=== PATIENT | female | born 1940 | race Caucasian/White ===

== ENCOUNTER → 2016-06-08 | Outpatient (CLI) | payer BC ==
[~2016-06-08] MED LIST: ACET-1222 PO; AMLO5TAB4 PO; ASPI-589 PO; ATOR10TA82 PO; CALC500C70 PO; COEN100C15 PO; CYAN100020 PO; CYCL10TA6 PO; DEXT5LIQ23 PO; DIPH-437 PO; FLUO20CA35 PO; FLUT1AER5 INH; FRRS300 PO; GABA-113 PO; INSDGIPEN SC; INSU1INJ7 SC; ISOS30TA35 PO; ISOS60TA25 PO; LEVO112T4 PO; MCRHC/8025 PO; METO25TA56 PO; MGNO400 PO; NITR0.4S UT; NRN/100 PO; NVLGI/PEN SC; OMEG10007 PO; Proair HFA INH; RXC5 PO; SYMIN/8045 INH; TMF75 PO
[2016-06-08 12:40] LABS: HEMATOCRIT 38.9 % (37-47); MEAN CORPUSCULAR HEMOGLOBIN 30.4 pg (25-34); MEAN CORPUSCULAR HGB CONC 34.2 g/dl (32-36); PLATELET COUNT 317 K/uL (130-400); RED BLOOD COUNT 4.37 M/uL (4.2-5.4)
[2016-06-08 13:09] LABS: URINE APPEARANCE CLEAR (CLEAR); URINE BILIRUBIN NEG (NEG); URINE COLOR YELLOW; URINE EPITHELIAL CELL AUTO 0-5 /lpf (0-5); URINE NITRITE NEG (NEG); URINE PH 7.5 (4.5-7.5); URINE SPECIFIC GRAVITY 1.014 (1.000-1.030); UROBILINOGEN NEG (NEG)
[2016-06-08 13:16] LABS: MANUAL MICROSCOPIC REQUIRED? NO; REVIEW REQ? NO
[2016-06-08 13:53] LABS: BLOOD UREA NITROGEN 38 mg/dl (7-18); BUN/CREATININE RATIO 25.5 (10-20); CALCIUM 9.3 mg/dl (8.5-10.1); CARBON DIOXIDE 30 mmol/L (21-32); CHLORIDE 106 mmol/L (98-107); GLUCOSE 133 mg/dl (70-99); PHOSPHORUS 3.1 mg/dl (2.5-4.9); POTASSIUM 4.4 mmol/L (3.5-5.1); SODIUM 143 mmol/L (136-145)
[2016-06-08 14:02] LABS: URINE PROTIEN/CREAT RATIO 0.3 (0-0.2); URINE TOTAL PROTEIN 11.7 mg/dl (0-11.9)
== END | disposition home or self-care (01) ==
LOC: C.LAB1850 09:33
PROVIDERS: ATTEND Internal Medicine Nephrology
DX: I12.9 Hypertensive chronic kidney disease with stage 1 through stage 4 chronic kidney disease, or unspecified chronic kidney disease (principal); N18.3 Chronic kidney disease, stage 3 (moderate); R80.9 Proteinuria, unspecified; E11.22 Type 2 diabetes mellitus with diabetic chronic kidney disease; E11.65 Type 2 diabetes mellitus with hyperglycemia; E55.9 Vitamin D deficiency, unspecified

== ENCOUNTER 2016-09-16 07:49 | Inpatient (IN) | payer OTHER, BC ==
[2016-08-25 08:19] VITALS: BMI 39.0
--- NOTE | 2016-08-25 09:11 | PAT Medication Instructions ---
Service Date Aug 25, 2016. Current Home Medication List Acetaminophen (Acetaminophen Extra Stren), 2 TAB PO QID Acetaminophen/Diphenhydramine (Tylenol Pm), 1 TAB PO HS Amlodipine Besylate (Norvasc), 5 MG PO DAILY Aspirin (Aspirin Adult Low Dose), 81 MG PO QPM Atorvastatin (Lipitor), 20 MG PO DAILY Budesonide/Formoterol Fumarate (Symbicort 80/4.5 Inhaler), 2 PUFFS INH BID PRN for Shortness of Breath Calcium/Vitamin D (Os-Victor Manuel 500 Plus D), 1 TAB PO DAILY Coenzyme Q10 (Ubidecarenone) (Co Q10), 200 MG PO DAILY Cyanocobalamin (Vitamin B12), 1,000 MCG PO DAILY Dextromethorphan Polistirex (Delsym), 5 ML PO UD PRN for Cough Fish Oil ([place]-3), 1 CAP PO BID Fluoxetine (Prozac), 20 MG PO DAILY Fluticasone Propionate (Inhala (Flovent Diskus), 1 PUFFS INH BID PRN for Shortness of Breath Gabapentin (Neurontin), 600 MG PO QID Insulin Aspart (Novolog Flexpen), 20 UNITS SC BREAKFAST Insulin Aspart (Novolog Flexpen), 20 UNITS SC LUNCH Insulin Aspart (Novolog Flexpen), 35 UNITS SC DINNER Insulin Glargine (Lantus), 40 UNITS SC HS Isosorbide Mononitrate Ext Rel (Imdur Ext Rel), 30 MG PO QAM Isosorbide Mononitrate Ext Rel (Imdur Ext Rel), 60 MG PO QAM Levothyroxine Sodium (Levothyroxine Sodium), 112 MCG PO QPM Metoprolol Tartrate (Lopressor) (Lopressor), 25 MG PO BID Nitroglycerin (Nitrostat), 0.4 MG UT UD PRN for Chest Pain [Proair HFA], 1-2 PUFFS INH Q4-6HRS PRN for SOB/Wheezing Medication Instructions For Your Scheduled Surgery - Continue as directed: Nitroglycerin (Nitrostat), 0.4 MG UT UD PRN for Chest Pain - Hold the following medications 7-10 days prior to surgery: Coenzyme Q10 (Ubidecarenone) (Co Q10), 200 MG PO DAILY Fish Oil ([place]-3), 1 CAP PO BID - Hold the following medications the morning of surgery: Insulin Aspart (Novolog Flexpen), 20 UNITS SC BREAKFAST Insulin Aspart (Novolog Flexpen), 20 UNITS SC LUNCH Calcium/Vitamin D (Os-Victor Manuel 500 Plus D), 1 TAB PO DAILY Cyanocobalamin (Vitamin B12), 1,000 MCG PO DAILY Dextromethorphan Polistirex (Delsym), 5 ML PO UD PRN for Cough - Take the following medications the morning of surgery with a sip of water OTHERWISE NOTHING TO EAT OR DRINK AFTER MIDNIGHT: Amlodipine Besylate (Norvasc), 5 MG PO DAILY Atorvastatin (Lipitor), 20 MG PO DAILY [Proair HFA], 1-2 PUFFS INH Q4-6HRS PRN for SOB/Wheezing (use if needed; BRING TO HOSPITAL) Acetaminophen (Acetaminophen Extra Stren), 2 TAB PO QID (use if needed up to 4 hours prior to surgery) Fluticasone Propionate (Inhala (Flovent Diskus), 1 PUFFS INH BID PRN for Shortness of Breath Gabapentin (Neurontin), 600 MG PO QID Metoprolol Tartrate (Lopressor) (Lopressor), 25 MG PO BID Levothyroxine Sodium (Levothyroxine Sodium), 112 MCG PO QAM Isosorbide Mononitrate Ext Rel (Imdur Ext Rel), 30 MG PO QAM Isosorbide Mononitrate Ext Rel (Imdur Ext Rel), 60 MG PO QAM Fluoxetine (Prozac), 20 MG PO DAILY Budesonide/Formoterol Fumarate (Symbicort 80/4.5 Inhaler), 2 PUFFS INH BID PRN for Shortness of Breath - Take the following medications as scheduled the night before surgery: Insulin Aspart (Novolog Flexpen), 35 UNITS SC DINNER Insulin Glargine (Lantus), 40 UNITS SC HS Aspirin (Aspirin Adult Low Dose), 81 MG PO QPM [Proair HFA], 1-2 PUFFS INH Q4-6HRS PRN for SOB/Wheezing Acetaminophen/Diphenhydramine (Tylenol Pm), 1 TAB PO HS Acetaminophen (Acetaminophen Extra Stren), 2 TAB PO QID Fluticasone Propionate (Inhala (Flovent Diskus), 1 PUFFS INH BID PRN for Shortness of Breath Gabapentin (Neurontin), 600 MG PO QID Metoprolol Tartrate (Lopressor) (Lopressor), 25 MG PO BID Dextromethorphan Polistirex (Delsym), 5 ML PO UD PRN for Cough Budesonide/Formoterol Fumarate (Symbicort 80/4.5 Inhaler), 2 PUFFS INH BID PRN for Shortness of Breath If you have any questions please call us at [phone] or [phone] or [phone]
[2016-08-25 09:48] LABS: BASO % 0.5 %; BASO ABS # 0.04 K/uL (0-0.2); COMPLETE YES; EOS % 3.2 %; HEMATOCRIT 37.4 % (37-47); IG% 0.1 %; LYMPH % 30.3 %; LYMPH ABS # 2.36 K/uL (1.2-3.4); MEAN CELL VOLUME 90.6 fL (80-100); MEAN CORPUSCULAR HEMOGLOBIN 29.5 pg (25-34); MEAN CORPUSCULAR HGB CONC 32.6 g/dl (32-36); MEAN PLATELET VOLUME 10.7 fL (7.4-10.4); MONO % 5.3 %; NEUT % 60.6 %; PLATELET COUNT 298 K/uL (130-400); RED BLOOD COUNT 4.13 M/uL (4.2-5.4)
[2016-08-25 09:57] LABS: URINE APPEARANCE CLEAR (CLEAR); URINE BILIRUBIN NEG (NEG); URINE COLOR YELLOW; URINE NITRITE NEG (NEG); URINE SPECIFIC GRAVITY 1.023 (1.000-1.030); UROBILINOGEN NEG (NEG)
[2016-08-25 10:02] LABS: MANUAL MICROSCOPIC REQUIRED? NO; REVIEW REQ? NO
[2016-08-25 10:40] LABS: CREATININE 1.5 mg/dl (0.60-1.20); POTASSIUM 4.1 mmol/L (3.5-5.1)
[2016-08-25 12:19] LABS: CALCIUM 9.3 mg/dl (8.5-10.1)
[2016-09-16] VITALS (11 sets, daily range): BP systolic 119–174; BP diastolic 59–90; PULSE 69–95; TEMP 36.5–36.9; O2SAT 90–100; Ht 162.6 cm; Wt 103.1 kg
[~2016-09-16] VITALS: Ht 162.6 cm; Wt 103.1 kg
[~2016-09-16 07:49] MED LIST changes: -ATOR10TA82 PO; +ATOR10TA88 PO; +CEFAZOLIN 2000 MG/60 ML D5W IV SCH; -CYCL10TA6 PO; +FENTANYL CITRATE INJ 50 MCG/1 ML 2 ML VIAL ONE; -FRRS300 PO; -INSDGIPEN SC; +LACTATED RINGER'S 1000ML 1,000 ML IV SCH; +LIDOCAINE HCL 2% 2 ML VIAL (20MG/ML) ONE; -MGNO400 PO; +MIDAZOLAM HCL 1 MG/ML 2ML VIAL ONE; -NRN/100 PO; +PROPOFOL IV EMULSION 10 MG/ML 20 ML VIAL IV ONE; -RXC5 PO; -TMF75 PO
[2016-09-16] MEDS ORDERED: FENTANYL CITRATE INJ 50 MCG/1 ML 2 ML VIAL ONE ×2 (08:10→11:07)
[2016-09-16] MEDS ORDERED: PROPOFOL IV EMULSION 10 MG/ML 20 ML VIAL IV ONE (08:10)
[2016-09-16] MEDS ORDERED: ROCURONIUM BROMIDE 10 MG/ML 5 ML VIAL ONE (08:10)
[2016-09-16] MEDS ORDERED: DEXAMETHASONE SOD INJ 4 MG/ML VIAL ONE ×2 (08:10→09:53)
[2016-09-16] MEDS ORDERED: MIDAZOLAM HCL 1 MG/ML 2ML VIAL ONE ×2 (08:10→09:54)
[2016-09-16] MEDS ORDERED: ONDANSETRON INJ 2 MG/ML 2 ML VIAL ONE (08:10)
[2016-09-16] MEDS ORDERED: NEOSTIGMINE METHYLSULFATE 1 MG/ML 10ML VIAL ONE (08:10)
[2016-09-16] MEDS ORDERED: LIDOCAINE HCL 2% 2 ML VIAL (20MG/ML) ONE (08:10)
[2016-09-16] MEDS ORDERED: GLYCOPYRROLATE INJ 0.2 MG/ML VIAL ONE (08:10)
--- NOTE | 2016-09-16 08:18 | History & Physical Bridge Note ---
H&P Re-Evaluation Bridge Note: I have examined the patient, reviewed the History & Physical and in the interval since the performance of the History & Physical I have noted the following changes of clinical significance: No changes noted
--- NOTE | 2016-09-16 08:20 | History and Physical ---
History & Physical Date Sep 16, 2016. Chief Complaint back and leg pain History of Present Illness The patient is a 75 year old female with complaints of Past Medical/Surgical History Medical Problems: (1) Acute kidney injury (2) Confusion (3) Coronary artery disease (4) Influenza A (5) Spinal stenosis, other region Additional History Hepatic Disease: No Endocrine Disorder: Yes Kidney Disease: No Hypertension: Yes Heart Disease: No Bleeding Tendencies: No Infectious Diseases: No Allergies Coded Allergies: Clopidogrel (Verified Allergy, Unknown, Unknown, 08/25/16) Lisinopril (Verified Allergy, Unknown, Unknown, 08/25/16) Home Medications Scheduled Acetaminophen (Acetaminophen Extra Stren), 2 TAB PO QID Acetaminophen/Diphenhydramine (Tylenol Pm), 1 TAB PO HS Amlodipine Besylate (Norvasc), 5 MG PO QAM Aspirin (Aspirin Adult Low Dose), 81 MG PO QPM Atorvastatin (Lipitor), 20 MG PO QPM Calcium/Vitamin D (Os-Victor Manuel 500 Plus D), 1 TAB PO BID Coenzyme Q10 (Ubidecarenone) (Co Q10), 200 MG PO QPM Cyanocobalamin (Vitamin B12), 1,000 MCG PO QAM Fish Oil ([place]-3), 1 CAP PO BID Fluoxetine (Prozac), 20 MG PO QAM Gabapentin (Neurontin), 600 MG PO QID Insulin Aspart (Novolog Flexpen), 20 UNITS SC BREAKFAST Insulin Aspart (Novolog Flexpen), 20 UNITS SC LUNCH Insulin Aspart (Novolog Flexpen), 35 UNITS SC DINNER Insulin Glargine (Lantus), 40 UNITS SC HS Isosorbide Mononitrate Ext Rel (Imdur Ext Rel), 30 MG PO QAM Isosorbide Mononitrate Ext Rel (Imdur Ext Rel), 60 MG PO QAM Levothyroxine Sodium (Levothyroxine Sodium), 112 MCG PO QAM Metoprolol Tartrate (Lopressor) (Lopressor), 25 MG PO BID Telmisartan/Hctz (Micardis Hct), 1 TAB PO QAM Scheduled PRN Budesonide/Formoterol Fumarate (Symbicort 80/4.5 Inhaler), 2 PUFFS INH BID PRN for Shortness of Breath Dextromethorphan Polistirex (Delsym), 5 ML PO UD PRN for Cough Fluticasone Propionate (Inhala (Flovent Diskus), 1 PUFFS INH BID PRN for Shortness of Breath Nitroglycerin (Nitrostat), 0.4 MG UT UD PRN for Chest Pain [Proair HFA], 1-2 PUFFS INH Q4-6HRS PRN for SOB/Wheezing Physical Examination Skin: warm/dry, no rash Eyes: normal inspection, EOMI, sclerae normal ENT: normal ENT inspection, pharynx normal Head: normocephalic, atraumatic Neck: supple, no adenopathy, trachea midline Respiratory/Chest: lungs clear, normal breath sounds, no respiratory distress Cardiovascular: regular rate, rhythm, no edema, no murmur Abdomen / GI: normal bowel sounds, non tender Back: normal inspection Extremities: normal inspection, normal range of motion Neurologic/Psych: no motor/sensory deficits, alert, normal reflexes, oriented x 3 Diagnosis lumbar stenosis Plan of Treatment lumbar decompression and fusion L4-5 L5-S1
[2016-09-16] MEDS ORDERED: MoRPHine SULFATE 10 MG/ML CARP/VIAL IV PRN (08:30)
[2016-09-16] MEDS ORDERED: ATROPINE SULFATE 0.1 MG/ML 5ML SYR IV PRN (08:30)
[2016-09-16] MEDS ORDERED: EpHEDrine SULFATE INJ 50 MG/ML AMP IV PRN (08:30)
[2016-09-16] MEDS ORDERED: ONDANSETRON INJ 2 MG/ML 2 ML VIAL IV PRN ×2 (08:30→11:15)
[2016-09-16] MEDS ORDERED: BUPIVACAINE/EPINEPHRINE 0.5% MPF 1:200,000 10 ML VIAL ONE ×2 (08:45→08:46)
[2016-09-16] MEDS ORDERED: BACITRACIN 50000 UNIT VIAL ONE (08:45)
[2016-09-16] MEDS ORDERED: SODIUM CHLORIDE 0.9% PF 50 ML VIAL ONE (08:45)
[2016-09-16] MEDS ORDERED: BUPIVACAINE/EPINEPHRINE 0.5% MPF 1:200,000 10 ML VIAL INJ ONE (11:01)
[2016-09-16] MEDS ORDERED: FLOSEAL HEMOSTATIC MATRIX 10ML TOP ONE (11:02)
[2016-09-16] MEDS ORDERED: SODIUM CHLORIDE 0.9% 1000ML 1,000 ML IV SCH (11:11)
[2016-09-16] MEDS ORDERED: BISACODYL 10 MG SUPP PR PRN (11:15)
[2016-09-16] MEDS ORDERED: ALUMINUM/MAGNESIUM SUSP 30 ML UDC PO PRN (11:15)
[2016-09-16] MEDS ORDERED: MAGNESIUM HYDROXIDE SUSP 30 ML UDC PO PRN (11:15)
[2016-09-16] MEDS ORDERED: hydrOXYzine HCL 25 MG TAB PO PRN (11:15)
[2016-09-16] MEDS ORDERED: DO NOT ADMINISTER PNEUMOCOCCAL VACCINE PRN ×2 (11:15)
[2016-09-16] MEDS ORDERED: DO NOT ADMINISTER FLU VACCINE PRN ×3 (11:15)
[2016-09-16] MEDS ORDERED: LORAZEPAM INJ 0.5 MG in SYRINGE 0 ML IV PRN (11:15)
[2016-09-16] MEDS ORDERED: NITROGLYCERIN 0.4 MG SL PER TAB CHARGE UT PRN (11:15)
[2016-09-16] MEDS ORDERED: NALOXONE HCL 0.4 MG/1 ML VIAL/CARP IV PRN ×2 (11:15)
[2016-09-16] MEDS ORDERED: LORAZEPAM 0.5 MG TAB PO PRN (11:15)
[2016-09-16] MEDS ORDERED: ACETAMINOPHEN IV 100 ML IV PRN (11:15)
[2016-09-16] MEDS ORDERED: BUDESONIDE/FORMOTEROL FUMARATE 80/4.5 60 PUFFS/INHALER INH PRN (11:15)
[2016-09-16] MEDS ORDERED: FAMOTIDINE 20 MG TAB PO PRN (11:15)
[2016-09-16] MEDS ORDERED: METOCLOPRAMIDE HCL INJ 5 MG/ML 2 ML VIAL IV PRN (11:15)
[2016-09-16] MEDS ORDERED: PROMETHAZINE HCL INJ 12.5 MG in SODIUM CHLORIDE 0.9% 50ML 50 ML IV PRN (11:15)
[2016-09-16] MEDS ORDERED: SOD PHOSPHATE/SOD BIPHOSPHATE ENEMA 132 ML BTL PR PRN (11:15)
--- NOTE | 2016-09-16 11:32 | DIAGNOSTIC IMAGING REPORT ---
LUMBAR SPINE 2 OR 3 VIEW CLINICAL HISTORY: 75 years-old Female presenting with L4-S1 DECOMPRESSION. TECHNIQUE: 2 fluoroscopic spot images were obtained including frontal and lateral views of the lumbar spine as part of an intraoperative procedure. COMPARISON: Plain radiographs of the lumbar spine from 2015. FINDINGS/IMPRESSION: Bilateral transpedicular screw and tommy fixation of L4-S1 with interbody spacer at L4-5. Grossly normal anatomic alignment. Loss of intervertebral disc height at L5-S1. Please see separately dictated surgical report for further details. Fluoroscopy dosage (mGys): Not available. Fluoroscopy time: 24 seconds. Number of fluoroscopic spot images: 2. Electronically signed by: nIder Celestin M.D. 09/16/2016 11:31 AM Dictated Date/Time: 09/16/2016 11:29 AM
[2016-09-16] MEDS: FENTANYL CITRATE INJ 50 MCG/1 ML 2 ML VIAL IV PRN ×4 (11:50→12:05)
--- NOTE | 2016-09-16 12:28 | Anesthesiology Progress Note ---
Anesthesia Post Op Note Date & Time Sep 16, 2016 at 12:28 Vital Signs Pain Intensity: 4 Vital Signs Past 12 Hours Date Time Temp Pulse Resp B/P (MAP) Pulse Ox O2 Delivery O2 Flow Rate FiO2 09/16/16 12:15 36.7 73 16 151/54 97 Nasal Cannula 4 09/16/16 12:05 74 16 135/47 96 Nasal Cannula 4 09/16/16 11:55 67 16 124/63 97 Nasal Cannula 4 09/16/16 11:45 66 16 105/46 97 Mask 10 09/16/16 11:35 69 16 103/47 94 Mask 10 09/16/16 11:27 37.2 70 16 136/54 92 Mask 10 09/16/16 08:12 36.9 69 20 174/59 95 Notes Mental Status: alert / awake / arousable, participated in evaluation Pt Amnestic to Procedure: Yes Nausea / Vomiting: adequately controlled Pain: adequately controlled Airway Patency, RR, SpO2: stable & adequate BP & HR: stable & adequate Hydration State: stable & adequate Anesthetic Complications: no major complications apparent
[2016-09-16] MEDS ORDERED: LORAZEPAM 2 MG/ML 1 ML VIAL ONE (12:45)
[2016-09-16] MEDS ORDERED: NURSING VERBAL MED ORDER ONE (12:48)
[2016-09-16] MEDS ORDERED: HYDROmorphone HCL 0.5MG/ML 50 ML CASSETTE ONE (13:03)
[2016-09-16] MEDS: HYDROmorphone HCL 0.5MG/ML 50 ML CASSETTE IV PRN ×2 (13:17→14:57)
--- NOTE | 2016-09-16 13:29 | [facility] Operative Report ---
Operative Report Operative Date Sep 16, 2016. Pre-Operative Diagnosis Lumbar Stenosis Post-Operative Diagnosis Lumbar Stenosis Procedure(s) Performed #1 lumbar decompression medial facetectomy foraminotomies L3 4 L4 5 L5-S1. #2 posterior spinal fusion L4 5 L5-S1. #3 placement of posterior segmental instrumentation L4 5 L5-S1. #4 interbody fusion L4 5. #5 placement of peek cage 13 x 22 mm at L4 5. #Placement of locally harvested morcellized autograft in the posterior lateral gutters and #7 placement InFUSE sponge about mask graft in the posterior gutters Coleen bone graft in the interbody space. Surgeon Dr. Josef Freire Shorer Surgeon(s) Farideh Daily PA-C Estimated Blood Loss 200ml Findings Severe stenosis Specimens None Per Surgeon Description of Procedure Patient was met with preoperative case discussed all questions are dressed with the patient was taken back to the operative suite and after undergoing intubation placed in a prone position on the Tomy table on top of the Samir frame. All bony promises well-padded eyes inspected to ensure no external pressure placed upon them. This time the lumbar spine was prepped and draped in the normal sterile fashion sharp dissection with assistance of fluoroscopy caudal to cephalad fashion a complete laminectomy of L5 L4 and partial laminectomy of L3 performed to address severe lateral recessed foraminal stenosis. After this complete pedicle screws were placed in L4-L5 and S1 levels bilaterally assistance of fluoroscopy and appropriate size tommy placed. Through a transforaminal approach on the left discectomy of L4 5 was performed and endplates curetted to a a subcortical bleeding bone and a 13 x 26 mm peek cage filled with Coleen bone graft tapped into position. Brought in and compressed locked and final position bilaterally. A 15 round ZAHEER drain inserted. Incision closed with 1 Vicryl in the fascia 2-0 Vicryl subcutaneously for Monocryl for final skin closure Steri-Strips sterile dressings placed patient awakened taken to PACU stable condition. Please note Farideh Dior present throughout the entire procedure involved in patient positioning complex portions of the procedure and final skin closure. I attest to the content of the Intraoperative Record and any orders documented therein. Any exceptions are noted below.
[2016-09-16] MEDS ORDERED: HYDROmorphone INJ 1 MG/ML SYR IV PRN (13:30)
[2016-09-16] MEDS ORDERED: PHARMACY GLYCEMIC MGMT CONSULT PRN (13:34)
[2016-09-16] MEDS: SODIUM CHLORIDE 0.9% 1000ML 1,000 ML IV SCH ×2 (14:04→21:00)
[2016-09-16] MEDS ORDERED: FLUTICASONE HFA 110MCG INHALER INH PRN (14:15)
[2016-09-16] MEDS ORDERED: GLUCOSE 40% GEL 15 GM TUBE PO PRN (14:45)
[2016-09-16] MEDS ORDERED: GLUCOSE 10 TABS/TUBE PO PRN (14:45)
[2016-09-16] MEDS ORDERED: DEXTROSE 50% 50 ML SYR IV PRN (14:45)
[2016-09-16] MEDS ORDERED: GLUCAGON FOR INJ 1 MG VIAL SQ PRN (14:45)
--- NOTE | 2016-09-16 15:20 | Pharmacy Progress Note ---
Glycemic Control Intl Consult Date of Service Sep 16, 2016. Scope Glycemic Pharmacist consulted by Dr Freire on 09/16/16 for glycemic control and to write orders per [facility] inpatient glycemic control protocol Objective Weight (Kilograms): 103.100 Accuchecks BSG (last 24hrs): Test 09/16/16 08:17 09/16/16 11:33 Bedside Glucose 124 mg/dl (70-90) 183 mg/dl (70-90) Recent Pertinent Medications Outpatient Anti-diabetic Regimen: * Lantus 40 units SC HS + Novolog with meals 20 units/20 units/35 units * A1c = 8.1 % 09/11/15 - ordered for 09/17 am Risk Factors for Insulin Resistance: * Steroids: Dexamethasone 8 mg in OR, then 6 mg IV every 8 hours x 3 doses * Infection: Ancef fariba-op * Recent Surgery: POD #0 lumbar decompression and fusion * Diet: T2MD Assessment & Plan ASSESSMENT: * 75 yr old T2DM female s/p lumbar decompression and fusion. * Patient with hyperglycemia due to baseline DM, stress from surgery, and high dose IV steroids * Patient takes 115 units of insulin per day as outpatient. * Will initiate basal and bolus insulin using her total home dose of 115 units with stress of 3. * Will decrease insulin doses once steroids are discontinued * ADA & AACE recommend a goal blood sugar range 140-180 mg/dl for the majority of critically ill & non-critically ill patients. However, more stringent targets may be selected in individual cases. Will utilize more stringent goal of 110-140mg/dl based on patient age & comorbidities. Additionally, tighter glycemic control is warranted to facilitate wound/infection healing. PLAN FOR INPATIENT GLYCEMIC CONTROL: * Basal insulin * Lantus 55 units SQ today with dinner * Lantus 30-40 units SQ 09/17 am - 30 units for BSG less than 140 mg/dL - 35 units for BSG 140 - 180 mg/dL - 40 units for BSG greater than 180 mg/dL * Further doses to be determined * Bolus insulin * NOVOLOG per scale ACHS * Goal Range: Low 110 mg/dL - High 140 mg/dL * Correction Factor: 5 mg/dL/unit * Nutritional / Prandial insulin per carb ratio of 1 unit per 2 grams CHO consumed * Add overnight checks with coverage at 00 and 04 * A1c ordered * Please note that the plan above was derived based on current level of insulin resistance and hospital stress. These recommendations are appropriate for inpatient admission only. Plan of care upon discharge will need to be reassessed to avoid potential outpatient hypo/hyperglycemia. Thank you.
--- NOTE | 2016-09-16 15:43 | Medical Consult ---
Consultation Date of Consultation: Sep 16, 2016. Attending Physician: Josef Freire D.O. History of Present Illness This is a 75 yo F with PMHx of diabetes type II, hypertension, allergies, osteopenia, hypothyroidism, coronary artery disease, chronic kidney disease stage 3, spinal stenosis, now s/p elective L4-S1 spinal decompression and fusion by Dr. Freire on 09/16/16. Pt is extremely somnolent due to dilaudid AGRICULTURAL AIRCRAFT PILOT which she has pushed a total of 5 times with 0.25 mg, to total 1.25 mg between 2 - 4 pm, Ativan 2 mg IV at 12: 30 pm, and Fentanyl 200 mcg intraoperatively. , Favian, is present at bedside, and he reports she does not take more than tylenol at home. The patient wakes up and is oriented to place and self. She is unable to stay awake long enough to follow basic commands such as taking deep breaths. She denies any pain and apologizes each time I need to wake her up for sleeping. . Past Medical/Surgical History Medical Problems: (1) Altered mental status Status: Acute (2) Hypoxia Status: Acute (3) Orthostasis Status: Acute diabetes type II hypertension osteopenia atrial fibrillation hypothyroidism chronic kidney disease spinal stenosis. PAST SURGICAL HISTORY: Knee replacement Tonsillectomy cardiac catheterization, which appears to have been done in 2008 with the LAD showing a 30% proximal, 60% occlusion after the first diagonal and 70% distal occlusion, circumflex with a 30% stenosis at the origin 60% occlusion of an obtuse marginal and she had a non-dominant right coronary with 100% mid occlusion. Family History No pertinent family history Social History Smoking Status: Never Smoker Smokeless Tobacco Use: No Alcohol Use: none Drug Use: none Marital Status: Housing Status: lives with family, lives with significant other Occupation Status: retired Allergies Coded Allergies: Clopidogrel (Verified Allergy, Unknown, Unknown, 09/16/16) Lisinopril (Verified Allergy, Unknown, Unknown, 09/16/16) Current Inpatient Medications Current Inpatient Medications Medications (Trade) Dose Ordered Sig/Louis Route Start Time Stop Time Status Last Admin Dose Admin Lactated Ringer's 1,000 ml @ 15 mls/hr Q24H IV 09/16/16 06:00 09/17/16 05:59 09/16/16 08:10 15 MLS/HR Cefazolin Sodium 60 ml @ 100 mls/hr PREOP IV 09/16/16 06:00 09/16/16 18:00 09/16/16 08:52 100 MLS/HR Dexamethasone Sodium Phosphate 6 mg/Syringe 1.5 ml @ 1 mls/min Q8H IV 09/16/16 18:00 09/17/16 10:02 Promethazine HCl 12.5 mg/Sodium Chloride 50.5 ml @ 202 mls/hr Q6H PRN IV 09/16/16 11:15 10/16/16 11:14 Ondansetron HCl (Zofran Inj) 4 mg Q6H PRN IV 09/16/16 11:15 10/16/16 11:14 Metoclopramide HCl (Reglan Inj) 10 mg Q6H PRN IV 09/16/16 11:15 10/16/16 11:14 Lorazepam (Ativan Tab) 0.5 mg Q8H PRN PO 09/16/16 11:15 10/16/16 11:14 Lorazepam 0.5 mg/ Syringe 0.25 ml @ 1 mls/min Q8H PRN IV 09/16/16 11:15 10/16/16 11:14 Pneumococcal Polysaccharide Vaccine 1 ea PRN PRN N/A 09/16/16 11:15 10/16/16 11:14 Influenza Virus Vacc Triv Types A&B 1 ea PRN PRN N/A 09/16/16 11:15 10/16/16 11:14 Polyethylene (Miralax Powder Packet) 17 gm Q6 PO 09/18/16 06:00 10/18/16 05:59 Bisacodyl (Dulcolax Supp) 10 mg DAILY PRN OR 09/16/16 11:15 10/16/16 11:14 Magnesium Hydroxide (Milk Of Magnesia Susp) 30 ml DAILY PRN PO 09/16/16 11:15 10/16/16 11:14 Hydromorphone HCl (Dilaudid Inj) 0.5 mg Q3H PRN IV 09/17/16 06:01 10/01/16 06:00 Oxycodone HCl (Roxicodone Immediate Rel Tab) 5-10mg prn moderate to sev... Q4H PRN PO 09/17/16 06:00 10/01/16 05:59 Cefazolin Sodium 2000 mg/Dextrose 60 ml @ 100 mls/hr Q8H IV 09/16/16 18:00 09/17/16 02:35 Sodium Chloride 1,000 ml @ 150 mls/hr Q6H40M IV 09/16/16 14:00 10/16/16 11:10 09/16/16 14:04 150 MLS/HR Acetaminophen 100 ml @ 400 mls/hr Q8H PRN IV 09/16/16 11:15 10/16/16 11:14 Naloxone HCl (Narcan Inj) 0.1 mg Q5M PRN IV 09/16/16 11:15 10/16/16 11:14 Senna/Docusate Sodium (Senokot S Tab) 2 tab HS PO 09/16/16 21:00 10/16/16 20:59 Sodium Biphosphate/ Sodium Phosphate (Fleet Enema) 132 ml ONE PRN OR 09/16/16 11:15 10/16/16 11:14 Hydroxyzine HCl (Vistaril Tab) 25 mg Q8H PRN PO 09/16/16 11:15 10/16/16 11:14 Al Hydroxide/Mg Hydroxide (Maalox Susp) 30 ml Q6H PRN PO 09/16/16 11:15 10/16/16 11:14 Famotidine (Pepcid Tab) 20 mg Q12 PRN PO 09/16/16 11:15 10/16/16 11:14 Diphenhydramine HCl (Benadryl Cap) 25 mg Q6H PRN PO 09/16/16 11:15 10/16/16 11:14 Miscellaneous Information (Discontinue AGRICULTURAL AIRCRAFT PILOT) 1 ea TODAY@0600 N/A 09/17/16 06:00 09/17/16 06:01 Naloxone HCl (Narcan Inj) 0.1 mg Q5M PRN IV 09/16/16 11:15 09/17/16 06:00 Hydromorphone HCl (Dilaudid Digital Forensics Examiner) 25 mg PRN PRN IV 09/16/16 11:15 09/17/16 06:00 09/16/16 14:57 25 MG Sodium Chloride 1,000 ml @ 15 mls/hr Q24H IV 09/16/16 11:11 09/17/16 06:00 Amlodipine Besylate (Norvasc Tab) 5 mg QAM PO 09/17/16 09:00 10/17/16 08:59 Aspirin (Ecotrin Tab) 81 mg QPM PO 09/16/16 21:00 10/16/16 20:59 Atorvastatin Calcium (Lipitor Tab) 20 mg QPM PO 09/16/16 21:00 10/16/16 20:59 Budesonide/ Formoterol Fumarate (Symbicort 80/ 4.5 Inh) 2 puffs BID PRN INH 09/16/16 11:15 10/16/16 11:14 Fluoxetine HCl (Prozac Cap) 20 mg QAM PO 09/17/16 09:00 10/17/16 08:59 Gabapentin (Neurontin Tab) 600 mg QID PO 09/16/16 17:00 10/16/16 16:59 Isosorbide Mononitrate (Imdur Ext Rel Tab) 30 mg QAM PO 09/17/16 09:00 10/17/16 08:59 Isosorbide Mononitrate (Imdur Ext Rel Tab) 60 mg QAM PO 09/17/16 09:00 10/17/16 08:59 Levothyroxine Sodium (Synthroid Tab) 112 mcg DAILYBB PO 09/17/16 06:00 10/17/16 05:59 Metoprolol Tartrate (Lopressor Tab) 25 mg BID PO 09/16/16 21:00 10/16/16 20:59 Nitroglycerin (Nitrostat Tab) 0.4 mg UD PRN UT 09/16/16 11:15 10/16/16 11:14 Fluticasone Propionate (Flovent Hfa 110MCG Inhaler) 1 puffs BID PRN INH 09/16/16 14:15 10/16/16 14:14 Telmisartan (Micardis Tab) 80 mg QAM PO 09/17/16 09:00 10/17/16 08:59 Miscellaneous Information (Consult Glycemic Management Pharmacy) 1 ea UD PRN N/A 09/16/16 13:34 10/16/16 13:33 Hydromorphone HCl (Dilaudid Inj) 1 mg Q3H PRN IV 09/16/16 13:30 09/30/16 13:29 Future hold Hydrochlorothiazide (Hydrochlorothiazide Tab) 25 mg QAM PO 09/17/16 09:00 10/17/16 08:59 Insulin Aspart (novoLOG ASPART) SLIDING SCALE ACHS SC 09/16/16 17:15 10/16/16 17:14 Glucose (Glucose 40% Gel) 15-30 GRAMS 15 GRAMS... UD PRN PO 09/16/16 14:45 10/16/16 14:44 Glucose (Glucose Chew Tab) 4-8 Tablets 4 Tabl... UD PRN PO 09/16/16 14:45 10/16/16 14:44 Dextrose (Dextrose 50% 50ML Syringe) 25-50ML OF 50% DW IV FOR... UD PRN IV 09/16/16 14:45 10/16/16 14:44 Glucagon (Glucagon Inj) 1 mg UD PRN SQ 09/16/16 14:45 10/16/16 14:44 Insulin Aspart (novoLOG ASPART) SLIDING SCALE 0000,0400 OR 09/17/16 00:00 09/17/16 04:01 Insulin Glargine (Lantus Solostar Pen) 55 units 1615 OR 09/16/16 16:15 09/16/16 17:15 Insulin Glargine (Lantus Solostar Pen) SEE PROTOCOL TEXT ... BID SC 09/17/16 09:00 09/17/16 11:00 Review of Systems Constitutional: + fatigue, No fever, No chills, No sweats Respiratory: No shortness of breath, No dyspnea on exertion Cardiovascular: No chest pain Abdomen: No pain, No nausea Musculoskeletal: No joint pain, No swelling Endocrine: + fatigue Integumentary: No rash, No itch Physical Exam Date Time Temp Pulse Resp B/P (MAP) Pulse Ox O2 Delivery O2 Flow Rate FiO2 09/16/16 15:13 36.5 79 18 130/90 (103) 97 Nasal Cannula 4.0 09/16/16 14:15 70 18 129/72 (91) 96 Nasal Cannula 4.0 09/16/16 13:45 72 16 129/69 (89) 96 Nasal Cannula 4.0 09/16/16 13:15 36.8 75 18 122/64 (83) 90 Nasal Cannula 4.0 09/16/16 13:15 90 Nasal Cannula 4.0 09/16/16 12:56 36.6 09/16/16 12:55 75 16 157/58 100 Nasal Cannula 4 09/16/16 12:45 75 16 172/58 100 Nasal Cannula 4 09/16/16 12:35 78 16 160/92 100 Nasal Cannula 4 09/16/16 12:25 36.7 77 16 162/59 100 Nasal Cannula 4 09/16/16 12:15 36.7 73 16 151/54 97 Nasal Cannula 4 09/16/16 12:05 74 16 135/47 96 Nasal Cannula 4 09/16/16 11:55 67 16 124/63 97 Nasal Cannula 4 09/16/16 11:45 66 16 105/46 97 Mask 10 09/16/16 11:35 69 16 103/47 94 Mask 10 09/16/16 11:27 37.2 70 16 136/54 92 Mask 10 09/16/16 08:12 36.9 69 20 174/59 95 General Appearance: WD/WN, + obese, + pertinent finding (obese, extremly somnolent) Head: normocephalic, atraumatic Eyes: PERRL, EOMI ENT: hearing grossly normal, pharynx normal Neck: supple, no JVD Respiratory/Chest: lungs clear, no respiratory distress, no accessory muscle use, + pertinent finding (+snoring) Cardiovascular: regular rate, rhythm, + systolic murmur (grade II/) Abdomen/GI: non tender, soft, no organomegaly, + pertinent finding (Hypoactive bowel sounds) Extremities/Musculoskelatal: normal inspection, no calf tenderness, no pedal edema, + pertinent finding (moves feet and toes bilaterally on command) Neurologic/Psych: alert Skin: normal color, warm/dry Laboratory Results Last 24 Hours Test 09/16/16 08:17 09/16/16 11:33 Bedside Glucose 124 mg/dl 183 mg/dl Assessment & Plan This is a 75 yo F with PMHx of diabetes type II, hypertension, allergies, osteopenia, atrial fibrillation, hypothyroidism, coronary artery disease, chronic kidney disease stage 3, spinal stenosis, now s/p elective L4-S1 spinal decompression and fusion by Dr. Freire on 09/16/16. S/p L4-S1 spinal decompression and fusion on 09/16/16 - Analgesia and bowel regimen per primary team - Will d/c AGRICULTURAL AIRCRAFT PILOT pump due to sedation, will order Dilaudid 0.5 or 1.0 mg Q3H prn - PT/OT - Wound checks and bandage per primary team - No anticoagulation with spinal surgery - Follow CBC with am labs - Cont gabapentin 600 mg QID for pain DM II - Lantus 55 U QPM ordered for tonight - reports she takes Lantus 40 U QPM, Aspart 20 U with breakfast and lunch, and 35 U with dinner at home. - Pharmacy on board for diabetic consult - ISS with Accuchecks ACHS - Last Hgb A1c = 8.1 in August 2015, will recheck with am labs Asthma - Will order symbicort 2 puffs scheduled although home med says PRN, will hold flovent HTN CAD s/p cardiac cath 2008 - Continue amlodipine 5 mg QAM, metoprolol tartrate 25 mg BID, telmisartan 80 mg QAM, ASA 81 mg - Hold Hydrochlorothiazide 25 mg QAM HLD - Cont atorvastatin 20 mg QAM CKD stage III - Cr baseline of 1.4-1.5, check with am PRP Osteopenia - Continue supplementation with Vit D and calcium GERD - Cont famotidine 20 mg daily DVT ppx: teds, scds, no chemical anticoagulation with spinal surgery Disposition: From home, PT/OT TYLER osborn to assist with discharge planning for rehab Reviewed: Pt Seen/Exam by Me History Physician Beef Tagger Supervision Note: I interviewed and examined the patient. Discussed with ULYSSES Solis and agree with findings and plan as documented in the note. Any exceptions or clarifications are listed here: Pt much more awake and alert, is oriented x 3 now. Still intermittent confusion but her reports she is much better than previously. She has no complaints, pain in back is controlled, no CP or SOB, no abd pain, no N/V. Vitals reviewed NAD, obese, AAOx3 but keeps raising her hands towards her face to fix her NC, then drops hands back down and says "what am I doing?" RRR +2/6 GENIA at [facility] CTAB no wcr Abd +BS Soft NT ND, obese Ext no edema, no calf tenderness Back: dressing in palce c/d/i 75 yo female with a h/o [place] A-fib, HTN, CAD, DMII, CKD stage III, here s/p lumbar fusion and laminectomy. -improved mental status, recommend avoidance of benzos in future and minimize opioids as well -Seems to have a h/o delirium in the past (previous admission for delirium related to dehydration) and likely has some underlying dementia given this history--> recommend possible Neuropsych testing as an outpatient -decrease Dilaudid dose to 0.25mg IV q1hr prn Documented By: Dianne Stahl
[2016-09-16] MEDS ORDERED: INSULIN GLARGINE SOLOSTAR 100 UNITS/ML 3 ML PEN SC SCH (16:15)
[2016-09-16] MEDS: GABAPENTIN 600 MG TAB PO SCH ×2 (17:00→21:03)
[2016-09-16] MEDS: INSULIN ASPART 100 UNITS/ML 3 ML PEN SC SCH ×2 (18:06→22:01)
[2016-09-16] MEDS: DEXAMETHASONE INJ 6 MG in SYRINGE 0 ML IV SCH (18:18)
[2016-09-16] MEDS: CEFAZOLIN IV 2,000 MG in DEXTROSE 5% 50ML 50 ML IV SCH (18:18)
[2016-09-16] MEDS: DOCUSATE SODIUM/SENNA 50/8.6MG TAB PO SCH (21:03)
[2016-09-16] MEDS: METOPROLOL TARTRATE 25 MG TAB PO SCH (21:03)
[2016-09-16] MEDS: ASPIRIN 81 MG ECTAB PO SCH (21:03)
[2016-09-16] MEDS: ATORVASTATIN 20 MG TAB PO SCH (21:03)
[2016-09-16] MEDS ORDERED: HYDROmorphone INJ 0.5 MG/0.5 ML SYR IV PRN (22:00)
[2016-09-17] VITALS (8 sets, daily range): BP systolic 110–135; BP diastolic 62–70; PULSE 66–86; TEMP 36.8–37.3; O2SAT 89–97
[2016-09-17] MEDS: INSULIN ASPART 100 UNITS/ML 3 ML PEN SC SCH ×6 (00:08→21:30)
[2016-09-17] MEDS: DEXAMETHASONE INJ 6 MG in SYRINGE 0 ML IV SCH ×2 (01:55→10:05)
[2016-09-17] MEDS: CEFAZOLIN IV 2,000 MG in DEXTROSE 5% 50ML 50 ML IV SCH (01:55)
[2016-09-17] MEDS: OXYCODONE HCL IR 5 MG TAB (IMMEDIATE RELEASE) PO PRN (02:50)
[2016-09-17] MEDS: SODIUM CHLORIDE 0.9% 1000ML 1,000 ML IV SCH (03:49)
[2016-09-17] MEDS: LEVOTHYROXINE 112 MCG TAB PO SCH (05:14)
[2016-09-17 06:00] LABS: BASO % 0.1 %; BASO ABS # 0.01 K/uL (0-0.2); COMPLETE YES; HEMATOCRIT 33.2 % (37-47); IG% 0.3 %; LYMPH % 5.8 %; LYMPH ABS # 1.08 K/uL (1.2-3.4); MEAN CELL VOLUME 92.5 fL (80-100); MEAN CORPUSCULAR HEMOGLOBIN 31.2 pg (25-34); MEAN CORPUSCULAR HGB CONC 33.7 g/dl (32-36); MEAN PLATELET VOLUME 10.8 fL (7.4-10.4); MONO % 2.9 %; NEUT % 90.9 %; PLATELET COUNT 277 K/uL (130-400); RED BLOOD COUNT 3.59 M/uL (4.2-5.4); WHITE BLOOD COUNT 18.54 K/uL (4.8-10.8)
[2016-09-17] MEDS ORDERED: DC PCA SCH (06:00)
[2016-09-17] MEDS ORDERED: OXYCODONE HCL IR 5 MG TAB (IMMEDIATE RELEASE) PO PRN (06:00)
[2016-09-17] MEDS ORDERED: HYDROmorphone INJ 0.5 MG/0.5 ML SYR IV PRN (06:01)
[2016-09-17 06:30] LABS: CALCIUM 8.8 mg/dl (8.5-10.1); CREATININE 1.4 mg/dl (0.60-1.20); POTASSIUM 4.5 mmol/L (3.5-5.1)
[2016-09-17 07:50] LABS: ESTIMATED AVERAGE GLUCOSE 166 mg/dl; HA1C FLAG Normal (Normal)
--- NOTE | 2016-09-17 08:01 | Pharmacy Progress Note ---
Glycemic Control Progress Note Date of Service Sep 17, 2016. Scope Glycemic Pharmacist consulted for glycemic control to write orders per [facility] inpatient glycemic control protocol. Objective Accuchecks BSG (last 24hrs): Test 09/16/16 08:17 09/16/16 11:33 09/16/16 17:03 09/16/16 21:03 Bedside Glucose 124 mg/dl (70-90) 183 mg/dl (70-90) 244 mg/dl (70-90) 205 mg/dl (70-90) Test 09/17/16 00:00 09/17/16 03:45 09/17/16 05:00 Bedside Glucose 171 mg/dl (70-90) 134 mg/dl (70-90) Random Glucose 139 mg/dl (70-99) HbA1c: Test 09/17/16 05:00 Hemoglobin A1c 7.4 % (4.5-5.6) H Recent Pertinent Medications Current inpatient regimen: * Basal insulin * Lantus 55 units SQ 09/16 PM * Lantus 40 units SQ 09/17 AM * Bolus insulin * NOVOLOG per scale ACHS * Goal Range: Low 110 mg/dL - High 140 mg/dL * Correction Factor: 5 mg/dL/unit * Nutritional / Prandial insulin per carb ratio of 1 unit per 2 grams CHO consumed Risk Factors for Insulin Resistance: * Steroids: Dexamethasone 6 mg IV every 8 hours x 3 doses - last dose 09/17 @ 1000 * Recent Surgery: POD #1 lumbar decompression and fusion * Diet: T2MD Outpatient Anti-Diabetic Meds Basal Insulin * Lantus 40 units SC HS Bolus Insulin * Novolog with meals 20 units/20 units/35 units Assessment & Plan ASSESSMENT: See progress note from 09/16/16 for more background info, in short: * 75 yr old T2DM female s/p lumbar decompression and fusion * Pt receiving SQ basal bolus insulin regimen for hyperglycemia secondary to baseline DM, stress from surgery, and high dose IV steroids * Patient received 96 units of insulin yesterday (of note, insulin orders did not start until ~1600, therefore, this value is not indicative of 24 hr needs): * 55 units of basal insulin * 41 units of prandial/correctional insulin * BSGs ranging 124 - 244 mg/dl over the past 24hrs * Changes needed to insulin regimen: * AM Fasting BSG = 134 mg/dl. This is in slightly above goal range for patient based on inpatient targets and co-morbidities. Continue increased amount of basal insulin until dexamethasone effect has dissipated. Patient is currently on Lantus every 12 hours - will attempt to resume once daily dosing on 09/18 in anticipation of discharge * Post-prandial BSGs are elevated but trending downward. Continue aggressive CF /CR until dexamethasone effect has dissipated. * Adequate glycemic control at this point. Will need to re-distribute regimen 50%:50% basal:prandial to prevent hypo/hyperglycemia once steroids are discontinued. PLAN FOR INPATIENT GLYCEMIC CONTROL: * Basal insulin * Lantus 20-30 units SQ tonight (further orders to be determined on 09/18) - 20 units for BSG less than 120 mg/dL - 25 units for BSG 120 - 180 mg/dL - 30 units for BSG greater than 180 mg/dL * Bolus insulin * NOVOLOG per scale ACHS + check with coverage at 0200 * Goal Range: Low 110 mg/dL - High 140 mg/dL * Correction Factor: 5 mg/dL/unit -> change to 10 mg/dL/unit 09/17 @ 2100 * Nutritional / Prandial insulin per carb ratio of 1 unit per 1.5 grams CHO consumed -> change to 4 09/17 @ 2100 DISCHARGE RECOMMENDATIONS: * Good outpatient control evidenced by A1c of 7.4 % (09/17/16) * Continue home regimen on discharge unless patient reports hypoglycemic episodes as out patient. * Please note that the plan above was derived based on current level of insulin resistance and hospital stress. These recommendations are appropriate for inpatient admission only. Plan of care upon discharge will need to be reassessed to avoid potential outpatient hypo/hyperglycemia. Thank you.
--- NOTE | 2016-09-17 08:10 | Progress Note ---
Progress Note Date of Service Sep 17, 2016. Progress Note Patient is postop day 1 lumbar depression fusion. Back pain is well- controlled. No leg pain. Vital signs are stable. ZAHEER drain decreasing appropriately. Assessment status post lumbar depression fusion replant this time we will initiate physical therapy assess her progress of the next few days for possible discharge home versus rehabilitation.
[2016-09-17] MEDS ORDERED: RXC5 PO (08:17)
--- NOTE | 2016-09-17 08:18 | Discharge Instructions ---
Discharge Instructions Date of Service Sep 17, 2016. Admission Reason for Admission: Lumbar Spinal Stenosis Discharge Discharge Diagnosis / Problem: lumbar stenosis Discharge Goals Goal(s): Improve function Activity Recommendations Activity Limitations: per Instructions/Follow-up section . Instructions / Follow-Up Instructions / Follow-Up ACTIVITY RECOMMENDATIONS: SELF CARE INSTRUCTIONS AFTER THORACIC/LUMBAR FUSIONS 1. You may walk to your tolerance. It is good exercise for your legs and back. Expect some back and intermittent leg aches and pains. 2. You may perform "counter-top" level activities (make a sandwich, drake with a project, etc.). 3. No bending or lifting of more than 10 pounds or back twisting of any nature (roll like a log when turning in bed). 4. You may ride in a car for 20-30 minutes at a time. No driving until after your first visit with your doctor. 5. Frequent changes of position and restricting sitting to 30 minutes at a time will help limit the amount of back spasms and stiffness you may experience. 6. You may discontinue the use of ambulatory aids (cane, crutches, etc.) once your strength and confidence allow. 7. You may composing machine operator/tender the shower and let water strike your incision when you arrive home at least once daily. Do not take a tub bath, sit in a hot tub or go into a swimming pool until after your first recheck in the office. SPECIAL CARE INSTRUCTIONS: VERY IMPORTANT TO READ AND REVIEW A. Your surgical incision has been closed with a cosmetic suture under the skin that will dissolve in about 6 weeks. In 14 days, you can use a pair of clean scissors and cut the suture that is left outside of the skin at the ends of your incision. 1. The small skin tapes can be removed 7 days after surgery if they have not fallen off by that point. 2. You may keep the wound open to air as much as possible to promote healing after post-op day number 5 unless told otherwise by your doctor. 3. If you think the wound looks like it is becoming infected (redness or worsening drainage) and/or you are experiencing fever, chill or worsening back pain and muscle spasms, contact the office so that we may evaluate you as soon as possible. B. Complications are uncommon, but please contact us if you have any signs or symptoms of: 1. wound infection (fever higher than 102.5 degrees F, redness, separation of wound, drainage, or increasing pain from the incision) 2. blood clots in legs (pain, swelling, redness and warmth in legs) 3. urinary tract infection (fever higher than 102.5 degrees F, burning upon urination or increased frequency of urination) 4. nerve problems (inability to walk on your toes or heels, numbness, loss of bowel or bladder control) 5. any other symptoms that concern you C. Please call the office at if you have any concerns or questions about your operation or recovery. D. No smoking! Smoking drastically decreases the chance of a solid fusion. E. Do not take any anti-inflammatory medications (Indocin, Advil, Motrin, Aspirin, Naprosyn, etc.) as these may inhibit the chance of a solid fusion. Tylenol is okay to take for pain. MANAGING PAIN AFTER SPINAL SURGERY 1. Narcotic medication is intended for short-term use and will be provided for surgical pain. Surgical pain usually lasts for a period of 4-6 weeks. Narcotic medication includes Percocet, Vicodin, Darvocet, Tylenol #3 or Lortab. 2. Longer-term pain is more appropriately treated with non-narcotic medication such as Tylenol ES. 3. Muscle spasm is not appropriately treated with narcotics. Muscle relaxers such as Soma, Flexeril or Skelaxin can be used along with Tylenol ES. 4. Remember that we all live with some "aches and pains". This is not unusual or uncommon after an injury or as we get older. a. Back pain is expected and may include muscle spasms for 4 to 6 weeks after surgery. The pain should gradually improve. If the pain worsens for no apparent reason, please contact the office. b. Intermittent leg pain may also be experienced and should not be concerned about unless it worsens for no apparent reason. If so, please contact the office. 5. We will provide appropriate medication within the normal guidelines of their prescribed use. We will also be very cautious and aware of potential abuse and extended duration of patients' medication needs. a. Pain medications are for your comfort and to assist with sleep and rest so that the tissue can heal. They are not provided in order to return to normal activity and should not be used through the day. To do so or worsening pain at night can result from ongoing tissue damage and development of tolerance to the prescribed medicine. 6. Please allow 2-3 days to process refills. Prescriptions will not be mailed but must be picked up at the office. FOLLOW UP VISIT: Keep your scheduled follow-up appointment. Any questions, please call the office at . Current Hospital Diet Patient's current hospital diet: Diabetes Type 2 Diet Discharge Diet Recommended Diet: Regular Diet Procedures Procedures Performed: #1 lumbar decompression medial facetectomy foraminotomies L3 4 L4 5 L5-S1. #2 posterior spinal fusion L4 5 L5-S1. #3 placement of posterior segmental instrumentation L4 5 L5-S1. #4 interbody fusion L4 5. #5 placement of peek cage 13 x 22 mm at L4 5. #Placement of locally harvested morcellized autograft in the posterior lateral gutters and #7 placement InFUSE sponge about mask graft in the posterior gutters Coleen bone graft in the interbody space. Pending Studies Studies pending at discharge: no Laboratory Results Hemoglobin A1c Test 09/17/16 05:00 Range/Units Estimated Average Glucose 166 mg/dl Hemoglobin A1c 7.4 H 4.5-5.6 % Medical Emergencies . Who to Call and When: Medical Emergencies: If at any time you feel your situation is an emergency, please call 911 immediately. . Non-Emergent Contact Non-Emergency issues call your: Primary Care Provider . "Provider Documentation" section prepared by Josef Freire. . VTE Core Measure Inpt VTE Proph given/why not?: Maryjane Calvo, SCD's
[2016-09-17] MEDS: GABAPENTIN 600 MG TAB PO SCH ×4 (08:53→21:17)
[2016-09-17] MEDS: AMLODIPINE BESYLATE 5 MG TAB PO SCH (08:53)
[2016-09-17] MEDS: ISOSORBIDE MONONITRATE 30 MG TABCR PO SCH (08:53)
[2016-09-17] MEDS: ISOSORBIDE MONONITRATE 60 MG TABCR PO SCH (08:53)
[2016-09-17] MEDS: FLUOXETINE HCL 20 MG CAP PO SCH (08:53)
[2016-09-17] MEDS: METOPROLOL TARTRATE 25 MG TAB PO SCH ×2 (08:54→21:17)
[2016-09-17] MEDS: TELMISARTAN 40 MG TAB PO SCH (08:54)
[2016-09-17] MEDS ORDERED: HYDROCHLOROTHIAZIDE 25 MG TAB PO SCH (09:00)
[2016-09-17] MEDS ORDERED: INSULIN GLARGINE SOLOSTAR 100 UNITS/ML 3 ML PEN SC SCH ×2 (09:00→21:00)
[2016-09-17] MEDS ORDERED: NURSING DECISION MEDICATION ORDER SCH (09:15)
--- NOTE | 2016-09-17 15:17 | DIAGNOSTIC IMAGING REPORT ---
HEAD WITHOUT CONTRAST (CT) CLINICAL HISTORY: 75 years-old Female with bilateral hand numbness. Concern for TIA or CVA. TECHNIQUE: Multiple axial CT images of the head were obtained without contrast. A dose lowering technique was utilized adhering to the principles of ALARA. CT DOSE: 537.48 mGy.cm COMPARISON: Head CT 02/16/2016. FINDINGS: No acute intracranial hemorrhage, midline shift, mass, large territorial ischemia or abnormal extra-axial collection. There is mild cerebral atrophy. Patchy areas of low-attenuation within the periventricular white matter suggests chronic microvascular ischemic changes. The calvarium is intact. The paranasal sinuses, mastoid air cells, and middle ear cavities are clear. IMPRESSION: 1. No acute intracranial abnormality. 2. Mild cerebral atrophy with chronic microvascular ischemic changes. The above report was generated using voice recognition software. It may contain grammatical, syntax or spelling errors. Electronically signed by: Zack Garcia M.D. 09/17/2016 3:16 PM Dictated Date/Time: 09/17/2016 3:13 PM
--- NOTE | 2016-09-17 17:21 | Hospitalist Progress Note ---
Hospitalist Progress Note Date of Service Sep 17, 2016. Subjective Pt evaluation today including: conversation w/ patient, conversation w/ family Patient was complaining of bilateral clumbsiness when trying to eat today. Also complaining of bilateral tinglinging in her arms, and legs Objective Vital Signs Date Time Temp Pulse Resp B/P (MAP) Pulse Ox O2 Delivery O2 Flow Rate FiO2 09/17/16 15:35 37.1 76 18 131/68 (89) 91 Nasal Cannula 3.0 09/17/16 11:36 37.0 78 18 124/70 (88) 96 Nasal Cannula 3.0 09/17/16 08:26 90 Nasal Cannula 3.0 09/17/16 08:11 37.0 86 18 110/62 (78) 90 Nasal Cannula 3.0 09/17/16 07:15 Nasal Cannula 2.0 09/17/16 03:51 36.8 85 16 110/67 (81) 97 Nasal Cannula 3.0 09/17/16 00:10 Nasal Cannula 4.0 09/16/16 23:16 36.8 89 20 148/82 (104) 98 Nasal Cannula 4.0 09/16/16 20:52 92 144/71 (95) 96 Nasal Cannula 4.0 09/16/16 19:49 36.6 95 18 144/69 (94) 92 Nasal Cannula 4.0 Physical Exam General Appearance: no apparent distress Eyes: normal inspection ENT: hearing grossly normal Neck: trachea midline Respiratory/Chest: lungs clear, normal breath sounds Cardiovascular: regular rate, rhythm Abdomen: normal bowel sounds Laboratory Results Last 24 Hours Test 09/16/16 21:03 09/17/16 00:00 09/17/16 03:45 09/17/16 05:00 Bedside Glucose 205 mg/dl 171 mg/dl 134 mg/dl White Blood Count 18.54 K/uL Red Blood Count 3.59 M/uL Hemoglobin 11.2 g/dL Hematocrit 33.2 % Mean Corpuscular Volume 92.5 fL Mean Corpuscular Hemoglobin 31.2 pg Mean Corpuscular Hemoglobin Concent 33.7 g/dl Platelet Count 277 K/uL Mean Platelet Volume 10.8 fL Neutrophils (%) (Auto) 90.9 % Lymphocytes (%) (Auto) 5.8 % Monocytes (%) (Auto) 2.9 % Eosinophils (%) (Auto) 0.0 % Basophils (%) (Auto) 0.1 % Neutrophils # (Auto) 16.86 K/uL Lymphocytes # (Auto) 1.08 K/uL Monocytes # (Auto) 0.53 K/uL Eosinophils # (Auto) 0.00 K/uL Basophils # (Auto) 0.01 K/uL RDW Standard Deviation 44.7 fL RDW Coefficient of Variation 13.2 % Immature Granulocyte % (Auto) 0.3 % Immature Granulocyte # (Auto) 0.06 K/uL Sodium Level 140 mmol/L Potassium Level 4.5 mmol/L Chloride Level 107 mmol/L Carbon Dioxide Level 25 mmol/L Anion Gap 8.0 mmol/L Blood Urea Nitrogen 38 mg/dl Creatinine 1.40 mg/dl Est Creatinine Clear Calc Drug Dose 40.6 ml/min Estimated GFR () 42.5 Estimated GFR (Non- 36.7 BUN/Creatinine Ratio 27.0 Random Glucose 139 mg/dl Estimated Average Glucose 166 mg/dl Hemoglobin A1c 7.4 % Calcium Level 8.8 mg/dl Test 09/17/16 07:54 09/17/16 11:57 09/17/16 16:53 Bedside Glucose 189 mg/dl 189 mg/dl 86 mg/dl Assessment and Plan (1) Lumbar stenosis with neurogenic claudication Assessment & Plan: Post operative care per Surgery (2) Acute kidney injury Assessment & Plan: will follow bun and creatine and adjust iv fluids (3) Confusion Assessment & Plan: CT of brain negative for acute event will ask neurology to see. Currently asymptomatic. Not a candidtate for major blood thinners secondary to her surgery. (4) Coronary artery disease (5) Influenza A (6) Spinal stenosis, other region
[2016-09-17] MEDS: ASPIRIN 81 MG ECTAB PO SCH (21:16)
[2016-09-17] MEDS: DOCUSATE SODIUM/SENNA 50/8.6MG TAB PO SCH (21:17)
[2016-09-17] MEDS: ATORVASTATIN 20 MG TAB PO SCH (21:17)
[2016-09-17] MEDS ORDERED: SODIUM CHLORIDE 0.9% 500ML 500 ML IV STA (22:27)
[2016-09-18] MEDS ORDERED: INSULIN ASPART 100 UNITS/ML 3 ML PEN SC SCH
[2016-09-18] MEDS: LEVOTHYROXINE 112 MCG TAB PO SCH (05:37)
[2016-09-18] MEDS: POLYETHYLENE (MIRALAX) 17 GM PACK PO SCH ×2 (05:37→12:45)
[2016-09-18 06:07] LABS: HEMATOCRIT 30.7 % (37-47); MEAN CELL VOLUME 91.6 fL (80-100); MEAN CORPUSCULAR HEMOGLOBIN 30.1 pg (25-34); MEAN CORPUSCULAR HGB CONC 32.9 g/dl (32-36); MEAN PLATELET VOLUME 10.6 fL (7.4-10.4); PLATELET COUNT 276 K/uL (130-400); RED BLOOD COUNT 3.35 M/uL (4.2-5.4); WHITE BLOOD COUNT 18.05 K/uL (4.8-10.8)
[2016-09-18 06:32] LABS: BUN/CREATININE RATIO 33.6 (10-20); CALCIUM 8.4 mg/dl (8.5-10.1); CREATININE 1.5 mg/dl (0.60-1.20); POTASSIUM 4.5 mmol/L (3.5-5.1)
[2016-09-18 07:16] VITALS: BP 168/72; PULSE 73; TEMP 36.9; O2SAT 98
[2016-09-18 07:22] VITALS: BP 137/50; O2SAT 95
[2016-09-18 07:33] VITALS: O2SAT 95
[2016-09-18] MEDS: ISOSORBIDE MONONITRATE 60 MG TABCR PO SCH (08:47)
[2016-09-18] MEDS: ISOSORBIDE MONONITRATE 30 MG TABCR PO SCH (08:47)
[2016-09-18] MEDS: AMLODIPINE BESYLATE 5 MG TAB PO SCH (08:47)
[2016-09-18] MEDS: GABAPENTIN 600 MG TAB PO SCH ×4 (08:47→22:00)
[2016-09-18] MEDS: TELMISARTAN 40 MG TAB PO SCH (08:48)
[2016-09-18] MEDS: FLUOXETINE HCL 20 MG CAP PO SCH (08:48)
[2016-09-18] MEDS: METOPROLOL TARTRATE 25 MG TAB PO SCH ×2 (08:48→21:59)
[2016-09-18] MEDS: INSULIN ASPART 100 UNITS/ML 3 ML PEN SC SCH ×4 (08:56→22:08)
[2016-09-18] MEDS ORDERED: INSULIN GLARGINE SOLOSTAR 100 UNITS/ML 3 ML PEN SC ONE (09:00)
--- NOTE | 2016-09-18 10:18 | Neurology Consultation ---
Neurology Consultation Date of Consultation: Sep 18, 2016. Attending Physician: Josef Freire D.O. Primary Care Physician: Mariano Recio M.D. Reason for Consultation: Concern for possible strokelike event History of Present Illness Source: patient, hospital records This is a 75-year-old right-handed female who presented to the hospital for elective lumbar decompression and fusion due to lumbar spinal stenosis. Patient had surgery on the with decompression of L3 through S1 and fusion of L4 through S1. Patient reports that after surgery she noticed that she was a little shaky when getting up to walk. Yesterday with walking she felt shaky and that her knees were weak and go to buckle. Also yesterday she noted that gripping things with her hand she felt weak and shaky bilaterally. She denies any focal weakness or numbness. Denies any changes to her vision or speech. She does report having some visual hallucinations of seeing colors right after surgery with anesthesia and pain medications. She reports a mild headache this morning but reports that it seems with normal headache. She denies any facial drooping or weakness. She denies any tingling or sensory changes. CT of the head report and images reviewed by myself and noted some microvascular changes but otherwise unremarkable. Labs included hemoglobin A1c of 7.4 and creatinine level of 1.5. Outpatient chart was reviewed. The patient has previously been seen by myself in March for evaluation of mild cognitive impairment. No history of strokes in the past. Inpatient chart notes a history of A. fib, but the patient reports that at that only occurred one time and that she does not have the diagnosis of ongoing paroxysmal A. fib. Seems to be confirmed by the outpatient chart. 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 History of left knee surgery. Family History Father who possibly had a stroke in his late 70s Patient reports that her father had dementia-like symptoms after stroke in his late 70s. Otherwise no other family history of dementia. Mother had diabetes Social History Patient is . Independent in her activities of daily living. She is currently driving. 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 No tobacco use. No alcohol use. No illegal drug use. Smoking Status: Never smoker Smokeless Tobacco Use: No Alcohol Use: none Drug Use: none Marital Status: Housing Status: lives with family, lives with significant other Occupation Status: retired Allergies Coded Allergies: Clopidogrel (Verified Allergy, Unknown, Unknown, 09/16/16) Lisinopril (Verified Allergy, Unknown, Unknown, 09/16/16) Current Inpatient Medications Current Inpatient Medications Medications (Trade) Dose Ordered Sig/Louis Route Start Time Stop Time Status Last Admin Dose Admin Promethazine HCl 12.5 mg/Sodium Chloride 50.5 ml @ 202 mls/hr Q6H PRN IV 09/16/16 11:15 10/16/16 11:14 Ondansetron HCl (Zofran Inj) 4 mg Q6H PRN IV 09/16/16 11:15 10/16/16 11:14 Metoclopramide HCl (Reglan Inj) 10 mg Q6H PRN IV 09/16/16 11:15 10/16/16 11:14 Lorazepam (Ativan Tab) 0.5 mg Q8H PRN PO 09/16/16 11:15 10/16/16 11:14 Lorazepam 0.5 mg/ Syringe 0.25 ml @ 1 mls/min Q8H PRN IV 09/16/16 11:15 10/16/16 11:14 Pneumococcal Polysaccharide Vaccine 1 ea PRN PRN N/A 09/16/16 11:15 10/16/16 11:14 Influenza Virus Vacc Triv Types A&B 1 ea PRN PRN N/A 09/16/16 11:15 10/16/16 11:14 Polyethylene (Miralax Powder Packet) 17 gm Q6 PO 09/18/16 06:00 10/18/16 05:59 09/18/16 05:37 17 GM Bisacodyl (Dulcolax Supp) 10 mg DAILY PRN [place] 09/16/16 11:15 10/16/16 11:14 Magnesium Hydroxide (Milk Of Magnesia Susp) 30 ml DAILY PRN PO 09/16/16 11:15 10/16/16 11:14 09/18/16 08:57 30 ML Acetaminophen 100 ml @ 400 mls/hr Q8H PRN IV 09/16/16 11:15 10/16/16 11:14 Naloxone HCl (Narcan Inj) 0.1 mg Q5M PRN IV 09/16/16 11:15 10/16/16 11:14 Senna/Docusate Sodium (Senokot S Tab) 2 tab HS PO 09/16/16 21:00 10/16/16 20:59 09/17/16 21:17 2 TAB Sodium Biphosphate/ Sodium Phosphate (Fleet Enema) 132 ml ONE PRN WI 09/16/16 11:15 10/16/16 11:14 Hydroxyzine HCl (Vistaril Tab) 25 mg Q8H PRN PO 09/16/16 11:15 10/16/16 11:14 Al Hydroxide/Mg Hydroxide (Maalox Susp) 30 ml Q6H PRN PO 09/16/16 11:15 10/16/16 11:14 Famotidine (Pepcid Tab) 20 mg Q12 PRN PO 09/16/16 11:15 10/16/16 11:14 Diphenhydramine HCl (Benadryl Cap) 25 mg Q6H PRN PO 09/16/16 11:15 10/16/16 11:14 Amlodipine Besylate (Norvasc Tab) 5 mg QAM PO 09/17/16 09:00 10/17/16 08:59 09/18/16 08:47 5 MG Aspirin (Ecotrin Tab) 81 mg QPM PO 09/16/16 21:00 10/16/16 20:59 09/17/16 21:16 81 MG Atorvastatin Calcium (Lipitor Tab) 20 mg QPM PO 09/16/16 21:00 10/16/16 20:59 09/17/16 21:17 20 MG Budesonide/ Formoterol Fumarate (Symbicort 80/ 4.5 Inh) 2 puffs BID PRN INH 09/16/16 11:15 10/16/16 11:14 Fluoxetine HCl (Prozac Cap) 20 mg QAM PO 09/17/16 09:00 10/17/16 08:59 09/18/16 08:48 20 MG Gabapentin (Neurontin Tab) 600 mg QID PO 09/16/16 17:00 10/16/16 16:59 09/18/16 08:47 600 MG Isosorbide Mononitrate (Imdur Ext Rel Tab) 30 mg QAM PO 09/17/16 09:00 10/17/16 08:59 09/18/16 08:47 30 MG Isosorbide Mononitrate (Imdur Ext Rel Tab) 60 mg QAM PO 09/17/16 09:00 10/17/16 08:59 09/18/16 08:47 60 MG Levothyroxine Sodium (Synthroid Tab) 112 mcg DAILYBB PO 09/17/16 06:00 10/17/16 05:59 09/18/16 05:37 112 MCG Metoprolol Tartrate (Lopressor Tab) 25 mg BID PO 09/16/16 21:00 10/16/16 20:59 09/18/16 08:48 25 MG Nitroglycerin (Nitrostat Tab) 0.4 mg UD PRN [place] 09/16/16 11:15 10/16/16 11:14 Telmisartan (Micardis Tab) 80 mg QAM PO 09/17/16 09:00 10/17/16 08:59 09/18/16 08:48 80 MG Miscellaneous Information (Consult Glycemic Management Pharmacy) 1 ea UD PRN N/A 09/16/16 13:34 10/16/16 13:33 Hydromorphone HCl (Dilaudid Inj) 1 mg Q3H PRN IV 09/16/16 13:30 09/30/16 13:29 Future hold Glucose (Glucose 40% Gel) 15-30 GRAMS 15 GRAMS... UD PRN PO 09/16/16 14:45 10/16/16 14:44 Glucose (Glucose Chew Tab) 4-8 Tablets 4 Tabl... UD PRN PO 09/16/16 14:45 10/16/16 14:44 Dextrose (Dextrose 50% 50ML Syringe) 25-50ML OF 50% DW IV FOR... UD PRN IV 09/16/16 14:45 10/16/16 14:44 Glucagon (Glucagon Inj) 1 mg UD PRN SQ 09/16/16 14:45 10/16/16 14:44 Hydromorphone HCl (Dilaudid Inj) 0.25 mg Q1H PRN IV 09/16/16 22:00 10/01/16 06:00 Oxycodone HCl (Roxicodone Immediate Rel Tab) 5-10mg prn moderate to sev... Q4H PRN PO 09/17/16 00:30 10/01/16 00:29 09/17/16 02:50 5 MG Insulin Aspart (novoLOG ASPART) SLIDING SCALE ACHS SC 09/17/16 21:00 10/17/16 20:59 09/18/16 08:56 10 UNITS Review of Systems Review of systems otherwise negative except for the above noted in history of present illness Physical Exam Vital Signs (Past 24 Hrs): Date Time Temp Pulse Resp B/P (MAP) Pulse Ox O2 Delivery O2 Flow Rate FiO2 09/18/16 07:33 95 Room Air 09/18/16 07:22 137/50 (79) 95 Room Air 09/18/16 07:16 36.9 73 16 168/72 (104) 98 Room Air 09/17/16 23:30 Room Air 09/17/16 22:52 97 Nasal Cannula 2.0 09/17/16 22:49 37.3 66 20 122/64 (83) 89 Room Air 09/17/16 21:14 82 135/67 (89) 91 Room Air 09/17/16 15:35 37.1 76 18 131/68 (89) 91 Nasal Cannula 3.0 09/17/16 15:30 Nasal Cannula 2.0 09/17/16 11:36 37.0 78 18 124/70 (88) 96 Nasal Cannula 3.0 Gen.: Patient is alert and lying in bed, in no acute distress. HEENT: Normocephalic /atraumatic, no scleral icterus Heart: Regular rate and rhythm Extremities: No gross deformities or rashes noted Neurological examination: Mental status: Patient is alert and oriented x3. Attention and concentration normal for the situation. Good fund of knowledge. Able to give her own history. Speech is fluent without any dysarthria or aphasia noted Cranial nerve: Funduscopic examination was unremarkable. No papilledema. Pupils equally round and reactive to light. Extraocular muscles intact without nystagmus. No facial asymmetry noted. Facial sensation intact. Tongue is midline. Good palatal elevation. Good shoulder shrug bilaterally. Hearing grossly intact to voice. Strength: 5/5 both proximal and distally in all extremities (maybe has some trace weakness of left deltoid). There is no arm drift. Tone is normal. Sensation: Grossly intact to light touch in all extremities. Deep tendon reflexes: +1 in bilateral biceps, brachioradialis and patellar. Toes were downgoing to plantar stimulation Coordination: Patient had good finger to nose without dysmetria Station within the bed was normal Laboratory Results Past 24 Hours: 09/18/16 05:27 09/18/16 05:27 Test 09/18/16 05:27 09/18/16 08:04 Red Blood Count 3.35 M/uL (4.2-5.4) Mean Corpuscular Volume 91.6 fL (80-100) Mean Corpuscular Hemoglobin 30.1 pg (25-34) Mean Corpuscular Hemoglobin Concent 32.9 g/dl (32-36) RDW Standard Deviation 45.7 fL (36.4-46.3) RDW Coefficient of Variation 13.8 % (11.5-14.5) Mean Platelet Volume 10.6 fL (7.4-10.4) Anion Gap 6.0 mmol/L (3-11) Est Creatinine Clear Calc Drug Dose 37.9 ml/min Estimated GFR () 39.1 Estimated GFR (Non- 33.7 BUN/Creatinine Ratio 33.6 (10-20) Calcium Level 8.4 mg/dl (8.5-10.1) Bedside Glucose 144 mg/dl (70-90) Imaging As noted above in history of present illness Impression This is 75-year-old right-handed female who had nonfocal symptoms of bilateral upper and lower extremity weakness and shakiness after surgery. She reports that her symptoms seem to be slowly improving today. I would a low suspicion for stroke at this time. More than likely symptoms are multifactorial including recent surgery, hospitalization, and medications. Plan No additional neurological workup needed at this time. Certainly if there is additional concerns for residual deficits, could consider repeating a CT of the head to make sure that there is no developing signs of stroke. In addition as an outpatient if there is any concern for residual deficits, could consider an MRI of the brain in 1 month. From neurological standpoint okay to resume physical therapy. Vascular risk factor modifications per primary care Neurological recommendations for risk factor modifications: Blood pressure recommendations 130/80-110/70 Total cholesterol goal 100- 200 and LDL goal less than 70 Hemoglobin A1c goal less than 7 Encourage cardiovascular exercise at least 3 times a week for 30 minutes. If there is ever any concern for paroxysmal A. fib in the future, strongly recommend that the patient be evaluated for anticoagulation as A. fib is a strong stroke risk factor. Thank you for allowing me to participate in this patient's care. If there is any questions or concerns, feel free to call/page me. Instructed the patient that if there is any concerns for residual deficits as an outpatient, can follow -up in clinic with me. I already follow the patient for mild cognitive impairment.
--- NOTE | 2016-09-18 11:05 | Progress Note ---
Progress Note Date of Service Sep 18, 2016. Progress Note Patient's pain is well-controlled. She gets occasional weakness virtually affecting left lower extremity. Otherwise no complaints. Vital signs are stable. On exam she sitting in chair at bedside as good strength testing. Her ZAHEER drainage decreasing appropriately rate. Assessment status post lumbar decompression fusion replant this time she would be an excellent candidate for rehabilitation facility. Anticipates she'll be ready to go to rehabilitation Wednesday.
--- NOTE | 2016-09-18 12:43 | Pharmacy Progress Note ---
Glycemic Control Progress Note Date of Service Sep 18, 2016. Scope Glycemic Pharmacist consulted for glycemic control to write orders per [facility] inpatient glycemic control protocol. Objective Accuchecks BSG (last 24hrs): Test 09/17/16 11:57 09/17/16 16:53 09/17/16 20:34 09/18/16 00:04 Bedside Glucose 189 mg/dl (70-90) 86 mg/dl (70-90) 180 mg/dl (70-90) 155 mg/dl (70-90) Test 09/18/16 05:27 Random Glucose 127 mg/dl (70-99) HbA1c: Test 09/17/16 05:00 Hemoglobin A1c 7.4 % (4.5-5.6) H Recent Pertinent Medications The patient is currently receiving: * Basal insulin: Lantus 40 units SQ x 1 09/17 AM and Lantus 25 units SQ x 1 09/17 PM * Correctional Insulin: Novolog Correction per scale ACHS Goal Range: Low 110 mg/dL - High 140 mg/dL Correction Factor: 10 mg/dL/unit * Prandial insulin: Per carb ratio of 1 unit per 4 grams CHO consumed Outpatient Anti-Diabetic Meds Lantus 40 units SQ qhs + Novolog with meals (20 units with breakfast and lunch and 35 units with dinner) Assessment & Plan ASSESSMENT: * See progress note from 09/17/2016 for more background info, in short: Ms Pink is a 75 y/o F who underwent lumbar surgery (POD 2 currently). She appears to have relatively well controlled diabetes as an outpatient. * Pt receiving SQ basal bolus insulin regimen for hyperglycemia secondary to baseline DM (outpatient regimen on hold and currently giving higher doses of basal and bolus insulin), POD 2 for lumbar surgery, last day of dexamethasone at 10 AM (received 8 mg IV in OR and 6 mg IV x 3 doses) * Patient is currently receiving an average of 160 units of insulin per day * 65 units of basal insulin * 96 units of prandial/correctional insulin * BSGs ranging 86 - 189 mg/dl over the past 24hrs * Changes needed to insulin regimen: * AM Fasting BSG = 127 mg/dl. This is in within goal goal range for patient based on inpatient targets and co-morbidities. Yesterday, the patient received more Lantus in the morning compared to the evening (40 units vs 25 units). As the patient is on Lantus at home, I will schedule 35 units twice daily today then utilize a more evening basal regimen on Wednesday. I do not expect the patient's Lantus requirements to decrease today since dexamethasone was last given yesterday morning. * Post-prandial BSGs are in range therefore no changes needed to CF/CR. If blood sugars tend to trend downwards, this may be loosened slightly to correction factor of 15 mg/dL/unit and carbohydrate ratio of 5 gm/unit of Novolog. * Total daily dose = 161 units. This dosing is yielding adequate glycemic control; a bolus heavy regimen is appropriate for steroid induced hyperglycemia. PLAN FOR INPATIENT GLYCEMIC CONTROL: * Basal insulin * Lantus 35 units SQ BID * Bolus insulin * NovoLog per scale ACHS * Goal Range: Low 110 mg/dL - High 140 mg/dL * Correction Factor: 10 mg/dL/unit * Nutritional / Prandial insulin per carb ratio of 1 unit per 4 grams CHO consumed RECOMMENDATIONS FOR DISCHARGE: * Patient's HbA1C indicates adequate glycemic control for patient's age and co- morbidities. May continue current regimen if patient does not have any complaints of hypoglycemic. * Please note that the plan above was derived based on current level of insulin resistance and hospital stress. These recommendations are appropriate for inpatient admission only. Plan of care upon discharge will need to be reassessed to avoid potential outpatient hypo/hyperglycemia. Thank you.
[2016-09-18] MEDS ORDERED: NURSING VERBAL MED ORDER ONE (15:15)
[2016-09-18 15:50] VITALS: BP 137/72; PULSE 79; TEMP 37.8; O2SAT 96
[2016-09-18 16:30] VITALS: O2SAT 96
[2016-09-18] MEDS: ASPIRIN 81 MG ECTAB PO SCH (21:59)
[2016-09-18] MEDS: DOCUSATE SODIUM/SENNA 50/8.6MG TAB PO SCH (21:59)
[2016-09-18] MEDS: ATORVASTATIN 20 MG TAB PO SCH (22:00)
[2016-09-18 23:20] VITALS: BP 136/71; PULSE 78; TEMP 37.6; O2SAT 95
--- NOTE | 2016-09-18 23:25 | Hospitalist Progress Note ---
Hospitalist Progress Note Date of Service Sep 18, 2016. Subjective Pt evaluation today including: conversation w/ patient, conversation w/ family , physical exam, chart review, lab review, conversation w/ healthcare economics consultant Patient unable to forging press lever tender her utensils,or cups. She also had loose stool. Otherwise no complaints Medications Medications (Trade) Dose Ordered Sig/Louis Route Start Time Stop Time Status Last Admin Dose Admin Polyethylene (Miralax Powder Packet) 17 gm Q6 PO 09/18/16 06:00 09/18/16 15:11 DC 09/18/16 05:37 17 GM Insulin Aspart (novoLOG ASPART) SLIDING SCALE 0000 SC 09/18/16 00:00 09/18/16 01:00 DC 09/18/16 00:18 2 UNITS Insulin Glargine (Lantus Solostar Pen) 35 units NOW ONCE SC 09/18/16 09:00 09/18/16 09:01 DC 09/18/16 08:57 35 UNITS Objective Vital Signs Date Time Temp Pulse Resp B/P (MAP) Pulse Ox O2 Delivery O2 Flow Rate FiO2 09/18/16 16:30 96 Nasal Cannula 1.0 09/18/16 15:50 37.8 79 18 137/72 (93) 96 Nasal Cannula 1.0 09/18/16 07:33 95 Room Air 09/18/16 07:22 137/50 (79) 95 Room Air 09/18/16 07:16 36.9 73 16 168/72 (104) 98 Room Air 09/17/16 23:30 Room Air Physical Exam General Appearance: no apparent distress Eyes: normal inspection ENT: hearing grossly normal Neck: trachea midline Respiratory/Chest: lungs clear Cardiovascular: regular rate, rhythm Abdomen: normal bowel sounds Neurologic/Psychiatric: alert Laboratory Results Last 24 Hours Test 09/18/16 00:04 09/18/16 05:27 09/18/16 08:04 09/18/16 11:54 Bedside Glucose 155 mg/dl 144 mg/dl 152 mg/dl White Blood Count 18.05 K/uL Red Blood Count 3.35 M/uL Hemoglobin 10.1 g/dL Hematocrit 30.7 % Mean Corpuscular Volume 91.6 fL Mean Corpuscular Hemoglobin 30.1 pg Mean Corpuscular Hemoglobin Concent 32.9 g/dl RDW Standard Deviation 45.7 fL RDW Coefficient of Variation 13.8 % Platelet Count 276 K/uL Mean Platelet Volume 10.6 fL Sodium Level 142 mmol/L Potassium Level 4.5 mmol/L Chloride Level 111 mmol/L Carbon Dioxide Level 25 mmol/L Anion Gap 6.0 mmol/L Blood Urea Nitrogen 50 mg/dl Creatinine 1.50 mg/dl Est Creatinine Clear Calc Drug Dose 37.9 ml/min Estimated GFR () 39.1 Estimated GFR (Non- 33.7 BUN/Creatinine Ratio 33.6 Random Glucose 127 mg/dl Calcium Level 8.4 mg/dl Test 09/18/16 16:56 09/18/16 18:38 09/18/16 20:43 Bedside Glucose 77 mg/dl 131 mg/dl 163 mg/dl Assessment and Plan (1) Lumbar stenosis with neurogenic claudication Assessment & Plan: POD #2 Post operative care per Dr. Freire. (2) Acute kidney injury (3) Confusion (4) Coronary artery disease (5) Influenza A (6) Spinal stenosis, other region (7) Hand weakness (8) Diabetes 1.5, managed as type 1 Assessment & Plan: Pharmacy managing tx. Discussed with the patient's daughter and . CT of head was negative. Dr. Singer is the patient's outpatient neurologist. I shared with the family that at present time stroke was unlikely. Dr. Singer spoke to the patient's daughter and she will speak with the family tomorrow when she evaluates her. I have ordered a repeat CT of head for 48 hours. I also have ordered OT eval and tx.
[2016-09-19] MEDS: OXYCODONE HCL IR 5 MG TAB (IMMEDIATE RELEASE) PO PRN ×3 (00:59→18:01)
[2016-09-19 05:05] LABS: BASO % 0.1 %; BASO ABS # 0.01 K/uL (0-0.2); COMPLETE YES; EOS % 0.3 %; HEMATOCRIT 27.9 % (37-47); IG% 0.3 %; LYMPH % 21.3 %; LYMPH ABS # 2.54 K/uL (1.2-3.4); MEAN CELL VOLUME 92.7 fL (80-100); MEAN CORPUSCULAR HEMOGLOBIN 31.2 pg (25-34); MEAN CORPUSCULAR HGB CONC 33.7 g/dl (32-36); MEAN PLATELET VOLUME 10.4 fL (7.4-10.4); MONO % 12.8 %; NEUT % 65.2 %; PLATELET COUNT 223 K/uL (130-400); RED BLOOD COUNT 3.01 M/uL (4.2-5.4); WHITE BLOOD COUNT 11.95 K/uL (4.8-10.8)
[2016-09-19 05:23] LABS: BUN/CREATININE RATIO 30.9 (10-20); CALCIUM 8.1 mg/dl (8.5-10.1); CREATININE 1.4 mg/dl (0.60-1.20); POTASSIUM 4.3 mmol/L (3.5-5.1)
[2016-09-19 05:29] LABS: ALB/GLOB RATIO 0.7 (0.9-2)
[2016-09-19] MEDS: LEVOTHYROXINE 112 MCG TAB PO SCH (05:59)
[2016-09-19 06:55] VITALS: BP 130/74; PULSE 72; TEMP 37; O2SAT 92
[2016-09-19] MEDS: INSULIN ASPART 100 UNITS/ML 3 ML PEN SC SCH ×5 (08:00→20:44)
[2016-09-19] MEDS: ISOSORBIDE MONONITRATE 60 MG TABCR PO SCH (09:23)
[2016-09-19] MEDS: FLUOXETINE HCL 20 MG CAP PO SCH (09:23)
[2016-09-19] MEDS: GABAPENTIN 600 MG TAB PO SCH ×4 (09:23→20:42)
[2016-09-19] MEDS: AMLODIPINE BESYLATE 5 MG TAB PO SCH (09:24)
[2016-09-19] MEDS: TELMISARTAN 40 MG TAB PO SCH (09:24)
[2016-09-19] MEDS: ISOSORBIDE MONONITRATE 30 MG TABCR PO SCH (09:25)
[2016-09-19] MEDS: METOPROLOL TARTRATE 25 MG TAB PO SCH ×2 (09:25→20:41)
--- NOTE | 2016-09-19 10:15 | Neurology Progress Notes ---
Neurology Progress Note Date of Service Sep 19, 2016. Subjective Patient reports that she is doing better this morning than yesterday. I talked to the daughter over the phone yesterday evening due to concerns of worsening symptoms. Apparently at lunch time and later on in the day patient was extremely shaky. She was having trouble eating and holding a cup. From what daughter describes seem to be possible myoclonus where she would jerk and then suddenly release what ever she was holding. was here this morning for further corroboration of symptoms. He agrees that she appears much better this morning than yesterday afternoon. Both patient and admit that she seems to be very sensitive to medications. Her creatinine is elevated at 1.4 but appears to be at baseline. BUN is elevated at 43. Objective Date Time Temp Pulse Resp B/P (MAP) Pulse Ox O2 Delivery O2 Flow Rate FiO2 09/19/16 06:55 37.0 72 17 130/74 (92) 92 Room Air 09/18/16 23:52 Nasal Cannula 1.0 09/18/16 23:20 37.6 78 20 136/71 (92) 95 Nasal Cannula 1.0 09/18/16 16:30 96 Nasal Cannula 1.0 09/18/16 15:50 37.8 79 18 137/72 (93) 96 Nasal Cannula 1.0 Last 24 Hours Test 09/18/16 11:54 09/18/16 16:56 09/18/16 18:38 09/18/16 20:43 Bedside Glucose 152 mg/dl 77 mg/dl 131 mg/dl 163 mg/dl Test 09/19/16 04:55 09/19/16 07:54 White Blood Count 11.95 K/uL Red Blood Count 3.01 M/uL Hemoglobin 9.4 g/dL Hematocrit 27.9 % Mean Corpuscular Volume 92.7 fL Mean Corpuscular Hemoglobin 31.2 pg Mean Corpuscular Hemoglobin Concent 33.7 g/dl Platelet Count 223 K/uL Mean Platelet Volume 10.4 fL Neutrophils (%) (Auto) 65.2 % Lymphocytes (%) (Auto) 21.3 % Monocytes (%) (Auto) 12.8 % Eosinophils (%) (Auto) 0.3 % Basophils (%) (Auto) 0.1 % Neutrophils # (Auto) 7.80 K/uL Lymphocytes # (Auto) 2.54 K/uL Monocytes # (Auto) 1.53 K/uL Eosinophils # (Auto) 0.03 K/uL Basophils # (Auto) 0.01 K/uL RDW Standard Deviation 46.9 fL RDW Coefficient of Variation 13.8 % Immature Granulocyte % (Auto) 0.3 % Immature Granulocyte # (Auto) 0.04 K/uL Sodium Level 141 mmol/L Potassium Level 4.3 mmol/L Chloride Level 110 mmol/L Carbon Dioxide Level 26 mmol/L Anion Gap 5.0 mmol/L Blood Urea Nitrogen 43 mg/dl Creatinine 1.40 mg/dl Est Creatinine Clear Calc Drug Dose 40.6 ml/min Estimated GFR () 42.5 Estimated GFR (Non- 36.7 BUN/Creatinine Ratio 30.9 Random Glucose 119 mg/dl Calcium Level 8.1 mg/dl Total Bilirubin 0.7 mg/dl Aspartate Amino Transf (AST/SGOT) 32 U/L Alanine Aminotransferase (ALT/SGPT) 17 U/L Alkaline Phosphatase 44 U/L Ammonia 13.0 umol/L Total Protein 6.1 gm/dl Albumin 2.6 gm/dl Globulin 3.5 gm/dl Albumin/Globulin Ratio 0.7 Bedside Glucose 122 mg/dl Exam: Gen.: Patient is alert sitting in chair, in no acute distress. HEENT: Normocephalic /atraumatic, no scleral icterus Extremities: No gross deformities or rashes noted Neurological examination: Mental status: Patient is alert and oriented x3. Attention and concentration normal for the situation. Good fund of knowledge. Able to give her own history. Speech is fluent without any dysarthria or aphasia noted Cranial nerve: Extraocular muscles intact without nystagmus. No facial asymmetry noted. Hearing grossly intact to voice. Strength: 5/5 both proximal and distally in all extremities There is no arm drift. Tone is normal. No myoclonus or asterixis seen on today's examination. Patient did have some action tremors when reaching and holding her water cup. No discoordination or ataxia. Coordination: Patient had good finger to nose without dysmetria Station within the chair was normal Current Inpatient Medications Medications (Trade) Dose Ordered Sig/Louis Route Start Time Stop Time Status Last Admin Dose Admin Promethazine HCl 12.5 mg/Sodium Chloride 50.5 ml @ 202 mls/hr Q6H PRN IV 09/16/16 11:15 10/16/16 11:14 Ondansetron HCl (Zofran Inj) 4 mg Q6H PRN IV 09/16/16 11:15 10/16/16 11:14 Metoclopramide HCl (Reglan Inj) 10 mg Q6H PRN IV 09/16/16 11:15 10/16/16 11:14 Lorazepam (Ativan Tab) 0.5 mg Q8H PRN PO 09/16/16 11:15 10/16/16 11:14 Lorazepam 0.5 mg/ Syringe 0.25 ml @ 1 mls/min Q8H PRN IV 09/16/16 11:15 10/16/16 11:14 Pneumococcal Polysaccharide Vaccine 1 ea PRN PRN N/A 09/16/16 11:15 10/16/16 11:14 Influenza Virus Vacc Triv Types A&B 1 ea PRN PRN N/A 09/16/16 11:15 10/16/16 11:14 Bisacodyl (Dulcolax Supp) 10 mg DAILY PRN TX 09/16/16 11:15 10/16/16 11:14 Magnesium Hydroxide (Milk Of Magnesia Susp) 30 ml DAILY PRN PO 09/16/16 11:15 10/16/16 11:14 09/18/16 08:57 30 ML Acetaminophen 100 ml @ 400 mls/hr Q8H PRN IV 09/16/16 11:15 10/16/16 11:14 Naloxone HCl (Narcan Inj) 0.1 mg Q5M PRN IV 09/16/16 11:15 10/16/16 11:14 Senna/Docusate Sodium (Senokot S Tab) 2 tab HS PO 09/16/16 21:00 10/16/16 20:59 09/18/16 21:59 2 TAB Sodium Biphosphate/ Sodium Phosphate (Fleet Enema) 132 ml ONE PRN TX 09/16/16 11:15 10/16/16 11:14 Hydroxyzine HCl (Vistaril Tab) 25 mg Q8H PRN PO 09/16/16 11:15 10/16/16 11:14 Al Hydroxide/Mg Hydroxide (Maalox Susp) 30 ml Q6H PRN PO 09/16/16 11:15 10/16/16 11:14 Famotidine (Pepcid Tab) 20 mg Q12 PRN PO 09/16/16 11:15 10/16/16 11:14 Diphenhydramine HCl (Benadryl Cap) 25 mg Q6H PRN PO 09/16/16 11:15 10/16/16 11:14 Amlodipine Besylate (Norvasc Tab) 5 mg QAM PO 09/17/16 09:00 10/17/16 08:59 09/19/16 09:24 5 MG Aspirin (Ecotrin Tab) 81 mg QPM PO 09/16/16 21:00 10/16/16 20:59 09/18/16 21:59 81 MG Atorvastatin Calcium (Lipitor Tab) 20 mg QPM PO 09/16/16 21:00 10/16/16 20:59 09/18/16 22:00 20 MG Budesonide/ Formoterol Fumarate (Symbicort 80/ 4.5 Inh) 2 puffs BID PRN INH 09/16/16 11:15 10/16/16 11:14 Fluoxetine HCl (Prozac Cap) 20 mg QAM PO 09/17/16 09:00 10/17/16 08:59 09/19/16 09:23 20 MG Gabapentin (Neurontin Tab) 600 mg QID PO 09/16/16 17:00 10/16/16 16:59 09/19/16 09:23 600 MG Isosorbide Mononitrate (Imdur Ext Rel Tab) 30 mg QAM PO 09/17/16 09:00 10/17/16 08:59 09/19/16 09:25 30 MG Isosorbide Mononitrate (Imdur Ext Rel Tab) 60 mg QAM PO 09/17/16 09:00 10/17/16 08:59 09/19/16 09:23 60 MG Levothyroxine Sodium (Synthroid Tab) 112 mcg DAILYBB PO 09/17/16 06:00 10/17/16 05:59 09/19/16 05:59 112 MCG Metoprolol Tartrate (Lopressor Tab) 25 mg BID PO 09/16/16 21:00 10/16/16 20:59 09/19/16 09:25 25 MG Nitroglycerin (Nitrostat Tab) 0.4 mg UD PRN UT 09/16/16 11:15 10/16/16 11:14 Telmisartan (Micardis Tab) 80 mg QAM PO 09/17/16 09:00 10/17/16 08:59 09/19/16 09:24 80 MG Miscellaneous Information (Consult Glycemic Management Pharmacy) 1 ea UD PRN N/A 09/16/16 13:34 10/16/16 13:33 Hydromorphone HCl (Dilaudid Inj) 1 mg Q3H PRN IV 09/16/16 13:30 09/30/16 13:29 Future hold Glucose (Glucose 40% Gel) 15-30 GRAMS 15 GRAMS... UD PRN PO 09/16/16 14:45 10/16/16 14:44 Glucose (Glucose Chew Tab) 4-8 Tablets 4 Tabl... UD PRN PO 09/16/16 14:45 10/16/16 14:44 Dextrose (Dextrose 50% 50ML Syringe) 25-50ML OF 50% DW IV FOR... UD PRN IV 09/16/16 14:45 10/16/16 14:44 Glucagon (Glucagon Inj) 1 mg UD PRN SQ 09/16/16 14:45 10/16/16 14:44 Hydromorphone HCl (Dilaudid Inj) 0.25 mg Q1H PRN IV 09/16/16 22:00 10/01/16 06:00 Oxycodone HCl (Roxicodone Immediate Rel Tab) 5-10mg prn moderate to sev... Q4H PRN PO 09/17/16 00:30 10/01/16 00:29 09/19/16 00:59 5 MG Insulin Aspart (novoLOG ASPART) SLIDING SCALE ACHS SC 09/17/16 21:00 10/17/16 20:59 09/19/16 09:27 8 UNITS Insulin Glargine (Lantus Solostar Pen) 35 units HS SC 09/19/16 12:00 10/19/16 11:59 Impression This is 75-year-old right-handed female who had nonfocal symptoms of bilateral upper and lower extremity shakiness after surgery and possibly what sounds like maybe some myoclonus later on in the day. Appears to be significantly better during the morning and worse later on in the day. I think it is unlikely that the patient has a stroke or spinal cord injury causing her symptoms. More likely to be a reaction to medications versus deconditioning/fatigue later on the day. Plan I did send off for a complete metabolic panel and ammonia level this morning which were unremarkable for other causes of metabolic derangement. Did review the patient's medication list. Does not appear that there is been any changes to the patient's home medications. Only new medications that she is taking is low dose and rare narcotics for pain. I also sent off for TSH to be checked this morning and make sure that there is no thyroid abnormalities that could be giving her tremors or myoclonus Agree with checking a UA Could consider repeating a CT of the head later today to rule out any ischemic changes compared to her first CT, although I do not feel strongly about this. From a neurological standpoint I think could be reasonable to discharge her to inpatient rehabilitation for further care and treatment. Thank you for allowing me to participate in this patient's care. If there is any questions or concerns, feel free to call/page me. Instructed the patient that if there is any concerns for residual deficits as an outpatient, can follow -up in clinic with me and we could consider getting an MRI of the brain after a month. I already follow the patient for mild cognitive impairment. Assessment and plan was discussed with the and he seems comfortable with the plan
--- NOTE | 2016-09-19 12:10 | Pharmacy Progress Note ---
Glycemic Control Progress Note Date of Service Sep 19, 2016. Scope Glycemic Pharmacist consulted for glycemic control to write orders per [facility] inpatient glycemic control protocol. Objective Accuchecks BSG (last 24hrs): Test 09/18/16 11:54 09/18/16 16:56 09/18/16 18:38 09/18/16 20:43 Bedside Glucose 152 mg/dl (70-90) 77 mg/dl (70-90) 131 mg/dl (70-90) 163 mg/dl (70-90) Test 09/19/16 04:55 09/19/16 07:54 Random Glucose 119 mg/dl (70-99) Bedside Glucose 122 mg/dl (70-90) HbA1c: Test 09/17/16 05:00 Hemoglobin A1c 7.4 % (4.5-5.6) H Recent Pertinent Medications The patient is currently receiving: * Basal insulin: Lantus 35 units SQ x 1 yesterday * Correctional Insulin: Novolog Correction per scale ACHS Goal Range: Low 110 mg/dL - High 140 mg/dL Correction Factor: 10 mg/dL/unit * Prandial insulin: Per carb ratio of 1 unit per 4 grams CHO consumed Outpatient Anti-Diabetic Meds Lantus 40 units qHS Novolog with meals (20 units with breakfast and lunch, 35 units with breakfast) Assessment & Plan ASSESSMENT: * See progress note from 09/17/2016 for more background info, in short: Ms Pink is a 75 y/o F who underwent lumbar surgery (POD 3 currently). She appears to have relatively well controlled diabetes as an outpatient. * Pt receiving SQ basal bolus insulin regimen for hyperglycemia secondary to baseline DM (outpatient regimen on hold and currently giving higher doses of basal and bolus insulin), POD 3 for lumbar surgery, last day of dexamethasone at 10 AM (received 8 mg IV in OR and 6 mg IV x 3 doses) * Patient is currently receiving an average of 56 units of insulin per day * 35 units of basal insulin * 21 units of prandial/correctional insulin * BSGs ranging 127-163 mg/dl over the past 24hrs * Changes needed to insulin regimen: * AM Fasting BSG = 119 mg/dl. This is in within goal goal range for patient based on inpatient targets and co-morbidities. Yesterday, the patient received only an AM dose of Lantus 35 units. The PM was not ordered. Even though this was missed, the patient sustained excellent blood sugars with a fasting blood sugar less than yesterday's blood sugar. Today, in preparation for discharge, the Lantus dose will be given at noon then evening. * Post-prandial BSGs are in range therefore no changes needed to CF/CR. If blood sugars tend to trend downwards, this may be loosened slightly to correction factor of 15 mg/dL/unit and carbohydrate ratio of 5 gm/unit of Novolog. - I expect to change to these parameters after lunch. A tighter ratio was left for breakfast since Lantus will be given at lunch. * Total daily dose = 56 units. I believe that this is closer to the patient's true needs. I expect that insulin requirements will continue to drop today. PLAN FOR INPATIENT GLYCEMIC CONTROL: * Basal insulin * Lantus 35 units SQ starting at noon the nightly on 09/20/16 * Bolus insulin * NovoLog per scale ACHS * Goal Range: Low 110 mg/dL - High 140 mg/dL * Correction Factor: 10 mg/dL/unit --> change to 15 mg/dL/unit after breakfast * Nutritional / Prandial insulin per carb ratio of 1 unit per 4 grams CHO consumed --> change to 5 unit/ gram of CHO after breakfast RECOMMENDATIONS FOR DISCHARGE: * Patient's HbA1C indicates adequate glycemic control for patient's age and co- morbidities. May continue current regimen if patient does not have any complaints of hypoglycemic. Patient's regimen is currently bolus heavy. It may be possible to shift to a more 50/50 regimen if patient tolerates. This may be done as an outpatient. * Please note that the plan above was derived based on current level of insulin resistance and hospital stress. These recommendations are appropriate for inpatient admission only. Plan of care upon discharge will need to be reassessed to avoid potential outpatient hypo/hyperglycemia. Thank you.
[2016-09-19] MEDS: INSULIN GLARGINE SOLOSTAR 100 UNITS/ML 3 ML PEN SC SCH (13:21)
[2016-09-19 13:45] VITALS: BP 120/62; PULSE 67
[2016-09-19 15:09] VITALS: BP 139/67; PULSE 67; TEMP 38; O2SAT 90
[2016-09-19 16:30] VITALS: O2SAT 90
--- NOTE | 2016-09-19 18:32 | Progress Note ---
Subjective Date of Service: Sep 19, 2016. 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 with repetitive movement, all are resolved 09/19 Problem List Medical Problems: (1) Altered mental status Status: Acute (2) Hypoxia Status: Acute (3) Orthostasis Status: Acute Review of Systems Constitutional: + weakness, + fatigue, No fever, No chills Respiratory: No cough, No shortness of breath, No dyspnea on exertion Cardiac: No chest pain, No orthopnea, No edema, No claudication Abdomen: No pain, No nausea, No vomiting, No diarrhea Musculoskeletal: + joint pain, + muscle pain Female : No dysuria, No urinary frequency Neurologic: + weakness, No memory loss, No paralysis, No numbness/tingling, No balance problems Psychiatric: No depression symptoms, No anhedonism Objective Vital Signs Date Time Temp Pulse Resp B/P (MAP) Pulse Ox O2 Delivery O2 Flow Rate FiO2 09/19/16 15:09 38.0 67 18 139/67 (91) 90 Room Air 09/19/16 13:45 67 09/19/16 10:18 Room Air 09/19/16 06:55 37.0 72 17 130/74 (92) 92 Room Air 09/18/16 23:52 Nasal Cannula 1.0 09/18/16 23:20 37.6 78 20 136/71 (92) 95 Nasal Cannula 1.0 Physical Exam General Appearance: WD/WN, + mild distress Eyes: PERRL, EOMI Neck: supple, no JVD Respiratory/Chest: chest non-tender, lungs clear, normal breath sounds Cardiovascular: regular rate, rhythm, no murmur Abdomen: normal bowel sounds, soft Neurologic/Psychiatric: alert, oriented x 3, + pertinent finding (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 ) Laboratory Results Last 24 Hours Test 09/18/16 18:38 09/18/16 20:43 09/19/16 04:55 09/19/16 07:54 Bedside Glucose 131 mg/dl 163 mg/dl 122 mg/dl White Blood Count 11.95 K/uL Red Blood Count 3.01 M/uL Hemoglobin 9.4 g/dL Hematocrit 27.9 % Mean Corpuscular Volume 92.7 fL Mean Corpuscular Hemoglobin 31.2 pg Mean Corpuscular Hemoglobin Concent 33.7 g/dl Platelet Count 223 K/uL Mean Platelet Volume 10.4 fL Neutrophils (%) (Auto) 65.2 % Lymphocytes (%) (Auto) 21.3 % Monocytes (%) (Auto) 12.8 % Eosinophils (%) (Auto) 0.3 % Basophils (%) (Auto) 0.1 % Neutrophils # (Auto) 7.80 K/uL Lymphocytes # (Auto) 2.54 K/uL Monocytes # (Auto) 1.53 K/uL Eosinophils # (Auto) 0.03 K/uL Basophils # (Auto) 0.01 K/uL RDW Standard Deviation 46.9 fL RDW Coefficient of Variation 13.8 % Immature Granulocyte % (Auto) 0.3 % Immature Granulocyte # (Auto) 0.04 K/uL Sodium Level 141 mmol/L Potassium Level 4.3 mmol/L Chloride Level 110 mmol/L Carbon Dioxide Level 26 mmol/L Anion Gap 5.0 mmol/L Blood Urea Nitrogen 43 mg/dl Creatinine 1.40 mg/dl Est Creatinine Clear Calc Drug Dose 40.6 ml/min Estimated GFR () 42.5 Estimated GFR (Non- 36.7 BUN/Creatinine Ratio 30.9 Random Glucose 119 mg/dl Calcium Level 8.1 mg/dl Total Bilirubin 0.7 mg/dl Aspartate Amino Transf (AST/SGOT) 32 U/L Alanine Aminotransferase (ALT/SGPT) 17 U/L Alkaline Phosphatase 44 U/L Ammonia 13.0 umol/L Total Protein 6.1 gm/dl Albumin 2.6 gm/dl Globulin 3.5 gm/dl Albumin/Globulin Ratio 0.7 Thyroid Stimulating Hormone (TSH) 0.173 uIu/ml Test 09/19/16 11:55 09/19/16 16:49 Bedside Glucose 235 mg/dl 131 mg/dl Assessment and Plan (1) Lumbar stenosis with neurogenic claudication (2) Acute kidney injury (3) Confusion (4) Coronary artery disease (5) Influenza A (6) Spinal stenosis, other region (7) Hand weakness (8) Diabetes 1.5, 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
--- NOTE | 2016-09-19 20:31 | DIAGNOSTIC IMAGING REPORT ---
CT OF THE HEAD WITHOUT CONTRAST CLINICAL HISTORY: Bilateral hand weakness. COMPARISON STUDY: Head CT September 17, 2016. CT DOSE: 2285.07 mGy.cm TECHNIQUE: Helical axial images of the head were obtained without IV contrast. Automated exposure control was utilized for the study. A dose lowering technique was utilized adhering to the principles of ALARA. FINDINGS: No acute intracranial hemorrhage, midline shift or mass effect is present. Ventricular system is stable. The basilar cisterns are patent. There are no extra-axial collections. White matter hypodensity suggests small vessel disease. These are unchanged. There are no findings to suggest acute dural sinus thrombosis or acute territorial infarct. There are no significant calvarial abnormalities. Visualized portions of the sinuses and mastoid air cells are clear. IMPRESSION: No acute intracranial findings. Electronically signed by: Kwaku Richardson M.D. 09/19/2016 8:30 PM Dictated Date/Time: 09/19/2016 8:27 PM
[2016-09-19] MEDS: DOCUSATE SODIUM/SENNA 50/8.6MG TAB PO SCH (20:41)
[2016-09-19] MEDS: ATORVASTATIN 20 MG TAB PO SCH (20:42)
[2016-09-19] MEDS: ASPIRIN 81 MG ECTAB PO SCH (20:42)
[2016-09-19 22:50] VITALS: TEMP 38.6
[2016-09-19 22:52] VITALS: BP_SYST 133; BP_DIAS 62; BP_DIAS 69; PULSE 82; TEMP 37.9; O2SAT 93
[2016-09-20] VITALS (9 sets, daily range): BP systolic 108–137; BP diastolic 53–75; PULSE 68–73; TEMP 37–38; O2SAT 91–96
[2016-09-20 00:29] LABS: BASO % 0.1 %; BASO ABS # 0.01 K/uL (0-0.2); EOS % 0.5 %; HEMATOCRIT 29.3 % (37-47); IG% 0.4 %; LYMPH % 11.2 %; LYMPH ABS # 1.46 K/uL (1.2-3.4); MEAN CELL VOLUME 91.8 fL (80-100); MEAN CORPUSCULAR HEMOGLOBIN 30.1 pg (25-34); MEAN PLATELET VOLUME 10.9 fL (7.4-10.4); MONO % 8.8 %; PLATELET COUNT 254 K/uL (130-400); RED BLOOD COUNT 3.19 M/uL (4.2-5.4)
[2016-09-20 00:37] LABS: URINE APPEARANCE CLEAR (CLEAR); URINE BILIRUBIN NEG (NEG); URINE COLOR YELLOW; URINE EPITHELIAL CELL AUTO 0-5 /lpf (0-5); URINE NITRITE NEG (NEG); URINE SPECIFIC GRAVITY 1.021 (1.000-1.030); UROBILINOGEN NEG (NEG)
[2016-09-20 00:38] LABS: MANUAL MICROSCOPIC REQUIRED? NO; REVIEW REQ? NO
[2016-09-20 00:53] LABS: BUN/CREATININE RATIO 29.1 (10-20); CREATININE 1.5 mg/dl (0.60-1.20); POTASSIUM 4.4 mmol/L (3.5-5.1)
[2016-09-20 00:54] LABS: COMPLETE YES; MEAN CORPUSCULAR HGB CONC 32.8 g/dl (32-36)
[2016-09-20] MEDS ORDERED: PIPERACILL/TAZOBAC IV 3.375 GM in DEXTROSE 5% 100ML 100 ML IV ONE (01:30)
[2016-09-20] MEDS ORDERED: PIPERACILL/TAZOBAC CONSULT ACTIVE PRN (01:45)
[2016-09-20] MEDS ORDERED: VANCOMYCIN CONSULT ACTIVE PRN (01:45)
[2016-09-20] MEDS ORDERED: VANCOMYCIN INJ 2,500 MG in SODIUM CHLORIDE 0.9% 500ML 500 ML IV ONE (02:00)
[2016-09-20] MEDS: LEVOTHYROXINE 112 MCG TAB PO SCH (05:42)
[2016-09-20] MEDS ORDERED: PIPERACILL/TAZOBAC IV 3.375 GM in DEXTROSE 5% 100ML 100 ML IV SCH (06:00)
--- NOTE | 2016-09-20 06:44 | DIAGNOSTIC IMAGING REPORT ---
CHEST ONE VIEW PORTABLE CLINICAL HISTORY: Atypical chest pain and course breath sounds COMPARISON STUDY: 02/16/2016 FINDINGS: The heart is mildly enlarged. Since the prior study the patient has developed interstitial pulmonary edema. No large pleural effusions are visualized. There is no focal pulmonary consolidation.[ IMPRESSION: Interval development of interstitial pulmonary edema. Clinical and radiographic follow-up is recommended Electronically signed by: Anatoliy Corbin M.D. 09/20/2016 6:43 AM Dictated Date/Time: 09/20/2016 6:42 AM
[2016-09-20] MEDS ORDERED: VANCOMYCIN INJ 1,000 MG in SODIUM CHLORIDE 0.9% 250ML 250 ML IV SCH (09:00)
[2016-09-20] MEDS: METOPROLOL TARTRATE 25 MG TAB PO SCH ×2 (09:08→20:53)
[2016-09-20] MEDS: TELMISARTAN 40 MG TAB PO SCH (09:09)
[2016-09-20] MEDS: ISOSORBIDE MONONITRATE 30 MG TABCR PO SCH (09:09)
[2016-09-20] MEDS: FLUOXETINE HCL 20 MG CAP PO SCH (09:09)
[2016-09-20] MEDS: GABAPENTIN 600 MG TAB PO SCH ×4 (09:09→20:53)
[2016-09-20] MEDS: ISOSORBIDE MONONITRATE 60 MG TABCR PO SCH (09:10)
[2016-09-20] MEDS: INSULIN ASPART 100 UNITS/ML 3 ML PEN SC SCH ×4 (09:13→21:01)
[2016-09-20] MEDS: AMLODIPINE BESYLATE 5 MG TAB PO SCH (10:20)
[2016-09-20] MEDS ORDERED: FUROSEMIDE INJ 20 MG in SYRINGE 0 ML IV STA (11:10)
--- NOTE | 2016-09-20 13:12 | Progress Note ---
Subjective Date of Service: Sep 20, 2016. Subjective Overnight patient had a fever, chest x-ray obtained was abnormal, chest x-ray looks more like interstitial edema but an atypical pneumonia could also pinto similar, she was started on vancomycin and Zosyn this will be amended to include atypical coverage. This morning the patient states she feels better she has a slight cough but it' s been mostly nonproductive and she does not feel short of breath Problem List Medical Problems: (1) Altered mental status Status: Acute (2) Hypoxia Status: Acute (3) Orthostasis Status: Acute Review of Systems Constitutional: + fever, + chills, No weakness Respiratory: No cough, No wheezing, No shortness of breath, No dyspnea on exertion Cardiac: + edema (trace), No chest pain Abdomen: No pain, No nausea, No vomiting, No diarrhea Female : No dysuria, No urinary frequency Neurologic: + weakness, No memory loss Objective Vital Signs Date Time Temp Pulse Resp B/P (MAP) Pulse Ox O2 Delivery O2 Flow Rate FiO2 09/20/16 09:48 Nasal Cannula 4.0 09/20/16 07:25 37.4 72 18 137/68 (91) 92 Nasal Cannula 4.0 09/20/16 03:57 37.9 73 18 93 Nasal Cannula 4.0 09/19/16 23:15 Nasal Cannula 4.0 09/19/16 22:52 37.9 82 20 133/69 (90) 93 Nasal Cannula 4.0 09/19/16 22:50 38.6 09/19/16 16:30 90 Nasal Cannula 1.0 09/19/16 15:09 38.0 67 18 139/67 (91) 90 Room Air 09/19/16 13:45 67 Physical Exam General Appearance: WD/WN, + mild distress Eyes: PERRL, EOMI Neck: supple, thyroid normal Respiratory/Chest: chest non-tender, normal breath sounds (no rales heard this morning) Cardiovascular: regular rate, rhythm, no murmur Abdomen: normal bowel sounds, non tender, soft Extremities: no calf tenderness (no cords), + pedal edema (trace) Neurologic/Psychiatric: alert, oriented x 3 Laboratory Results Last 24 Hours Test 09/19/16 16:49 09/19/16 20:35 09/19/16 23:25 09/20/16 00:00 Bedside Glucose 131 mg/dl 134 mg/dl Urine Color YELLOW Urine Appearance CLEAR Urine pH 5.0 Urine Specific [place] 1.021 Urine Protein 1+ Urine Glucose (UA) NEG Urine Ketones NEG Urine Occult Blood NEG Urine Nitrite NEG Urine Bilirubin NEG Urine Urobilinogen NEG Urine Leukocyte Esterase NEG Urine WBC (Auto) 0 /hpf Urine RBC (Auto) 0-4 /hpf Urine Hyaline Casts (Auto) 1-5 /lpf Urine Epithelial Cells (Auto) 0-5 /lpf Urine Bacteria (Auto) NEG White Blood Count 13.00 K/uL Red Blood Count 3.19 M/uL Hemoglobin 9.6 g/dL Hematocrit 29.3 % Mean Corpuscular Volume 91.8 fL Mean Corpuscular Hemoglobin 30.1 pg Mean Corpuscular Hemoglobin Concent 32.8 g/dl Platelet Count 254 K/uL Mean Platelet Volume 10.9 fL Neutrophils (%) (Auto) 79.0 % Lymphocytes (%) (Auto) 11.2 % Monocytes (%) (Auto) 8.8 % Eosinophils (%) (Auto) 0.5 % Basophils (%) (Auto) 0.1 % Neutrophils # (Auto) 10.28 K/uL Lymphocytes # (Auto) 1.46 K/uL Monocytes # (Auto) 1.14 K/uL Eosinophils # (Auto) 0.06 K/uL Basophils # (Auto) 0.01 K/uL RDW Standard Deviation 45.8 fL RDW Coefficient of Variation 13.5 % Immature Granulocyte % (Auto) 0.4 % Immature Granulocyte # (Auto) 0.05 K/uL Sodium Level 139 mmol/L Potassium Level 4.4 mmol/L Chloride Level 107 mmol/L Carbon Dioxide Level 27 mmol/L Anion Gap 5.0 mmol/L Blood Urea Nitrogen 44 mg/dl Creatinine 1.50 mg/dl Est Creatinine Clear Calc Drug Dose 37.9 ml/min Estimated GFR () 39.1 Estimated GFR (Non- 33.7 BUN/Creatinine Ratio 29.1 Random Glucose 132 mg/dl Calcium Level 8.0 mg/dl Test 09/20/16 08:08 09/20/16 11:48 Bedside Glucose 151 mg/dl 143 mg/dl Assessment and Plan (1) Lumbar stenosis with neurogenic claudication (2) Acute kidney injury (3) Confusion (4) Coronary artery disease (5) Influenza A (6) Spinal stenosis, other region (7) Hand weakness (8) Diabetes 1.5, 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 We will give 1 dose of Lasix. Fever initially treated for pneumonia if abnormal chest x-ray with bilateral interstitial infiltrates is pneumonia this would likely be more atypical her in about or not covering this at this time we will change her Zosyn to levofloxacin at 750 to achieve coverage of both gram-negative and atypical pneumonias. Although her repeat urinalysis was negative she is not have any clinical symptoms of pneumonia such as productive cough and we'll also send a urine culture neurology ordered tsh it is low may need dose reduction of synthroid to 100 but family is reluctant will discuss with pcp cad has been stable on micardis, isosorbide, asa and lipitor glucose intolerance from surgical stress and steroids is covered by lantus and ssi,
[2016-09-20] MEDS ORDERED: LEVOFLOXACIN CONSULT ACTIVE PRN (13:45)
[2016-09-20] MEDS ORDERED: LEVOFLOXACIN / D5W 750 MG in PREMIXED IN D5W 150 ML IV SCH (14:00)
[2016-09-20] MEDS: OXYCODONE HCL IR 5 MG TAB (IMMEDIATE RELEASE) PO PRN ×2 (18:26→23:48)
[2016-09-20] MEDS: ATORVASTATIN 20 MG TAB PO SCH (20:52)
[2016-09-20] MEDS: ASPIRIN 81 MG ECTAB PO SCH (20:52)
[2016-09-20] MEDS: DOCUSATE SODIUM/SENNA 50/8.6MG TAB PO SCH (20:53)
[2016-09-20] MEDS: INSULIN GLARGINE SOLOSTAR 100 UNITS/ML 3 ML PEN SC SCH (21:02)
[2016-09-21] VITALS (7 sets, daily range): BP systolic 126–145; BP diastolic 67–85; PULSE 65–74; TEMP 37–38.4; O2SAT 91–97
[2016-09-21 05:46] LABS: HEMATOCRIT 25.3 % (37-47); MEAN CELL VOLUME 90.7 fL (80-100); MEAN CORPUSCULAR HEMOGLOBIN 30.5 pg (25-34); MEAN CORPUSCULAR HGB CONC 33.6 g/dl (32-36); MEAN PLATELET VOLUME 10.6 fL (7.4-10.4); PLATELET COUNT 240 K/uL (130-400); RED BLOOD COUNT 2.79 M/uL (4.2-5.4); WHITE BLOOD COUNT 10.73 K/uL (4.8-10.8)
[2016-09-21] MEDS: LEVOTHYROXINE 112 MCG TAB PO SCH (05:52)
[2016-09-21 06:20] LABS: BUN/CREATININE RATIO 25.4 (10-20); CALCIUM 7.7 mg/dl (8.5-10.1); CREATININE 1.5 mg/dl (0.60-1.20); POTASSIUM 4.1 mmol/L (3.5-5.1)
[2016-09-21] MEDS: GABAPENTIN 600 MG TAB PO SCH ×4 (08:18→21:15)
[2016-09-21] MEDS: TELMISARTAN 40 MG TAB PO SCH (08:18)
[2016-09-21] MEDS: ISOSORBIDE MONONITRATE 30 MG TABCR PO SCH (08:18)
[2016-09-21] MEDS: FLUOXETINE HCL 20 MG CAP PO SCH (08:19)
[2016-09-21] MEDS: METOPROLOL TARTRATE 25 MG TAB PO SCH ×2 (08:19→21:19)
[2016-09-21] MEDS: ISOSORBIDE MONONITRATE 60 MG TABCR PO SCH (08:19)
[2016-09-21] MEDS: AMLODIPINE BESYLATE 5 MG TAB PO SCH (08:19)
[2016-09-21] MEDS: INSULIN ASPART 100 UNITS/ML 3 ML PEN SC SCH ×4 (08:23→21:00)
--- NOTE | 2016-09-21 10:10 | Pharmacy Progress Note ---
Glycemic Control Progress Note Date of Service Sep 21, 2016. Scope Glycemic Pharmacist consulted for glycemic control to write orders per [facility], located within [facility] inpatient glycemic control protocol. Objective Accuchecks BSG (last 24hrs): Test 09/20/16 11:48 09/20/16 16:42 09/20/16 20:28 09/21/16 05:15 Bedside Glucose 143 mg/dl (70-90) 156 mg/dl (70-90) 146 mg/dl (70-90) Random Glucose 87 mg/dl (70-99) Test 09/21/16 07:57 Bedside Glucose 95 mg/dl (70-90) HbA1c: Test 09/17/16 05:00 Hemoglobin A1c 7.4 % (4.5-5.6) H Recent Pertinent Medications The patient is currently receiving: * Basal insulin: Lantus 35 units SQ daily * Correctional Insulin: Novolog Correction per scale ACHS Goal Range: Low 110 mg/dL - High 140 mg/dL Correction Factor: 15 mg/dL/unit * Prandial insulin: Per carb ratio of 1 unit per 6 grams CHO consumed Outpatient Anti-Diabetic Meds Basal Insulin * Lantus 40 units SQ HS Bolus Insulin * Novolog with meals; 20 units / 20 units /35 units Assessment & Plan ASSESSMENT: * See progress note from 09/16/2016 for more background info, in short: * 75 y/o female POD # 5 s/p lumbar decompression and fusion. * Pt receiving SQ basal bolus insulin regimen for hyperglycemia secondary to baseline DM and stress from recent surgery. Pt is requiring significantly less insulin compared to home daily dose of 115 units. * Patient received 58 units of insulin the past two days * 35 units of basal insulin * 23 units of prandial/correctional insulin * BSGs ranging 95 - 156 mg/dl over the past 24hrs * Changes needed to insulin regimen: * AM Fasting BSG = 95 mg/dl. This is at goal for patient based on inpatient targets and co-morbidities. * Post-prandial BSGs were slightly above goal range yesterday, therefore, CR will be tightened. * Total daily dose = ~60 units. Will redistribute regimen with goal of 50% basal and 50% bolus PLAN FOR INPATIENT GLYCEMIC CONTROL: * Basal insulin - decrease * Lantus 30 units SQ qHS * Bolus insulin - tighten CR * NovoLog per scale ACHS * Goal Range: Low 110 mg/dL - High 140 mg/dL * Correction Factor: 15 mg/dL/unit * Nutritional / Prandial insulin per carb ratio of 1 unit per 5 grams CHO consumed RECOMMENDATIONS FOR DISCHARGE: * Good outpatient control for patient's age and co-morbidities evidenced by A1c of 7.4 % (09/17/16). * May continue current regimen if patient does not have any complaints of hypoglycemic. Patient's regimen is currently bolus heavy. It may be possible to shift to a more 50/50 regimen if patient tolerates. This may be done as an outpatient. * Please note that the plan above was derived based on current level of insulin resistance and hospital stress. These recommendations are appropriate for inpatient admission only. Plan of care upon discharge will need to be reassessed to avoid potential outpatient hypo/hyperglycemia. Thank you.
[2016-09-21] MEDS: OXYCODONE HCL IR 5 MG TAB (IMMEDIATE RELEASE) PO PRN (13:02)
--- NOTE | 2016-09-21 13:46 | Progress Note ---
Subjective Date of Service: Sep 21, 2016. Subjective Pt evaluation today including: conversation w/ patient, conversation w/ family , physical exam, chart review, lab review, review of studies, review of inpatient medication list Resting comfortably in bed States numbness in hand comes and goes No worsening pain No shortness of breath or chest pain No acute events overnight Problem List Medical Problems: (1) Altered mental status Status: Acute (2) Hypoxia Status: Acute (3) Orthostasis Status: Acute Review of Systems Constitutional: No fever, No chills, No weight loss, No weakness, No fatigue Eyes: No worsening of vision, No eye pain, No redness, No discharge ENT: No hearing loss, No unusual epistaxis, No nasal symptoms, No sore throat, No tinnitus Respiratory: No cough, No sputum, No wheezing, No shortness of breath, No dyspnea on exertion Cardiac: No chest pain, No orthopnea, No PND, No edema, No claudication Abdomen: No pain, No nausea, No vomiting, No diarrhea, No constipation Musculoskeletal: No joint pain, No muscle pain, No swelling, No calf pain Female : No dysuria, No urinary frequency, No hematuria, No incontinence Neurologic: + numbness/tingling, No memory loss, No paralysis, No weakness Psychiatric: No depression symptoms, No anhedonism, No anxiety, No insomnia Endo: No fatigue, No excessive thirst Skin: No rash, No itch, No new/changing skin lesions, No color change Objective Vital Signs Date Time Temp Pulse Resp B/P (MAP) Pulse Ox O2 Delivery O2 Flow Rate FiO2 09/21/16 07:20 96 Nasal Cannula 4.0 09/21/16 07:15 37.0 67 19 126/68 (87) 91 Nasal Cannula 2.0 09/21/16 03:05 37.5 09/20/16 23:30 Nasal Cannula 2.0 09/20/16 23:05 37.9 70 16 137/75 (95) 91 Nasal Cannula 2.0 09/20/16 16:30 96 Nasal Cannula 2.0 09/20/16 16:00 37.0 09/20/16 15:45 37.6 09/20/16 15:15 38.0 09/20/16 14:52 37.3 68 18 108/53 (71) 96 Nasal Cannula 2.0 Physical Exam General Appearance: WD/WN, no apparent distress, + obese Eyes: normal inspection, PERRL, EOMI, sclerae normal Neck: supple, no adenopathy, thyroid normal, no JVD Respiratory/Chest: chest non-tender, lungs clear, normal breath sounds, no respiratory distress Cardiovascular: regular rate, rhythm, no edema, no gallop, no JVD Abdomen: normal bowel sounds, non tender, soft, no organomegaly Extremities: non-tender, normal inspection, no calf tenderness, + pertinent finding (numbness in ) Neurologic/Psychiatric: no motor/sensory deficits, alert, normal mood/affect, oriented x 3 Laboratory Results Last 24 Hours Test 09/20/16 16:42 09/20/16 20:28 09/21/16 05:15 09/21/16 07:57 Bedside Glucose 156 mg/dl 146 mg/dl 95 mg/dl White Blood Count 10.73 K/uL Red Blood Count 2.79 M/uL Hemoglobin 8.5 g/dL Hematocrit 25.3 % Mean Corpuscular Volume 90.7 fL Mean Corpuscular Hemoglobin 30.5 pg Mean Corpuscular Hemoglobin Concent 33.6 g/dl RDW Standard Deviation 44.2 fL RDW Coefficient of Variation 13.3 % Platelet Count 240 K/uL Mean Platelet Volume 10.6 fL Sodium Level 140 mmol/L Potassium Level 4.1 mmol/L Chloride Level 108 mmol/L Carbon Dioxide Level 25 mmol/L Anion Gap 7.0 mmol/L Blood Urea Nitrogen 38 mg/dl Creatinine 1.50 mg/dl Est Creatinine Clear Calc Drug Dose 37.9 ml/min Estimated GFR () 39.1 Estimated GFR (Non- 33.7 BUN/Creatinine Ratio 25.4 Random Glucose 87 mg/dl Calcium Level 7.7 mg/dl Test 09/21/16 11:53 Bedside Glucose 177 mg/dl Assessment and Plan (1) Lumbar stenosis with neurogenic claudication Assessment & Plan: POD # [address] care [address] Freire Patient reports numbness improving States hx of carpal tunnel in the past but numbness likely transient from anesthesia (2) Acute kidney injury Assessment & Plan: Cr 1.5 today, unchanged Cont with gentle hydration Will hold telmisartan (3) Confusion Assessment & Plan: Resolved (4) Coronary artery disease Assessment & Plan: Stable Cont ASA, norvasc, BB, imdur (5) Influenza A (6) Spinal stenosis, other region (7) Hand weakness (8) Diabetes 1.5, managed as type 1
--- NOTE | 2016-09-21 14:10 | Progress Note ---
Progress Note Date of Service Sep 21, 2016. Progress Note Patient ambulating well. No complaints. Vital signs stable. Assessment status post lumbar decompression fusion replant this time will plan for [facility] today if bed available.
[2016-09-21] MEDS ORDERED: INSULIN GLARGINE SOLOSTAR 100 UNITS/ML 3 ML PEN SC SCH (21:00)
[2016-09-21] MEDS: ASPIRIN 81 MG ECTAB PO SCH (21:14)
[2016-09-21] MEDS: DOCUSATE SODIUM/SENNA 50/8.6MG TAB PO SCH (21:15)
[2016-09-21] MEDS: ATORVASTATIN 20 MG TAB PO SCH (21:15)
[2016-09-22 03:29] VITALS: TEMP 37.5
[2016-09-22] MEDS: LEVOTHYROXINE 112 MCG TAB PO SCH (05:41)
[2016-09-22 07:49] VITALS: BP 142/68; PULSE 62; TEMP 37; O2SAT 94
[2016-09-22 08:03] LABS: BASO % 0.3 %; BASO ABS # 0.03 K/uL (0-0.2); HEMATOCRIT 25.3 % (37-47); IG% 0.3 %; LYMPH % 15.9 %; LYMPH ABS # 1.52 K/uL (1.2-3.4); MEAN CELL VOLUME 91.7 fL (80-100); MEAN CORPUSCULAR HEMOGLOBIN 30.4 pg (25-34); MEAN CORPUSCULAR HGB CONC 33.2 g/dl (32-36); MEAN PLATELET VOLUME 10.5 fL (7.4-10.4); NEUT % 68.5 %; PLATELET COUNT 249 K/uL (130-400); RED BLOOD COUNT 2.76 M/uL (4.2-5.4); WHITE BLOOD COUNT 9.54 K/uL (4.8-10.8)
[2016-09-22 08:13] VITALS: O2SAT 94
[2016-09-22 08:30] LABS: BUN/CREATININE RATIO 24.1 (10-20); CALCIUM 7.9 mg/dl (8.5-10.1); CREATININE 1.5 mg/dl (0.60-1.20); POTASSIUM 4.7 mmol/L (3.5-5.1)
[2016-09-22] MEDS: GABAPENTIN 600 MG TAB PO SCH (08:30)
[2016-09-22] MEDS: FLUOXETINE HCL 20 MG CAP PO SCH (08:30)
[2016-09-22] MEDS: AMLODIPINE BESYLATE 5 MG TAB PO SCH (08:30)
[2016-09-22] MEDS: ISOSORBIDE MONONITRATE 60 MG TABCR PO SCH (08:30)
[2016-09-22] MEDS: ISOSORBIDE MONONITRATE 30 MG TABCR PO SCH (08:30)
[2016-09-22] MEDS: METOPROLOL TARTRATE 25 MG TAB PO SCH (08:30)
[2016-09-22 08:34] LABS: COMPLETE YES
[2016-09-22] MEDS: INSULIN ASPART 100 UNITS/ML 3 ML PEN SC SCH ×2 (09:23→11:54)
[2016-09-22 10:20] VITALS: O2SAT 96
[2016-09-22 11:15] VITALS: BP 142/68; PULSE 62; TEMP 37; O2SAT 96
[2016-09-22] MEDS: OXYCODONE HCL IR 5 MG TAB (IMMEDIATE RELEASE) PO PRN (11:24)
--- NOTE | 2016-09-28 15:23 | Discharge Summary ---
Orthopedic Discharge Summary Admission Date/Reason Sep 16, 2016 at 08:30 Lumbar Spinal Stenosis. Discharge Date/Disposition Sep 21, 2016 Home Diagnosis Principal Diagnosis: lumbar spinal stenosis Procedure(s) Performed posterior lumbar decompression/fusion L4-S1 Consultations Neurology Medication Reconciliation New Medications: Oxycodone HCl (Oxycodone HCl) 5 Mg Tab 5-10 MG PO Q4H PRN for Moderate - severe pain for 30 Days, #60 TAB Continued Medications: Acetaminophen (Acetaminophen Extra Stren) 500 Mg Tab 2 TAB PO QID Acetaminophen/Diphenhydramine (Tylenol Pm) 500 Mg/25 Mg Tab 1 TAB PO HS, TAB Amlodipine Besylate (Norvasc) 5 Mg Tab 5 MG PO QAM, TAB Aspirin (Aspirin Adult Low Dose) 81 Mg Tab 81 MG PO QPM Atorvastatin (Lipitor) 10 Mg Tab 20 MG PO QPM, TAB Budesonide/Formoterol Fumarate (Symbicort 80/4.5 Inhaler) 120 Puffs/ Aero 2 PUFFS INH BID PRN for Shortness of Breath, INHALER Calcium/Vitamin D (Os-[place] 500 Plus D) Tab 1 TAB PO BID, TAB Coenzyme Q10 (Ubidecarenone) (Co Q10) 100 Mg Cap 200 MG PO QPM, CAP Cyanocobalamin (Vitamin B12) 1,000 Mcg Tab 1000 MCG PO QAM Dextromethorphan Polistirex (Delsym) 30 Mg/5 Ml Liq 5 ML PO UD PRN for Cough, ML TAKE PER PACKAGE DIRECTIONS Fish Oil ([place]-3) 1 Ea Cap 1 CAP PO BID, CAP Fluoxetine (Prozac) 20 Mg Cap 20 MG PO QAM Fluticasone Propionate (Inhala (Flovent Diskus) 100 Mcg/Blist Aer 1 PUFFS INH BID PRN for Shortness of Breath, #1 INHALER 5 Refills Gabapentin (Neurontin) 300 Mg Cap 600 MG PO QID, CAP Insulin Aspart (Novolog Flexpen) 100 Units/Ml Inj 20 UNITS SC BREAKFAST PLUS SLIDING SCALE Insulin Aspart (Novolog Flexpen) 100 Units/Ml Inj 20 UNITS SC LUNCH PLUS SLIDING SCALE Insulin Aspart (Novolog Flexpen) 100 Units/Ml Inj 35 UNITS SC DINNER PLUS SLIDING SCALE Insulin Glargine (Lantus) 100 Unit/ Inj 40 UNITS SC HS, INJ Isosorbide Mononitrate Ext Rel (Imdur Ext Rel) 30 Mg Tabcr 30 MG PO QAM, TAB TAKE ONE 30 MG TABLET ALONG WITH ONE 60 MG TABLET TO EQUAL DAILY DOSE OF 90 MG Isosorbide Mononitrate Ext Rel (Imdur Ext Rel) 60 Mg Ertab 60 MG PO QAM, TAB TAKE ONE 60 MG TABLET ALONG WITH ONE 30 MG TABLET TO EQUAL DAILY DOSE OF 90 MG Levothyroxine Sodium (Levothyroxine Sodium) 112 Mcg Tab 112 MCG PO QAM, TAB Metoprolol Tartrate (Lopressor) (Lopressor) 25 Mg Tab 25 MG PO BID Nitroglycerin (Nitrostat) 0.4 Mg Sub 0.4 MG UT UD PRN for Chest Pain, SUB PLACE ONE TABLET UNDER THE TONGUE EVERY 5 MINUTES FOR UP TO 3 DOSES IF NEEDED FOR CHEST PAIN Telmisartan/Hctz (Micardis Hct) 1 Tab Tab 1 TAB PO QAM for 30 Days, #30 TAB 5 Refills [Proair HFA] () 1-2 PUFFS INH Q4-6HRS PRN for SOB/Wheezing Admission Physical Exam As per Admitting History & Physical. Hospital Course Noted lower extremity weakness as well as hand weakness/shakiness. Neurology consulted. Head CT performed. No acute abnormalities. Otherwise, pt had an uneventful hospital course. Discharge Instructions Please refer to the electronic Patient Visit Report (Discharge Instructions) for additional information.
--- NOTE | 2016-09-29 06:51 | EDITING REQUIRED CODING QUERY ---
CODING QUERY To promote full compliance with coding requirements relating to patient care, provider participation is requested in all cases of art consultant uncertainty. Please assist us with the question(s) below: Coding Question(s): Patient admitted for Spinal Fusion Surgery. 09/20 Hospitalist note states " fever initially treated for gram-negative & atypical pneumonia. Zosyn changed to Levofloxacin". Please check below the diagnosis that was treated during this inpatient stay. Thank you. Demond Stauffer [facility] Physician's Response(s): Gram-negative pneumonia Atypical pneumonia Other: (please document) Cannot clinically correlate Principal Diagnosis: "_that condition established after study, to be chiefly responsible for occasioning the admission of the patient to the hospital for care." Co-Existing Principal Diagnosis: "_when two or more diagnoses equally meet the criteria for principal diagnosis as determined by the circumstances of admission, diagnostic work up, and/or therapy provided, and the Alphabetic Index, Tabular List, or another coding guideline does not provide sequencing direction, any one of the diagnoses may be sequenced first." "When the physician has documented what appears to be a current diagnosis in the body of the record, but has not included the diagnosis in the final diagnostic statement, the physician should be asked whether the diagnosis should be added." (Source Coding [facility] 2 QTR90. p3-4)
== END 2016-09-22 12:10 | DRG 459 ==
LOC: C.ACU 07:49 → C.3E 08:30 → ENRESERV 12:36
PROVIDERS: ADMIT Orthopaedic Surgery Orthopaedic Surgery of the Spine; ATTEND Orthopaedic Surgery Orthopaedic Surgery of the Spine
PROC: 0SB20ZZ Excision of Lumbar Vertebral Disc, Open Approach (ICD-10-PCS; principal; 2016-09-16 09:15)
PROC: 0SG307J Fusion of Lumbosacral Joint with Autologous Tissue Substitute, Posterior Approach, Anterior Column, Open Approach (ICD-10-PCS; principal; 2016-09-16 09:15)
PROC: 0SG00A1 (ICD-10-PCS; principal; 2016-09-16 09:15)
PROC: 0SG007J Fusion of Lumbar Vertebral Joint with Autologous Tissue Substitute, Posterior Approach, Anterior Column, Open Approach (ICD-10-PCS; principal; 2016-09-16 09:15)
PROC: 01NB0ZZ Release Lumbar Nerve, Open Approach (ICD-10-PCS; principal; 2016-09-16 09:15)
DX: M48.06 Spinal stenosis, lumbar region (principal); J15.6 Pneumonia due to other Gram-negative bacteria; N17.9 Acute kidney failure, unspecified; F11.921 Opioid use, unspecified with intoxication delirium; E11.9 Type 2 diabetes mellitus without complications; G25.3 Myoclonus; R09.02 Hypoxemia; I12.9 Hypertensive chronic kidney disease with stage 1 through stage 4 chronic kidney disease, or unspecified chronic kidney disease; I25.10 Atherosclerotic heart disease of native coronary artery without angina pectoris; M85.80 Other specified disorders of bone density and structure, unspecified site; E03.9 Hypothyroidism, unspecified; N18.3 Chronic kidney disease, stage 3 (moderate); I48.91 Unspecified atrial fibrillation; Z96.659 Presence of unspecified artificial knee joint; T40.2X5A Adverse effect of other opioids, initial encounter; J45.909 Unspecified asthma, uncomplicated; Z79.4 Long term (current) use of insulin; Z68.39 Body mass index [BMI] 39.0-39.9, adult; E78.5 Hyperlipidemia, unspecified; E66.9 Obesity, unspecified; K21.9 Gastro-esophageal reflux disease without esophagitis; R41.0 Disorientation, unspecified; F03.90 Unspecified dementia, unspecified severity, without behavioral disturbance, psychotic disturbance, mood disturbance, and anxiety; Y92.230 Patient room in hospital as the place of occurrence of the external cause

== ENCOUNTER 2016-09-28 14:28 | Inpatient (IN) | payer OTHER, BC ==
[~2016-09-28] VITALS: Ht 162.6 cm; Wt 99.9 kg
[~2016-09-28 14:28] MED LIST changes: -CEFAZOLIN 2000 MG/60 ML D5W IV SCH; -FENTANYL CITRATE INJ 50 MCG/1 ML 2 ML VIAL ONE; -LACTATED RINGER'S 1000ML 1,000 ML IV SCH; -LIDOCAINE HCL 2% 2 ML VIAL (20MG/ML) ONE; -MIDAZOLAM HCL 1 MG/ML 2ML VIAL ONE; -PROPOFOL IV EMULSION 10 MG/ML 20 ML VIAL IV ONE; +RXC5 PO
[2016-09-28] MEDS ORDERED: SODIUM CHLORIDE 0.9% 1000ML 1,000 ML IV ONE (15:16)
[2016-09-28] MEDS ORDERED: SODIUM CHLORIDE 0.9% 1000ML 1,000 ML IV STA (15:16)
[2016-09-28 15:27] LABS: BASO % 0.5 %; BASO ABS # 0.06 K/uL (0-0.2); COMPLETE YES; EOS % 3.5 %; HEMATOCRIT 29.6 % (37-47); IG% 0.5 %; LYMPH % 19.4 %; LYMPH ABS # 2.12 K/uL (1.2-3.4); MEAN CELL VOLUME 92.5 fL (80-100); MEAN CORPUSCULAR HEMOGLOBIN 30.3 pg (25-34); MEAN CORPUSCULAR HGB CONC 32.8 g/dl (32-36); MEAN PLATELET VOLUME 10.4 fL (7.4-10.4); NEUT % 69.1 %; PLATELET COUNT 424 K/uL (130-400); WHITE BLOOD COUNT 10.91 K/uL (4.8-10.8)
[2016-09-28 15:31] LABS: PARTIAL THROMBOPLASTIN RATIO 0.9; PROTHROMBIN TIME (PATIENT) 10.8 SECONDS (9.0-12.0)
--- NOTE | 2016-09-28 15:34 | EMERGENCY ROOM VISIT NOTE ---
History Report prepared by Maxine: Chito Peres Under the Supervision of: Dr. Alexei Mazariegos M.D. First contact with patient: 14:52 Chief Complaint: SYNCOPE (NEAR SYNCOPE) Stated Complaint: SYNCOPE Nursing Triage Summary: pt arrives via EMS from [facility] , staff reports pt had been heading back to room via WC from OT and had a syncopal episode pt denies NV or [place] at this time , reports occassional spots in front of eyes History of Present Illness The patient is a 75 year old female who presents to the Emergency Room with complaints of a sudden syncopal episode occurring prior to arrival. The patient states that she recently had some back surgery, and she is currently an inpatient at [facility], and she is going through rehabilitation. The patient states that she unusual this morning, and after OT she passed out in her wheel chair. Additionally, she states that she got some NovoLog before her OT today, and they checked her sugar levels after the syncopal episode, and it was 107, though in the ambulance it was in the 80s. The patient states that she does not remember doing anything after the activity until she came back after the episode. The patient denies any chest pain, palpitations, shortness of breath, neck pain, pain with inspiration, melena, hematochezia, headache, recent falls, fever, or abdominal pain. She states that she has been having normal bowel movements. Additionally, she states that she has been having trouble with her hands, and they keep "dropping". The patient has no history for blood clots, and she is not on any blood thinners. She states that she has been keeping up with her fluids. Source of History: patient Onset: prior to arrival Position: other (global) Quality: other (syncopal episode) Timing: other (sudden) Associated Symptoms: No headache, No neck pain, No chest pain, No SOB, No abdominal pain, No melena, No hematochezia Review of Systems See HPI for pertinent positives & negatives. A total of 10 systems reviewed and were otherwise negative. Past Medical & Surgical Medical Problems: (1) Acute kidney injury (2) Confusion (3) Coronary artery disease (4) Diabetes 1.5, managed as type 1 (5) Elevated troponin I level (6) Hand weakness (7) Influenza A (8) Lumbar stenosis with neurogenic claudication (9) Spinal stenosis, other region Old medical records were reviewed. Nurse's notes were reviewed and I agree with. Family History No pertinent family history Social History Smoking Status: Never Smoker Drug Use: none Marital Status: Housing Status: lives with family, lives with significant other Occupation Status: retired Current/Historical Medications Scheduled Acetaminophen (Acetaminophen Extra Stren), 2 TAB PO QID Acetaminophen/Diphenhydramine (Tylenol Pm), 1 TAB PO HS Amlodipine Besylate (Norvasc), 5 MG PO QAM Aspirin (Aspirin Adult Low Dose), 81 MG PO QPM Atorvastatin (Lipitor), 20 MG PO QPM Calcium/Vitamin D (Os-[place] 500 Plus D), 1 TAB PO BID Coenzyme Q10 (Ubidecarenone) (Co Q10), 200 MG PO QPM Cyanocobalamin (Vitamin B12), 1,000 MCG PO QAM Fish Oil ([place]-3), 1 CAP PO BID Fluoxetine (Prozac), 20 MG PO QAM Gabapentin (Neurontin), 600 MG PO QID Insulin Aspart (Novolog Flexpen), 20 UNITS SC BREAKFAST Insulin Aspart (Novolog Flexpen), 20 UNITS SC LUNCH Insulin Aspart (Novolog Flexpen), 35 UNITS SC DINNER Insulin Glargine (Lantus), 40 UNITS SC HS Isosorbide Mononitrate Ext Rel (Imdur Ext Rel), 30 MG PO QAM Isosorbide Mononitrate Ext Rel (Imdur Ext Rel), 60 MG PO QAM Levothyroxine Sodium (Levothyroxine Sodium), 112 MCG PO QAM Metoprolol Tartrate (Lopressor) (Lopressor), 25 MG PO BID Telmisartan/Hctz (Micardis Hct), 1 TAB PO QAM Scheduled PRN Budesonide/Formoterol Fumarate (Symbicort 80/4.5 Inhaler), 2 PUFFS INH BID PRN for Shortness of Breath Dextromethorphan Polistirex (Delsym), 5 ML PO UD PRN for Cough Fluticasone Propionate (Inhala (Flovent Diskus), 1 PUFFS INH BID PRN for Shortness of Breath Nitroglycerin (Nitrostat), 0.4 MG UT UD PRN for Chest Pain Oxycodone HCl (Oxycodone HCl), 5-10 MG PO Q4H PRN for Moderate - severe pain [Proair HFA], 1-2 PUFFS INH Q4-6HRS PRN for SOB/Wheezing Allergies Coded Allergies: Clopidogrel (Verified Allergy, Unknown, Unknown, 09/16/16) Lisinopril (Verified Allergy, Unknown, Unknown, 09/16/16) Physical Exam Vital Signs Date Time Temp Pulse Resp B/P (MAP) Pulse Ox O2 Delivery O2 Flow Rate FiO2 09/28/16 18:30 61 18 140/45 96 Room Air 09/28/16 18:30 62 09/28/16 17:05 58 20 142/46 09/28/16 15:51 56 18 132/65 98 Room Air 09/28/16 14:51 56 18 98/43 96 56 96/55 09/28/16 14:44 37.0 20 96/55 96 Room Air 09/28/16 14:36 54 Physical Exam General: Non-ill appearing older female in no acute distress. HEENT: Normal cephalic atraumatic. Pupils are equal round and reactive to light. Extraocular movements are intact. Oropharynx is pink with moist mucous membranes. No swelling of the mouth lips or tongue. Neck: Supple with a midline trachea. No meningeal signs or stiffness, no JVD or bruits. No Stridor. Chest: Clear to auscultation bilaterally. No wheezes or rhonchi. No increased work of breathing. Heart: regular rate and rhythm. Abdomen: Soft nontender, nondistended without rebound guarding or rigidity. Extremities: No cyanosis clubbing or edema. No calf tenderness or assymetry Spine/Back. Non tender to palpation. No CVA tenderness Skin: Good turgor without rashes. Neurologic exam: Cranial nerves two through 12 are intact. Motor and sensation are intact and symmetrical throughout. Medical Decision & Procedures ER Provider Diagnostic Interpretation: X-ray results as stated below per interpretation by me and the radiologist: CHEST ONE VIEW PORTABLE CLINICAL HISTORY: CHEST PAIN dyspnea COMPARISON STUDY: 09/19/2016 FINDINGS: Interval resolution of the previously noted pulmonary edematous change. Lungs currently are considered clear. Diaphragms are smooth. No evidence for cardiac enlargement. IMPRESSION: Negative chest. Considerable improvement from the prior study. The above report was generated using voice recognition software. It may contain grammatical, syntax or spelling errors. Electronically signed by: Anderson Duran M.D. 09/28/2016 3:36 PM Dictated Date/Time: 09/28/2016 3:35 PM ULTRASOUND BILATERAL LOWER EXTREMITY VENOUS CLINICAL HISTORY: Syncope. COMPARISON STUDY: No priors. TECHNIQUE: Real-time, grayscale, and color Doppler sonography of the deep veins of the right and left lower extremity was performed from the inguinal crease to the calf. Compression and augmentation were utilized. FINDINGS: There is no sonographic evidence of deep venous thrombosis identified in the right or left lower extremity. The common femoral, superficial femoral, and popliteal veins are patent and normally compressible bilaterally. The greater saphenous vein and the profunda femoris vein at the junction with the common femoral vein are clear in both legs. The visualized calf veins are patent bilaterally. IMPRESSION: There is no sonographic evidence of deep venous thrombosis identified in the right or left lower extremity. Electronically signed by: Neil Gonzales M.D. 09/28/2016 7:22 PM Dictated Date/Time: 09/28/2016 7:21 PM Laboratory Results 09/28/16 14:40 Red Blood Count 3.20, Mean Corpuscular Volume 92.5, Mean Corpuscular Hemoglobin 30.3, Mean Corpuscular Hemoglobin Concent 32.8, Mean Platelet Volume 10.4, Neutrophils (%) (Auto) 69.1, Lymphocytes (%) (Auto) 19.4, Monocytes (%) (Auto) 7.0, Eosinophils (%) (Auto) 3.5, Basophils (%) (Auto) 0.5, Neutrophils # (Auto) 7.53, Lymphocytes # (Auto) 2.12, Monocytes # (Auto) 0.76, Eosinophils # (Auto) 0.38, Basophils # (Auto) 0.06 09/28/16 16:21 Test 09/28/16 14:40 09/28/16 16:21 09/28/16 17:35 09/28/16 19:20 White Blood Count 10.91 K/uL (4.8-10.8) Red Blood Count 3.20 M/uL (4.2-5.4) Hemoglobin 9.7 g/dL (12.0-16.0) Hematocrit 29.6 % (37-47) Mean Corpuscular Volume 92.5 fL (80-100) Mean Corpuscular Hemoglobin 30.3 pg (25-34) Mean Corpuscular Hemoglobin Concent 32.8 g/dl (32-36) Platelet Count 424 K/uL (130-400) Mean Platelet Volume 10.4 fL (7.4-10.4) Neutrophils (%) (Auto) 69.1 % Lymphocytes (%) (Auto) 19.4 % Monocytes (%) (Auto) 7.0 % Eosinophils (%) (Auto) 3.5 % Basophils (%) (Auto) 0.5 % Neutrophils # (Auto) 7.53 K/uL (1.4-6.5) Lymphocytes # (Auto) 2.12 K/uL (1.2-3.4) Monocytes # (Auto) 0.76 K/uL (0.11-0.59) Eosinophils # (Auto) 0.38 K/uL (0-0.5) Basophils # (Auto) 0.06 K/uL (0-0.2) RDW Standard Deviation 45.0 fL (36.4-46.3) RDW Coefficient of Variation 13.3 % (11.5-14.5) Immature Granulocyte % (Auto) 0.5 % Immature Granulocyte # (Auto) 0.06 K/uL (0.00-0.02) Total Bilirubin 0.2 mg/dl (0.2-1) Direct Bilirubin mg/dl (0-0.2) Aspartate Amino Transf (AST/SGOT) 15 U/L (15-37) Alanine Aminotransferase (ALT/SGPT) 17 U/L (12-78) Alkaline Phosphatase 88 U/L (45-117) Total Creatine Kinase 80 U/L (26-192) Creatine Kinase MB 0.8 ng/ml (0.5-3.6) Creatine Kinase MB Ratio 1.0 (0-3.0) Total Protein 7.1 gm/dl (6.4-8.2) Albumin 2.7 gm/dl (3.4-5.0) Lipase 212 U/L (73-393) Thyroid Stimulating Hormone (TSH) 1.690 uIu/ml (0.300-4.500) Anion Gap 9.0 mmol/L (3-11) Est Creatinine Clear Calc Drug Dose 24.8 ml/min Estimated GFR () 23.3 Estimated GFR (Non- 20.1 BUN/Creatinine Ratio 18.4 (10-20) Calcium Level 9.4 mg/dl (8.5-10.1) Troponin I 0.082 ng/ml (0-0.045) Chemistry Specimen Hemolysis Bedside Glucose 76 mg/dl (70-90) Prothrombin Time 10.8 SECONDS (9.0-12.0) Prothromb Time International Ratio 1.0 (0.9-1.1) Activated Partial Thromboplast Time 26.7 SECONDS (21.0-31.0) Partial Thromboplastin Ratio 1.0 Laboratory studies as stated above per my review. Medications Administered Medications (Trade) Dose Ordered Sig/[place] Route Start Time Stop Time Status Last Admin Dose Admin Sodium Chloride 1,000 ml @ 999 mls/hr Q1H1M STAT IV 09/28/16 15:16 09/28/16 16:16 DC 09/28/16 15:16 999 MLS/HR Sodium Chloride 1,000 ml @ 150 mls/hr Q6H40M ONCE IV 09/28/16 15:16 09/28/16 21:55 09/28/16 15:16 150 MLS/HR ECG Indication: syncope Rate (beats per minute): 54 Rhythm: sinus bradycardia Findings: other (Biphasic T waves anteriorly) Comparison ECG Date: 08/17/15 Change: Biphasic T waves anteriorly are new Repeat EKG showed: Sinus Bradycardia rate of 56. No acute ischemic changes. Compared to the first EKG the T waves have resolved. ED Course 1452: Past medical records reviewed. The patient was evaluated in room C3, and a complete history and physical examination were performed. 1516: Sodium Chloride 1000 ml @ 150 mls/hr IV, Sodium Chloride 1000 ml @ 999 mls /hr IV 1751: Discussed the patient's case with Dr Lawson. The patient will be evaluated for further management. 1815: I discussed the patient's case with Dr. To, Cardiology, and he states that he would not anticoagulate the patient. He recommends ruling out DVT and go from there. He thinks that it is just a vagal episode. 182: I discussed the patient's case with Dr. Freire, Orthopedics, and he states that it is okay to anticoagulate the patient if needed 182: I relayed the information to Dr. Lawson. 1845: I reevaluated the patient, and she was resting. Medical Decision Differentials include, but are not limited to; syncope, cardiac disease, arrhythmia, electrolyte or metabolic abnormality, PE, stroke, seizure This patient comes in as described above. She was placed in a patent law specialist C3. She had an episode where she had brief loss of consciousness. She feels well at present. He's had no chest pain shortness of breath. She had recent back surgery and since then she's had some issues bilateral hands. she has had a negative CAT scans of her head and she has a normal neurologic exam. Initially blood pressure a little low 90s however this promptly came up. She's been afebrile. She has nothing to suggest infection. She does have some anemia which is normal on and is actually better than previous. She does have baseline renal insufficiency. Her d-dimer was elevated At greater than 5000, point of care machine. Additionally, her EKG shows some biphasic T waves mostly anteriorly. Troponin is mildly elevated as well. I did order and chest CT however her kidney function was elevated so I canceled it and order ultrasounds of her legs it was negative. She may need further evaluation for possible PE including potentially a VQ scan or CT if her kidney function comes in with some hydration. Initially with her blood pressure being low some of this could've been demand ischemia after having a vasovagal episode. She seems very much better now troponin is mildly bumped but her EKG #2 is improved. I have consulted Dr. Keith who her in the ER and will admit her for these measures. Medication Reconcilliation Current Medication List: was personally reviewed by me Blood Pressure Screening Patient's blood pressure: Normal blood pressure Consults Time Called: 1745 Consulting Physician: Dr. Lawson Returned Call: 1750, 1822 Discussed the patient's case with Dr Lawson. The patient will be evaluated for further management. I relayed the information to Dr. Lawson. Additional Consults: Time Called: 1809 Consulted Physician: Dr. To, Cardiology Returned Call: [phone] Additional Comments: I discussed the patient's case with Dr. To, Cardiology, and he states that he would not anticoagulate the patient. He recommends ruling out DVT and go from there. He thinks that it is just a vagal episode. Time Called: 1816 Consulted Physician: Dr. Freire, Orthopedics Returned Call: [phone] Additional Comments: I discussed the patient's case with Dr. Freire, Orthopedics, and he states that it is okay to anticoagulate the patient if needed Impression Primary Impression: Syncope Additional Impressions: Elevated troponin I level Elevated d-dimer Scribe Attestation The scribe's documentation has been prepared under my direction and personally reviewed by me in its entirety. I confirm that the note above accurately reflects all work, treatment, procedures, and medical decision making performed by me. Departure Information Dispostion Being Evaluated By Hospitalist Referrals Mariano Recio M.D. (PCP) Patient Instructions [facility] Problem Qualifiers
--- NOTE | 2016-09-28 15:37 | DIAGNOSTIC IMAGING REPORT ---
CHEST ONE VIEW PORTABLE CLINICAL HISTORY: CHEST PAIN dyspnea COMPARISON STUDY: 09/19/2016 FINDINGS: Interval resolution of the previously noted pulmonary edematous change. Lungs currently are considered clear. Diaphragms are smooth. No evidence for cardiac enlargement. IMPRESSION: Negative chest. Considerable improvement from the prior study. The above report was generated using voice recognition software. It may contain grammatical, syntax or spelling errors. Electronically signed by: Anderson Duran M.D. 09/28/2016 3:36 PM Dictated Date/Time: 09/28/2016 3:35 PM
[2016-09-28 16:02] LABS: ALKALINE PHOSPHATASE 88 U/L (45-117); ALT/SGPT 17 U/L (12-78); AST/SGOT 15 U/L (15-37)
[2016-09-28 17:31] LABS: CALCIUM 9.4 mg/dl (8.5-10.1); CREATININE 2.3 mg/dl (0.60-1.20)
[2016-09-28 17:32] LABS: BUN/CREATININE RATIO 18.4 (10-20)
[2016-09-28] MEDS ORDERED: GLUCAGON FOR INJ 1 MG VIAL SQ PRN (19:15)
[2016-09-28] MEDS ORDERED: ONDANSETRON INJ 2 MG/ML 2 ML VIAL IV PRN (19:15)
[2016-09-28] MEDS ORDERED: OXYCODONE HCL IR 5 MG TAB (IMMEDIATE RELEASE) PO PRN (19:15)
[2016-09-28] MEDS ORDERED: ALBUTEROL HFA 8 GM INHALER INH PRN (19:15)
[2016-09-28] MEDS ORDERED: NITROGLYCERIN 0.4 MG SL PER TAB CHARGE UT PRN (19:15)
[2016-09-28] MEDS ORDERED: ACETAMINOPHEN 325 MG TAB PO PRN (19:15)
[2016-09-28] MEDS ORDERED: BUDESONIDE/FORMOTEROL FUMARATE 80/4.5 60 PUFFS/INHALER INH PRN (19:15)
[2016-09-28] MEDS ORDERED: GLUCOSE 10 TABS/TUBE PO PRN (19:15)
[2016-09-28] MEDS ORDERED: GLUCOSE 40% GEL 15 GM TUBE PO PRN (19:15)
[2016-09-28] MEDS ORDERED: DEXTROSE 50% 50 ML SYR IV PRN (19:15)
--- NOTE | 2016-09-28 19:23 | DIAGNOSTIC IMAGING REPORT ---
ULTRASOUND BILATERAL LOWER EXTREMITY VENOUS CLINICAL HISTORY: Syncope. COMPARISON STUDY: No priors. TECHNIQUE: Real-time, grayscale, and color Doppler sonography of the deep veins of the right and left lower extremity was performed from the inguinal crease to the calf. Compression and augmentation were utilized. FINDINGS: There is no sonographic evidence of deep venous thrombosis identified in the right or left lower extremity. The common femoral, superficial femoral, and popliteal veins are patent and normally compressible bilaterally. The greater saphenous vein and the profunda femoris vein at the junction with the common femoral vein are clear in both legs. The visualized calf veins are patent bilaterally. IMPRESSION: There is no sonographic evidence of deep venous thrombosis identified in the right or left lower extremity. Electronically signed by: Neil Gonzales M.D. 09/28/2016 7:22 PM Dictated Date/Time: 09/28/2016 7:21 PM
[2016-09-28 19:51] LABS: PROTHROMBIN TIME (PATIENT) 10.8 SECONDS (9.0-12.0)
[2016-09-28 20:26] VITALS: BP 144/64; PULSE 60; TEMP 36.7; O2SAT 96; Ht 162.6 cm; Wt 99.9 kg
--- NOTE | 2016-09-28 22:44 | DIAGNOSTIC IMAGING REPORT ---
MRI OF THE BRAIN WITHOUT IV CONTRAST CLINICAL HISTORY: Syncope. Weakness. COMPARISON STUDY: CT of the brain dated 09/19/2016. TECHNIQUE: MRI of the brain was performed utilizing various T1 and T2-weighted sequences in the axial, sagittal, and coronal planes. IV contrast was not administered for this examination. FINDINGS: Brain parenchyma: There are age-related involutional changes noting mild to moderate patchy subcortical and periventricular microangiopathic disease. There is no hemorrhage or mass effect. There is no restricted diffusion to suggest acute ischemia. Castro-white matter differentiation is preserved. No extra-axial fluid collection is seen. 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 The cerebellar tonsils are normal in configuration. Ventricles, sulci, and cisterns: Prominent secondary to involutional change. Pituitary and sella: Unremarkable. Intracranial vasculature: Normal flow voids are maintained at the skull base. Orbits: The bony orbits are grossly intact. Orbital contents are normal in appearance noting bilateral ocular lens implants. Sinuses and mastoids: Clear. Calvarium: Unremarkable. Cervical cord: Partially visualized cervical spinal cord is normal in morphology and signal intensity. IMPRESSION: No acute intracranial abnormality. Electronically signed by: Neil Gonzales M.D. 09/28/2016 10:42 PM Dictated Date/Time: 09/28/2016 10:40 PM
[2016-09-28] MEDS: GABAPENTIN 300 MG CAP PO SCH (22:48)
[2016-09-28] MEDS: CALCIUM 600MG + VIT D 400 IU TAB PO SCH (22:48)
[2016-09-28] MEDS: ASPIRIN 81 MG ECTAB PO SCH (22:48)
[2016-09-28] MEDS: METOPROLOL TARTRATE 25 MG TAB PO SCH (22:49)
[2016-09-28] MEDS: FLUTICASONE HFA 110MCG INHALER INH SCH (22:49)
[2016-09-28] MEDS: ATORVASTATIN 10 MG TAB PO SCH (22:49)
[2016-09-28] MEDS: INSULIN ASPART 100 UNITS/ML 3 ML PEN SC SCH (22:51)
[2016-09-28 23:58] VITALS: BP 110/44; PULSE 62; TEMP 36.7; O2SAT 96
[2016-09-29] VITALS (9 sets, daily range): BP systolic 142–167; BP diastolic 60–74; PULSE 60–77; TEMP 36.6–37.7; O2SAT 92–97
--- NOTE | 2016-09-29 03:37 | History and Physical ---
History & Physical Date & Time of Service: Sep 29, 2016 at 03:14. The patient was examined on 09/28/2016. Chief Complaint: Elevated Troponin I Level, Syncope Primary Care Physician: Mariano Recio M.D. History of Present Illness Source: patient, family The patient is a 75-year-old female brought to the ED by EMS after a syncopal episode at [facility] just prior to arrival. She is status post lumbar surgery by Dr. Freire, that required hospitalization at [facility] from September 16 to September 22, and had been undergoing rehabilitation at [facility] since that time. The patient reports that after occupational therapy this morning she passed out in her wheelchair. She did have NovoLog prior to OT this morning, but her sugar levels after the syncopal episode were 107. The patient does not have any memory of the event. The patient does report however that she has intervals of loss of control of her right arm, and her daughter who is present in the ED, shows a video where her right arm and hand undergo a sudden rhythmic tremor where she is unable to control her utensil to eat. Similar symptoms happen to the left hand but not anywhere near as significant. The patient and her family report that she has never had any these type of symptoms in the past. The patient does appear to have some memory issues, and her family who is present helps to complete her history of present illness and review of systems. Past Medical/Surgical History Medical Problems: (1) Coronary artery disease Status: Chronic (2) Spinal stenosis, other region Status: Chronic 3. Hypertension 4. Hyperlipidemia 5. Peripheral neuropathy 6. Diabetes mellitus with chronic insulin use 7. Hypothyroidism 8. Depression with anxiety 9. Vitamin B12 deficiency 10. Insomnia Family History No pertinent family history Social History Smoking Status: Never Smoker Smokeless Tobacco Use: No Alcohol Use: none Drug Use: none Marital Status: Housing status: lives with family Occupational Status: retired Immunizations History of Influenza Vaccine: Yes Influenza Vaccine Date: Aug 26, 2010 History of Tetanus Vaccine?: Unknown History of Pneumococcal: Yes Pneumococcal Date: Aug 26, 2009 History of Hepatitis B Vaccine: No Multi-Drug Resistant Organisms History of MDRO: No Allergies Coded Allergies: Clopidogrel (Verified Allergy, Unknown, Unknown, 09/16/16) Lisinopril (Verified Allergy, Unknown, Unknown, 09/16/16) Home Medications Scheduled Acetaminophen (Acetaminophen Extra Stren), 2 TAB PO QID Acetaminophen/Diphenhydramine (Tylenol Pm), 1 TAB PO HS Amlodipine Besylate (Norvasc), 5 MG PO QAM Aspirin (Aspirin Adult Low Dose), 81 MG PO QPM Atorvastatin (Lipitor), 20 MG PO QPM Calcium/Vitamin D (Os-Victor [place] 500 Plus D), 1 TAB PO BID Coenzyme Q10 (Ubidecarenone) (Co Q10), 200 MG PO QPM Cyanocobalamin (Vitamin B12), 1,000 MCG PO QAM Fish Oil ([place]-3), 1 CAP PO BID Fluoxetine (Prozac), 20 MG PO QAM Gabapentin (Neurontin), 600 MG PO QID Insulin Aspart (Novolog Flexpen), 20 UNITS SC BREAKFAST Insulin Aspart (Novolog Flexpen), 20 UNITS SC LUNCH Insulin Aspart (Novolog Flexpen), 35 UNITS SC DINNER Insulin Glargine (Lantus), 40 UNITS SC HS Isosorbide Mononitrate Ext Rel (Imdur Ext Rel), 30 MG PO QAM Isosorbide Mononitrate Ext Rel (Imdur Ext Rel), 60 MG PO QAM Levothyroxine Sodium (Levothyroxine Sodium), 112 MCG PO QAM Metoprolol Tartrate (Lopressor) (Lopressor), 25 MG PO BID Telmisartan/Hctz (Micardis Hct), 1 TAB PO QAM Scheduled PRN Budesonide/Formoterol Fumarate (Symbicort 80/4.5 Inhaler), 2 PUFFS INH BID PRN for Shortness of Breath Dextromethorphan Polistirex (Delsym), 5 ML PO UD PRN for Cough Fluticasone Propionate (Inhala (Flovent Diskus), 1 PUFFS INH BID PRN for Shortness of Breath Nitroglycerin (Nitrostat), 0.4 MG UT UD PRN for Chest Pain Oxycodone HCl (Oxycodone HCl), 5-10 MG PO Q4H PRN for Moderate - severe pain [Proair HFA], 1-2 PUFFS INH Q4-6HRS PRN for SOB/Wheezing Review of Systems The patient denies chest pain, palpitations, shortness of breath, cough, lower extremity swelling, sore throat, fevers, chills, sweats, weight change, nausea , vomiting, abdominal pain, pelvic pain, blood in urine or stool, dysuria, urinary frequency or urgency, headache, rash, abnormal bruising or bleeding, focal weakness, generalized arthralgias or myalgias, neck pain, night sweats, or allergy symptoms. The review of systems is otherwise negative other than for that already noted above, and at least 10 systems have been reviewed. Physical Exam Vital Signs Date Time Temp Pulse Resp B/P (MAP) Pulse Ox O2 Delivery O2 Flow Rate FiO2 09/28/16 23:58 36.7 62 19 110/44 (66) 96 Room Air 09/28/16 20:26 36.7 60 16 144/64 96 Room Air 09/28/16 18:30 61 18 140/45 96 Room Air 09/28/16 18:30 62 09/28/16 17:05 58 20 142/46 09/28/16 15:51 56 18 132/65 98 Room Air 09/28/16 14:51 56 18 98/43 96 56 96/55 09/28/16 14:44 37.0 20 96/55 96 Room Air 09/28/16 14:36 54 The patient is awake, well-developed and adequately nourished, alert and oriented 3, normocephalic and atraumatic, lying in bed and in no acute distress. HEENT--PERRL, EOMI, mucous membranes and oropharynx dry. Neck--supple, no JVD or bruits, thyroid normal, trachea midline, no adenopathy. Heart--normal S1 and S2, no extra beats, no murmurs, rubs or gallops. Lungs--clear bilaterally but diminished throughout, no respiratory distress, no accessory muscle use. Abdomen--normal bowel sounds and soft, nontender and nondistended, and obese. Extremities--no cyanosis, clubbing or edema. There are good distal pulses b/l. Dermatologic--normal skin turgor, normal color, warm and dry, no abnormal lymph nodes, no rash. Neurologic--cranial nerves II through XII grossly intact, motor and sensory examination normal. Rheumatologic--limited due to recent surgery Psychiatric--normal affect. Diagnostics Laboratory Results Results Past 24 Hours Test 09/28/16 14:40 09/28/16 14:48 09/28/16 16:21 09/28/16 17:35 Range/Units White Blood Count 10.91 4.8-10.8 K/uL Red Blood Count 3.20 4.2-5.4 M/uL Hemoglobin 9.7 12.0-16.0 g/dL Hematocrit 29.6 37-47 % Mean Corpuscular Volume 92.5 80-100 fL Mean Corpuscular Hemoglobin 30.3 25-34 pg Mean Corpuscular Hemoglobin Concent 32.8 32-36 g/dl Platelet Count 424 130-400 K/uL Mean Platelet Volume 10.4 7.4-10.4 fL Neutrophils (%) (Auto) 69.1 % Lymphocytes (%) (Auto) 19.4 % Monocytes (%) (Auto) 7.0 % Eosinophils (%) (Auto) 3.5 % Basophils (%) (Auto) 0.5 % Neutrophils # (Auto) 7.53 1.4-6.5 K/uL Lymphocytes # (Auto) 2.12 1.2-3.4 K/uL Monocytes # (Auto) 0.76 0.11-0.59 K/uL Eosinophils # (Auto) 0.38 0-0.5 K/uL Basophils # (Auto) 0.06 0-0.2 K/uL RDW Standard Deviation 45.0 36.4-46.3 fL RDW Coefficient of Variation 13.3 11.5-14.5 % Immature Granulocyte % (Auto) 0.5 % Immature Granulocyte # (Auto) 0.06 0.00-0.02 K/uL Prothrombin Time 10.8 9.0-12.0 SECONDS Prothromb Time International Ratio 1.0 0.9-1.1 Activated Partial Thromboplast Time 22.7 21.0-31.0 SECONDS Partial Thromboplastin Ratio 0.9 Total Bilirubin 0.2 0.2-1 mg/dl Direct Bilirubin 0-0.2 mg/dl Aspartate Amino Transf (AST/SGOT) 15 15-37 U/L Alanine Aminotransferase (ALT/SGPT) 17 12-78 U/L Alkaline Phosphatase 88 45-117 U/L Total Creatine Kinase 80 26-192 U/L Creatine Kinase MB 0.8 0.5-3.6 ng/ml Creatine Kinase MB Ratio 1.0 0-3.0 Total Protein 7.1 6.4-8.2 gm/dl Albumin 2.7 3.4-5.0 gm/dl Lipase 212 73-393 U/L Thyroid Stimulating Hormone (TSH) 1.690 0.300-4.500 uIu/ml Bedside Glucose 86 76 70-90 mg/dl Sodium Level 142 136-145 mmol/L Potassium Level 5.0 3.5-5.1 mmol/L Chloride Level 106 98-107 mmol/L Carbon Dioxide Level 27 21-32 mmol/L Anion Gap 9.0 3-11 mmol/L Blood Urea Nitrogen 42 7-18 mg/dl Creatinine 2.30 0.60-1.20 mg/dl Est Creatinine Clear Calc Drug Dose 24.8 ml/min Estimated GFR () 23.3 Estimated GFR (Non- 20.1 BUN/Creatinine Ratio 18.4 10-20 Random Glucose 50 70-99 mg/dl Calcium Level 9.4 8.5-10.1 mg/dl Troponin I 0.082 0-0.045 ng/ml Chemistry Specimen Hemolysis Test 09/28/16 19:20 09/28/16 20:27 Range/Units Prothrombin Time 10.8 9.0-12.0 SECONDS Prothromb Time International Ratio 1.0 0.9-1.1 Activated Partial Thromboplast Time 26.7 21.0-31.0 SECONDS Partial Thromboplastin Ratio 1.0 Bedside Glucose 169 70-90 mg/dl Microbiology Results 09/28/16 Blood Culture, Received Pending 09/28/16 Blood Culture, Received Pending 09/28/16 Urine Culture, Received Pending Diagnostic Radiology Patient Name: YUKO BONILLA Unit Number: [id number] Dictated: 09/28/161534 Transcribed: 09/28/161534 MS Printed Date/Time: [~ rep prt dt]/[~ rep prt tm] [~ rep ct labl] - [~ rep ct ivnm] [facility] [place] [address] Dictated: 09/28/161534 Transcribed: 09/28/161534 MS Printed Date/Time: [~ rep prt dt]/[~ rep prt tm] [~ rep ct labl] - [~ rep ct ivnm] CHEST ONE VIEW PORTABLE CLINICAL HISTORY: CHEST PAIN dyspnea COMPARISON STUDY: 09/19/2016 FINDINGS: Interval resolution of the previously noted pulmonary edematous change. Lungs currently are considered clear. Diaphragms are smooth. No evidence for cardiac enlargement. IMPRESSION: Negative chest. Considerable improvement from the prior study. The above report was generated using voice recognition software. It may contain grammatical, syntax or spelling errors. Electronically signed by: Anderson Duran M.D. 09/28/2016 3:36 PM Dictated Date/Time: 09/28/2016 3:35 PM The status of this report is Signed. Draft = Not yet reviewed or approved by Radiologist. Signed = Reviewed and approved by Radiologist. <AttendingPhy></AttendingPhy> <FamilyPhy>Mariano Recio M.D.</FamilyPhy> < PrimaryPhy>Mariano Recio M.D.</PrimaryPhy> <UnitNumber>[id number]</ UnitNumber> <VisitNumber>[id number]</VisitNumber> <PatientName>YUKO BONILLA </PatientName> <DateOfBirth>1940</DateOfBirth> <Location>C[facility]</Location> <ServiceDate>09/28/16</ServiceDate> <MNE>ESINDI</MNE> <OrderingPhy>Alexei Mazariegos M.D.</OrderingPhy> <OrderingPhyMNE>f rep ord dr mccord</OrderingPhyMNE> < DictatingPhyMNE>f rep dict dr mccord</DictatingPhyMNE> <CCListMNE>f rep ct anthonye</ CCListMNE> <AdmittingPhyMNE>f pt admit dr mccord</AdmittingPhyMNE> <AttendingPhyMNE >f pt attend dr mccord</AttendingPhyMNE> <ConsultingPhyMNE>f pt consult dr mccord</ConsultingPhyMNE> <FamilyPhyMNE>f pt fam dr mccord</FamilyPhyMNE> <OtherPhyMNE>f pt other dr mccord</OtherPhyMNE> < PrimaryPhyMNE>f pt prim care dr mccord</PrimaryPhyMNE> <ReferringPhyMNE>f pt referring dr mccord</ReferringPhyMNE> Patient Name: YUKO BONILLA Unit Number: [id number] Dictated: 09/28/161920 Transcribed: 09/28/161920 EV Printed Date/Time: [~ rep prt dt]/[~ rep prt tm] [~ rep ct labl] - [~ rep ct ivnm] [facility] [place] [address] Dictated: 09/28/161920 Transcribed: 09/28/161920 EV Printed Date/Time: [~ rep prt dt]/[~ rep prt tm] [~ rep ct labl] - [~ rep ct ivnm] [~ rep ct add3]] ULTRASOUND BILATERAL LOWER EXTREMITY VENOUS CLINICAL HISTORY: Syncope. COMPARISON STUDY: No priors. TECHNIQUE: Real-time, grayscale, and color Doppler sonography of the deep veins of the right and left lower extremity was performed from the inguinal crease to the calf. Compression and augmentation were utilized. FINDINGS: There is no sonographic evidence of deep venous thrombosis identified in the right or left lower extremity. The common femoral, superficial femoral, and popliteal veins are patent and normally compressible bilaterally. The greater saphenous vein and the profunda femoris vein at the junction with the common femoral vein are clear in both legs. The visualized calf veins are patent bilaterally. IMPRESSION: There is no sonographic evidence of deep venous thrombosis identified in the right or left lower extremity. Electronically signed by: Neil Gonzales M.D. 09/28/2016 7:22 PM Dictated Date/Time: 09/28/2016 7:21 PM The status of this report is Signed. Draft = Not yet reviewed or approved by Radiologist. Signed = Reviewed and approved by Radiologist. <AttendingPhy></AttendingPhy> <FamilyPhy>Mariano Recio M.D.</FamilyPhy> < PrimaryPhy>Mariano Recio M.D.</PrimaryPhy> <UnitNumber>[id number]</ UnitNumber> <VisitNumber>[id number]</VisitNumber> <PatientName>YUKO BONILLA </PatientName> <DateOfBirth>1940</DateOfBirth> <Location>[facility]</Location> <ServiceDate>09/28/16</ServiceDate> <MNE>ESINDI</MNE> <OrderingPhy>Alexei Mazariegos M.D.</OrderingPhy> <OrderingPhyMNE>f rep ord dr mccord</OrderingPhyMNE> < DictatingPhyMNE>f rep dict dr mccord</DictatingPhyMNE> <CCListMNE>f rep ct mne</ CCListMNE> <AdmittingPhyMNE>f pt admit dr mccord</AdmittingPhyMNE> <AttendingPhyMNE >f pt attend dr mccord</AttendingPhyMNE> <ConsultingPhyMNE>f pt consult dr mccord</ConsultingPhyMNE> <FamilyPhyMNE>f pt fam dr mccord</FamilyPhyMNE> <OtherPhyMNE>f pt other dr mccord</OtherPhyMNE> < PrimaryPhyMNE>f pt prim care dr mccord</PrimaryPhyMNE> <ReferringPhyMNE>f pt referring dr mccord</ReferringPhyMNE> Patient Name: YUKO BONILLA Unit Number: [id number] Dictated: 09/28/162239 Transcribed: 09/28/162239 EV Printed Date/Time: [~ rep prt dt]/[~ rep prt tm] [~ rep ct labl] - [~ rep ct ivnm] [facility] [place] [address] Dictated: 09/28/162239 Transcribed: 09/28/162239 EV Printed Date/Time: [~ rep prt dt]/[~ rep prt tm] [~ rep ct labl] - [~ rep ct ivnm] MRI OF THE BRAIN WITHOUT IV CONTRAST CLINICAL HISTORY: Syncope. Weakness. COMPARISON STUDY: CT of the brain dated 09/19/2016. TECHNIQUE: MRI of the brain was performed utilizing various T1 and T2-weighted sequences in the axial, sagittal, and coronal planes. IV contrast was not administered for this examination. FINDINGS: Brain parenchyma: There are age-related involutional changes noting mild to moderate patchy subcortical and periventricular microangiopathic disease. There is no hemorrhage or mass effect. There is no restricted diffusion to suggest acute ischemia. Castro-white matter differentiation is preserved. No extra-axial fluid collection is seen. 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 The cerebellar tonsils are normal in configuration. Ventricles, sulci, and cisterns: Prominent secondary to involutional change. Pituitary and sella: Unremarkable. Intracranial vasculature: Normal flow voids are maintained at the skull base. Orbits: The bony orbits are grossly intact. Orbital contents are normal in appearance noting bilateral ocular lens implants. Sinuses and mastoids: Clear. Calvarium: Unremarkable. Cervical cord: Partially visualized cervical spinal cord is normal in morphology and signal intensity. IMPRESSION: No acute intracranial abnormality. Electronically signed by: Neil Gonzales M.D. 09/28/2016 10:42 PM Dictated Date/Time: 09/28/2016 10:40 PM The status of this report is Signed. Draft = Not yet reviewed or approved by Radiologist. Signed = Reviewed and approved by Radiologist. <AttendingPhy>Eulogio Lawson M.D.</AttendingPhy> <FamilyPhy>Mariano Recio M.D.</FamilyPhy> <PrimaryPhy>Mariano Recio M.D.</PrimaryPhy> < UnitNumber>[id number]</UnitNumber> <VisitNumber>[id number]</VisitNumber> < PatientName>YUKO BONILLA</PatientName> <DateOfBirth>1940</DateOfBirth> <Location>C[facility]</Location> <ServiceDate>09/28/16</ServiceDate> <MNE>ESINDI</MNE> <OrderingPhy>Eulogio Lawson M.D.</OrderingPhy> <OrderingPhyMNE>f rep ord dr mccord</OrderingPhyMNE> <DictatingPhyMNE>f rep dict dr mccord</DictatingPhyMNE> < CCListMNE>f rep ct flex</CCListMNE> <AdmittingPhyMNE>f pt admit dr mccord</ AdmittingPhyMNE> <AttendingPhyMNE>f pt attend dr mccord</AttendingPhyMNE> <ConsultingPhyMNE>f pt consult dr mccord</ConsultingPhyMNE> <FamilyPhyMNE>f pt fam dr mccord</FamilyPhyMNE> <OtherPhyMNE>f pt other dr mccord</OtherPhyMNE> < PrimaryPhyMNE>f pt prim care dr mccord</PrimaryPhyMNE> <ReferringPhyMNE>f pt referring dr mccord</ReferringPhyMNE> EKG EKG #1: Shows sinus bradycardia at 54 bpm, nonspecific ST- T wave changes, and no change compared to 02/16/2016. EKG #2: Shows sinus bradycardia at 56 bpm, resolution of nonspecific ST-T wave changes compared EKG to #1 Impression Assessment and Plan Syncope--unknown etiology at this time. She has a normal CT of the head and MRI the brain. She did not have any focal weakness. Her blood sugar was acceptable at 107. It appears that her pain had been relatively well controlled. The only persistent symptoms I can see at this point is some memory recall issues, but unsure if that is a new or pre-existing process. She' ll be admitted to the hospital for neuro checks, and optimization of medical condition. Her symptoms may have just been due to fatigue. Elevated troponin with minimal changes on 2 successive EKGs suggestive of possible resolved ischemia.The patient will be admitted to telemetry for serial cardiac enzymes, cardiac rhythm monitoring and a 2-D echocardiogram with Dopplers. Continue amlodipine 5 mg by mouth every morning, aspirin 81 mg by mouth every afternoon, Imdur extended release 90 mg by mouth every morning, metoprolol tartrate 25 mg by mouth twice a day and Micardis HCT every morning or generic equivalent. We'll consult cardiology for their opinion. Diabetes mellitus--blood sugar upon arrival in the emergency department was 50, even though reportedly was 107 after the syncopal event. We will hold all insulin including Lantus 40 units subcutaneous at bedtime, NovoLog 20 units subcutaneous at breakfast and lunch, and 35 units at dinner. Hypoglycemia may still have been the trigger for the above event of syncope. Hypothyroidism--continue levothyroxine sodium at 112 g by mouth every morning. Peripheral neuropathy--continue gabapentin 600 mg by mouth 4 times a day. Hyperlipidemia--continue atorvastatin 20 g by mouth every afternoon. Depression with anxiety--continue fluoxetine 20 mg by mouth every morning. Memory issues--we'll need to further assess during hospitalization and confirmed with family whether they feel there is an issue. Level of Care Telemetry Advanced Directives Existing Advance Directive: No Existing Living Will: Yes Existing Power of Glass Frame Fitter: Yes Resuscitation Status FULL RESUSCITATION VTE Prophylaxis VTE Risk Assessment Done? Y/N: Yes Risk Level: Moderate
[2016-09-29] MEDS: LEVOTHYROXINE 112 MCG TAB PO SCH (06:08)
[2016-09-29 06:28] LABS: BASO % 0.5 %; BASO ABS # 0.05 K/uL (0-0.2); COMPLETE YES; EOS % 3.2 %; HEMATOCRIT 29.2 % (37-47); IG% 0.3 %; LYMPH ABS # 2.47 K/uL (1.2-3.4); MEAN CELL VOLUME 91.8 fL (80-100); MEAN CORPUSCULAR HEMOGLOBIN 29.6 pg (25-34); MEAN CORPUSCULAR HGB CONC 32.2 g/dl (32-36); MEAN PLATELET VOLUME 9.8 fL (7.4-10.4); MONO % 7.4 %; NEUT % 65.6 %; PLATELET COUNT 404 K/uL (130-400); RED BLOOD COUNT 3.18 M/uL (4.2-5.4); WHITE BLOOD COUNT 10.72 K/uL (4.8-10.8)
[2016-09-29 06:37] LABS: PARTIAL THROMBOPLASTIN RATIO 1.1; PROTHROMBIN TIME (PATIENT) 10.9 SECONDS (9.0-12.0)
[2016-09-29 07:09] LABS: BUN/CREATININE RATIO 17.3 (10-20); CALCIUM 9.1 mg/dl (8.5-10.1); CREATININE 1.8 mg/dl (0.60-1.20); MAGNESIUM 1.7 mg/dl (1.8-2.4); POTASSIUM 4.4 mmol/L (3.5-5.1)
[2016-09-29] MEDS: FLUOXETINE HCL 20 MG CAP PO SCH (08:27)
[2016-09-29] MEDS: FLUTICASONE HFA 110MCG INHALER INH SCH ×2 (08:27→21:12)
[2016-09-29] MEDS: GABAPENTIN 300 MG CAP PO SCH ×3 (08:27→21:14)
[2016-09-29] MEDS: CALCIUM 600MG + VIT D 400 IU TAB PO SCH ×2 (08:27→21:13)
[2016-09-29] MEDS: ISOSORBIDE MONONITRATE 30 MG TABCR PO SCH (08:28)
[2016-09-29] MEDS: ISOSORBIDE MONONITRATE 60 MG TABCR PO SCH (08:28)
[2016-09-29] MEDS: AMLODIPINE BESYLATE 5 MG TAB PO SCH (08:28)
[2016-09-29] MEDS: METOPROLOL TARTRATE 25 MG TAB PO SCH ×2 (08:29→21:15)
[2016-09-29] MEDS: INSULIN ASPART 100 UNITS/ML 3 ML PEN SC SCH ×4 (08:35→21:14)
[2016-09-29] MEDS ORDERED: PERFLUTREN LIPID MICROSPHERE (DEFINITY) IV ONE (10:57)
--- NOTE | 2016-09-29 10:57 | Clinical Documentation Query ---
QUERY 1 OF [address] ANNAMARIA MONET, In your clinical opinion is this patient being managed for: ( X ) Acute kidney failure, POA, on CKD stage III ( ) Other explanation of clinical findings (Please Explain) ( ) Unable to determine (Please Define) ( ) Need to Discuss ( ) Not Agree The medical record reflects the following clinical findings, treatment, and risk factors. Clinical Indicators:75 yo female presenting with a syncopal episode. Initially Cr 2.3 and has trended down to 1.8. Baseline Cr in the 1.4-1.5 range with GFR of 31.2-40.1 over the past year Treatment: IV fluids, monitor PRP's, tele, I/O, daily wts Risk Factors:dehydration, DM, CAD, HTN, anemia, hypotension QUERY 2 OF 2 In your clinical opinion is this patient being managed for: ( X ) Acute blood loss anemia in the setting of recent lumbar fusion (September 16) ( ) Other explanation of clinical findings (Please Explain) ( ) Unable to determine (Please Define) ( ) Need to Discuss ( ) Not Agree The medical record reflects the following clinical findings, treatment, and risk factors. Clinical Indicators: Pt noted to have recently had lumbar fusion. Had a baseline Hgb 12.2/Hct 37.4 in July 2016 prior to surgery. Had EBL of 200 cc with surgical procedure. No transfusion required during surgical stay. Initially Hgb 9.7/Hct 29.6 upon this presentation. Hypotensive in ER 96/55 Treatment: CBC monitoring, IV fluids Risk Factors: recent surgery Please clarify and document your clinical opinion in the progress notes and discharge summary. Terms such as "probable", "suspected", "likely", "questionable", "possible", or "still to be ruled out" are acceptable. IF IN AGREEMENT, YOU MUST DOCUMENT ABOVE DIAGNOSTIC STATEMENT IN DAILY PROGRESS NOTES AND DISCHARGE SUMMARY. This document is not part of the patient's record. Thank You, Stephanie López, RN [phone]
--- NOTE | 2016-09-29 12:11 | ECHOCARDIOGRAM REPORT ---
*NOTICE TO RECEIVING [employer] This information is strictly Confidential and protected under [place] law. [place] law prohibits you from making any further disclosure of this information unless further disclosure is expressly permitted by the written consent of the person to whom it pertains or is authorized by law. A general authorization for the release of medical or other information is not sufficient for this purpose. Hospital accepts no responsibility if the information is made available to any other person, INCLUDING THE PATIENT. Interpretation Summary * Name: YUKO BONILLA Study Date: 09/29/2016 10:12 AM BP: 164/65 mmHg * Patient Location: C.2T\S\S242\S\2 HR: 67 * : 1940 (M/d/yyyy) Gender: Female Height: 64 in * Age: 75 yrs Ethnicity: [place] Weight: 220 lb * Ordering Physician: Belen Nails * Referring Physician: Self, Referred * Performed By: Rafia Leslie RDCS * * Reason For Study: SYNCOPE, ELEVATED TROPONIN * BSA: 2.0 m2 * Interpretation Summary * -- Conclusions -- * Left ventricular systolic function is normal. * Grade I diastolic dysfunction, (abnormal relaxation pattern). * Right ventricular systolic pressure is normal. * Compared to an echocardiogram from 2012, there is no change Procedure Details * A contrast injection of Definity was performed to improve assessment of LV function. * Contrast was injected into an intravenous site in the right arm. * One vial of Definity ultrasound contrast was diluted in normal saline to a total volume of 10 ml. A total of '2' ml of solution was administered during imaging. * Lot # [id number] of Definity utilized for procedure. * Expiration date OCT 16. * The attending nurse who injected the contrast agent was JOLYNN BROCK RN. Left Ventricle * The left ventricle is normal in size. * There is normal left ventricular wall thickness. * Ejection Fraction = 65-70%. * Left ventricular systolic function is normal. * Grade I diastolic dysfunction, (abnormal relaxation pattern). * The left ventricular wall motion is normal. Right Ventricle * The right ventricle is normal in size and function. Atria * The left atrial size is normal. * Right atrial size is normal. Mitral Valve * The mitral valve is grossly normal. * Significant mitral regurgitation is absent. Tricuspid Valve * The tricuspid valve is not well visualized, but is grossly normal. * There is mild tricuspid regurgitation. * Right ventricular systolic pressure is normal. Aortic Valve * Aortic valve sclerosis mild, without significant aortic valvular stenosis. * No hemodynamically significant valvular aortic stenosis. * There is no significant aortic regurgitation. Great Vessels * The aortic root is normal size. Pericardium/Pleural * There is no pericardial effusion. MMode 2D Measurements and Calculations IVSd 1.0 cm IVSs 1.6 cm LVIDd 3.5 cm LVIDs 2.3 cm LVPWd 1.2 cm LVPWs 1.6 cm IVS/LVPW 0.85 FS 32.4 % EDV(Teich) 49.9 ml ESV(Teich) 19.1 ml EF(Teich) 61.7 % EDV(cubed) 41.8 ml ESV(cubed) 13.0 ml EF(cubed) 69.0 % % IVS thick 54.5 % % LVPW thick 34.8 % LV mass(C)d 119.3 grams LV mass(C)dI 58.6 grams/m\S\2 LV mass(C)s 131.7 grams LV mass(C)sI 64.6 grams/m\S\2 SV(Teich) 30.8 ml SI(Teich) 15.1 ml/m\S\2 SV(cubed) 28.9 ml SI(cubed) 14.2 ml/m\S\2 Ao root diam 2.6 cm Ao root area 5.2 cm\S\2 LA dimension 3.8 cm LA/Ao 1.5 LVAd ap4 32.8 cm\S\2 LVLd ap4 9.1 cm EDV(MOD-sp4) 97.7 ml EDV(sp4-el) 100.9 ml LVAs ap4 17.1 cm\S\2 LVLs ap4 7.4 cm ESV(MOD-sp4) 33.1 ml ESV(sp4-el) 33.4 ml EF(MOD-sp4) 66.1 % EF(sp4-el) 66.9 % LVAd ap2 30.8 cm\S\2 LVLd ap2 7.9 cm EDV(MOD-sp2) 97.7 ml EDV(sp2-el) 102.0 ml LVAs ap2 17.4 cm\S\2 LVLs ap2 7.6 cm ESV(MOD-sp2) 31.5 ml ESV(sp2-el) 33.7 ml EF(MOD-sp2) 67.8 % EF(sp2-el) 66.9 % LVLd %diff -14.47 % EDV(MOD-bp) 104.5 ml LVLs %diff 2.8 % ESV(MOD-bp) 32.6 ml EF(MOD-bp) 68.8 % SV(MOD-sp4) 64.6 ml SI(MOD-sp4) 31.7 ml/m\S\2 SV(MOD-sp2) 66.2 ml SI(MOD-sp2) 32.5 ml/m\S\2 SV(MOD-bp) 71.8 ml SI(MOD-bp) 35.3 ml/m\S\2 SV(sp4-el) 67.5 ml SI(sp4-el) 33.1 ml/m\S\2 SV(sp2-el) 68.2 ml SI(sp2-el) 33.5 ml/m\S\2 Doppler Measurements and Calculations MV E max josé 132.7 cm/sec MV A max josé 90.1 cm/sec MV E/A 1.5 MV dec time 0.21 sec Ao V2 max 156.9 cm/sec Ao max PG 9.8 mmHg Ao max PG (full) 2.5 mmHg LV V1 max PG 7.3 mmHg LV V1 max 135.1 cm/sec TR max josé 233.5 cm/sec
--- NOTE | 2016-09-29 13:08 | Cardiology Consultation ---
Cardiology Consultation Date of Consultation: Sep 29, 2016. Requesting Physician: Avel Reason for Consultation: syncope Pt evaluation today including: conversation w/ patient, conversation w/ family , physical exam, chart review, lab review, review of studies, review of inpatient medication list, conversation w/ attending History of Present Illness Patient is a 75-year-old woman with a history of nonobstructive coronary disease and diabetes who recently underwent lumbar back surgery. Patient was transferred to [facility]. 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 The patient was noted to have a brief loss of consciousness. She was evaluated by the staff at the facility and EMS was contacted. Patient was brought to [facility] for an additional evaluation The patient had little recollection of the event in question. She has not report any prodrome such as palpitations, chest pain, dizziness, nausea or diaphoresis. Upon awakening the patient claims to be feeling well. She did not report significant symptoms at that point although than records from EMS reported that she was slightly diaphoretic and pale. She was also noted that time to have an element of hypotension. The patient cannot report any prior episodes that were similar. She otherwise has been participating in occupational physical therapy with little difficulty. She generally does not have symptoms of dizziness or lightheadedness. She has not report any sense of palpitations. She has not report a history of chest pain for several years. Leading up to her recent back surgery however, she was fairly sedentary. She denies any history of orthopnea or paroxysmal nocturnal dyspnea. She has not report swelling in her lower extremities. Patient claims to have been eating and drinking well. She claims to urinating well. She has not report any change in her bowel habits. At the time of this interview she claims to be feeling well. She has no significant complaints with the exception of hand tremors on occasion. 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 All Other Systems: Reviewed and Negative Allergies Coded Allergies: Clopidogrel (Verified Allergy, Unknown, Unknown, 09/16/16) Lisinopril (Verified Allergy, Unknown, Unknown, 09/16/16) Medications Current Inpatient Medications Medications (Trade) Dose Ordered Sig/Louis Route Start Time Stop Time Status Last Admin Dose Admin Acetaminophen (Tylenol Tab) 650 mg Q4H PRN PO 09/28/16 19:15 10/28/16 19:14 Amlodipine Besylate (Norvasc Tab) 5 mg QAM PO 09/29/16 09:00 10/29/16 08:59 09/29/16 08:28 5 MG Aspirin (Ecotrin Tab) 81 mg QPM PO 09/28/16 21:00 10/28/16 20:59 09/28/16 22:48 81 MG Atorvastatin Calcium (Lipitor Tab) 20 mg QPM PO 09/28/16 21:00 10/28/16 20:59 09/28/16 22:49 20 MG Budesonide/ Formoterol Fumarate (Symbicort 80/ 4.5 Inh) 2 puffs BID PRN INH 09/28/16 19:15 10/28/16 19:14 Calcium/Vitamin D (Caltrate Plus Tab) 1 tab BID PO 09/28/16 21:00 10/28/16 20:59 09/29/16 08:27 1 TAB Fluoxetine HCl (Prozac Cap) 20 mg QAM PO 09/29/16 09:00 10/29/16 08:59 09/29/16 08:27 20 MG Gabapentin (Neurontin Cap) 600 mg QID PO 09/28/16 21:00 10/28/16 20:59 09/29/16 08:27 600 MG Isosorbide Mononitrate (Imdur Ext Rel Tab) 30 mg QAM PO 09/29/16 09:00 10/29/16 08:59 09/29/16 08:28 30 MG Isosorbide Mononitrate (Imdur Ext Rel Tab) 60 mg QAM PO 09/29/16 09:00 10/29/16 08:59 09/29/16 08:28 60 MG Levothyroxine Sodium (Synthroid Tab) 112 mcg DAILYBB PO 09/29/16 06:00 10/29/16 05:59 09/29/16 06:08 112 MCG Metoprolol Tartrate (Lopressor Tab) 25 mg BID PO 09/28/16 21:00 10/28/16 20:59 09/29/16 08:29 25 MG Nitroglycerin (Nitrostat Tab) 0.4 mg UD PRN UT 09/28/16 19:15 10/28/16 19:14 Oxycodone HCl (Roxicodone Immediate Rel Tab) 5 mg Q4H PRN PO 09/28/16 19:15 10/12/16 19:14 Fluticasone Propionate (Flovent Hfa 110MCG Inhaler) 1 puffs BID INH 09/28/16 21:00 10/28/16 20:59 09/29/16 08:27 1 PUFFS Albuterol (Ventolin Hfa Inhaler) 2 puffs Q4H PRN INH 09/28/16 19:15 10/28/16 19:14 Ondansetron HCl (Zofran Inj) 4 mg Q6H PRN IV 09/28/16 19:15 10/28/16 19:14 Insulin Aspart (novoLOG ASPART) SLIDING SCALE If C... ACHS SC 09/28/16 21:00 10/28/16 20:59 09/29/16 08:35 3 UNITS Glucose (Glucose 40% Gel) UD PRN PO 09/28/16 19:15 10/28/16 19:14 Glucose (Glucose Chew Tab) 1 tabs UD PRN PO 09/28/16 19:15 10/28/16 19:14 Dextrose (Dextrose 50% 50ML Syringe) 50 ml UD PRN IV 09/28/16 19:15 10/28/16 19:14 Glucagon (Glucagon Inj) 1 mg UD PRN SQ 09/28/16 19:15 10/28/16 19:14 Physical Exam Vital Signs Past 12 Hours Date Time Temp Pulse Resp B/P (MAP) Pulse Ox O2 Delivery O2 Flow Rate FiO2 09/29/16 12:03 36.8 60 18 152/70 (97) 95 Room Air 09/29/16 12:00 95 Room Air 09/29/16 08:00 Room Air 09/29/16 08:00 37.3 67 17 164/65 (98) 96 Room Air 09/29/16 03:59 37.7 63 19 142/60 (87) 92 Room Air She is alert and oriented x3. Mood affect appear normal. She answered all questions appropriately. She was notably forgetful at times HEENT: Sclerae are anicteric. Pupils are equal and reactive to light and accommodation. Extraocular movements were intact. Neuro: Cranial nerves intact Neck: Examination of the submandibular region did not reveal any significant lymphadenopathy. Carotids are palpable bilaterally and free of bruits on auscultation. There was no evidence of jugular venous distention. The thyroid was not enlarged. Lungs: Lungs are clear to auscultation bilaterally. There are no rales wheezes or rhonchi. She has normal respiratory effort without use of accessory muscles. There is normal pulmonary excursion. Cardiac: The rhythm was regular. S1 and S2 were normal. There are no murmurs on examination. The PMI was not markedly displaced on palpation. Abdomen: The abdomen was soft and nontender. Extremities: Patient has bilateral radial pulses that are equal in intensity. There is no evidence cyanosis or clubbing. There was no evidence of significant peripheral edema bilaterally. Skin: There are no rashes noted on examination today. Data Laboratory Results: Last 24 Hours Test 09/28/16 14:40 09/28/16 14:48 09/28/16 16:21 09/28/16 17:35 White Blood Count 10.91 K/uL Red Blood Count 3.20 M/uL Hemoglobin 9.7 g/dL Hematocrit 29.6 % Mean Corpuscular Volume 92.5 fL Mean Corpuscular Hemoglobin 30.3 pg Mean Corpuscular Hemoglobin Concent 32.8 g/dl Platelet Count 424 K/uL Mean Platelet Volume 10.4 fL Neutrophils (%) (Auto) 69.1 % Lymphocytes (%) (Auto) 19.4 % Monocytes (%) (Auto) 7.0 % Eosinophils (%) (Auto) 3.5 % Basophils (%) (Auto) 0.5 % Neutrophils # (Auto) 7.53 K/uL Lymphocytes # (Auto) 2.12 K/uL Monocytes # (Auto) 0.76 K/uL Eosinophils # (Auto) 0.38 K/uL Basophils # (Auto) 0.06 K/uL RDW Standard Deviation 45.0 fL RDW Coefficient of Variation 13.3 % Immature Granulocyte % (Auto) 0.5 % Immature Granulocyte # (Auto) 0.06 K/uL Prothrombin Time 10.8 SECONDS Prothromb Time International Ratio 1.0 Activated Partial Thromboplast Time 22.7 SECONDS Partial Thromboplastin Ratio 0.9 Total Bilirubin 0.2 mg/dl Direct Bilirubin mg/dl Aspartate Amino Transf (AST/SGOT) 15 U/L Alanine Aminotransferase (ALT/SGPT) 17 U/L Alkaline Phosphatase 88 U/L Total Creatine Kinase 80 U/L Creatine Kinase MB 0.8 ng/ml Creatine Kinase MB Ratio 1.0 Total Protein 7.1 gm/dl Albumin 2.7 gm/dl Lipase 212 U/L Thyroid Stimulating Hormone (TSH) 1.690 uIu/ml Bedside Glucose 86 mg/dl 76 mg/dl Sodium Level 142 mmol/L Potassium Level 5.0 mmol/L Chloride Level 106 mmol/L Carbon Dioxide Level 27 mmol/L Anion Gap 9.0 mmol/L Blood Urea Nitrogen 42 mg/dl Creatinine 2.30 mg/dl Est Creatinine Clear Calc Drug Dose 24.8 ml/min Estimated GFR () 23.3 Estimated GFR (Non- 20.1 BUN/Creatinine Ratio 18.4 Random Glucose 50 mg/dl Calcium Level 9.4 mg/dl Troponin I 0.082 ng/ml Chemistry Specimen Hemolysis Test 09/28/16 19:20 09/28/16 20:27 09/29/16 06:07 09/29/16 06:49 Prothrombin Time 10.8 SECONDS 10.9 SECONDS Prothromb Time International Ratio 1.0 1.0 Activated Partial Thromboplast Time 26.7 SECONDS 27.4 SECONDS Partial Thromboplastin Ratio 1.0 1.1 Bedside Glucose 169 mg/dl 124 mg/dl White Blood Count 10.72 K/uL Red Blood Count 3.18 M/uL Hemoglobin 9.4 g/dL Hematocrit 29.2 % Mean Corpuscular Volume 91.8 fL Mean Corpuscular Hemoglobin 29.6 pg Mean Corpuscular Hemoglobin Concent 32.2 g/dl Platelet Count 404 K/uL Mean Platelet Volume 9.8 fL Neutrophils (%) (Auto) 65.6 % Lymphocytes (%) (Auto) 23.0 % Monocytes (%) (Auto) 7.4 % Eosinophils (%) (Auto) 3.2 % Basophils (%) (Auto) 0.5 % Neutrophils # (Auto) 7.04 K/uL Lymphocytes # (Auto) 2.47 K/uL Monocytes # (Auto) 0.79 K/uL Eosinophils # (Auto) 0.34 K/uL Basophils # (Auto) 0.05 K/uL RDW Standard Deviation 44.3 fL RDW Coefficient of Variation 13.2 % Immature Granulocyte % (Auto) 0.3 % Immature Granulocyte # (Auto) 0.03 K/uL Sodium Level 144 mmol/L Potassium Level 4.4 mmol/L Chloride Level 109 mmol/L Carbon Dioxide Level 26 mmol/L Anion Gap 9.0 mmol/L Blood Urea Nitrogen 31 mg/dl Creatinine 1.80 mg/dl Est Creatinine Clear Calc Drug Dose 31.0 ml/min Estimated GFR () 31.4 Estimated GFR (Non- 27.1 BUN/Creatinine Ratio 17.3 Random Glucose 122 mg/dl Calcium Level 9.1 mg/dl Magnesium Level 1.7 mg/dl Total Bilirubin 0.4 mg/dl Direct Bilirubin 0.1 mg/dl Aspartate Amino Transf (AST/SGOT) 14 U/L Alanine Aminotransferase (ALT/SGPT) 15 U/L Alkaline Phosphatase 87 U/L Creatine Kinase MB 0.7 ng/ml Troponin I 0.064 ng/ml Total Protein 6.9 gm/dl Albumin 2.6 gm/dl Test 09/29/16 07:29 09/29/16 11:41 Creatine Kinase MB Ratio Bedside Glucose 146 mg/dl Imaging: Brain MRI did not demonstrate any acute process EKG: Sinus bradycardia Telemetry reviewed: Sinus rhythm without arrhythmia Patient underwent cardiac catheterization in 2011. This demonstrated small vessel and nonobstructive disease. No intervention was performed at that time Echocardiogram was performed today which revealed preserved LV systolic function. Assessment & Plan 1. Syncope: This seems to be an episode related to vasodilation. This was likely a vasodepressor response. This could be considered vagally mediated syncope. Her blood pressure was noted to be low at the time of the event and states slightly low leading up to her presentation at [facility]. With aggressive hydration her blood pressure improved. She has not had any similar symptoms since admission. She was slightly bradycardic at the time of presentation but not markedly so. Her pulse at presentation did not differ significantly from her pulse here in the hospital. She has been maintained on a fairly good dose of beta blanche presumably for her occult coronary disease. I do not think it is necessary to reduce that dose at this time as the event in question did not seem to be mediated by bradycardia or arrhythmia. This event was likely precipitated by an element of dehydration. The patient did have quite high creatinine at the time of admission. She also appeared to be hemoconcentrated. This is improved significantly with hydration. 2. Elevated cardiac biomarkers: Patient is noted to have nonobstructive coronary disease. She is a very sedentary individual but without symptoms of angina or coronary insufficiency. It is possible that during a brief period of hypoperfusion she had some element of ischemia. I do not think this represents a plaque rupture event. As she becomes more mobile and active subsequent to her back surgery we will have to monitor her for symptoms of angina. At this time I would continue her current medical regimen and aggressive secondary prevention for coronary disease. 3. Bradycardia: This is fairly mild at the time of presentation and likely little lower due to the high vagal tone. I believe her beta-blockers were prescribed due to her nonobstructive coronary disease and a remote history of chest pain. Reducing the dose would be reasonable but her pulse here in the hospital has been entirely normal. I think we can continue her usual outpatient medical regimen. 4. Coronary artery disease: Patient did have cardiac catheterization in 2011. We have no additional records to support any testing since that time. She states she has not seen a repairer and checker in approximately 5 years. She is on a good regimen for both secondary prevention and angina. It would seem reasonable continue on her daily aspirin, atorvastatin, beta-blanche and nitrate. She can be monitored after rehab for recurrent symptoms of angina with exertion. Consideration could be given to reducing or eliminating the isosorbide and monitoring her for symptoms as well.
--- NOTE | 2016-09-29 15:10 | Hospitalist Progress Note ---
Hospitalist Progress Note Date of Service Sep 29, 2016. (Ning Spence ., PA-C) Subjective Pt evaluation today including: conversation w/ patient, conversation w/ family (- at bedside ), physical exam, chart review, lab review, review of studies, review of inpatient medication list Voiding: no voiding problems, no incontinence Patient states she is feeling well. Eating and drinking OK. Syncopal event yesterday after working with OT at [employer]. States she felt generally fatigued yesterday while working with therapy and not completely 100%. Does not remember event. States she finished working w/ OT, sat in her wheelchair and the next thing she remembered was waking up in EMS. No bowel/bladder incontinence. No h/o syncopal events. Has been experiencing left hand tremor, sometimes right, since lumbar spine surgery by Dr. Freire on 09/16. Happens periodically. Progresses throughout the day. At times, cannot eat/drink due to tremor/dropping items. Was seen by Dr. Caldwell during last admission- workup negative at that time. MRI of brain today- unremarkable. TSH WNL Asked patient to grab drink at bedside and did without difficulty. s/p lumbar spine surgery by Dr. Freire on 09/16. Request decreasing Gabapentin. She was placed on medication due to lumbar stenosis, but wishes to wean off if tolerated. Currently on 600 mg QID. Patient denies any fever, chills, sweats, lightheadedness, dizziness, vision changes, CP, palpitations, edema, SOB, wheezing, cough, abdominal pain, nausea, vomiting, diarrhea, urinary symptoms, melena, numbness/tingling, weakness, muscle/joint pain, anxiety/depression, active bleeding, or new skin discoloration/changes. (Ning Spence ., PA-C) Medications Current Inpatient Medications Medications (Trade) Dose Ordered Sig/Louis Route Start Time Stop Time Status Last Admin Dose Admin Acetaminophen (Tylenol Tab) 650 mg Q4H PRN PO 09/28/16 19:15 10/28/16 19:14 Amlodipine Besylate (Norvasc Tab) 5 mg QAM PO 09/29/16 09:00 10/29/16 08:59 09/29/16 08:28 5 MG Aspirin (Ecotrin Tab) 81 mg QPM PO 09/28/16 21:00 10/28/16 20:59 09/28/16 22:48 81 MG Atorvastatin Calcium (Lipitor Tab) 20 mg QPM PO 09/28/16 21:00 10/28/16 20:59 09/28/16 22:49 20 MG Budesonide/ Formoterol Fumarate (Symbicort 80/ 4.5 Inh) 2 puffs BID PRN INH 09/28/16 19:15 10/28/16 19:14 Calcium/Vitamin D (Caltrate Plus Tab) 1 tab BID PO 09/28/16 21:00 10/28/16 20:59 09/29/16 08:27 1 TAB Fluoxetine HCl (Prozac Cap) 20 mg QAM PO 09/29/16 09:00 10/29/16 08:59 09/29/16 08:27 20 MG Gabapentin (Neurontin Cap) 600 mg QID PO 09/28/16 21:00 10/28/16 20:59 09/29/16 12:57 600 MG Isosorbide Mononitrate (Imdur Ext Rel Tab) 30 mg QAM PO 09/29/16 09:00 10/29/16 08:59 09/29/16 08:28 30 MG Isosorbide Mononitrate (Imdur Ext Rel Tab) 60 mg QAM PO 09/29/16 09:00 10/29/16 08:59 09/29/16 08:28 60 MG Levothyroxine Sodium (Synthroid Tab) 112 mcg DAILYBB PO 09/29/16 06:00 10/29/16 05:59 09/29/16 06:08 112 MCG Metoprolol Tartrate (Lopressor Tab) 25 mg BID PO 09/28/16 21:00 10/28/16 20:59 09/29/16 08:29 25 MG Nitroglycerin (Nitrostat Tab) 0.4 mg UD PRN UT 09/28/16 19:15 10/28/16 19:14 Oxycodone HCl (Roxicodone Immediate Rel Tab) 5 mg Q4H PRN PO 09/28/16 19:15 10/12/16 19:14 Fluticasone Propionate (Flovent Hfa 110MCG Inhaler) 1 puffs BID INH 09/28/16 21:00 10/28/16 20:59 09/29/16 08:27 1 PUFFS Albuterol (Ventolin Hfa Inhaler) 2 puffs Q4H PRN INH 09/28/16 19:15 10/28/16 19:14 Ondansetron HCl (Zofran Inj) 4 mg Q6H PRN IV 09/28/16 19:15 10/28/16 19:14 Insulin Aspart (novoLOG ASPART) SLIDING SCALE If C... ACHS SC 09/28/16 21:00 10/28/16 20:59 09/29/16 12:57 5 UNITS Glucose (Glucose 40% Gel) UD PRN PO 09/28/16 19:15 10/28/16 19:14 Glucose (Glucose Chew Tab) 1 tabs UD PRN PO 09/28/16 19:15 10/28/16 19:14 Dextrose (Dextrose 50% 50ML Syringe) 50 ml UD PRN IV 09/28/16 19:15 10/28/16 19:14 Glucagon (Glucagon Inj) 1 mg UD PRN SQ 09/28/16 19:15 10/28/16 19:14 (Ning Spence, PALoboC) Objective Vital Signs Date Time Temp Pulse Resp B/P (MAP) Pulse Ox O2 Delivery O2 Flow Rate FiO2 09/29/16 12:03 36.8 60 18 152/70 (97) 95 Room Air 09/29/16 12:00 95 Room Air 09/29/16 08:00 Room Air 09/29/16 08:00 37.3 67 17 164/65 (98) 96 Room Air 09/29/16 03:59 37.7 63 19 142/60 (87) 92 Room Air 09/28/16 23:58 36.7 62 19 110/44 (66) 96 Room Air 09/28/16 20:26 36.7 60 16 144/64 96 Room Air 09/28/16 18:30 61 18 140/45 96 Room Air 09/28/16 18:30 62 09/28/16 17:05 58 20 142/46 09/28/16 15:51 56 18 132/65 98 Room Air 09/28/16 14:51 56 18 98/43 96 56 96/55 09/28/16 14:44 37.0 20 96/55 96 Room Air 09/28/16 14:36 54 (Ning Spence, YOHANNESC) Physical Exam General Appearance: no apparent distress Eyes: normal inspection, PERRL ENT: hearing grossly normal Neck: supple Respiratory/Chest: lungs clear, no respiratory distress, no accessory muscle use Cardiovascular: regular rate, rhythm Abdomen: normal bowel sounds, non tender, soft Extremities: normal range of motion, no pedal edema, no calf tenderness Neurologic/Psychiatric: no motor/sensory deficits, alert, normal mood/affect, oriented x 3 Skin: normal color, warm/dry, no rash (Ning Spence, YOHANNESC) Laboratory Results Last 24 Hours Test 09/28/16 14:40 09/28/16 14:48 09/28/16 16:21 09/28/16 17:35 White Blood Count 10.91 K/uL Red Blood Count 3.20 M/uL Hemoglobin 9.7 g/dL Hematocrit 29.6 % Mean Corpuscular Volume 92.5 fL Mean Corpuscular Hemoglobin 30.3 pg Mean Corpuscular Hemoglobin Concent 32.8 g/dl Platelet Count 424 K/uL Mean Platelet Volume 10.4 fL Neutrophils (%) (Auto) 69.1 % Lymphocytes (%) (Auto) 19.4 % Monocytes (%) (Auto) 7.0 % Eosinophils (%) (Auto) 3.5 % Basophils (%) (Auto) 0.5 % Neutrophils # (Auto) 7.53 K/uL Lymphocytes # (Auto) 2.12 K/uL Monocytes # (Auto) 0.76 K/uL Eosinophils # (Auto) 0.38 K/uL Basophils # (Auto) 0.06 K/uL RDW Standard Deviation 45.0 fL RDW Coefficient of Variation 13.3 % Immature Granulocyte % (Auto) 0.5 % Immature Granulocyte # (Auto) 0.06 K/uL Prothrombin Time 10.8 SECONDS Prothromb Time International Ratio 1.0 Activated Partial Thromboplast Time 22.7 SECONDS Partial Thromboplastin Ratio 0.9 Total Bilirubin 0.2 mg/dl Direct Bilirubin mg/dl Aspartate Amino Transf (AST/SGOT) 15 U/L Alanine Aminotransferase (ALT/SGPT) 17 U/L Alkaline Phosphatase 88 U/L Total Creatine Kinase 80 U/L Creatine Kinase MB 0.8 ng/ml Creatine Kinase MB Ratio 1.0 Total Protein 7.1 gm/dl Albumin 2.7 gm/dl Lipase 212 U/L Thyroid Stimulating Hormone (TSH) 1.690 uIu/ml Bedside Glucose 86 mg/dl 76 mg/dl Sodium Level 142 mmol/L Potassium Level 5.0 mmol/L Chloride Level 106 mmol/L Carbon Dioxide Level 27 mmol/L Anion Gap 9.0 mmol/L Blood Urea Nitrogen 42 mg/dl Creatinine 2.30 mg/dl Est Creatinine Clear Calc Drug Dose 24.8 ml/min Estimated GFR () 23.3 Estimated GFR (Non- 20.1 BUN/Creatinine Ratio 18.4 Random Glucose 50 mg/dl Calcium Level 9.4 mg/dl Troponin I 0.082 ng/ml Chemistry Specimen Hemolysis Test 09/28/16 19:20 09/28/16 20:27 09/29/16 06:07 09/29/16 06:49 Prothrombin Time 10.8 SECONDS 10.9 SECONDS Prothromb Time International Ratio 1.0 1.0 Activated Partial Thromboplast Time 26.7 SECONDS 27.4 SECONDS Partial Thromboplastin Ratio 1.0 1.1 Bedside Glucose 169 mg/dl 124 mg/dl White Blood Count 10.72 K/uL Red Blood Count 3.18 M/uL Hemoglobin 9.4 g/dL Hematocrit 29.2 % Mean Corpuscular Volume 91.8 fL Mean Corpuscular Hemoglobin 29.6 pg Mean Corpuscular Hemoglobin Concent 32.2 g/dl Platelet Count 404 K/uL Mean Platelet Volume 9.8 fL Neutrophils (%) (Auto) 65.6 % Lymphocytes (%) (Auto) 23.0 % Monocytes (%) (Auto) 7.4 % Eosinophils (%) (Auto) 3.2 % Basophils (%) (Auto) 0.5 % Neutrophils # (Auto) 7.04 K/uL Lymphocytes # (Auto) 2.47 K/uL Monocytes # (Auto) 0.79 K/uL Eosinophils # (Auto) 0.34 K/uL Basophils # (Auto) 0.05 K/uL RDW Standard Deviation 44.3 fL RDW Coefficient of Variation 13.2 % Immature Granulocyte % (Auto) 0.3 % Immature Granulocyte # (Auto) 0.03 K/uL Sodium Level 144 mmol/L Potassium Level 4.4 mmol/L Chloride Level 109 mmol/L Carbon Dioxide Level 26 mmol/L Anion Gap 9.0 mmol/L Blood Urea Nitrogen 31 mg/dl Creatinine 1.80 mg/dl Est Creatinine Clear Calc Drug Dose 31.0 ml/min Estimated GFR () 31.4 Estimated GFR (Non- 27.1 BUN/Creatinine Ratio 17.3 Random Glucose 122 mg/dl Calcium Level 9.1 mg/dl Magnesium Level 1.7 mg/dl Total Bilirubin 0.4 mg/dl Direct Bilirubin 0.1 mg/dl Aspartate Amino Transf (AST/SGOT) 14 U/L Alanine Aminotransferase (ALT/SGPT) 15 U/L Alkaline Phosphatase 87 U/L Creatine Kinase MB 0.7 ng/ml Troponin I 0.064 ng/ml Total Protein 6.9 gm/dl Albumin 2.6 gm/dl Test 09/29/16 07:29 09/29/16 11:41 09/29/16 14:26 Creatine Kinase MB Ratio Bedside Glucose 146 mg/dl (Ning Spence, GALI) Assessment and Plan The patient is a 75-year-old female brought to the ED by EMS after a syncopal episode at [facility] just prior to arrival. She is status post lumbar surgery by Dr. Freire, that required hospitalization at [facility] from September 16 to September 22, and had been undergoing rehabilitation at [facility] since that time. The patient reports that after occupational therapy this morning she passed out in her wheelchair. She did have NovoLog prior to OT this morning, but her sugar levels after the syncopal episode were 107. The patient does not have any memory of the event. The patient does report however that she has intervals of loss of control of her right arm, and her daughter who is present in the ED, shows a video where her right arm and hand undergo a sudden rhythmic tremor where she is unable to control her utensil to eat. Similar symptoms happen to the left hand but not anywhere near as significant. The patient and her family report that she has never had any these type of symptoms in the past. The patient does appear to have some memory issues, and her family who is present helps to complete her history of present illness and review of systems. Syncopal event, unknown etiology- likely multifactorial to fatigue, anemia, hypotension, dehydration, hypoglycemia: - Admitted to [facility] for cardiac monitoring- no acute events - Trended cardiac enzymes- peak trop 0.082 - EKG w/ no acute changes- follow QAM and PRN for CP - Neuro checks - ECHO on 09/29- Left ventricular systolic function is normal. Grade I diastolic dysfunction, (abnormal relaxation pattern). Right ventricular systolic pressure is normal. - Brain MRI on 09/29- unremarkable - Check 2-step - BCx and UCx pending - Consulted cardiology, appreciate recommendations BEL on CKD stage III, baseline Cr. 1.4-1.5- IMPROVING: - Cr. 2.3 on admission- now 1.80 - Treated w/ IVF Anemia, likely secondary to postop blood loss: - On 08/25/16 preop, hgb 12.2- trended down to 8.4 day of discharge (09/22) postop - On admission, 9.7- will begin Ferrous Sulfate 325 mg BID - Check b12/folate level New onset tremor in bilateral hands R>L after lumbar spine surgery: - Seen by Dr. Caldwell prior to discharge on 09/22- workup unremarkable at that time- consult neurology, appreciate recommendations - Brain MRI on 09/29- unremarkable - Obtain MRI of cervical spine - Check b12/folate level, TSH WNL - ?alcohol withdrawal- denies h/o alcohol abuse CAD, non-obstructing: Continue ASA 81 mg daily, Imdur 90 mg daily, Metoprolol 25 mg BID, Micardis HCT 1 tablet daily HTN- STABLE: - Hypotension on admission- treated w/ IVF- RESOLVED - Continue Norvasc 5 mg daily T2DM- last ha1c 7.4% on 09/17: - Blood sugar 50 upon arrival to ED; Lantus 40 u HS, and NovoLog 20 u QAM/noon , 35 u HS held - BSG ACHS and sliding insulin scale Hypothyroidism: - Continue Levothyroxine sodium at 112 mcg daily - TSH WNL Lumbar stenosis s/p lumbar surgery by Dr. Freire on 09/16: - Gabapentin 600 mg QID; patient request weaning as tolerated- decrease to 300 mg TID on 09/29 Hyperlipidemia: Atorvastatin 20 mg daily Depression/anxiety: Continue Fluoxetine 20 mg daily Mild cognitive impairment- noted DVT Prophylaxis: GIBRAN/SCDs; chemical therapy avoided due to anemia Code Status: LEVEL I, FULL Dispo: Return to [facility] for continued acute rehab once medically stable (Ning Spence, PALoboC) I personally interviewed and examined the patient I discussed the above discharge plan with Miss Ning Spence I agree with her Hx and PE and her discharge plan ROS/PMHx: as HPI FHx/SHx/labs/meds reviewed as needed PE: average built, not in acute distress LUNGs: normal exam, no wheezing/R Heart: s1/s2 normal, no G/R/M ABD: soft, ND, N tender Ext: B/L LE no edema or swelling Neuro: pleasant,AAOX3, EOMI, moves all ext, CN 2-12 intact Syncope likely vasovagal secondary to , multifactorial, dehydration, weakness, anemia D/W Dr. Aparicio likely vasovagal anemia work up, iron supplement as needed observe on telemetry B/L but Right>L hand involuntary movement worse towards the end of the day. neurology consult, B12 check (Mela Sofia MD)
--- NOTE | 2016-09-29 16:13 | DIAGNOSTIC IMAGING REPORT ---
CERVICAL WITHOUT CONTRAST CLINICAL HISTORY: 75 years-old Female presenting with hand tremors . TECHNIQUE: Multisequence, multiplanar MR imaging of the cervical spine was performed without the use of intravenous contrast. IV contrast: None. COMPARISON: None. FINDINGS: Localizer images: Unremarkable. Slightly exaggerated cervical lordosis. Vertebral body heights, alignment, and bone marrow signal intensity preserved. Slight heterogeneity of bone marrow signal intensity secondary to degenerative fatty endplate changes. Multilevel degenerative changes detailed below: C2-3: Normal. C3-4: Mild disc osteophyte complex. In combination with uncovertebral hypertrophy, mild left neural foraminal narrowing results. No significant spinal canal narrowing. C4-5: Small disc osteophyte complex and uncovertebral hypertrophy results in mild bilateral neural foraminal narrowing. No significant spinal canal narrowing. C5-6: Disc osteophyte complex, uncovertebral hypertrophy, and ligamentum flavum thickening result in mild bilateral neural foraminal narrowing. Near complete circumferential effacement of the CSF also noted, although no abnormal spinal cord signal intensity or morphology at this level. C6-7: Disc osteophyte complex and uncovertebral hypertrophy, and ligamentum flavum thickening result in moderate bilateral neural foraminal narrowing. Near complete circumferential effacement of CSF also noted at this level, however, again no abnormal signal intensity or morphology of the spinal cord at this level. C7-T1: Normal. Spinal cord maintains normal morphology and signal intensity. Craniocervical junction normal. Paraspinal soft tissues normal. Limited intracranial evaluation demonstrates ventricular system enlargement better assessed on recent MR of the brain. IMPRESSION: Multilevel degenerative changes with varying degrees of neural foraminal narrowing and spinal canal stenosis most severe at C5-6 and C6-7, further detailed above. Electronically signed by: Inder Celestin M.D. 09/29/2016 4:12 PM Dictated Date/Time: 09/29/2016 4:04 PM
[2016-09-29] MEDS: FERROUS SULFATE 325 MG TAB PO SCH (18:05)
[2016-09-29] MEDS: ATORVASTATIN 10 MG TAB PO SCH (21:16)
[2016-09-29] MEDS: ASPIRIN 81 MG ECTAB PO SCH (21:16)
[2016-09-30] VITALS (7 sets, daily range): BP systolic 125–200; BP diastolic 60–106; PULSE 56–90; TEMP 36.6–37.1; O2SAT 90–91
[2016-09-30] MEDS: LEVOTHYROXINE 112 MCG TAB PO SCH (06:07)
[2016-09-30 06:57] LABS: BASO % 0.6 %; BASO ABS # 0.06 K/uL (0-0.2); COMPLETE YES; EOS % 3.3 %; HEMATOCRIT 27.5 % (37-47); IG% 0.3 %; LYMPH % 21.8 %; LYMPH ABS # 2.07 K/uL (1.2-3.4); MEAN CORPUSCULAR HEMOGLOBIN 30.4 pg (25-34); MEAN CORPUSCULAR HGB CONC 33.1 g/dl (32-36); MEAN PLATELET VOLUME 10.4 fL (7.4-10.4); MONO % 7.5 %; NEUT % 66.5 %; PLATELET COUNT 373 K/uL (130-400); RED BLOOD COUNT 2.99 M/uL (4.2-5.4); WHITE BLOOD COUNT 9.48 K/uL (4.8-10.8)
[2016-09-30 07:26] LABS: ALT/SGPT 15 U/L (12-78); AST/SGOT 17 U/L (15-37); BLOOD UREA NITROGEN 25 mg/dl (7-18); BUN/CREATININE RATIO 16.5 (10-20); CALCIUM 9.5 mg/dl (8.5-10.1); CARBON DIOXIDE 26 mmol/L (21-32); CHLORIDE 109 mmol/L (98-107); GLUCOSE 136 mg/dl (70-99); MAGNESIUM 1.6 mg/dl (1.8-2.4); POTASSIUM 4.4 mmol/L (3.5-5.1); SODIUM 141 mmol/L (136-145)
[2016-09-30 07:29] LABS: ALKALINE PHOSPHATASE 93 U/L (45-117)
[2016-09-30] MEDS: GABAPENTIN 300 MG CAP PO SCH ×2 (08:37→14:00)
[2016-09-30] MEDS: ISOSORBIDE MONONITRATE 60 MG TABCR PO SCH (08:37)
[2016-09-30] MEDS: METOPROLOL TARTRATE 25 MG TAB PO SCH (08:37)
[2016-09-30] MEDS: FLUTICASONE HFA 110MCG INHALER INH SCH (08:37)
[2016-09-30] MEDS: ISOSORBIDE MONONITRATE 30 MG TABCR PO SCH (08:37)
[2016-09-30] MEDS: AMLODIPINE BESYLATE 5 MG TAB PO SCH (08:37)
[2016-09-30] MEDS: FLUOXETINE HCL 20 MG CAP PO SCH (08:37)
[2016-09-30] MEDS: CALCIUM 600MG + VIT D 400 IU TAB PO SCH (08:38)
[2016-09-30] MEDS: FERROUS SULFATE 325 MG TAB PO SCH ×2 (08:45→17:44)
[2016-09-30] MEDS: INSULIN ASPART 100 UNITS/ML 3 ML PEN SC SCH ×3 (08:49→17:47)
--- NOTE | 2016-09-30 09:00 | Neurology Consultation ---
Neurology Consultation Date of Consultation: Sep 30, 2016. Attending Physician: Eulogio Lawson M.D. Primary Care Physician: Mariano Recio M.D. Reason for Consultation: Patient is a 75-year-old, who was asked to see the request of Ning Mcdonnell and Dr. Parveen Vallecillo, for neurologic consultation regarding tremor and other issues. History of Present Illness Source: patient, caregiver, spouse, clinic records, hospital records Patient was first seen by Dr. Caldwell in October 2015 for one year history of memory issues. By January 2016 she had neuropsychological testing which revealed changes consistent with mild cognitive impairment. There is likely a vascular component as well. MRI of the brain in 2014 showed mild small vessel ischemic disease and atrophy. She was last seen in March 2016. The memory issues have been consistent. Patient has long-standing diabetes and has been diagnosed with diabetic polyneuropathy. The patient herself feels that maybe some numbness and aching in her feet left greater than right side. The patient has had chronic low back pain for several years. She's had some problems with weakness and pain in the left lower extremity as well. Prior to August of this year, she did not have any tremor or abnormal movements. Patient underwent lumbar decompressive surgery September [address] Freire for severe spinal stenosis. The laminectomy was from L3-S1 and there was fusion from L4- S1. Postoperatively, it was noted that the patient was having some tremor and jerking of the hands and some weakness. Dr. Caldwell saw the patient on September 18 and noted some nonspecific weakness of the arms and legs without significant tremor. She did not see any abnormal involuntary movements. The left hand may have been involved more than the right hand with tremor. Dr. Caldwell reason that there was probably some myoclonus postoperatively. The patient had a mild headache that this had resolved. CT scan of the head showed microvascular ischemic changes hemoglobin A1c was 7.4 and extensive laboratory studies were unremarkable. The patient was discharged to [facility]. She is having difficulty at [facility] with gripping because of tremor and some jerking of her hands. She would drop objects. In addition the patient had trouble ambulating to back pain and left leg weakness. Nevertheless she was making progress but on September 28 she was fatigued and had a syncopal episode. She arrived at the emergency room at 1436 hours with a temperature 37.0, pulse 54, respiratory rate 20, blood pressure 96/55, and O2 saturation 96%. She was awake and alert. Nursing has noted some intermittent left greater than right hand tremor. MRI of the brain showed significant generalized atrophy with mild old scattered nonspecific small vessel ischemic changes. I reviewed this film. MRI of the cervical spine shows multilevel significant spinal stenosis secondary to disc and bone generative changes. It is most severe at C5-6 and C6 -7. The spinal cord itself did not look compromised and there are no signal abnormalities within the cord. I reviewed this film as well. Laboratory studies show significant anemia with a mildly elevated BUN and creatinine. Glucose was elevated and other labs including B-12 and TSH were unremarkable. Patient herself feels that she has some incontinence of urine prior to surgery but this is worse postoperatively. Her left foot is achy, more so than the right and left leg seems weak to her. Patient is a history of depression in the past and she's been on low-dose fluoxetine. She feels her mood is better. Past Medical/Surgical History Medical Problems: (1) Altered mental status Status: Acute (2) Elevated d-dimer Status: Acute (3) Hypoxia Status: Acute (4) Orthostasis Status: Acute (5) Syncope Status: Acute History of hypertension Diabetes Polyneuropathy secondary to diabetes Coronary artery disease Dyslipidemia Chronic kidney disease Mild cognitive impairment by neuropsychological testing Vitamin D deficiency History of atrial fibrillation once in the past. This is not a recurrent problem. She is post-appendectomy and tonsillectomy as well as D&C and a left total knee replacement Family History Mother age 82 with diabetes. Father in his early 80s of stroke although he had dementia and heart disease too Social History Patient never smoked cigarettes and does not use alcohol. 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 Smoking Status: Never smoker Smokeless Tobacco Use: No Alcohol Use: none Drug Use: none Marital Status: Housing Status: lives with family, lives with significant other Occupation Status: retired Allergies Coded Allergies: Clopidogrel (Verified Allergy, Unknown, Unknown, 09/16/16) Lisinopril (Verified Allergy, Unknown, Unknown, 09/16/16) Current Inpatient Medications Current Inpatient Medications Medications (Trade) Dose Ordered Sig/Louis Route Start Time Stop Time Status Last Admin Dose Admin Acetaminophen (Tylenol Tab) 650 mg Q4H PRN PO 09/28/16 19:15 10/28/16 19:14 Amlodipine Besylate (Norvasc Tab) 5 mg QAM PO 09/29/16 09:00 10/29/16 08:59 09/29/16 08:28 5 MG Aspirin (Ecotrin Tab) 81 mg QPM PO 09/28/16 21:00 10/28/16 20:59 09/29/16 21:16 81 MG Atorvastatin Calcium (Lipitor Tab) 20 mg QPM PO 09/28/16 21:00 10/28/16 20:59 09/29/16 21:16 20 MG Budesonide/ Formoterol Fumarate (Symbicort 80/ 4.5 Inh) 2 puffs BID PRN INH 09/28/16 19:15 10/28/16 19:14 Calcium/Vitamin D (Caltrate Plus Tab) 1 tab BID PO 09/28/16 21:00 10/28/16 20:59 09/29/16 21:13 1 TAB Fluoxetine HCl (Prozac Cap) 20 mg QAM PO 09/29/16 09:00 10/29/16 08:59 09/29/16 08:27 20 MG Isosorbide Mononitrate (Imdur Ext Rel Tab) 30 mg QAM PO 09/29/16 09:00 10/29/16 08:59 09/29/16 08:28 30 MG Isosorbide Mononitrate (Imdur Ext Rel Tab) 60 mg QAM PO 09/29/16 09:00 10/29/16 08:59 09/29/16 08:28 60 MG Levothyroxine Sodium (Synthroid Tab) 112 mcg DAILYBB PO 09/29/16 06:00 10/29/16 05:59 09/30/16 06:07 112 MCG Metoprolol Tartrate (Lopressor Tab) 25 mg BID PO 09/28/16 21:00 10/28/16 20:59 09/29/16 21:15 25 MG Nitroglycerin (Nitrostat Tab) 0.4 mg UD PRN UT 09/28/16 19:15 10/28/16 19:14 Oxycodone HCl (Roxicodone Immediate Rel Tab) 5 mg Q4H PRN PO 09/28/16 19:15 10/12/16 19:14 09/29/16 22:38 5 MG Fluticasone Propionate (Flovent Hfa 110MCG Inhaler) 1 puffs BID INH 09/28/16 21:00 10/28/16 20:59 09/29/16 21:12 1 PUFFS Albuterol (Ventolin Hfa Inhaler) 2 puffs Q4H PRN INH 09/28/16 19:15 10/28/16 19:14 Ondansetron HCl (Zofran Inj) 4 mg Q6H PRN IV 09/28/16 19:15 10/28/16 19:14 09/29/16 21:21 4 MG Insulin Aspart (novoLOG ASPART) SLIDING SCALE If C... ACHS SC 09/28/16 21:00 10/28/16 20:59 09/29/16 21:14 2 UNITS Glucose (Glucose 40% Gel) UD PRN PO 09/28/16 19:15 10/28/16 19:14 Glucose (Glucose Chew Tab) 1 tabs UD PRN PO 09/28/16 19:15 10/28/16 19:14 Dextrose (Dextrose 50% 50ML Syringe) 50 ml UD PRN IV 09/28/16 19:15 10/28/16 19:14 Glucagon (Glucagon Inj) 1 mg UD PRN SQ 09/28/16 19:15 10/28/16 19:14 Ferrous Sulfate (Feosol Tab) 325 mg BIDM PO 09/29/16 17:00 10/29/16 16:59 09/29/16 18:05 325 MG Gabapentin (Neurontin Cap) 300 mg TID PO 09/29/16 21:00 10/29/16 20:59 09/29/16 21:14 300 MG Review of Systems Constitutional: + weakness, + fatigue Eyes: No worsening of vision, No diplopia ENT: No sore throat, No tinnitus, No trouble swallowing Respiratory: No cough, No shortness of breath Cardiovascular: No chest pain, No palpitations Abdomen: No pain, No nausea Musculoskeletal: No joint pain, No muscle pain Genitourinary - Female: + urinary incontinence, No dysuria Neurologic: + memory loss, + weakness, + numbness/tingling, + balance problems , No vertigo Psychiatric: No depression symptoms, No anxiety Endocrine: No fatigue Hematologic / Lymphatic: No abnormal bleeding/bruising Integumentary: No rash Allergic / Immunologic: No hives Physical Exam Vital Signs (Past 24 Hrs): Date Time Temp Pulse Resp B/P (MAP) Pulse Ox O2 Delivery O2 Flow Rate FiO2 09/30/16 08:22 36.6 90 18 194/104 (134) 90 200/106 (137) 09/30/16 04:25 37.1 62 18 146/64 (91) 90 Room Air 09/30/16 04:00 Room Air 09/30/16 00:00 Room Air 09/29/16 23:17 37.2 63 20 149/66 (93) 97 Room Air 09/29/16 21:10 77 167/71 (103) 09/29/16 20:00 36.8 72 20 158/63 (94) 93 Room Air 09/29/16 20:00 95 Room Air 09/29/16 16:58 36.6 60 18 152/74 (100) 95 Room Air 09/29/16 16:00 95 Room Air 09/29/16 12:03 36.8 60 18 152/70 (97) 95 Room Air 09/29/16 12:00 95 Room Air Patient is right-handed. The patient is awake and alert. Speech is normal without aphasia or dysarthria. Mentation and thought processes are intact with orientation but she has difficulty with short-term, intermediate and some long-term memory issues. Mood and affect are normal and appropriate. Appearance and grooming are normal. The discs seem sharp with pupils are quite small limiting his ability. There are no obvious exudates, hemorrhages, or blood vessel changes seen. Pupils are 3mm bilaterally and reactive to light. Extraocular eye muscles are intact without nystagmus. Visual acuity and visual ortega seem normal grossly to confrontation. There are no deficits to sensation of the face bilaterally. Corneal reflexes are positive bilaterally. Facial strength and symmetry is normal bilaterally. Hearing seems intact grossly to voice and finger rub. Palate moves well without astmmetry. There is normal sternocleidomastoid and trapezius strength bilaterally. Tongue is midline with good strength bilaterally. Neck is with full range of motion without discomfort. There are no cervical bruits. There are no cranial or ocular bruits. Heart is without murmur. Cervical, thoracic, and lumbar spine are nontender to palpation. There is a lumbar spine scar which is clean and healing well. Gait is difficult. She can get up to a standing position under her own power but is slow. This is because of her back pain. Her stance is reasonable. Gait is very tenuous and she puts less weight on the left leg. With outstretched arms there is no drift. There are no resting tremors. There is very mild right postural and action tremor and mild left postural and action tremor. There is no ataxia with [id number] testing. There is good facility in the hands. There are no abnormal involuntary movements noted. Very occasionally, I will see very good relief low amplitude myoclonic jerks in the left upper extremity. I see no myoclonic jerks in any other limb or trunk/ face. Motor strength is 5/5 diffusely in the arms bilaterally including deltoids, biceps, brachioradialis, wrist flexors and extensors, community service technician, and intrinsic hand muscles. Motor strength is 5/5 diffusely in the right leg diffusely including hip flexors, quadriceps, hamstring, gastrocnemius, tibialis anterior, tibialis posterior, and peroneii muscles bilaterally. In the left leg strength is 4+/5 diffusely. Toe extensors are normal and there is good bulk in the extensor digitorum brevis muscle bilaterally. The limbs have good tone without rigidity or spasticity, and there is no atrophy noted. Muscle bulk is normal, there is no tenderness, no myotonia noted to percussion, and no fasciculations seen. Sensory examination is intact to pin and touch in the hands but seems to be slightly decreased in the feet bilaterally Reflexes are 1/4 in the biceps, triceps, brachioradialis, and quadriceps tendons bilaterally. Achilles tendon reflexes are absent bilaterally. Toes are downgoing with plantar stimulation bilaterally. Peripheral pulses are present and of normal quality distally in all four limbs. There is no peripheral edema noted. Laboratory Results Past 24 Hours: 09/30/16 06:15 Red Blood Count 2.99, Mean Corpuscular Volume 92.0, Mean Corpuscular Hemoglobin 30.4, Mean Corpuscular Hemoglobin Concent 33.1, Mean Platelet Volume 10.4, Neutrophils (%) (Auto) 66.5, Lymphocytes (%) (Auto) 21.8, Monocytes (%) (Auto) 7.5, Eosinophils (%) (Auto) 3.3, Basophils (%) (Auto) 0.6, Neutrophils # (Auto) 6.30, Lymphocytes # (Auto) 2.07, Monocytes # (Auto) 0.71, Eosinophils # (Auto) 0.31, Basophils # (Auto) 0.06 09/30/16 06:15 Test 09/29/16 14:45 09/30/16 06:15 09/30/16 07:50 Vitamin B12 Level 1937 pg/mL (211-911) Folate 21.53 ng/mL (>5.38) White Blood Count 9.48 K/uL (4.8-10.8) Red Blood Count 2.99 M/uL (4.2-5.4) Hemoglobin 9.1 g/dL (12.0-16.0) Hematocrit 27.5 % (37-47) Mean Corpuscular Volume 92.0 fL (80-100) Mean Corpuscular Hemoglobin 30.4 pg (25-34) Mean Corpuscular Hemoglobin Concent 33.1 g/dl (32-36) Platelet Count 373 K/uL (130-400) Mean Platelet Volume 10.4 fL (7.4-10.4) Neutrophils (%) (Auto) 66.5 % Lymphocytes (%) (Auto) 21.8 % Monocytes (%) (Auto) 7.5 % Eosinophils (%) (Auto) 3.3 % Basophils (%) (Auto) 0.6 % Neutrophils # (Auto) 6.30 K/uL (1.4-6.5) Lymphocytes # (Auto) 2.07 K/uL (1.2-3.4) Monocytes # (Auto) 0.71 K/uL (0.11-0.59) Eosinophils # (Auto) 0.31 K/uL (0-0.5) Basophils # (Auto) 0.06 K/uL (0-0.2) RDW Standard Deviation 44.3 fL (36.4-46.3) RDW Coefficient of Variation 13.2 % (11.5-14.5) Immature Granulocyte % (Auto) 0.3 % Immature Granulocyte # (Auto) 0.03 K/uL (0.00-0.02) Prothrombin Time 11.0 SECONDS (9.0-12.0) Prothromb Time International Ratio 1.0 (0.9-1.1) Activated Partial Thromboplast Time 25.7 SECONDS (21.0-31.0) Partial Thromboplastin Ratio 1.0 Anion Gap 6.0 mmol/L (3-11) Est Creatinine Clear Calc Drug Dose 37.2 ml/min Estimated GFR () 39.1 Estimated GFR (Non- 33.7 BUN/Creatinine Ratio 16.5 (10-20) Calcium Level 9.5 mg/dl (8.5-10.1) Magnesium Level 1.6 mg/dl (1.8-2.4) Total Bilirubin 0.4 mg/dl (0.2-1) Direct Bilirubin < 0.1 mg/dl (0-0.2) Aspartate Amino Transf (AST/SGOT) 17 U/L (15-37) Alanine Aminotransferase (ALT/SGPT) 15 U/L (12-78) Alkaline Phosphatase 93 U/L (45-117) Total Protein 6.4 gm/dl (6.4-8.2) Albumin 2.5 gm/dl (3.4-5.0) Bedside Glucose 146 mg/dl (70-90) Imaging CERVICAL WITHOUT CONTRAST CLINICAL HISTORY: 75 years-old Female presenting with hand tremors . TECHNIQUE: Multisequence, multiplanar MR imaging of the cervical spine was performed without the use of intravenous contrast. IV contrast: None. COMPARISON: None. FINDINGS: Localizer images: Unremarkable. Slightly exaggerated cervical lordosis. Vertebral body heights, alignment, and bone marrow signal intensity preserved. Slight heterogeneity of bone marrow signal intensity secondary to degenerative fatty endplate changes. Multilevel degenerative changes detailed below: C2-3: Normal. C3-4: Mild disc osteophyte complex. In combination with uncovertebral hypertrophy, mild left neural foraminal narrowing results. No significant spinal canal narrowing. C4-5: Small disc osteophyte complex and uncovertebral hypertrophy results in mild bilateral neural foraminal narrowing. No significant spinal canal narrowing. C5-6: Disc osteophyte complex, uncovertebral hypertrophy, and ligamentum flavum thickening result in mild bilateral neural foraminal narrowing. Near complete circumferential effacement of the CSF also noted, although no abnormal spinal cord signal intensity or morphology at this level. C6-7: Disc osteophyte complex and uncovertebral hypertrophy, and ligamentum flavum thickening result in moderate bilateral neural foraminal narrowing. Near complete circumferential effacement of CSF also noted at this level, however, again no abnormal signal intensity or morphology of the spinal cord at this level. C7-T1: Normal. Spinal cord maintains normal morphology and signal intensity. Craniocervical junction normal. Paraspinal soft tissues normal. Limited intracranial evaluation demonstrates ventricular system enlargement better assessed on recent MR of the brain. IMPRESSION: Multilevel degenerative changes with varying degrees of neural foraminal narrowing and spinal canal stenosis most severe at C5-6 and C6-7, further detailed above. Electronically signed by: Inder Celestin M.D. 09/29/2016 4:12 PM Dictated Date/Time: 09/29/2016 4:04 PM MRI OF THE BRAIN WITHOUT IV CONTRAST CLINICAL HISTORY: Syncope. Weakness. COMPARISON STUDY: CT of the brain dated 09/19/2016. TECHNIQUE: MRI of the brain was performed utilizing various T1 and T2-weighted sequences in the axial, sagittal, and coronal planes. IV contrast was not administered for this examination. FINDINGS: Brain parenchyma: There are age-related involutional changes noting mild to moderate patchy subcortical and periventricular microangiopathic disease. There is no hemorrhage or mass effect. There is no restricted diffusion to suggest acute ischemia. Castro-white matter differentiation is preserved. No extra-axial fluid collection is seen. 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 The cerebellar tonsils are normal in configuration. Ventricles, sulci, and cisterns: Prominent secondary to involutional change. Pituitary and sella: Unremarkable. Intracranial vasculature: Normal flow voids are maintained at the skull base. Orbits: The bony orbits are grossly intact. Orbital contents are normal in appearance noting bilateral ocular lens implants. Sinuses and mastoids: Clear. Calvarium: Unremarkable. Cervical cord: Partially visualized cervical spinal cord is normal in morphology and signal intensity. IMPRESSION: No acute intracranial abnormality. Electronically signed by: Neil Gonzales M.D. 09/28/2016 10:42 PM Impression 1. Dementia Patient has diagnosed mild dementia consistent with mild cognitive impairment. This is stable. Unfortunately, she has significant atrophy and I suspect given her recent major surgery this dementia could be "tipped over the edge", being made worse by all the surgery and anesthesia. She is thinking a little bit less sharply postoperatively that she was preoperatively but she is fairly close to baseline. 2. Lumbar spinal stenosis post-decompressive surgery with fusion September 16. She has some chronic stiffness and pain in her low back I believe her mild left lower extremity weakness is secondary to her back issues. Overall, she is fairly stable neurologically from this surgery. 3. Severe cervical spinal stenosis, especially C5-6 and C6-7, noted by recent MRI of the cervical spine. Fortunately, the cord does not seem to be compressed however the myoclonic jerks and hand weakness that she has noted postoperatively might be secondary to her cervical spine. Otherwise, she has no obvious neurologic deficits in the arms. She has urinary incontinence which could be related to the cervical spinal stenosis. He could just as well be related to her lumbar spinal stenosis surgery. 4. Generalized polyneuropathy This is very mild and likely secondary to long-standing diabetes 5. Syncope September 28. Hypotension plus fatigue on top of a significant anemia could put her at risk for orthostatic hypotension and syncope. I do not see any neurologic reason for syncope otherwise. 6. History of depression. This is mild and she is on fluoxetine. Plan 1. I do not see a need to do any additional neurologic testing at this time. 2. Continue physical and occupational therapy with gait training and limb strengthening. 3. I spoke at length to the patient and her , who is present in the room regarding the need for time to help these issues that seemed to have been exacerbated by surgery. 4. I am not sure the patient needs fluoxetine anymore and this could be considered, as an outpatient, to be discontinued. The patient should follow up with Dr. Caldwell. Please contact me if I can be of further assistance on this case. I spoke with Dr. Zapata regarding this case including treatment options in differential diagnosis.
[2016-09-30] MEDS: MAGNESIUM SULFATE 1GM / D5W 1 GM in PREMIXED IN D5W 100 ML IV SCH ×2 (10:06→11:12)
[2016-09-30] MEDS ORDERED: FRRS300 PO (12:07)
[2016-09-30] MEDS ORDERED: NRN/100 PO (12:07)
[2016-09-30] MEDS ORDERED: INSDGIPEN SC (12:07)
--- NOTE | 2016-09-30 12:15 | Discharge Instructions ---
Discharge Instructions Date of Service Sep 30, 2016. Admission Reason for Admission: Elevated Troponin I Level, Syncope Discharge Discharge Diagnosis / Problem: Syncope Discharge Goals Goal(s): Decrease discomfort, Improve function, Improve nutritional status, Learn about illness, Diagnostic testing, Therapeutic intervention Activity Recommendations Activity Level: Assistance Required Therapies: Physical Therapy, Occupational Therapy . Additional Information Patient informed of condition: Yes Advance Directives: Yes DNR: No Level of Care: Acute Rehab Communicable Disease: No Prognosis: Improving Overton Catheter: No Instructions / Follow-Up Instructions / Follow-Up Syncopal event, unknown etiology- likely multifactorial to fatigue, anemia, hypotension, dehydration, hypoglycemia: - Admitted to [facility] for cardiac monitoring- no acute events - Trended cardiac enzymes- peak trop 0.082 - EKG w/ no acute changes- follow QAM and PRN for CP - O2 protocol- did NOT require O2 supplement - Neuro checks - ECHO on 09/29- Left ventricular systolic function is normal. Grade I diastolic dysfunction, (abnormal relaxation pattern). Right ventricular systolic pressure is normal. - Brain MRI on 09/29- unremarkable - BCx- NGTD - UCx- negative - Consulted cardiology, appreciate recommendations Hypomagnesium of 1.6 on 09/30: - Replaced with IV Mag 1 g x1 dose - Mag-Ox 400 mg PO x3 days BEL on CKD stage III, baseline Cr. 1.4-1.5- RESOLVED: - Cr. 2.3 on admission- now 1.50 - Treated w/ IVF Anemia, likely secondary to postop blood loss: - On 08/25/16 preop, hgb 12.2- trended down to 8.4 day of discharge (09/22) postop - On admission, 9.7- will begin Ferrous Sulfate 325 mg BID - Check b12/folate level- WNL New onset tremor in bilateral hands R>L after lumbar spine surgery: - Seen by Dr. Caldwell prior to discharge on 09/22- workup unremarkable at that time- consult neurology, appreciate recommendations -- No further recommendations -- f/u outpatient - Brain MRI on 09/29- unremarkable - MRI of cervical spine- Multilevel degenerative changes with varying degrees of neural foraminal narrowing and spinal canal stenosis most severe at C5-6 and C6-7 - Check b12/folate level- WNL, TSH WNL - ?alcohol withdrawal- denies h/o alcohol abuse CAD, non-obstructing: Continue ASA 81 mg daily, Imdur 90 mg daily, Metoprolol 25 mg BID, Micardis HCT 1 tablet daily HTN- STABLE: - Hypotension on admission- treated w/ IVF- RESOLVED - Continue Norvasc 5 mg daily T2DM- last ha1c 7.4% on 09/17: - Blood sugar 50 upon arrival to ED; Lantus 40 u HS, and NovoLog 20 u QAM/noon, 35 u HS held - BSG ACHS and sliding insulin scale - At discharge, Lantus 10 u HS and sliding insulin scale CF 30 and CHO 1:10 Hypothyroidism: - Continue Levothyroxine sodium at 112 mcg daily - TSH WNL Lumbar stenosis s/p lumbar surgery by Dr. Freire on 09/16: - Gabapentin 600 mg QID; patient request weaning as tolerated- decrease to Gabapentin 300 mg TID on 09/29 Hyperlipidemia: Atorvastatin 20 mg daily Depression/anxiety: Continue Fluoxetine 20 mg daily Mild cognitive impairment- noted Code Status: LEVEL I, FULL FOLLOW-UPS: Please follow-up with your PCP within 5-7 days after discharge from [facility] Please follow-up with Neurology within 1 month Please follow-up/keep all of your subspecialty appointments Current Hospital Diet Patient's current hospital diet: AHA Diet (Heart Healthy), Diabetes Type 2 Diet Discharge Diet Recommended Diet: AHA Diet (Heart Healthy), Diabetes Type 2 Diet Procedures Procedures Performed: Brain MRI, cervical spine MRI, chest x-ray, bilateral venous ultrasound doppler, echocardiogram Pending Studies Studies pending at discharge: no Physician Orders On Transfer Special Precautions: Fall precautions Dressing Changes: None IV Therapy: None Vital Signs: Routine POLST Discussion: Not Applicable Laboratory Results Hemoglobin A1c Test 09/17/16 05:00 Range/Units Estimated Average Glucose 166 mg/dl Hemoglobin A1c 7.4 H 4.5-5.6 % Medical Emergencies . Who to Call and When: Medical Emergencies: If at any time you feel your situation is an emergency, please call 911 immediately. . Non-Emergent Contact Non-Emergency issues call your: Primary Care Provider Call Non-Emergent contact if: you have a fever, your pain is not controlled, your pain is worsening, your pain is unusual for you, your pain is concerning you, you have any medication questions . . "Provider Documentation" section prepared by Ning Spence. Attending Attestation: Pt seen/examined and discharge instructions d/w ULYSSES Spence. I agree w/ her documentation as outlined. Vince Zapata MD . Core Measure Problem Core Measures: None
--- NOTE | 2016-09-30 12:17 | Discharge Summary ---
Discharge Summary Date of Service Sep 30, 2016. (Ning Spence, GALI) Discharge Summary Admission Date: Sep 28, 2016 at 19:17 Discharge Date: Sep 30, 2016 Discharge Disposition: Rehab Principal Diagnosis: Syncopal event Problems/Secondary Diagnoses: Syncopal event, unknown etiology- likely multifactorial to fatigue, anemia, hypotension, dehydration, hypoglycemia BEL on CKD stage III, baseline Cr. 1.4-1.5 Anemia, likely secondary to postop blood loss CAD, non-obstructing HTN T2DM- last ha1c 7.4% on 09/17 Hypothyroidism Lumbar stenosis s/p lumbar surgery by Dr. Freire on 09/16 Hyperlipidemia Depression/anxiety Mild cognitive impairment Immunizations: Have You Had Influenza Vaccine: Yes Influenza Vaccine Date: Aug 26, 2010 History of Tetanus Vaccine?: Unknown History of Pneumococcal: Yes Pneumococcal Date: Aug 26, 2009 History of Hepatitis B Vaccine: No Procedures: CHEST ONE VIEW PORTABLE CLINICAL HISTORY: CHEST PAIN dyspnea COMPARISON STUDY: 09/19/2016 FINDINGS: Interval resolution of the previously noted pulmonary edematous change. Lungs currently are considered clear. Diaphragms are smooth. No evidence for cardiac enlargement. IMPRESSION: Negative chest. Considerable improvement from the prior study. The above report was generated using voice recognition software. It may contain grammatical, syntax or spelling errors. Electronically signed by: Anderson Duran M.D. 09/28/2016 3:36 PM Dictated Date/Time: 09/28/2016 3:35 PM The status of this report is Signed. Draft = Not yet reviewed or approved by Radiologist. Signed = Reviewed and approved by Radiologist. ULTRASOUND BILATERAL LOWER EXTREMITY VENOUS CLINICAL HISTORY: Syncope. COMPARISON STUDY: No priors. TECHNIQUE: Real-time, grayscale, and color Doppler sonography of the deep veins of the right and left lower extremity was performed from the inguinal crease to the calf. Compression and augmentation were utilized. FINDINGS: There is no sonographic evidence of deep venous thrombosis identified in the right or left lower extremity. The common femoral, superficial femoral, and popliteal veins are patent and normally compressible bilaterally. The greater saphenous vein and the profunda femoris vein at the junction with the common femoral vein are clear in both legs. The visualized calf veins are patent bilaterally. IMPRESSION: There is no sonographic evidence of deep venous thrombosis identified in the right or left lower extremity. Electronically signed by: Neil Gonzales M.D. 09/28/2016 7:22 PM Dictated Date/Time: 09/28/2016 7:21 PM The status of this report is Signed. Draft = Not yet reviewed or approved by Radiologist. Signed = Reviewed and approved by Radiologist. MRI OF THE BRAIN WITHOUT IV CONTRAST CLINICAL HISTORY: Syncope. Weakness. COMPARISON STUDY: CT of the brain dated 09/19/2016. TECHNIQUE: MRI of the brain was performed utilizing various T1 and T2-weighted sequences in the axial, sagittal, and coronal planes. IV contrast was not administered for this examination. FINDINGS: Brain parenchyma: There are age-related involutional changes noting mild to moderate patchy subcortical and periventricular microangiopathic disease. There is no hemorrhage or mass effect. There is no restricted diffusion to suggest acute ischemia. Castro-white matter differentiation is preserved. No extra-axial fluid collection is seen. 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 The cerebellar tonsils are normal in configuration. Ventricles, sulci, and cisterns: Prominent secondary to involutional change. Pituitary and sella: Unremarkable. Intracranial vasculature: Normal flow voids are maintained at the skull base. Orbits: The bony orbits are grossly intact. Orbital contents are normal in appearance noting bilateral ocular lens implants. Sinuses and mastoids: Clear. Calvarium: Unremarkable. Cervical cord: Partially visualized cervical spinal cord is normal in morphology and signal intensity. IMPRESSION: No acute intracranial abnormality. Electronically signed by: Neil Gonzales M.D. 09/28/2016 10:42 PM Dictated Date/Time: 09/28/2016 10:40 PM The status of this report is Signed. Draft = Not yet reviewed or approved by Radiologist. Signed = Reviewed and approved by Radiologist. CERVICAL WITHOUT CONTRAST CLINICAL HISTORY: 75 years-old Female presenting with hand tremors . TECHNIQUE: Multisequence, multiplanar MR imaging of the cervical spine was performed without the use of intravenous contrast. IV contrast: None. COMPARISON: None. FINDINGS: Localizer images: Unremarkable. Slightly exaggerated cervical lordosis. Vertebral body heights, alignment, and bone marrow signal intensity preserved. Slight heterogeneity of bone marrow signal intensity secondary to degenerative fatty endplate changes. Multilevel degenerative changes detailed below: C2-3: Normal. C3-4: Mild disc osteophyte complex. In combination with uncovertebral hypertrophy, mild left neural foraminal narrowing results. No significant spinal canal narrowing. C4-5: Small disc osteophyte complex and uncovertebral hypertrophy results in mild bilateral neural foraminal narrowing. No significant spinal canal narrowing. C5-6: Disc osteophyte complex, uncovertebral hypertrophy, and ligamentum flavum thickening result in mild bilateral neural foraminal narrowing. Near complete circumferential effacement of the CSF also noted, although no abnormal spinal cord signal intensity or morphology at this level. C6-7: Disc osteophyte complex and uncovertebral hypertrophy, and ligamentum flavum thickening result in moderate bilateral neural foraminal narrowing. Near complete circumferential effacement of CSF also noted at this level, however, again no abnormal signal intensity or morphology of the spinal cord at this level. C7-T1: Normal. Spinal cord maintains normal morphology and signal intensity. Craniocervical junction normal. Paraspinal soft tissues normal. Limited intracranial evaluation demonstrates ventricular system enlargement better assessed on recent MR of the brain. IMPRESSION: Multilevel degenerative changes with varying degrees of neural foraminal narrowing and spinal canal stenosis most severe at C5-6 and C6-7, further detailed above. Electronically signed by: Inder Celestin M.D. 09/29/2016 4:12 PM Dictated Date/Time: 09/29/2016 4:04 PM The status of this report is Signed. Draft = Not yet reviewed or approved by Radiologist. Signed = Reviewed and approved by Radiologist. ECHOCARDIOGRAM: Interpretation Summary * Name: YUKO BONILLA Study Date: 09/29/2016 10:12 AM BP: 164/65 mmHg * Patient Location: [facility]\S\S242\S\2 HR: 67 * : 1940 (M/d/yyyy) Gender: Female Height: 64 in * Age: 75 yrs Ethnicity: MS Weight: 220 lb * Ordering Physician: Belen Nails * Referring Physician: Self, Referred * Performed By: Rafia Leslie RDCS * * Reason For Study: SYNCOPE, ELEVATED TROPONIN * BSA: 2.0 m2 * Interpretation Summary * -- Conclusions -- * Left ventricular systolic function is normal. * Grade I diastolic dysfunction, (abnormal relaxation pattern). * Right ventricular systolic pressure is normal. * Compared to an echocardiogram from 2011, there is no change Procedure Details * A contrast injection of Definity was performed to improve assessment of LV function. * Contrast was injected into an intravenous site in the right arm. * One vial of Definity ultrasound contrast was diluted in normal saline to a total volume of 10 ml. A total of '2' ml of solution was administered during imaging. * Lot # [id number] of Definity utilized for procedure. * Expiration date OCT 16. * The attending nurse who injected the contrast agent was JOLYNN BROCK RN. Left Ventricle * The left ventricle is normal in size. * There is normal left ventricular wall thickness. * Ejection Fraction = 65-70%. * Left ventricular systolic function is normal. * Grade I diastolic dysfunction, (abnormal relaxation pattern). * The left ventricular wall motion is normal. Right Ventricle * The right ventricle is normal in size and function. Atria * The left atrial size is normal. * Right atrial size is normal. Mitral Valve * The mitral valve is grossly normal. * Significant mitral regurgitation is absent. Tricuspid Valve * The tricuspid valve is not well visualized, but is grossly normal. * There is mild tricuspid regurgitation. * Right ventricular systolic pressure is normal. Aortic Valve * Aortic valve sclerosis mild, without significant aortic valvular stenosis. * No hemodynamically significant valvular aortic stenosis. * There is no significant aortic regurgitation. Great Vessels * The aortic root is normal size. Pericardium/Pleural There is no pericardial effusion. Consultations: Cardiology Neurology (Ning Spence, PA-C) Medication Reconciliation New Medications: Insulin Glargine (Lantus Solostar) 100 Unit/Ml Inj 10 UNIT SC QPM for 30 Days, PEN Magnesium Oxide (Magnesium-Oxide) 400 Mg Tab 400 MG PO DAILY for 3 Days Ferrous Sulfate (Ferrous Sulfate) 325 Mg Tab 325 MG PO BIDM for 30 Days, #60 TAB Changed Medications: Gabapentin (Neurontin) 100 Mg Cap 3 CAP PO TID for 30 Days, #270 CAP 2 Refills (Changed from: Gabapentin ( Neurontin) 300 Mg Cap 600 Mg PO QID) Continued Medications: Acetaminophen (Acetaminophen Extra Stren) 500 Mg Tab 2 TAB PO QID Acetaminophen/Diphenhydramine (Tylenol Pm) 500 Mg/25 Mg Tab 1 TAB PO HS, TAB Amlodipine Besylate (Norvasc) 5 Mg Tab 5 MG PO QAM, TAB Aspirin (Aspirin Adult Low Dose) 81 Mg Tab 81 MG PO QPM Atorvastatin (Lipitor) 10 Mg Tab 20 MG PO QPM, TAB Budesonide/Formoterol Fumarate (Symbicort 80/4.5 Inhaler) 120 Puffs/ Aero 2 PUFFS INH BID PRN for Shortness of Breath, INHALER Calcium/Vitamin D (Os-Victor Manuel 500 Plus D) Tab 1 TAB PO BID, TAB Coenzyme Q10 (Ubidecarenone) (Co Q10) 100 Mg Cap 200 MG PO QPM, CAP Cyanocobalamin (Vitamin B12) 1,000 Mcg Tab 1000 MCG PO QAM Dextromethorphan Polistirex (Delsym) 30 Mg/5 Ml Liq 5 ML PO UD PRN for Cough, ML TAKE PER PACKAGE DIRECTIONS Fish Oil (Silverwood-3) 1 Ea Cap 1 CAP PO BID, CAP Fluoxetine (Prozac) 20 Mg Cap 20 MG PO QAM Fluticasone Propionate (Inhala (Flovent Diskus) 100 Mcg/Blist Aer 1 PUFFS INH BID PRN for Shortness of Breath, #1 INHALER 5 Refills Isosorbide Mononitrate Ext Rel (Imdur Ext Rel) 30 Mg Tabcr 30 MG PO QAM, TAB TAKE ONE 30 MG TABLET ALONG WITH ONE 60 MG TABLET TO EQUAL DAILY DOSE OF 90 MG Isosorbide Mononitrate Ext Rel (Imdur Ext Rel) 60 Mg Ertab 60 MG PO QAM, TAB TAKE ONE 60 MG TABLET ALONG WITH ONE 30 MG TABLET TO EQUAL DAILY DOSE OF 90 MG Levothyroxine Sodium (Levothyroxine Sodium) 112 Mcg Tab 112 MCG PO QAM, TAB Metoprolol Tartrate (Lopressor) (Lopressor) 25 Mg Tab 25 MG PO BID Nitroglycerin (Nitrostat) 0.4 Mg Sub 0.4 MG UT UD PRN for Chest Pain, SUB PLACE ONE TABLET UNDER THE TONGUE EVERY 5 MINUTES FOR UP TO 3 DOSES IF NEEDED FOR CHEST PAIN Oxycodone HCl (Oxycodone HCl) 5 Mg Tab 5-10 MG PO Q4H PRN for Moderate - severe pain for 30 Days, #60 TAB Telmisartan/Hctz (Micardis Hct) 1 Tab Tab 1 TAB PO QAM for 30 Days, #30 TAB 5 Refills [Proair HFA] () 1-2 PUFFS INH Q4-6HRS PRN for SOB/Wheezing Discontinued Medications: Insulin Aspart (Novolog Flexpen) 100 Units/Ml Inj 20 UNITS SC BREAKFAST PLUS SLIDING SCALE Insulin Aspart (Novolog Flexpen) 100 Units/Ml Inj 20 UNITS SC LUNCH PLUS SLIDING SCALE Insulin Aspart (Novolog Flexpen) 100 Units/Ml Inj 35 UNITS SC DINNER PLUS SLIDING SCALE Insulin Glargine (Lantus) 100 Unit/ Inj 40 UNITS SC HS, INJ Referrals At Discharge Follow up Referrals: Neurologist Referral - Please Call For Appointment with Ana Caldwell D.O. Discharge Exam Review of Systems: Constitutional: No fever, No chills, No sweats, No weakness, No fatigue ENT: No hearing loss Respiratory: No cough, No shortness of breath Cardiovascular: No chest pain, No edema, No palpitations Abdomen: No pain, No nausea, No vomiting, No diarrhea, No constipation Musculoskeletal: No joint pain, No muscle pain, No swelling, No calf pain Genitourinary - Female: No dysuria, No hematuria Neurologic: No weakness, No numbness/tingling Endocrine: No fatigue Hematologic / Lymphatic: No abnormal bleeding/bruising Integumentary: No rash, No itch, No new/changing skin lesions Physical Exam: General Appearance: no apparent distress, + obese Eyes: normal inspection, PERRL ENT: hearing grossly normal Neck: supple Respiratory/Chest: lungs clear, no respiratory distress, no accessory muscle use Cardiovascular: regular rate, rhythm Abdomen / GI: normal bowel sounds, non tender, soft Extremities: no calf tenderness, no pedal edema Neurologic/Psychiatric: alert, normal mood/affect, oriented x 3 Skin: normal color, warm/dry, no rash (Ning Spence, PA-C) Hospital Course Admission H&P: The patient is a 75-year-old female brought to the ED by EMS after a syncopal episode at [facility] just prior to arrival. She is status post lumbar surgery by Dr. Freire, that required hospitalization at [facility] from September 16 to September 22, and had been undergoing rehabilitation at [facility] since that time. The patient reports that after occupational therapy this morning she passed out in her wheelchair. She did have NovoLog prior to OT this morning, but her sugar levels after the syncopal episode were 107. The patient does not have any memory of the event. The patient does report however that she has intervals of loss of control of her right arm, and her daughter who is present in the ED, shows a video where her right arm and hand undergo a sudden rhythmic tremor where she is unable to control her utensil to eat. Similar symptoms happen to the left hand but not anywhere near as significant. The patient and her family report that she has never had any these type of symptoms in the past. The patient does appear to have some memory issues, and her family who is present helps to complete her history of present illness and review of systems. Physical Exam Vital Signs Date Time Temp Pulse Resp B/P (MAP) Pulse Ox O2 Delivery O2 Flow Rate FiO2 09/28/16 23:58 36.7 62 19 110/44 (66) 96 Room Air 09/28/16 20:26 36.7 60 16 144/64 96 Room Air 09/28/16 18:30 61 18 140/45 96 Room Air 09/28/16 18:30 62 09/28/16 17:05 58 20 142/46 09/28/16 15:51 56 18 132/65 98 Room Air 09/28/16 14:51 56 18 98/43 96 56 96/55 09/28/16 14:44 37.0 20 96/55 96 Room Air 09/28/16 14:36 54 The patient is awake, well-developed and adequately nourished, alert and oriented 3, normocephalic and atraumatic, lying in bed and in no acute distress. HEENT--PERRL, EOMI, mucous membranes and oropharynx dry. Neck--supple, no JVD or bruits, thyroid normal, trachea midline, no adenopathy. Heart--normal S1 and S2, no extra beats, no murmurs, rubs or gallops. Lungs--clear bilaterally but diminished throughout, no respiratory distress, no accessory muscle use. Abdomen--normal bowel sounds and soft, nontender and nondistended, and obese. Extremities--no cyanosis, clubbing or edema. There are good distal pulses b/l. Dermatologic--normal skin turgor, normal color, warm and dry, no abnormal lymph nodes, no rash. Neurologic--cranial nerves II through XII grossly intact, motor and sensory examination normal. Rheumatologic--limited due to recent surgery Psychiatric--normal affect. Hospital Course: Syncopal event, unknown etiology- likely multifactorial to fatigue, anemia, hypotension, dehydration, hypoglycemia: - Admitted to [facility] for cardiac monitoring- no acute events - Trended cardiac enzymes- peak trop 0.082 - EKG w/ no acute changes- follow QAM and PRN for CP - O2 protocol- did NOT require O2 supplement - Neuro checks - ECHO on 09/29- Left ventricular systolic function is normal. Grade I diastolic dysfunction, (abnormal relaxation pattern). Right ventricular systolic pressure is normal. - Brain MRI on 09/29- unremarkable - BCx- NGTD - UCx- negative - Consulted cardiology, appreciate recommendations Hypomagnesium of 1.6 on 09/30: - Replaced with IV Mag 1 g x1 dose - Continue Mag-Ox 400 mg daily x3 days at discharge EBL on CKD stage III, baseline Cr. 1.4-1.5- RESOLVED: - Cr. 2.3 on admission- now 1.50 - Treated w/ IVF Anemia, likely secondary to postop blood loss: - On 08/25/16 preop, hgb 12.2- trended down to 8.4 day of discharge (09/22) postop - On admission, 9.7- will begin Ferrous Sulfate 325 mg BID - Check b12/folate level- WNL New onset tremor in bilateral hands R>L after lumbar spine surgery: - Seen by Dr. Caldwell prior to discharge on 09/22- workup unremarkable at that time- consult neurology, appreciate recommendations -- No further recommendations -- f/u outpatient - Brain MRI on 09/29- unremarkable - MRI of cervical spine- Multilevel degenerative changes with varying degrees of neural foraminal narrowing and spinal canal stenosis most severe at C5-6 and C6-7 - Check b12/folate level, TSH WNL - ?alcohol withdrawal- denies h/o alcohol abuse CAD, non-obstructing: Continue ASA 81 mg daily, Imdur 90 mg daily, Metoprolol 25 mg BID, Micardis HCT 1 tablet daily HTN- STABLE: - Hypotension on admission- treated w/ IVF- RESOLVED - Continue Norvasc 5 mg daily T2DM- last ha1c 7.4% on 09/17: - Blood sugar 50 upon arrival to ED; Lantus 40 u HS, and NovoLog 20 u QAM/noon, 35 u HS held - BSG ACHS and sliding insulin scale Hypothyroidism: - Continue Levothyroxine sodium at 112 mcg daily - TSH WNL Lumbar stenosis s/p lumbar surgery by Dr. Freire on 09/16: - Gabapentin 600 mg QID; patient request weaning as tolerated- decrease to 300 mg TID on 09/29 Hyperlipidemia: Atorvastatin 20 mg daily Depression/anxiety: Continue Fluoxetine 20 mg daily Mild cognitive impairment- noted DVT Prophylaxis: GIBRAN/SCDs; chemical therapy avoided due to anemia Code Status: LEVEL I, FULL Dispo: Discharge to [facility] Total Time Spent: Greater than 30 minutes This includes examination of the patient, discharge planning, medication reconciliation, and communication with other providers. (Ning Spence, GALI) Attending Discharge Note & Attestation: Pt seen/examined, chart reviewed, care plan d/w ULYSSES Spence. I agree w/ the hsu components of her discharge documentation. 75yo female with multiple medical problems as well as a recent hospital stay at [facility] for lumbar back surgery by Dr. Freire for lumbar spinal stenosis who presented after a syncopal episode at [facility]. Underwent extensive work-up for such. The etiology was likely multifactorial including dehydration (had evidence of acute kidney injury), hypoglycemia ( serum glucose of 50 at presentation), acute blood loss anemia, etc. Seen by neurology during her stay and they, too, felt her syncope was multifactorial. MRI brain was negative for stroke. No infectious etiology was found while here. Discharge Hb was 9.1 and creatinine was 1.5. Discharge exam - gen - obese, NAD mouth - MMM heart - RRR, s1, s2 lungs - CTA b/l abd - soft, NT ext - no edema neuro - strength 5/5 x 4 extremities She will have follow-up with neurology after discharge. She was transferred back to [facility] for ongoing rehab. Vince Zapata MD (Vince Zapata MD) Discharge Instructions Please refer to the electronic Patient Visit Report (Discharge Instructions) for additional information. (Ning Spence, YOHANNESC) Follow-Up Please follow-up with your PCP within 5-7 days after discharge from [facility] Please follow-up with Neurology within 1 month Please follow-up/keep all of your subspecialty appointments (Ning Spence PA-C) Additional Copies To Mariano Recio M.D.
[2016-09-30] MEDS ORDERED: MGNO400 PO (12:27)
== END 2016-09-30 18:35 | DRG 683 ==
LOC: EDBD 14:28 → C.EDC 14:29 → C.2T 19:17 → ENRESERV 19:37 → C.MED 09-29 11:47
PROVIDERS: ADMIT Hospitalist; ATTEND Hospitalist
DX: N17.9 Acute kidney failure, unspecified (principal); D62 Acute posthemorrhagic anemia; E11.649 Type 2 diabetes mellitus with hypoglycemia without coma; E86.0 Dehydration; I95.1 Orthostatic hypotension; R53.83 Other fatigue; I25.10 Atherosclerotic heart disease of native coronary artery without angina pectoris; R25.1 Tremor, unspecified; E83.42 Hypomagnesemia; R79.1 Abnormal coagulation profile; F03.90 Unspecified dementia, unspecified severity, without behavioral disturbance, psychotic disturbance, mood disturbance, and anxiety; M48.06 Spinal stenosis, lumbar region; M48.02 Spinal stenosis, cervical region; I13.10 Hypertensive heart and chronic kidney disease without heart failure, with stage 1 through stage 4 chronic kidney disease, or unspecified chronic kidney disease; E11.42 Type 2 diabetes mellitus with diabetic polyneuropathy; N18.3 Chronic kidney disease, stage 3 (moderate); E11.22 Type 2 diabetes mellitus with diabetic chronic kidney disease; E03.9 Hypothyroidism, unspecified; E78.5 Hyperlipidemia, unspecified; E53.8 Deficiency of other specified B group vitamins; E55.9 Vitamin D deficiency, unspecified; G31.84 Mild cognitive impairment of uncertain or unknown etiology; F41.8 Other specified anxiety disorders; E66.9 Obesity, unspecified; Z79.899 Other long term (current) drug therapy; Z79.82 Long term (current) use of aspirin; Z79.4 Long term (current) use of insulin; Z98.1 Arthrodesis status; Z68.37 Body mass index [BMI] 37.0-37.9, adult

== ENCOUNTER → 2016-11-24 | Outpatient (CLI) | payer BC ==
[~2016-11-24] MED LIST changes: +FRRS300 PO; -GABA-113 PO; -INSU1INJ7 SC; +MGNO400 PO; +NRN/100 PO; -NVLGI/PEN SC
--- NOTE | 2016-11-24 13:29 | DIAGNOSTIC IMAGING REPORT ---
L FOOT MIN 3 VIEWS ROUTINE CLINICAL HISTORY: CHRONIC LEFT FOOT PAIN COMPARISON: None. DISCUSSION: The bones are osteopenic. No acute fractures are visualized. There are mild degenerative changes. There are no erosive changes. There is Achilles insertional spurring and plantar calcaneal spurring. IMPRESSION: 1. Calcaneal spurring 2. No acute fractures 3. Osteopenia Electronically signed by: Anatoliy Corbin M.D. 11/24/2016 1:28 PM Dictated Date/Time: 11/24/2016 1:26 PM
== END | disposition home or self-care (01) ==
LOC: C.RAD1850 13:09
PROVIDERS: ATTEND Family Medicine
DX: M79.673 Pain in unspecified foot (principal)

== ENCOUNTER → 2016-11-30 | Outpatient (CLI) | payer BC ==
--- NOTE | 2016-11-30 12:36 | MAMMOGRAPHY REPORT ---
BILATERAL DIGITAL SCREENING MAMMOGRAM WITH CAD: 11/30/2016 CLINICAL HISTORY: Routine screening. Patient has no complaints. TECHNIQUE: Bilateral CC and MLO views were obtained. Current study was also evaluated with a Compute r Aided Detection (CAD) system. COMPARISON: Comparison is made to exams dated: 11/29/2015 mammogram, 11/26/2014 mammogram, 11/24/2013 m ammogram, 11/09/2012 mammogram, 11/09/2011 mammogram, and 11/05/2010 mammogram - [facility] nter. BREAST COMPOSITION: There are scattered areas of fibroglandular density in both breasts. FINDINGS: There are moderate vascular calcifications in both breasts. No suspicious mass, senior infrastructure architect ural distortion or cluster of microcalcifications is seen. IMPRESSION: ACR BI-RADS CATEGORY 2: BENIGN There is no mammographic evidence of malignancy. A 1 year screening mammogram is recommended. The pa tient will receive written notification of the results. Approximately 10% of breast cancers are not detected with mammography. A negative mammographic report should not delay biopsy if a clinically suggestive mass is present. Katya Barahona M.D. ay/:11/30/2016 12:22:55 Customer Relations Specialist: Tracee GAMINO(Santiago)(Caleb)(BD), [facility] letter sent: Normal 1/2 BI-RADS Code: ACR BI-RADS Category 2: Benign
== END | disposition home or self-care (01) ==
LOC: C.MAMM 11:23
PROVIDERS: ATTEND Family Medicine
DX: Z12.31 Encounter for screening mammogram for malignant neoplasm of breast (principal)

== ENCOUNTER 2017-02-10 13:46 | Observation (INO) | payer BC ==
[~2017-02-10] VITALS: Ht 162.6 cm; Wt 102.6 kg
[~2017-02-10 13:46] MED LIST changes: +ATOR10TA82 PO; -ATOR10TA88 PO
[2017-02-10] MEDS ORDERED: ASPIRIN 81 MG CHEW PO STA (14:39)
[2017-02-10 14:52] LABS: BASO % 0.8 %; BASO ABS # 0.06 K/uL (0-0.2); COMPLETE YES; EOS % 2.5 %; HEMATOCRIT 35.2 % (37-47); IG% 0.1 %; LYMPH % 29.2 %; LYMPH ABS # 2.33 K/uL (1.2-3.4); MEAN CELL VOLUME 89.8 fL (80-100); MEAN CORPUSCULAR HEMOGLOBIN 30.4 pg (25-34); MEAN CORPUSCULAR HGB CONC 33.8 g/dl (32-36); MEAN PLATELET VOLUME 10.5 fL (7.4-10.4); MONO % 7.6 %; NEUT % 59.8 %; PLATELET COUNT 288 K/uL (130-400); RED BLOOD COUNT 3.92 M/uL (4.2-5.4); WHITE BLOOD COUNT 7.98 K/uL (4.8-10.8)
--- NOTE | 2017-02-10 15:01 | EMERGENCY ROOM VISIT NOTE ---
History Report prepared by Maxine: Chito Peres Under the Supervision of: Dr. Dereck Santos M.D. First contact with patient: 14:08 Chief Complaint: CHEST PAIN Stated Complaint: CHEST PAIN Nursing Triage Summary: left sided chest pain, would last for 10 seconds and come back. started 1030. last couple of hours it has lasted 2-3 times. History of Present Illness The patient is a 76 year old female who presents to the Emergency Room with complaints of intermittent chest pain started around 1030 this morning. The patient states that it felt like a tap on her left anterior chest wall, and it would last around 10 seconds then go away. She notes that she took two nitro, and then it did not come back for a couple of hours, though then it came back during physical therapy. The patient reports that she went to her doctor, and they told her to come to the ED for evaluation. She notes that she has not been doing anything strenuous or straining other than her physical therapy. She is currently in physical therapy for a surgery on her back, and she states that she has a claudication in her leg. The pain is not worse with a deep breath, and she does not have any abdominal pain. The patient has a history of diabetes , hypertension, hyperlipidemia, and peripheral vascular disease. Source of History: patient Onset: 1030 Position: chest (left) Quality: other (tapping) Timing: intermittent Associated Symptoms: No abdominal pain Review of Systems See HPI for pertinent positives & negatives. A total of 10 systems reviewed and were otherwise negative. Past Medical & Surgical Medical Problems: (1) Acute kidney injury (2) Confusion (3) Coronary artery disease (4) Diabetes 1.5, managed as type 1 (5) Elevated troponin I level (6) Hand weakness (7) Influenza A (8) Lumbar stenosis with neurogenic claudication (9) Spinal stenosis, other region Family History No pertinent family history Social History Smoking Status: Never Smoker Drug Use: none Marital Status: Housing Status: lives with family, lives with significant other Occupation Status: retired Current/Historical Medications Scheduled Amlodipine Besylate (Norvasc), 5 MG PO QAM Amoxicillin & Pot Clavulanate (Augmentin 875-125 mg), 4 TABS PO UD Aspirin (Aspirin Adult Low Dose), 81 MG PO QPM Atorvastatin (Lipitor), 10 MG PO HS Coenzyme Q10 (Ubidecarenone) (Co Q10), 100 MG PO QPM Fish Oil ([place]-3), 1 CAP PO BID Fluoxetine (Prozac), 20 MG PO QAM Gabapentin (Neurontin), 300 MG PO 5XD Insulin Aspart (Novolog Flexpen), SC TIDM Insulin Glargine (Lantus), 36 UNITS SC HS Isosorbide Mononitrate Ext Rel (Imdur Ext Rel), 30 MG PO QAM Isosorbide Mononitrate Ext Rel (Imdur Ext Rel), 60 MG PO QAM Levothyroxine Sodium (Levothyroxine Sodium), 112 MCG PO QAM Metoprolol Tartrate (Lopressor) (Lopressor), 25 MG PO BID Telmisartan/Hctz (Micardis Hct), 1 TAB PO DAILY Scheduled PRN Acetaminophen (Tylenol), 325 MG PO UD PRN for Pain Albuterol Sulfate (Proventil Hfa), 1 PUFF INH DAILY PRN for SOB/Wheezing Budesonide/Formoterol Fumarate (Symbicort 80/4.5 Inhaler), 2 PUFFS INH BID PRN for Shortness of Breath Fluticasone Propionate (Inhala (Flovent Diskus), 1 PUFFS INH BID PRN for Shortness of Breath Nitroglycerin (Nitrostat), 0.4 MG UT UD PRN for Chest Pain Allergies Coded Allergies: Clopidogrel (Verified Allergy, Unknown, Unknown, 02/10/17) Lisinopril (Verified Allergy, Unknown, Unknown, 02/10/17) Physical Exam Vital Signs Date Time Temp Pulse Resp B/P (MAP) Pulse Ox O2 Delivery O2 Flow Rate FiO2 02/10/17 16:37 59 23 95 02/10/17 16:32 153/59 02/10/17 16:30 58 18 96 02/10/17 16:00 57 22 96 02/10/17 15:30 60 17 96 02/10/17 15:00 59 18 94 02/10/17 14:05 61 02/10/17 14:02 95 Room Air 02/10/17 14:02 97 Room Air 02/10/17 13:50 36.7 62 18 123/58 99 Room Air Physical Exam GENERAL: Patient is a healthy-appearing well-nourished female HEAD: Normocephalic atraumatic EYES: Ocular movements intact pupils equal and react to light OROPHARYNX mucous membranes are moist no exudates present no erythema or edema present NECK: Supple no nuchal rigidity CHEST: Good equal expansion LUNGS: Clear and equal to auscultation CARDIAC: Normal S1 and S2 ABDOMEN: Soft nontender no guarding BACK: No CVA tenderness EXTREMITIES: No pain upon palpation normal muscle strength in all groups no clubbing cyanosis or edema NEURO: Patient is following commands and answering questions appropriately. Alert and oriented x3 Cranial Nerves 2-12 grossly intact Medical Decision & Procedures ER Provider Diagnostic Interpretation: Radiology results as stated below per my review and radiologist interpretation: CHEST ONE VIEW PORTABLE CLINICAL HISTORY: Chest pain. COMPARISON STUDY: Chest radiograph September 28, 2016. FINDINGS: Lung volumes are normal. There is no pneumothorax or pleural effusion. There is no consolidation to suggest pneumonia. Pulmonary vascularity is normal. Cardiomediastinal silhouette is normal. IMPRESSION: No acute cardiopulmonary findings. Electronically signed by: Kwaku Richardson M.D. 02/10/2017 3:15 PM Dictated Date/Time: 02/10/2017 3:12 PM Laboratory Results 02/10/17 14:40 Red Blood Count 3.92, Mean Corpuscular Volume 89.8, Mean Corpuscular Hemoglobin 30.4, Mean Corpuscular Hemoglobin Concent 33.8, Mean Platelet Volume 10.5, Neutrophils (%) (Auto) 59.8, Lymphocytes (%) (Auto) 29.2, Monocytes (%) (Auto) 7.6, Eosinophils (%) (Auto) 2.5, Basophils (%) (Auto) 0.8, Neutrophils # (Auto) 4.77, Lymphocytes # (Auto) 2.33, Monocytes # (Auto) 0.61, Eosinophils # (Auto) 0.20, Basophils # (Auto) 0.06 Test 02/10/17 14:40 White Blood Count 7.98 K/uL (4.8-10.8) Red Blood Count 3.92 M/uL (4.2-5.4) Hemoglobin 11.9 g/dL (12.0-16.0) Hematocrit 35.2 % (37-47) Mean Corpuscular Volume 89.8 fL (80-100) Mean Corpuscular Hemoglobin 30.4 pg (25-34) Mean Corpuscular Hemoglobin Concent 33.8 g/dl (32-36) Platelet Count 288 K/uL (130-400) Mean Platelet Volume 10.5 fL (7.4-10.4) Neutrophils (%) (Auto) 59.8 % Lymphocytes (%) (Auto) 29.2 % Monocytes (%) (Auto) 7.6 % Eosinophils (%) (Auto) 2.5 % Basophils (%) (Auto) 0.8 % Neutrophils # (Auto) 4.77 K/uL (1.4-6.5) Lymphocytes # (Auto) 2.33 K/uL (1.2-3.4) Monocytes # (Auto) 0.61 K/uL (0.11-0.59) Eosinophils # (Auto) 0.20 K/uL (0-0.5) Basophils # (Auto) 0.06 K/uL (0-0.2) RDW Standard Deviation 46.9 fL (36.4-46.3) RDW Coefficient of Variation 14.5 % (11.5-14.5) Immature Granulocyte % (Auto) 0.1 % Immature Granulocyte # (Auto) 0.01 K/uL (0.00-0.02) Total Bilirubin 0.4 mg/dl (0.2-1) Direct Bilirubin < 0.1 mg/dl (0-0.2) Aspartate Amino Transf (AST/SGOT) 14 U/L (15-37) Alanine Aminotransferase (ALT/SGPT) 21 U/L (12-78) Alkaline Phosphatase 64 U/L (45-117) Total Creatine Kinase 108 U/L (26-192) Creatine Kinase MB 1.4 ng/ml (0.5-3.6) Creatine Kinase MB Ratio 1.3 (0-3.0) Pro-B-Type Natriuretic Peptide 390 pg/ml (0-1800) Total Protein 7.5 gm/dl (6.4-8.2) Albumin 3.3 gm/dl (3.4-5.0) Lipase 229 U/L (73-393) Labs reviewed by ED physician. Medications Administered Medications (Trade) Dose Ordered Sig/Louis Route Start Time Stop Time Status Last Admin Dose Admin Aspirin (Aspirin Chew) 324 mg NOW STAT PO 02/10/17 14:39 02/10/17 14:40 DC 02/10/17 14:51 324 MG Sodium Chloride 500 ml @ 999 mls/hr Q31M STAT IV 02/10/17 15:14 02/10/17 15:44 DC 02/10/17 15:14 999 MLS/HR Dextrose (Dextrose 50% 50ML Syringe) 50 ml STK-MED ONCE .ROUTE 02/10/17 15:21 02/10/17 15:22 DC 02/10/17 15:30 50 ML ECG Indication: chest pain Rate (beats per minute): 59 Rhythm: sinus bradycardia Findings: no acute ischemic change, no ectopy, other (Old anterior infarct ) ED Course 1408: Past medical records reviewed. The patient was evaluated in room B12. A complete history and physical examination was performed. 1439: Aspirin 324mg PO 1514: Sodium Chloride 500 ml @ 999 mls/hr 1521: Dextrose 50% 50 ml IV 1540: I discussed the patient's case with Dr. Cyndi Luna, and he is going to come evaluate the patient. 1542: I discussed the patient's case with Dr. Rolle, and she is going to evaluate the patient for further treatment. 1546: I reevaluated the patient and discussed the treatment plan with her. She was agreeable to the treatment plan. Medical Decision Differential diagnosis: Etiologies such as cardiac ischemia, aortic dissection, pulmonary embolism, pneumonia, pneumothorax, musculoskeletal, infections, pericarditis, myocarditis , esophageal rupture, gastrointestinal, as well as others were entertained. This is a 76-year-old female who presents emergency department complaining of chest pain. The patient does have slight elevation in her troponin. She was given 324 mg of aspirin the emergency department. I did discuss the case with cardiology as well as the patient's hospitalist service who agreed to admit the patient. Patient and were in agreement with the treatment plan. Medication Reconcilliation Current Medication List: was personally reviewed by me Blood Pressure Screening Patient's blood pressure: Normal blood pressure Consults Time Called: 1538 Consulting Physician: Dr. Cyndi Luna Returned Call: 1540 I discussed the patient's case with Dr. Cyndi Luna, and he is going to come evaluate the patient. Additional Consults: Time Called: 1538 Consulted Physician: Dr. Rolle Returned Call: 1542 Additional Comments: I discussed the patient's case with Dr. Rolle, and she is going to evaluate the patient for further treatment. Impression Primary Impression: Precordial chest pain Scribe Attestation The scribe's documentation has been prepared under my direction and personally reviewed by me in its entirety. I confirm that the note above accurately reflects all work, treatment, procedures, and medical decision making performed by me. Departure Information Dispostion Being Evaluated By Hospitalist Referrals Mariano Recio M.D. (PCP) Patient Instructions My [facility]
[2017-02-10 15:10] LABS: ALT/SGPT 21 U/L (12-78); AST/SGOT 14 U/L (15-37); BLOOD UREA NITROGEN 41 mg/dl (7-18); BUN/CREATININE RATIO 27.8 (10-20); CALCIUM 9.3 mg/dl (8.5-10.1); CARBON DIOXIDE 29 mmol/L (21-32); CHLORIDE 105 mmol/L (98-107); CREATININE 1.48 mg/dl (0.60-1.20); GLUCOSE 68 mg/dl (70-99); POTASSIUM 4.6 mmol/L (3.5-5.1); SODIUM 137 mmol/L (136-145)
[2017-02-10] MEDS ORDERED: SODIUM CHLORIDE 0.9% 500ML 500 ML IV STA (15:14)
--- NOTE | 2017-02-10 15:16 | DIAGNOSTIC IMAGING REPORT ---
CHEST ONE VIEW PORTABLE CLINICAL HISTORY: Chest pain. COMPARISON STUDY: Chest radiograph September 28, 2016. FINDINGS: Lung volumes are normal. There is no pneumothorax or pleural effusion. There is no consolidation to suggest pneumonia. Pulmonary vascularity is normal. Cardiomediastinal silhouette is normal. IMPRESSION: No acute cardiopulmonary findings. Electronically signed by: Kwaku Richardson M.D. 02/10/2017 3:15 PM Dictated Date/Time: 02/10/2017 3:12 PM
[2017-02-10] MEDS ORDERED: AMOX875T PO (15:19)
[2017-02-10] MEDS ORDERED: ALBUAER INH (15:19)
[2017-02-10] MEDS ORDERED: NVLGI/PEN SC (15:19)
[2017-02-10] MEDS ORDERED: ACET-1311 PO (15:19)
[2017-02-10] MEDS ORDERED: GABA-113 PO (15:19)
[2017-02-10] MEDS ORDERED: MCRHC/8025 PO (15:19)
[2017-02-10] MEDS ORDERED: INSDGI SC (15:19)
[2017-02-10] MEDS ORDERED: DEXTROSE 50% 50 ML SYR ONE (15:21)
[2017-02-10] MEDS ORDERED: DEXTROSE 50% 50 ML SYR IV STA (15:23)
[2017-02-10 15:35] LABS: ALKALINE PHOSPHATASE 64 U/L (45-117); CKMB/CK RATIO 1.3 (0-3.0)
[2017-02-10] MEDS ORDERED: NITROGLYCERIN 0.4 MG SL PER TAB CHARGE UT PRN (17:00)
[2017-02-10] MEDS ORDERED: GLUCAGON FOR INJ 1 MG VIAL SQ PRN (17:00)
[2017-02-10] MEDS ORDERED: ACETAMINOPHEN 325 MG TAB PO PRN ×2 (17:00)
[2017-02-10] MEDS ORDERED: FLUTICASONE HFA 110MCG INHALER INH PRN (17:00)
[2017-02-10] MEDS ORDERED: MAGNESIUM HYDROXIDE SUSP 30 ML UDC PO PRN (17:00)
[2017-02-10] MEDS ORDERED: ALBUTEROL HFA 8 GM INHALER INH PRN (17:00)
[2017-02-10] MEDS ORDERED: GLUCOSE 10 TABS/TUBE PO PRN (17:00)
[2017-02-10] MEDS ORDERED: ONDANSETRON INJ 2 MG/ML 2 ML VIAL IV PRN (17:00)
[2017-02-10] MEDS ORDERED: BUDESONIDE/FORMOTEROL FUMARATE 80/4.5 60 PUFFS/INHALER INH PRN (17:00)
[2017-02-10] MEDS ORDERED: DEXTROSE 50% 50 ML SYR IV PRN (17:00)
[2017-02-10] MEDS ORDERED: GLUCOSE 40% GEL 15 GM TUBE PO PRN (17:00)
--- NOTE | 2017-02-10 17:39 | History and Physical ---
History & Physical Date & Time of Service: Feb 10, 2017 at 17:02 Chief Complaint: Chest Pain Primary Care Physician: Mariano Recio M.D. History of Present Illness Source: patient 76 y/o F c/o chest pressure. Pt states that she was at PT this morning when she started to have chest pressure "like someone was tapping on my chest, not like someone was sitting on it". It was L sided and did not radiate anywhere. There is no alessia chest pain. Each time this would happen it would last for about 10 seconds and resolved on its own. This happened several times. She had no other issues with PT and participated as usual. She took nitro x2 that she had at home, however she did have further episodes despite this. She has had none since she got to the ED. She saw Dr. Recio in the office who was able to reproduce her pain in the area she felt the pressure, however pt denies any recent physical activity exertions, falls, or other chest wall trauma. Pt feels at her usual otherwise. Pt denies fever, SOB, abd pain, n/v/c/d, LE pain or swelling. Past Medical/Surgical History Medical Problems: (1) Coronary artery disease Status: Chronic (2) Spinal stenosis, other region Status: Chronic DM HTN Hyperlipidemia PVD CKD, baseline cr 1.5 Recent lumbar surgery with neurogenic claudication issues Recent syncope work up 09/2016 Family History Family history was reviewed; no changes noted. Social History Smoking Status: Never Smoker Alcohol Use: none Drug Use: none Marital Status: Housing status: lives with family Occupational Status: retired Immunizations History of Influenza Vaccine: Yes Influenza Vaccine Date: Aug 26, 2010 History of Tetanus Vaccine?: Unknown History of Pneumococcal: Yes Pneumococcal Date: Aug 26, 2009 History of Hepatitis B Vaccine: No Multi-Drug Resistant Organisms History of MDRO: No Allergies Coded Allergies: Clopidogrel (Verified Allergy, Unknown, Unknown, 02/10/17) Lisinopril (Verified Allergy, Unknown, Unknown, 02/10/17) Home Medications Scheduled Amlodipine Besylate (Norvasc), 5 MG PO QAM Amoxicillin & Pot Clavulanate (Augmentin 875-125 mg), 4 TABS PO UD Aspirin (Aspirin Adult Low Dose), 81 MG PO QPM Atorvastatin (Lipitor), 10 MG PO HS Coenzyme Q10 (Ubidecarenone) (Co Q10), 100 MG PO QPM Fish Oil ([place]-3), 1 CAP PO BID Fluoxetine (Prozac), 20 MG PO QAM Gabapentin (Neurontin), 300 MG PO 5XD Insulin Aspart (Novolog Flexpen), SC TIDM Insulin Glargine (Lantus), 36 UNITS SC HS Isosorbide Mononitrate Ext Rel (Imdur Ext Rel), 30 MG PO QAM Isosorbide Mononitrate Ext Rel (Imdur Ext Rel), 60 MG PO QAM Levothyroxine Sodium (Levothyroxine Sodium), 112 MCG PO QAM Metoprolol Tartrate (Lopressor) (Lopressor), 25 MG PO BID Telmisartan/Hctz (Micardis Hct), 1 TAB PO DAILY Scheduled PRN Acetaminophen (Tylenol), 325 MG PO UD PRN for Pain Albuterol Sulfate (Proventil Hfa), 1 PUFF INH DAILY PRN for SOB/Wheezing Budesonide/Formoterol Fumarate (Symbicort 80/4.5 Inhaler), 2 PUFFS INH BID PRN for Shortness of Breath Fluticasone Propionate (Inhala (Flovent Diskus), 1 PUFFS INH BID PRN for Shortness of Breath Nitroglycerin (Nitrostat), 0.4 MG UT UD PRN for Chest Pain Review of Systems Pertinent positives and negatives reviewed in HPI--all others negative Physical Exam Vital Signs Date Time Temp Pulse Resp B/P (MAP) Pulse Ox O2 Delivery O2 Flow Rate FiO2 02/10/17 16:32 153/59 02/10/17 16:30 58 18 96 02/10/17 16:00 57 22 96 02/10/17 15:30 60 17 96 02/10/17 15:00 59 18 94 02/10/17 14:05 61 02/10/17 14:02 95 Room Air 02/10/17 14:02 97 Room Air 02/10/17 13:50 36.7 62 18 123/58 99 Room Air General Appearance: WD/WN, no apparent distress Head: normocephalic, atraumatic Eyes: EOMI, sclerae normal Respiratory/Chest: normal breath sounds, no respiratory distress Cardiovascular: regular rate, rhythm, no edema Abdomen/GI: non tender, soft Extremities/Musculoskelatal: no calf tenderness, no pedal edema Neurologic/Psych: alert, normal mood/affect, oriented x 3 Skin: normal color, warm/dry Diagnostics Laboratory Results Results Past 24 Hours Test 02/10/17 14:40 Range/Units White Blood Count 7.98 4.8-10.8 K/uL Red Blood Count 3.92 4.2-5.4 M/uL Hemoglobin 11.9 12.0-16.0 g/dL Hematocrit 35.2 37-47 % Mean Corpuscular Volume 89.8 80-100 fL Mean Corpuscular Hemoglobin 30.4 25-34 pg Mean Corpuscular Hemoglobin Concent 33.8 32-36 g/dl Platelet Count 288 130-400 K/uL Mean Platelet Volume 10.5 7.4-10.4 fL Neutrophils (%) (Auto) 59.8 % Lymphocytes (%) (Auto) 29.2 % Monocytes (%) (Auto) 7.6 % Eosinophils (%) (Auto) 2.5 % Basophils (%) (Auto) 0.8 % Neutrophils # (Auto) 4.77 1.4-6.5 K/uL Lymphocytes # (Auto) 2.33 1.2-3.4 K/uL Monocytes # (Auto) 0.61 0.11-0.59 K/uL Eosinophils # (Auto) 0.20 0-0.5 K/uL Basophils # (Auto) 0.06 0-0.2 K/uL RDW Standard Deviation 46.9 36.4-46.3 fL RDW Coefficient of Variation 14.5 11.5-14.5 % Immature Granulocyte % (Auto) 0.1 % Immature Granulocyte # (Auto) 0.01 0.00-0.02 K/uL Sodium Level 137 136-145 mmol/L Potassium Level 4.6 3.5-5.1 mmol/L Chloride Level 105 98-107 mmol/L Carbon Dioxide Level 29 21-32 mmol/L Anion Gap 3.0 3-11 mmol/L Blood Urea Nitrogen 41 7-18 mg/dl Creatinine 1.48 0.60-1.20 mg/dl Est Creatinine Clear Calc Drug Dose 37.2 ml/min Estimated GFR () 39.5 Estimated GFR (Non- 34.0 BUN/Creatinine Ratio 27.8 10-20 Random Glucose 68 70-99 mg/dl Calcium Level 9.3 8.5-10.1 mg/dl Total Bilirubin 0.4 0.2-1 mg/dl Direct Bilirubin < 0.1 0-0.2 mg/dl Aspartate Amino Transf (AST/SGOT) 14 15-37 U/L Alanine Aminotransferase (ALT/SGPT) 21 12-78 U/L Alkaline Phosphatase 64 45-117 U/L Total Creatine Kinase 108 26-192 U/L Creatine Kinase MB 1.4 0.5-3.6 ng/ml Creatine Kinase MB Ratio 1.3 0-3.0 Troponin I 0.075 0-0.045 ng/ml Pro-B-Type Natriuretic Peptide 390 0-1800 pg/ml Total Protein 7.5 6.4-8.2 gm/dl Albumin 3.3 3.4-5.0 gm/dl Lipase 229 73-393 U/L Diagnostic Radiology CXR neg for acute EKG Sinus erik No change from prior EKG Impression Assessment and Plan 76 y/o F who was admitted for observation on 02/10 for chest pressure Chest pressure: Fleeting and now appears resolved, r/o ACS EKG with bradycardia and question of T wave abn, spoke with Dr. Hanna who feels this is similar to prior EKG Trop with minimal elevation at 0.75 which has been seen prior at similar levels and likely related to CKD, serials pending Repeat EKG in AM ECHO done 09/2016 as part of syncope work-up with EF 65-70% and no major valvular issues noted, will not repeat unless trop has further elevation Hold on cards c/s given trop and EKG are at baseline, t/c if change in either. Dr. Hanna agrees pt can f/u as outpt unless change in status Follows with Dr. Aparicio and was dx with nonobstructive coronary disease 2016 Pt with post-op 08/2016 for spinal surgery, however PE seems less likely given no hypoxia and VSS, no SOB. T/C chest CT if sx return CKD: cr is 1.4, baseline is 1.[address] Salas if needed DM: SSI + lantus 45units HS as outpt continue HTN: stable, continue home meds Other: Full code DM diet SCDs for DVT proph given likely short duration of admission Level of Care Telemetry Resuscitation Status FULL RESUSCITATION VTE Prophylaxis VTE Risk Assessment Done? Y/N: Yes Risk Level: Low
[2017-02-10] MEDS ORDERED: IV FLUIDS COMPLETED PRN (19:00)
[2017-02-10 19:15] VITALS: BP 151/63; PULSE 68; TEMP 36.9; O2SAT 95; BMI 39.0
[2017-02-10] MEDS: GABAPENTIN 300 MG CAP PO SCH ×2 (19:45→23:08)
[2017-02-10 20:00] VITALS: O2SAT 95
[2017-02-10] MEDS: INSULIN ASPART 100 UNITS/ML 3 ML PEN SC SCH (20:18)
[2017-02-10] MEDS: OMEGA-3 (PURIFIED FISH OIL) 1 GM CAP PO SCH (20:55)
[2017-02-10] MEDS: METOPROLOL TARTRATE 25 MG TAB PO SCH (20:55)
[2017-02-10] MEDS ORDERED: INSULIN GLARGINE SOLOSTAR 100 UNITS/ML 3 ML PEN SC SCH (21:00)
[2017-02-10] MEDS ORDERED: ASPIRIN 81 MG ECTAB PO SCH (21:00)
[2017-02-10] MEDS ORDERED: NON-FORMULARY MEDICATION (Coenzyme Q10 (Ubidecarenone) (Co Q10) 100 MG) PO SCH (21:00)
[2017-02-10] MEDS ORDERED: ATORVASTATIN 10 MG TAB PO SCH (21:00)
[2017-02-11] VITALS (9 sets, daily range): BP systolic 126–183; BP diastolic 46–72; PULSE 62–69; TEMP 36.7–37.1; O2SAT 92–95; Ht 162.6 cm; Wt 102.6 kg
[2017-02-11 03:23] LABS: BUN/CREATININE RATIO 25.7 (10-20); CALCIUM 8.8 mg/dl (8.5-10.1); CREATININE 1.46 mg/dl (0.60-1.20); POTASSIUM 4.2 mmol/L (3.5-5.1)
[2017-02-11] MEDS ORDERED: LEVOTHYROXINE 112 MCG TAB PO SCH (06:00)
[2017-02-11] MEDS: GABAPENTIN 300 MG CAP PO SCH ×2 (06:31→11:40)
[2017-02-11 07:21] LABS: ESTIMATED AVERAGE GLUCOSE 177 mg/dl; HA1C FLAG Normal (Normal)
[2017-02-11] MEDS: INSULIN ASPART 100 UNITS/ML 3 ML PEN SC SCH ×2 (07:46→11:39)
[2017-02-11] MEDS: METOPROLOL TARTRATE 25 MG TAB PO SCH (07:47)
[2017-02-11] MEDS: OMEGA-3 (PURIFIED FISH OIL) 1 GM CAP PO SCH (07:47)
[2017-02-11] MEDS ORDERED: FLUOXETINE HCL 20 MG CAP PO SCH (09:00)
[2017-02-11] MEDS ORDERED: TELMISARTAN 40 MG TAB PO SCH (09:00)
[2017-02-11] MEDS ORDERED: ISOSORBIDE MONONITRATE 60 MG TABCR PO SCH (09:00)
[2017-02-11] MEDS ORDERED: ISOSORBIDE MONONITRATE 30 MG TABCR PO SCH (09:00)
[2017-02-11] MEDS ORDERED: AMLODIPINE BESYLATE 5 MG TAB PO SCH (09:00)
[2017-02-11] MEDS ORDERED: HYDROCHLOROTHIAZIDE 25 MG TAB PO SCH (09:00)
--- NOTE | 2017-02-11 10:46 | Discharge Instructions ---
Discharge Instructions Date of Service Feb 11, 2017. Admission Reason for Admission: Precordial Chest Pain Discharge Discharge Diagnosis / Problem: Musculoskeletal chest wall pain Discharge Goals Goal(s): Decrease discomfort, Improve function, Improve nutritional status, Learn about illness, Diagnostic testing, Therapeutic intervention, Prevent Disease Progression Activity Recommendations Activity Limitations: per Instructions/Follow-up section Lifting Limitations: gradually increase as tolerated Exercise/Sports Limitations: gradually increase as tolerated May Resume Sexual Activity: when tolerated Shower/Bathe: no limitations Driving or Machine Use: no limitations . Instructions / Follow-Up Instructions / Follow-Up Musculoskeletal chest wall pain: You may take Tylenol 650 mg every 4 hours as needed for pain- do NOT exceed more than 4000 mg per day as this can be harmful to your liver You may apply heat or ice (whichever feels best) three times a day for no more than 20 minutes at a time You may apply [id number] topical cream (such as Icy Hot) as needed for pain Continue activity/exercise as tolerated Resume all other regular home medications as prescribed FOLLOW-UPS: Please follow-up with your PCP within 5-7 days Please follow-up with Cardiology within 1-2 weeks Please follow-up/keep all of your subspecialty appointments Activation of Emergency Medical System: Call 911, immediately, if you experience any of the following: Warning Signs and Symptoms of a Heart Attack: * Chest pain that is not relieved by medication * Shortness of breath Otherwise, call your doctor immediately if you have: * Lightheadedness, dizziness, or fainting * Feeling of irregular heartbeat or fast pulse Home Care: * If you are having chest pain, call 911 for an ambulance. Do NOT drive yourself to the hospital. * Ask your family members to learn CPR. * Learn to take your own blood pressure and pulse. Keep a record of your results. Ask your doctor when you should seek emergency medical attention. He or she will tell you which blood pressure reading is dangerous. Lifestyle Changes: * Maintain a healthy weight. Get help to lose any extra pounds. * Cut back on salt. 1. Limit canned, dried, packaged, and fast foods. 2. Don't add salt to your food. 3. Season foods with herbs instead of salt when you cook. * Break the smoking habit. Enroll in a stop-smoking program to improve your chances of success. * Limit fatty foods. * Check your lipid levels regularly. (Your doctor can show you how to do this. ) * Build up your activity according to your doctor's recommendation. * Ask your doctor when it's okay to resume sexual activity. * Tell your doctor about any erectile dysfunction (ED) medication you are taking. Some ED medications are not safe if you take certain heart medications. * Try to manage stress. Follow Up: It is important for you to keep your follow up appointments with your medical provider. Current Hospital Diet Patient's current hospital diet: Diabetes Type 2 Diet Discharge Diet Recommended Diet: AHA Diet (Heart Healthy), Low Sodium Diet (2gm Na) Pending Studies Studies pending at discharge: no Laboratory Results Hemoglobin A1c Test 02/11/17 02:39 Range/Units Estimated Average Glucose 177 mg/dl Hemoglobin A1c 7.8 H 4.5-5.6 % Medical Emergencies . Who to Call and When: Medical Emergencies: If at any time you feel your situation is an emergency, please call 911 immediately. . Non-Emergent Contact Non-Emergency issues call your: Primary Care Provider . . "Provider Documentation" section prepared by Ning Spence. . VTE Core Measure Inpt VTE Proph given/why not?: Maryjane Calvo, SCD's
--- NOTE | 2017-02-11 10:56 | Discharge Summary ---
Discharge Summary Date of Service Feb 11, 2017. Discharge Summary Admission Date: Feb 10, 2017 at 16:55 Discharge Date: Feb 11, 2017 Discharge Disposition: Home Principal Diagnosis: Musculoskeletal chest wall pain Problems/Secondary Diagnoses: Coronary artery disease DM HTN Hyperlipidemia PVD CKD, baseline cr 1.5 Recent lumbar surgery with neurogenic claudication issues Recent syncope work up 09/2016 Immunizations: Have You Had Influenza Vaccine: Yes Influenza Vaccine Date: Aug 26, 2010 History of Tetanus Vaccine?: Unknown History of Pneumococcal: Yes Pneumococcal Date: Aug 26, 2009 History of Hepatitis B Vaccine: No Procedures: CHEST ONE VIEW PORTABLE CLINICAL HISTORY: Chest pain. COMPARISON STUDY: Chest radiograph September 28, 2016. FINDINGS: Lung volumes are normal. There is no pneumothorax or pleural effusion. There is no consolidation to suggest pneumonia. Pulmonary vascularity is normal. Cardiomediastinal silhouette is normal. IMPRESSION: No acute cardiopulmonary findings. Electronically signed by: Kwaku Richardson M.D. 02/10/2017 3:15 PM Dictated Date/Time: 02/10/2017 3:12 PM The status of this report is Signed. Draft = Not yet reviewed or approved by Radiologist. Signed = Reviewed and approved by Radiologist. Medication Reconciliation Continued Medications: Acetaminophen (Tylenol) 325 Mg Tab 325 MG PO UD PRN for Pain Albuterol Sulfate (Proventil Hfa) 108 Mcg/Act Aer 1 PUFF INH DAILY PRN for SOB/Wheezing Amlodipine Besylate (Norvasc) 5 Mg Tab 5 MG PO QAM, TAB Amoxicillin & Pot Clavulanate (Augmentin 875-125 mg) 1 Tab Tab 4 TABS PO UD 4 TABLETS ONE HOUR PRIOR TO PROCEDURES Aspirin (Aspirin Adult Low Dose) 81 Mg Tab 81 MG PO QPM Atorvastatin (Lipitor) 10 Mg Tab 10 MG PO HS Budesonide/Formoterol Fumarate (Symbicort 80/4.5 Inhaler) 120 Puffs/ Aero 2 PUFFS INH BID PRN for Shortness of Breath, INHALER Coenzyme Q10 (Ubidecarenone) (Co Q10) 100 Mg Cap 100 MG PO QPM Fish Oil ([place]-3) 1 Ea Cap 1 CAP PO BID, CAP Fluoxetine (Prozac) 20 Mg Cap 20 MG PO QAM Fluticasone Propionate (Inhala (Flovent Diskus) 100 Mcg/Blist Aer 1 PUFFS INH BID PRN for Shortness of Breath, #1 INHALER 5 Refills Gabapentin (Neurontin) 300 Mg Cap 300 MG PO 5XD Insulin Aspart (Novolog Flexpen) 100 Units/Ml Inj SC TIDM PER SLIDING SCALE Insulin Glargine (Lantus) 100 Unit/Ml Inj 36 UNITS SC HS Isosorbide Mononitrate Ext Rel (Imdur Ext Rel) 30 Mg Tabcr 30 MG PO QAM, TAB TAKE ONE 30 MG TABLET ALONG WITH ONE 60 MG TABLET TO EQUAL DAILY DOSE OF 90 MG Isosorbide Mononitrate Ext Rel (Imdur Ext Rel) 60 Mg Ertab 60 MG PO QAM, TAB TAKE ONE 60 MG TABLET ALONG WITH ONE 30 MG TABLET TO EQUAL DAILY DOSE OF 90 MG Levothyroxine Sodium (Levothyroxine Sodium) 112 Mcg Tab 112 MCG PO QAM, TAB Metoprolol Tartrate (Lopressor) (Lopressor) 25 Mg Tab 25 MG PO BID Nitroglycerin (Nitrostat) 0.4 Mg Sub 0.4 MG UT UD PRN for Chest Pain, SUB PLACE ONE TABLET UNDER THE TONGUE EVERY 5 MINUTES FOR UP TO 3 DOSES IF NEEDED FOR CHEST PAIN Telmisartan/Hctz (Micardis Hct) 1 Tab Tab 1 TAB PO DAILY 25MG-80MG Discharge Exam Review of Systems: Constitutional: No fever, No chills, No sweats, No weakness, No fatigue Eyes: No worsening of vision ENT: No hearing loss Respiratory: No cough, No sputum, No shortness of breath, No hemoptysis Cardiovascular: No chest pain, No edema, No palpitations Abdomen: No pain, No nausea, No vomiting, No diarrhea, No constipation Musculoskeletal: + joint pain, + muscle pain, No swelling, No calf pain Genitourinary - Female: No dysuria, No hematuria Neurologic: No weakness, No numbness/tingling Psychiatric: No depression symptoms, No anxiety Endocrine: No fatigue Hematologic / Lymphatic: No abnormal bleeding/bruising Integumentary: No rash, No itch, No new/changing skin lesions Physical Exam: General Appearance: no apparent distress Eyes: normal inspection, PERRL ENT: hearing grossly normal Neck: supple Respiratory/Chest: lungs clear, no respiratory distress, no accessory muscle use, + pertinent finding (ttp of upper L chest wall ) Cardiovascular: regular rate, rhythm Abdomen / GI: normal bowel sounds, non tender, soft Extremities: no calf tenderness, no pedal edema Neurologic/Psychiatric: alert, normal mood/affect, oriented x 3 Skin: normal color, warm/dry, no rash Hospital Course Admission H&P 76 y/o F c/o chest pressure. Pt states that she was at PT this morning when she started to have chest pressure "like someone was tapping on my chest, not like someone was sitting on it". It was L sided and did not radiate anywhere. There is no alessia chest pain. Each time this would happen it would last for about 10 seconds and resolved on its own. This happened several times. She had no other issues with PT and participated as usual. She took nitro x2 that she had at home, however she did have further episodes despite this. She has had none since she got to the ED. She saw Dr. Recio in the office who was able to reproduce her pain in the area she felt the pressure, however pt denies any recent physical activity exertions, falls, or other chest wall trauma. Pt feels at her usual otherwise. Pt denies fever, SOB, abd pain, n/v/c/d, LE pain or swelling. Physical Exam Vital Signs Date Time Temp Pulse Resp B/P (MAP) Pulse Ox O2 Delivery O2 Flow Rate FiO2 02/10/17 16:32 153/59 02/10/17 16:30 58 18 96 02/10/17 16:00 57 22 96 02/10/17 15:30 60 17 96 02/10/17 15:00 59 18 94 02/10/17 14:05 61 02/10/17 14:02 95 Room Air 02/10/17 14:02 97 Room Air 02/10/17 13:50 36.7 62 18 123/58 99 Room Air General Appearance: WD/WN, no apparent distress Head: normocephalic, atraumatic Eyes: EOMI, sclerae normal Respiratory/Chest: normal breath sounds, no respiratory distress Cardiovascular: regular rate, rhythm, no edema Abdomen/GI: non tender, soft Extremities/Musculoskelatal: no calf tenderness, no pedal edema Neurologic/Psych: alert, normal mood/affect, oriented x 3 Skin: normal color, warm/dry Hospital Course: 76 y/o F who was admitted for observation on 02/10 for chest pressure Chest pressure, likely secondary to musculoskeletal chest wall pain, ACS r/o: - Admitted to tele for cardiac monitoring - Trend cardiac enzymes- minimally elevated, chronic - EKG w/ bradycardia and question of T wave ab-, spoke with Dr. Hanna who feels this is similar to prior EKG - ECHO done 09/2016 as part of syncope work-up with EF 65-70% and no major valvular issues noted - Dr. Hanna agrees pt can f/u as outpt unless change in status CKD stage III- baseline is 1.5- STABLE- follows w/ Dr. Salas T2DM: Continue outpatient regimen of SSI + Lantus 45units HS CAD, HTN, HLD, PVD- STABLE: Continue outpatient medications DVT prophylaxis: TEDs/SCDs Code Status: LEVEL I, FULL Dispo: Discharge to home I agree with PA assessment and plan and have seen and examined pt myself Resting comfortably in bed VSS Labs reviewed Mildly elev trops but chronic in nature EKG changes are unchanged from prev EKG Chest pain reproducible in nature Will f/u with Dr Hanna in 1-2 weeks Stable for DC home Total Time Spent: Greater than 30 minutes This includes examination of the patient, discharge planning, medication reconciliation, and communication with other providers. Discharge Instructions Please refer to the electronic Patient Visit Report (Discharge Instructions) for additional information. Follow-Up Please follow-up with your PCP within 5-7 days Please follow-up with Cardiology within 1-2 weeks Please follow-up/keep all of your subspecialty appointments Additional Copies To Mariano Recio M.D.
[2017-02-11] MEDS ORDERED: ASPIRIN 81 MG ECTAB PO SCH (21:00)
== END 2017-02-11 12:22 | disposition home or self-care (01) ==
LOC: C.EDB 13:49 → C.2T 16:55 → ENRESERV 17:17
PROVIDERS: ADMIT Family Medicine; ATTEND Hospitalist
DX: R07.89 Other chest pain (principal); I25.10 Atherosclerotic heart disease of native coronary artery without angina pectoris; E10.22 Type 1 diabetes mellitus with diabetic chronic kidney disease; E10.51 Type 1 diabetes mellitus with diabetic peripheral angiopathy without gangrene; N18.9 Chronic kidney disease, unspecified; I12.9 Hypertensive chronic kidney disease with stage 1 through stage 4 chronic kidney disease, or unspecified chronic kidney disease; E78.5 Hyperlipidemia, unspecified; M48.062 Spinal stenosis, lumbar region with neurogenic claudication; R55 Syncope and collapse; Z79.4 Long term (current) use of insulin; Z79.82 Long term (current) use of aspirin; Z79.899 Other long term (current) drug therapy

== ENCOUNTER → 2017-03-30 | Outpatient (CLI) | payer BC ==
[~2017-03-30] MED LIST changes: -ACET-1222 PO; +ACET-1311 PO; +ALBUAER INH; +AMOX875T PO; -CALC500C70 PO; -CYAN100020 PO; -DEXT5LIQ23 PO; -DIPH-437 PO; -FRRS300 PO; +GABA-113 PO; +INSDGI SC; -MGNO400 PO; -NRN/100 PO; +NVLGI/PEN SC; -Proair HFA INH; -RXC5 PO
--- NOTE | 2017-03-30 12:50 | DIAGNOSTIC IMAGING REPORT ---
L FOOT MIN 3 VIEWS ROUTINE CLINICAL HISTORY: E11.9,M79.673,G62.,F32.9 LEFT FOOT PAIN COMPARISON: 11/24/2016 DISCUSSION: The bones are osteopenic. There are no acute fractures. There are small particular calcifications at the level of the proximal to phalangeal joints of the fourth and fifth toes. There is Achilles insertional and plantar calcaneal spurring. The findings remain unchanged the preceding study. IMPRESSION: No change from the preceding study. Osteopenia. No acute fractures. Calcaneal spurring. Electronically signed by: Anatoliy Corbin M.D. 03/30/2017 12:49 PM Dictated Date/Time: 03/30/2017 12:47 PM
== END | disposition home or self-care (01) ==
LOC: C.RAD1850 12:30
PROVIDERS: ATTEND Family Medicine
DX: E11.9 Type 2 diabetes mellitus without complications (principal); M79.673 Pain in unspecified foot; G62.9 Polyneuropathy, unspecified; F32.9 Major depressive disorder, single episode, unspecified

== ENCOUNTER → 2017-04-12 | Outpatient (CLI) | payer BC ==
--- NOTE | 2017-04-12 12:52 | DIAGNOSTIC IMAGING REPORT ---
R FOOT MIN 3 VIEWS ROUTINE CLINICAL HISTORY: 76 years-old Female presenting with M79.676. TECHNIQUE: Frontal, oblique, and lateral views of the left foot were obtained. COMPARISON: 10/06/2011. FINDINGS: No acute fracture or malalignment. Osseous peroneum and accessory navicular noted. Prominent enthesophyte at the insertion the Achilles tendon and origin of the plantar fascia. Atherosclerosis No of the radiographic soft tissue abnormality. IMPRESSION: 1. No acute osseous injury. 2. Prominent enthesophyte at the insertion of the Achilles tendon. 3. Prominent enthesophyte at the origin of the plantar fascia. Electronically signed by: Inder Celestin M.D. 04/12/2017 12:51 PM Dictated Date/Time: 04/12/2017 12:48 PM
--- NOTE | 2017-04-12 13:05 | DIAGNOSTIC IMAGING REPORT ---
R TOE(S) MIN 2 VIEWS CLINICAL HISTORY: M79.674,W19.XXXA,E11.9 pain. Edema. COMPARISON: None. DISCUSSION: Moderate degenerative change. Mild osteopenia. Mild soft tissue edema. No evidence for fracture or dislocation. Cortical margins are intact. IMPRESSION: Moderate soft tissue edema. Mild degenerative change. No acute bony abnormality. The above report was generated using voice recognition software. It may contain grammatical, syntax or spelling errors. Electronically signed by: Anderson Duran M.D. 04/12/2017 1:04 PM Dictated Date/Time: 04/12/2017 1:03 PM
== END | disposition home or self-care (01) ==
LOC: C.RAD1850 12:14
PROVIDERS: ATTEND Family Medicine Hospice and Palliative Medicine
DX: M79.676 Pain in unspecified toe(s) (principal); M79.674 Pain in right toe(s); W19.XXXA Unspecified fall, initial encounter; E11.9 Type 2 diabetes mellitus without complications

== ENCOUNTER → 2017-06-16 | Outpatient (CLI) | payer BC ==
[2017-06-16 14:36] LABS: HEMATOCRIT 36.4 % (37-47); HEMOGLOBIN 12.2 g/dL (12.0-16.0); MEAN CELL VOLUME 90.5 fL (80-100); MEAN CORPUSCULAR HEMOGLOBIN 30.3 pg (25-34); MEAN CORPUSCULAR HGB CONC 33.5 g/dl (32-36); MEAN PLATELET VOLUME 10.3 fL (7.4-10.4); PLATELET COUNT 331 K/uL (130-400); RED CELL DISTRIBUTION WIDTH CV 14.4 % (11.5-14.5); RED CELL DISTRIBUTION WIDTH SD 48.2 fL (36.4-46.3); WHITE BLOOD COUNT 9.01 K/uL (4.8-10.8)
[2017-06-16 15:03] LABS: ALBUMIN 3.6 gm/dl (3.4-5.0); BLOOD UREA NITROGEN 43 mg/dl (7-18); CALCIUM 9.8 mg/dl (8.5-10.1); CARBON DIOXIDE 26 mmol/L (21-32); CREATININE 1.64 mg/dl (0.60-1.20); GLUCOSE 107 mg/dl (70-99); POTASSIUM 4.5 mmol/L (3.5-5.1); SODIUM 139 mmol/L (136-145)
[2017-06-16 15:14] LABS: PHOSPHORUS 3.8 mg/dl (2.5-4.9)
== END | disposition home or self-care (01) ==
LOC: C.LAB1850 13:36
PROVIDERS: ATTEND Internal Medicine Nephrology
DX: I12.9 Hypertensive chronic kidney disease with stage 1 through stage 4 chronic kidney disease, or unspecified chronic kidney disease (principal); N18.3 Chronic kidney disease, stage 3 (moderate); R80.9 Proteinuria, unspecified; E55.9 Vitamin D deficiency, unspecified; E03.9 Hypothyroidism, unspecified; E11.49 Type 2 diabetes mellitus with other diabetic neurological complication; E11.22 Type 2 diabetes mellitus with diabetic chronic kidney disease; E11.65 Type 2 diabetes mellitus with hyperglycemia; Z79.4 Long term (current) use of insulin

== ENCOUNTER 2017-10-22 13:57 | Emergency (ER) | payer BC, OTHER ==
[~2017-10-22] VITALS: Ht 162.6 cm; Wt 106.5 kg
[2017-10-22 14:07] VITALS: Ht 162.6 cm; Wt 106.5 kg
[2017-10-22] MEDS ORDERED: SODIUM CHLORIDE 0.9% 1000ML 1,000 ML IV STA (14:08)
[2017-10-22] MEDS ORDERED: SODIUM CHLORIDE 0.9% 1000ML 500 ML IV STA (14:08)
[2017-10-22] MEDS ORDERED: ACETAMINOPHEN 500 MG TAB PO STA (14:08)
[2017-10-22] MEDS ORDERED: KETOROLAC TROMETHAMINE 30 MG/ML VIAL IV STA (14:08)
--- NOTE | 2017-10-22 14:22 | DIAGNOSTIC IMAGING REPORT ---
CHEST ONE VIEW PORTABLE CLINICAL HISTORY: 76 years-old Female presenting with EVALUATE ALTERED MENTAL STATUS/WEAKNESS. TECHNIQUE: Portable upright AP view of the chest was obtained. COMPARISON: 02/10/2017. FINDINGS: Atherosclerosis of the aortic arch. Cardiac silhouette top normal in size. Calcified granulomata may be present. Lungs and pleural spaces otherwise clear. Degenerative changes of the thoracic spine. Upper abdomen normal. IMPRESSION: 1. No acute cardiopulmonary disease. Electronically signed by: Inder Celestin M.D. 10/22/2017 2:21 PM Dictated Date/Time: 10/22/2017 2:20 PM
[2017-10-22] MEDS ORDERED: METOPROLOL TARTRATE 1 MG/ML VIAL IV STA (14:44)
[2017-10-22 15:13] LABS: BASO % 0.3 %; BASO ABS # 0.03 K/uL (0-0.2); EOS % 0.2 %; EOS ABS # 0.02 K/uL (0-0.5); HEMATOCRIT 35.8 % (37-47); HEMOGLOBIN 12.2 g/dL (12.0-16.0); IG# 0.03 K/uL (0.00-0.02); LYMPH % 9.2 %; LYMPH ABS # 0.86 K/uL (1.2-3.4); MEAN CELL VOLUME 90.6 fL (80-100); MEAN CORPUSCULAR HEMOGLOBIN 30.9 pg (25-34); MEAN CORPUSCULAR HGB CONC 34.1 g/dl (32-36); MONO % 7.3 %; MONO ABS # 0.68 K/uL (0.11-0.59); NEUT % 82.7 %; PLATELET COUNT 281 K/uL (130-400); RED CELL DISTRIBUTION WIDTH CV 13.5 % (11.5-14.5); RED CELL DISTRIBUTION WIDTH SD 44.7 fL (36.4-46.3); WHITE BLOOD COUNT 9.32 K/uL (4.8-10.8)
[2017-10-22 15:43] LABS: ALBUMIN 3.1 gm/dl (3.4-5.0); CALCIUM 8.8 mg/dl (8.5-10.1); CREATININE 1.49 mg/dl (0.60-1.20); TOTAL PROTEIN 7.4 gm/dl (6.4-8.2)
[2017-10-22] MEDS ORDERED: SODIUM CHLORIDE 0.9% 500ML 500 ML IV STA (16:55)
[2017-10-22 19:11] VITALS: BP 166/60; PULSE 68; TEMP 37.5; O2SAT 94
--- NOTE | 2017-10-22 19:25 | EMERGENCY ROOM VISIT NOTE ---
History Report prepared by Maxine: Omar Real Under the Supervision of: Dr. Neil Fiore M.D. First contact with patient: 14:01 Stated Complaint: NAUSEA/CRAMPING/GENERALIZED WEAKNESS History of Present Illness The patient is a 76 year old female who presents to the Emergency Room with complaints of weakness and a fall beginning today at 09:30, about 4.5 hours ago. The patient reports that this morning she was leaving her bedroom when her arms and legs "buckled" while trying to walk to the bathroom. She states that she was able to make it to the bathroom, but reports that when she returned to her bedroom, her legs gave out and she fell beside her bed. He states that she did not strike her head and denies any other injuries or loss of consciousness. She reports that she was unable to stand up on her own due to weakness. She notes that she called her , who was also unable to get her off of the floor. She states that the ambulance was then called. She notes that she had not yet taken her morning medications before her fall, and when her gave her the pills, she had a mild episode of vomiting. She denies diarrhea, cough, urinary symptoms, shortness of breath, chest pain, or headache. She states that she has been feeling warm. The patient reports that she received the second dose of the newest version of the shingles vaccine yesterday, with the first dose of the same vaccine being given one year ago. She states that she has been experiencing soreness in the area of the shot, but otherwise felt no symptoms yesterday. She notes that she is currently starting to feel a little better after being given an IV. She reports that she experienced similar symptoms last year following a back surgery, noting that her symptoms were attributed to dehydration. She reports that she is regularly taking her thyroid medications. Source of History: patient Onset: 09:30 today, about 4.5 hours ago Position: other (global, notably arms and legs) Quality: other (weakness, fall) Timing: other (currently slightly improved) Associated Symptoms: No LOC, No headache, No cough, No chest pain, No SOB, No diarrhea, No urinary symptoms Note: has been feeling warm denies striking head or other injury Review of Systems See HPI for pertinent positives & negatives. A total of 10 systems reviewed and were otherwise negative. Past Medical & Surgical Medical Problems: (1) Acute kidney injury (2) Confusion (3) Coronary artery disease (4) Diabetes 1.5, managed as type 1 (5) Elevated troponin I level (6) Hand weakness (7) Influenza A (8) Lumbar stenosis with neurogenic claudication (9) Spinal stenosis, other region Family History No pertinent family history Social History Smoking Status: Never Smoker Drug Use: none Marital Status: Housing Status: lives with family, lives with significant other Occupation Status: retired Current/Historical Medications Scheduled Amlodipine Besylate (Norvasc), 5 MG PO QAM Aspirin (Aspirin Adult Low Dose), 81 MG PO QPM Atorvastatin (Lipitor), 10 MG PO HS Coenzyme Q10 (Ubidecarenone) (Co Q10), 100 MG PO QPM Fish Oil ([place]-3), 1 CAP PO BID Fluoxetine (Prozac), 20 MG PO QAM Gabapentin (Neurontin), 300 MG PO TID Insulin Aspart (Novolog Flexpen), SC TIDM Insulin Glargine (Lantus), 1 UNITS SC UD Isosorbide Mononitrate Ext Rel (Imdur Ext Rel), 30 MG PO QAM Isosorbide Mononitrate Ext Rel (Imdur Ext Rel), 60 MG PO QAM Levothyroxine Sodium (Levothyroxine Sodium), 112 MCG PO QAM Metoprolol Tartrate (Lopressor) (Lopressor), 25 MG PO BID Telmisartan/Hctz (Micardis Hct), 1 TAB PO DAILY Scheduled PRN Acetaminophen (Tylenol), 325 MG PO UD PRN for Pain Albuterol Sulfate (Proventil Hfa), 1 PUFF INH DAILY PRN for SOB/Wheezing Amoxicillin & Pot Clavulanate (Augmentin 875-125 mg), 4 TABS PO UD PRN for PROCEDURES Budesonide/Formoterol Fumarate (Symbicort 80/4.5 Inhaler), 2 PUFFS INH BID PRN for Shortness of Breath Fluticasone Propionate (Inhala (Flovent Diskus), 1 PUFFS INH BID PRN for Shortness of Breath Nitroglycerin (Nitrostat), 0.4 MG UT UD PRN for Chest Pain Allergies Coded Allergies: Clopidogrel (Verified Allergy, Unknown, Unknown, 02/10/17) Lisinopril (Verified Allergy, Unknown, Unknown, 02/10/17) Physical Exam Vital Signs Date Time Temp Pulse Resp B/P (MAP) Pulse Ox O2 Delivery O2 Flow Rate FiO2 10/22/17 19:11 37.5 68 18 166/60 94 10/22/17 18:44 68 18 166/60 10/22/17 17:29 67 10/22/17 17:10 64 16 137/53 94 Room Air 69 124/49 67 125/56 10/22/17 16:07 65 16 152/55 92 Room Air 10/22/17 15:01 74 132/47 10/22/17 14:40 66 10/22/17 14:36 127 10/22/17 14:07 37.5 68 18 132/47 92 Room Air Physical Exam GENERAL: Patient is in no acute distress. HEENT: No acute trauma, normocephalic atraumatic, mucous membranes dry, no nasal congestion, no scleral icterus. NECK: No stridor, no adenopathy, no meningismus, trachea is midline. LUNGS: Clear to auscultation bilaterally, no wheeze, no rhonchi, breath sounds equal. HEART: Without murmurs gallops or rubs, regular rate and rhythm. ABDOMEN: Soft, nontender, bowel sounds positive, no hernias, no peritonitis. EXTREMITIES: No cyanosis or edema, full range of motion of all the joints without pain or difficulty, no signs for acute trauma. NEUROLOGIC: Oriented x 3, no acute motor or sensory deficits, no focal weakness. Slight extremity tremor noted. No pronator drift or cerebellar dysfunction. No speech slur. SKIN: No rash, no jaundice, no diaphoresis. Medical Decision & Procedures ER Provider Diagnostic Interpretation: Radiology results as stated below per my review and radiologist interpretation: CHEST ONE VIEW PORTABLE CLINICAL HISTORY: 76 years-old Female presenting with EVALUATE ALTERED MENTAL STATUS/WEAKNESS. TECHNIQUE: Portable upright AP view of the chest was obtained. COMPARISON: 02/10/2017. FINDINGS: Atherosclerosis of the aortic arch. Cardiac silhouette top normal in size. Calcified granulomata may be present. Lungs and pleural spaces otherwise clear. Degenerative changes of the thoracic spine. Upper abdomen normal. IMPRESSION: 1. No acute cardiopulmonary disease. Electronically signed by: Inder Celestin M.D. 10/22/2017 2:21 PM Dictated Date/Time: 10/22/2017 2:20 PM Laboratory Results 10/22/17 14:53 Red Blood Count 3.95, Mean Corpuscular Volume 90.6, Mean Corpuscular Hemoglobin 30.9, Mean Corpuscular Hemoglobin Concent 34.1, Mean Platelet Volume 11.0, Neutrophils (%) (Auto) 82.7, Lymphocytes (%) (Auto) 9.2, Monocytes (%) (Auto) 7.3, Eosinophils (%) (Auto) 0.2, Basophils (%) (Auto) 0.3, Neutrophils # (Auto) 7.70, Lymphocytes # (Auto) 0.86, Monocytes # (Auto) 0.68, Eosinophils # (Auto) 0.02, Basophils # (Auto) 0.03 10/22/17 14:53 Test 10/22/17 14:53 10/22/17 17:00 White Blood Count 9.32 K/uL (4.8-10.8) Red Blood Count 3.95 M/uL (4.2-5.4) Hemoglobin 12.2 g/dL (12.0-16.0) Hematocrit 35.8 % (37-47) Mean Corpuscular Volume 90.6 fL (80-100) Mean Corpuscular Hemoglobin 30.9 pg (25-34) Mean Corpuscular Hemoglobin Concent 34.1 g/dl (32-36) Platelet Count 281 K/uL (130-400) Mean Platelet Volume 11.0 fL (7.4-10.4) Neutrophils (%) (Auto) 82.7 % Lymphocytes (%) (Auto) 9.2 % Monocytes (%) (Auto) 7.3 % Eosinophils (%) (Auto) 0.2 % Basophils (%) (Auto) 0.3 % Neutrophils # (Auto) 7.70 K/uL (1.4-6.5) Lymphocytes # (Auto) 0.86 K/uL (1.2-3.4) Monocytes # (Auto) 0.68 K/uL (0.11-0.59) Eosinophils # (Auto) 0.02 K/uL (0-0.5) Basophils # (Auto) 0.03 K/uL (0-0.2) RDW Standard Deviation 44.7 fL (36.4-46.3) RDW Coefficient of Variation 13.5 % (11.5-14.5) Immature Granulocyte % (Auto) 0.3 % Immature Granulocyte # (Auto) 0.03 K/uL (0.00-0.02) Anion Gap 8.0 mmol/L (3-11) Est Creatinine Clear Calc Drug Dose 38.3 ml/min Estimated GFR () 39.1 Estimated GFR (Non- 33.8 BUN/Creatinine Ratio 23.2 (10-20) Calcium Level 8.8 mg/dl (8.5-10.1) Magnesium Level 1.8 mg/dl (1.8-2.4) Total Bilirubin 0.4 mg/dl (0.2-1) Aspartate Amino Transf (AST/SGOT) 12 U/L (15-37) Alanine Aminotransferase (ALT/SGPT) 17 U/L (12-78) Alkaline Phosphatase 67 U/L (45-117) Total Creatine Kinase 95 U/L (26-192) Troponin I 0.029 ng/ml (0-0.045) Total Protein 7.4 gm/dl (6.4-8.2) Albumin 3.1 gm/dl (3.4-5.0) Globulin 4.3 gm/dl (2.5-4.0) Albumin/Globulin Ratio 0.7 (0.9-2) Thyroid Stimulating Hormone (TSH) 0.868 uIu/ml (0.300-4.500) Free Thyroxine 0.97 ng/dl (0.80-1.60) Urine Color YELLOW Urine Appearance CLEAR (CLEAR) Urine pH 6.5 (4.5-7.5) Urine Specific [place] 1.018 (1.000-1.030) Urine Protein TRACE (NEG) Urine Glucose (UA) NEG (NEG) Urine Ketones NEG (NEG) Urine Occult Blood NEG (NEG) Urine Nitrite NEG (NEG) Urine Bilirubin NEG (NEG) Urine Urobilinogen NEG (NEG) Urine Leukocyte Esterase SMALL (NEG) Urine WBC (Auto) 1-5 /hpf (0-5) Urine RBC (Auto) 0-4 /hpf (0-4) Urine Hyaline Casts (Auto) 0 /lpf (0-5) Urine Epithelial Cells (Auto) >30 /lpf (0-5) Urine Bacteria (Auto) NEG (NEG) Laboratory results reviewed by me. Medications Administered Medications (Trade) Dose Ordered Sig/[place] Route Start Time Stop Time Status Last Admin Dose Admin Sodium Chloride 500 ml @ 999 mls/hr Q31M STAT IV 10/22/17 14:08 10/22/17 14:38 DC 10/22/17 15:30 999 MLS/HR Sodium Chloride 1,000 ml @ 999 mls/hr Q1H1M STAT IV 10/22/17 14:08 10/22/17 15:08 DC 10/22/17 14:59 999 MLS/HR Ketorolac Tromethamine (Toradol Inj) 15 mg NOW STAT IV 10/22/17 14:08 10/22/17 14:11 DC 10/22/17 15:00 15 MG Acetaminophen (Tylenol Tab) 1,000 mg NOW STAT PO 10/22/17 14:08 10/22/17 14:12 DC 10/22/17 15:01 1,000 MG Metoprolol Tartrate (Lopressor Iv) 5 mg NOW STAT IV 10/22/17 14:44 10/22/17 14:45 DC 10/22/17 15:01 5 MG Sodium Chloride 500 ml @ 999 mls/hr Q31M STAT IV 10/22/17 16:55 10/22/17 17:25 DC 10/22/17 17:30 999 MLS/HR ECG Per My Interpretation Indication: weakness Rate (beats per minute): 118 Rhythm: atrial fibrillation Findings: other (Diffuse nonspecific ST changes. No ST elevation. No PVCs.) ED Course 1401: The patient was evaluated in room B7. A complete history and physical exam was performed. 1408: Ordered Tylenol 1000 mg PO, Toradol 15 mg IV, Sodium Chloride 1000 ml @ 999 mls/hr IV, Sodium Chloride 500 ml @ 999 mls/hr IV 1444: Ordered Lopressor 5 mg IV 1653: I checked on the patient, who is currently feeling a little better. 1655: Ordered Sodium Chloride 500 ml @ 999 mls/hr IV 1753: Orthostatic vital signs were negative. 1756: I reevaluated the patient. She reports she is feeling better. An ambulation trial will be performed. 1843: Repeat EKG shows sinus rhythm with frequent PACs at a rate of 73. There is no ST elevation and no PVCs. 1846: Reevaluated the patient. She performed well on her ambulatory trial. She believes that she had a brief A-fib in the past. Discussed results and discharge instructions: She verbalized understanding and agreement. The patient is ready for discharge. Medical Decision Differential diagnosis: Dehydration, electrolyte imbalance, anemia, UTI, vaccine reaction, thyroid disorder, dysrhythmia, CA There is no leukocytosis or concerning anemia. Renal panel testing does suggest some renal insufficiency/dehydration. No hepatitis. Patient appeared to be in a euthyroid state. Urinalysis does not show infection. Chest film does not show pneumonia or CHF. On exam, there were no focal neurologic deficits. The patient was not toxic or febrile. Orthostatic vital signs were eventually performed and were negative. Cardiac enzyme testing 1 is not consistent with acute cardiac injury. No evidence for rhabdomyolysis. Patient received IV saline, around 2 L in total were given. She received IV Toradol, oral Tylenol. She was given a dose of IV Lopressor for a brief run of atrial fibrillation. Initial EKG showed a rapid A. fib, this resolved quickly though and a repeat EKG confirmed sinus rhythm. The patient apparently has had a bout or 2 of A. fib in the past. The patient feels markedly better since the IV fluids. She was walked around the ED and did well. She does feel stable for discharge home, she will return if feeling worse. I think the patient's presentation today was secondary to some dehydration coupled with a vaccine reaction. Patient is going to follow with her doctors office early next week, she can have the A. fib looked into further through her doctor's office. Of note, the patient did not suffer trauma from this fall. No evidence for injury by exam or history. Medication Reconcilliation Current Medication List: was personally reviewed by me Blood Pressure Screening Patient's blood pressure: Elevated blood pressure Blood pressure disposition: Referred to PCP Impression Primary Impression: Dehydration Additional Impressions: Weakness Vaccine reaction Paroxysmal A-fib Scribe Attestation The scribe's documentation has been prepared under my direction and personally reviewed by me in its entirety. I confirm that the note above accurately reflects all work, treatment, procedures, and medical decision making performed by me. Departure Information Dispostion Home / Self-Care Referrals Mariano Recio M.D. (PCP) Forms HOME CARE DOCUMENTATION FORM, IMPORTANT VISIT INFORMATION, WORK / SCHOOL INSTRUCTIONS Additional Instructions increase the fluid intake rest motrin and or tylenol for pain and aches use ice to the sore shoulder see jaskaran dean next week for a recheck and evaluation for the bout of a-fib return if worsening as we discussed Problem Qualifiers
== END 2017-10-22 19:11 | disposition home or self-care (01) ==
LOC: EDBD 13:57 → C.EDB 13:58
DX: E86.0 Dehydration (principal); E53.1 Pyridoxine deficiency; T88.7XXA Unspecified adverse effect of drug or medicament, initial encounter; X58.XXXA Exposure to other specified factors, initial encounter; I48.0 Paroxysmal atrial fibrillation; N17.9 Acute kidney failure, unspecified; E10.9 Type 1 diabetes mellitus without complications; I25.10 Atherosclerotic heart disease of native coronary artery without angina pectoris; Z79.4 Long term (current) use of insulin; Z79.899 Other long term (current) drug therapy; Z88.8 Allergy status to other drugs, medicaments and biological substances

== ENCOUNTER 2018-08-02 07:33 | Inpatient (IN) ==
[2018-08-02] MEDS ORDERED: ALBUTEROL 0.083% NEBU SOLN 3 ML VIAL NEB STA (07:51)
[2018-08-02] MEDS ORDERED: ONDANSETRON INJ 2 MG/ML 2 ML VIAL IV STA (07:51)
[2018-08-02] MEDS ORDERED: SODIUM CHLORIDE 0.9% 500 ML IV SCH (08:00)
[2018-08-02 08:10] LABS: Basophils # (auto) 0.05 K/uL (0-0.2); Basophils % (auto) 0.3 %; Eosinophils # (auto) 0.08 K/uL (0-0.5); Eosinophils % (auto) 0.6 %; Hematocrit (blood only) 37.4 % (37-47); Immature Granulocytes # (auto) 0.04 K/uL (0.00-0.02); Immature Granulocytes % (auto) 0.3 %; Lymphocytes # (auto) 1.14 K/uL (1.2-3.4); Mean Corpuscular Hgb Conc 34.8 g/dL (32-36); Mean Corpuscular Volume 89.7 fL (80-100); Monocytes % (auto) 5.6 %; Neutrophils # (auto) 12.21 K/uL (1.4-6.5); Neutrophils % (auto) 85.2 %; Platelet Count 326 K/uL (130-400); RDW Standard Deviation 48.5 fL (36.4-46.3); Red Blood Count 4.17 M/uL (4.2-5.4); White Blood Count 14.32 K/uL (4.8-10.8)
[2018-08-02 08:29] LABS: Alanine Aminotransferase 19 U/L (12-78); Albumin Level 3.6 gm/dl (3.4-5.0); Aspartate Aminotransferase 39 U/L (15-37); BUN Creatinine Ratio 21.5 (10-20); Blood Urea Nitrogen 33 mg/dl (7-18); Calcium 10.2 mg/dl (8.5-10.1); Carbon Dioxide 22 mmol/L (21-32); Chloride 106 mmol/L (98-107); Est GFR (African American) 37.9; Est GFR (Non-African American) 32.7; Glucose 212 mg/dl (70-99); Potassium 4.3 mmol/L (3.5-5.1); Sodium 139 mmol/L (136-145)
--- NOTE | 2018-08-02 08:29 | XRay Report ---
SINGLE VIEW CHEST CLINICAL HISTORY: Atypical chest pain. Dyspnea. FINDINGS: An AP, portable, upright chest radiograph is compared to study dated 08/01/2018. The examinat ion is degraded by portable technique and apical lordotic positioning. The heart is enlarged and the re is atherosclerotic calcification of the thoracic aorta. There is pulmonary vascular congestion and interstitial edema. This is new from yesterday. There are small pleural effusions with bibasilar con solidation. No pneumothorax is seen. The skeletal structures are osteopenic. The bony thorax is gross ly intact. Degenerative change is noted throughout the thoracic spine. IMPRESSION: 1. Cardiomegaly with evidence of congestive failure and interstitial edema. This is new from yesterda y. 2. Small pleural effusions. Electronically signed by: Neil Gonzales M.D. 08/02/2018 8:27 AM
[2018-08-02 08:44] LABS: Albumin Globulin Ratio 0.8 (0.9-2); Alkaline Phosphatase 77 U/L (45-117); Bilirubin,Total 0.7 mg/dl (0.2-1); Creatine Kinase 257 U/L (26-192); Creatine Kinase MB 12.4 ng/ml (0.5-3.6); Globulin 4.7 gm/dl (2.5-4.0); NT Pro B Type Natriuretic Pept 4202 pg/ml (0-1800); Total Protein 8.3 gm/dl (6.4-8.2)
[2018-08-02] MEDS ORDERED: OPTIRAY 320 125ml IV PRN (08:44)
[2018-08-02] MEDS ORDERED: NITROGLYCERIN 2% OINTMENT 30GM TUBE EXT STA (08:49)
[2018-08-02] MEDS ORDERED: FUROSEMIDE 40 MG/4 ML VIAL IV STA (08:49)
[2018-08-02] MEDS ORDERED: METOCLOPRAMIDE HCL INJ 5 MG/ML 2 ML VIAL IV STA (08:51)
[2018-08-02] MEDS ORDERED: HYDROmorphone INJ 0.5 MG/0.5 ML SYR IV PRN (08:51)
--- NOTE | 2018-08-02 09:01 | CT Scan Report ---
CT angio chest PE protocol CLINICAL HISTORY: 77 years-old Female presenting with nausea and vomiting, shortness of breath, clini justin concern for pulmonary embolus. TECHNIQUE: Multidetector CT angiography of the chest was performed after administration of intravenou s contrast. 3-D volumetric and/or maximum intensity projection (MIP) images were subsequently reconst ructed for review. IV contrast: 119 mL of Optiray 320. One or more dose lowering techniques were used consistent with the principles of ALARA (as low as reasonably achievable), including automatic expos ure control, mA or kV adjustment to individual patient size, and/or use of iterative reconstruction. COMPARISON: Chest x-ray performed earlier the same day. CT DOSE (mGy.cm): The estimated cumulative dose is 3600.35. FINDINGS: Liturgical Music Director topogram: Orthopedic hardware. Calcified fibroids. Pulmonary vasculature: The study is suboptimal for the assessment of the pulmonary vascular tree secondary to respiratory mo tion artifact. Apparent limited subsegmental filling defects in the right lower lobe and to a lesser extent the left lower lobe are felt to most likely relate to artifact including possible mixing artif act. No convincing evidence of pulmonary embolus. Main pulmonary artery is not enlarged. No flattenin g of the interventricular septum. No intracardiac filling defect. No reflux of contrast into the hepa tic veins. Remaining chest: Soft tissues: Thyroid either atrophic, incompletely included within the balyp-ga-ifhv, or absent. Sev eral prominent mediastinal lymph nodes. And index node in the prevascular region measures 7 mm in dominique rt axis. Enlarged pretracheal node measuring 18 mm in short axis has a normal fatty hilum and may rep resent a conglomerate of several benign nodes. Enlarged subcarinal lymph nodes. Prominent bilateral h ilar lymph nodes also noted. Atherosclerosis of the aorta. Top normal heart size. Coronary artery and aortic valve calcification. Small bilateral pleural effusions. No pericardial effusion. Trace hiatal hernia. Lungs and airways: No pneumothorax. Central airways patent. Pulmonary arteries enlarged relative to a djacent bronchi. Pronounced diffuse smooth interlobular septal thickening. Patchy central predominant groundglass opacity throughout all 5 lobes. Musculoskeletal: Degenerative changes of the spine. Significant abnormality of the right humerus like ly posttraumatic in etiology. A chronic fracture plane may be visible. IMPRESSION: 1. Allowing for suboptimal image quality, no evidence of pulmonary embolus. 2. Cardiomegaly with volume overload, congestive change, and moderate pulmonary edema. 3. Small bilateral pleural effusions. 4. Mediastinal and hilar lymphadenopathy may be reactive related to lymphatic congestive change. 5. Chronic fracture deformity of the right humerus suggested. Electronically signed by: Inder Celestin M.D. 08/02/2018 9:00 AM
[2018-08-02] MEDS ORDERED: DOPamine 400MG / 250ML D5W IV ONE (09:06)
[2018-08-02] MEDS ORDERED: RAPID SEQUENCE INDUCTION BAG ONE ×2 (09:08→09:30)
--- NOTE | 2018-08-02 09:13 | CT Scan Report ---
ABDOMEN AND PELVIS CT WITH IV CONTRAST HISTORY: Acute oxygen with nausea, vomiting and shortness of breath Pt c/o hypoxia TECHNIQUE: Multiaxial CT images of the abdomen and pelvis were performed following the use of intrave nous contrast. A dose lowering technique was utilized adhering to the principles of ALARA. COMPARISON STUDY: CTA chest of same day, CTA 02/03/2016 FINDINGS: Motion degraded exam. Small bilateral pleural effusions. Intralobular septal thickening of the lung bases with patchy bilateral groundglass densities. Additionally, there are scattered solid pulmonary nodules noted measuring up to 6 mm. No pneumatosis or pneumoperitoneum. The imaged inferior cardiac chambers are unremarkable with allen ry arterial calcifications noted. The liver, gallbladder, spleen, pancreas and adrenal glands are unremarkable. Multifocal cortical sca rring noted about the bilateral kidneys. Mild nonspecific bilateral perinephric stranding. No renal o r ureteral calculi identified. Ureters and urinary bladder appear within normal limits. Multiple calc ified uterine fibroids. Adnexa are unremarkable. Extensive mixed plaque formation about the aorta and branch vessels without aneurysm. 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 Additional high-grade stenosis is noted at the distal portion of the left common femoral artery. High-grade stenosis at the origin of t he celiac trunk appears to progress from comparison. No adenopathy. IVC appears unremarkable. Small hiatal hernia. No bowel obstruction. No definite bowel wall thickening, ascites or mesenteric i nflammation. The appendix appears surgically absent. Soft tissues are unremarkable. Demineralized marylin earance of the bones. Prior laminectomy with posterior interbody tommy and screw fusion at L4-S1. Disce ctomy changes at L4-L5. No evidence of hardware fracture. Mild lucency surrounds the bilateral S1 scr ews suggestive of loosening. IMPRESSION: 1. Small bilateral pleural effusions with bilateral intralobular septal thickening and groundglass de nsities is suggestive of pulmonary edema and/or infectious or inflammatory pneumonitis. Please refer to chest CT of same day for further details. 2. No bowel obstruction or focal bowel wall thickening. 3. Small hiatal hernia. 4. Fibroid uterus. 5. 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 6. Postoperative changes of the lumbar spine as above with suggested loosening about the bilateral S1 pedicle screws. 7. Additional findings as above. Electronically signed by: Zack Garcia M.D. 08/02/2018 9:11 AM
--- NOTE | 2018-08-02 09:14 | CT Scan Report ---
CT SCAN OF THE BRAIN WITHOUT IV CONTRAST CLINICAL HISTORY: Emesis. Nausea. COMPARISON STUDY: CT of the brain dated 06/30/2018. TECHNIQUE: Unenhanced axial CT scan of the brain is performed from the vertex to the skull base. A do se lowering technique was utilized adhering to the principles of ALARA. The patient was scanned twice due to motion artifact. CT DOSE: 3600.35 mGy.cm FINDINGS: Brain parenchyma: There are age-related involutional changes noting mild subcortical and periventric ular microangiopathic change. There is no hemorrhage, mass effect, or evidence of acute territorial i schemia by CT criteria. Small chronic lacunar infarcts are identified within both thalami. Castro-white matter differentiation is preserved. No extra-axial fluid collection is seen. Ventricles, sulci, cisterns: Prominent secondary to involutional change. Intracranial vasculature: There is atherosclerotic calcification of the cavernous carotid and vertebr al arteries. Calvarium: Unremarkable. Sinuses and mastoids: The visualized paranasal sinuses are clear. The mastoid air cells are well pneu matized. Orbits: The bony orbits are grossly intact. There are bilateral ocular lens implants. IMPRESSION: There is no hemorrhage, mass effect, or evidence of acute territorial ischemia by CT maria alejandra amado. Electronically signed by: Neil Gonzales M.D. 08/02/2018 9:13 AM
[2018-08-02 09:25] LABS: Appearance Urine Clear (Clear); Bacteria Urine Automated Negative (Negative); Bilirubin Urine Negative (Negative); Blood Urine Negative (Negative); Cast Urine Automated 0 /lpf (0-5); Color Urine Yellow; Epithelial Cell Urine Auto 20-30 /lpf (0-5); Glucose Urine UA 2+ (Negative); Ketones Urine Negative (Negative); Leukocyte Esterase Urine Negative (Negative); Nitrite Urine Negative (Negative); Protein Urine 2+ (Negative); RBC Urine Automated 0-4 /hpf (0-4); Specific Gravity Urine 1.031 (1.000-1.030); Urobilinogen Urine Negative (Negative); WBC Urine Automated 0 /hpf (0-5)
[2018-08-02 09:26] LABS: Partial Thromboplastin Ratio 0.9; Partial Thromboplastin Time 24.2 Seconds (21.0-31.0); Prothrombin Time 10.6 Seconds (9.0-12.0)
[2018-08-02] MEDS ORDERED: NOREPINEPHRINE BITARTRATE 1 MG/ML 4 ML VIAL (CATH LAB USE ONLY) ONE (09:32)
[2018-08-02] MEDS ORDERED: EPTIFIBATIDE 0.75 MG/ML 75MG VIAL (CATH LAB USE ONLY) ONE (09:39)
[2018-08-02] MEDS ORDERED: EPTIFIBATIDE 2 MG/ML 10 ML VIAL (CATH LAB USE ONLY) ONE (09:39)
[2018-08-02] MEDS ORDERED: HEPARIN (PORCINE) 1000 UNIT/ML 10 ML (CATH LAB USE ONLY) ONE (10:47)
[2018-08-02] MEDS ORDERED: NiCARDipine HCL INJ 2.5 MG/ML 10 ML AMP ONE (10:47)
[2018-08-02] MEDS ORDERED: MIDAZOLAM HCL 1 MG/ML 2ML VIAL ONE (10:48)
[2018-08-02] MEDS ORDERED: NITROGLYCERIN/D5W 100MCG/ML 20ML SYR ONE (10:48)
[2018-08-02] MEDS ORDERED: fentaNYL citrate 100 MCG/2 ML VIAL ONE (10:48)
[2018-08-02] MEDS ORDERED: TICAGRELOR 90 MG TAB PO ONE (10:58)
--- NOTE | 2018-08-02 11:16 | History & Physical Report ---
Date of Service August 02, 2018 Assessment & Plan (1) Acute ST elevation myocardial infarction (STEMI): - Admit to ICU s/p cardiac cath - Cardiology consult: Dr. Buchanan. Dr. López completed cardiac cath with JUSTICE to LAD and circumflex - Last echo completed on 09/29/2016, showing normal systolic function, grade 1 diastolic dysfunction. We will repeat a 2D echo today - CXR reviewed showing pulmonary edema, will order Lasix 40 mg IV BID, strict I/os, daily weights - Continue dual antiplatelet per cardiology - brillinta and heparin gtt - CKMB =12.4, initial troponin = 1.720, trend - Continue metoprolol 25 mg BID, isosorbide mononitrate 90 mg QAM, amlodipine 5 mg QAM, telmisartan 80 mg daily- BP appears to be stable now, maximal elevation was 165/83 when in the ER. - Pain free, VSS. (2) Hypertension: - Continue antihypertensives as above (3) HLD (hyperlipidemia): -Continue statin therapy (4) Acute and chronic respiratory failure with hypoxia: - Secondary to pulmonary edema - continue bipap - Lasix ordered - O2 supplemental (5) Acute pulmonary edema: -Likely that this is secondary to acute CO occurring. Lasix as above. Pt did not c/o shortness of breath per family. (6) COPD (chronic obstructive pulmonary disease): -Continue Pro Air, Symbicort, -Does not appear to be an acute COPD exacerbation, rather pulmonary edema is contributing. -CXR reviewed showing small bilateral pleural effusion, congestive failure, continue diuretics as above. -Repeat CXR in am (7) Diabetes: -Accu-Cheks ACHS -Reduce Lantus today to 25 U compared to her home 42 units at bedtime, continue ISS. -Diabetic diet (8) Lumbar stenosis with neurogenic claudication: -Stable, continue Tylenol as needed pain (9) Hypothyroidism: -Continue levothyroxine (10) CKD (chronic kidney disease), stage III: -Creatinine slightly elevated at 1.52, baseline appears to be between 1.3- 1.4 -Follow a.m. PRP (11) Anemia: -Secondary to CKD (12) Depression: -Continue Prozac (13) Morbid obesity with BMI of 40.0-44.9, adult: -heart healthy/diabetic diet, diet and exercise to be encouraged upon discharge (14) Diabetic toe ulcer: - Left 4th toe involvement, following with wound care as outpt. Pt was scheduled for debridement this Wednesday with Dr. Jerome, with possible IV antibiotics. - Consult wound care, no surrounding erythema - Continue Cipro 500 mg PO BID for now - Consider consultation of ortho, Dr. Jerome. For now will need to postpone the procedure. (15) DVT prophylaxis: -Teds, SCDs History of Present Illness Primary Care Provider: Mariano Recio This is a 77-year-old female with PMHx of HTN, HLD, COPD, CKD stage III, mild cognitive impairment, DM type II, hypothyroidism, vitamin D deficiency, arthritis, osteoporosis, morbid obesity with BMI of 40.3, who presents to the ER with acute onset of substernal chest pain, nausea, vomiting this morning. The patient had difficulty providing specific ROS, however complained of abdominal discomfort and gaseous distension, for the past 2 days. Her family at bedside confirms this. She denies any specific chest pain or shortness of breath. reports she was supposed to have debridement of the left toe ulceration by Dr. Jerome this wednesday. She has been taking cipro PO x 2 weeks for this, and feels it is improving. EKG revealed acute right sided ST wave changes, heart alert was called, and the patient was taken to the cardiac Technical Engineer immediately. JUSTICE placed in the LAD and circumflex. Allergies Allergy/AdvReac Type Severity Reaction Status Date / Time lactase Allergy Intermediate Verified 08/01/18 14:35 [From Lactose Fast Acting Relief] sulfite Allergy Intermediate Hives Verified 07/28/18 14:55 lisinopril Allergy Mild "DID NOT Verified 07/28/18 14:55 AGREE WITH ME" clopidogrel Allergy Unknown DOES NOT Verified 07/28/18 14:55 REMEMBER REACTION Home Medications Home Medications Medication Instructions Recorded Confirmed Type aspirin [Aspirin Low Dose] 81 mg PO PM 12/03/17 08/02/18 History atorvastatin 1 tab PO QPM 12/03/17 08/02/18 History coenzyme Q10 [CoQ-10] 100 mg PO QAM 12/03/17 08/02/18 History fluoxetine 1 tab PO QAM 12/03/17 08/02/18 History insulin glargine 42 unit SUBCUT HS 12/03/17 08/02/18 History isosorbide mononitrate 1 tab PO QAM 12/03/17 08/02/18 History isosorbide mononitrate 30 mg PO QAM 12/03/17 08/02/18 History levothyroxine 1 tab PO QAM 12/03/17 08/02/18 History metoprolol tartrate 1 tab PO BID 12/03/17 08/02/18 History nitroglycerin [Nitrostat] 1 tab SUBLINGUAL Q5M PRN 12/03/17 08/02/18 History acetaminophen [Tylenol Extra 500 mg PO TID 06/30/18 08/02/18 History Strength] albuterol sulfate [ProAir HFA] 2 puff INHALATION Q6H PRN 06/30/18 08/02/18 History amlodipine 5 mg PO QAM 06/30/18 08/02/18 History budesonide-formoterol [Symbicort] 2 puff INHALATION BID PRN 06/30/18 08/02/18 History calcium carbonate-vitamin D3 1 cap PO QPM 06/30/18 08/02/18 History [Calcium 600 + D(3)] cholecalciferol (vitamin D3) 2,000 unit PO QAM 06/30/18 08/02/18 History [Vitamin D3] cyanocobalamin (vitamin B-12) 1,000 mcg PO QAM 06/30/18 08/02/18 History [Vitamin B-12] gabapentin 900 mg PO TID 06/30/18 08/02/18 History insulin aspart U-100 [Novolog 0 unit SUBCUT .SLIDING SCALE 06/30/18 08/02/18 History Flexpen U-100 Insulin] telmisartan 80 mg PO QAM 06/30/18 08/02/18 History insulin aspart (U-100) 100 unit/mL 1 unit SUBCUT QDB 07/12/18 08/02/18 History (3 mL) subcutaneous pen omega 3-awb-krl-fish oil 1,000 mg 2 cap PO DAILY cap 07/12/18 08/02/18 History (120 mg-180 mg) capsule ciprofloxacin 500 mg tablet 500 mg PO q12h #28 tab 07/15/18 08/02/18 Rx Past Med/Surg History Medical History Diabetic toe ulcer Morbid obesity with BMI of 40.0-44.9, adult CKD (chronic kidney disease), stage III Acute pulmonary edema Acute and chronic respiratory failure with hypoxia HLD (hyperlipidemia) Acute ST elevation myocardial infarction (STEMI) Diabetes Hypothyroidism Depression Anemia HX OF COPD (chronic obstructive pulmonary disease) Hypertension Confusion HX OF Lumbar stenosis with neurogenic claudication Ischemic ulcer of toe of left foot (Acute) Type 2 diabetes mellitus with diabetic peripheral angiopathy without gangrene (Acute) Atrial fibrillation 1 EVENT MANY YEARS AGO/"FIXED ITSELF/NO INTERVENTION" Chronic kidney disease STAGE 3 PVD (peripheral vascular disease) with claudication Elevated troponin I level (Resolved) Right humeral fracture (Resolved) Spinal stenosis, other region (Resolved) Acute kidney injury (Ruled-out) Coronary artery disease Hypercholesterolemia Hypothyroidism Surgical History S/P knee surgery (Resolved) LEFT S/P tonsillectomy (Resolved) Family history of reaction to anesthesia MOTHER SLOW TO WAKE UP Fusion of spine LUMBAR FUSION History of anesthesia reaction S/P LUMBAR SURGERY-3 DAYS OF CONFUSION History of cataract surgery RT/LEFT History of colonoscopy History of esophagogastroduodenoscopy (EGD) History of tooth extraction Family History Mother Family history of diabetes mellitus Social History Preferred Language: Turkish Communication Ability: Effective Beliefs That Will Affect Care: None marital status: Current Living Situation: Spouse current occupational status: retired Feels Safe at Home: Yes Smoking Status: Never smoker Second Hand Exposure: No Hx Alcohol Use: No Hx Substance Use: No Review of Systems Review of Systems: Constitutional: No fever, sweats or chills, + tired Eyes: No diplopia, no worsening or blurred vision ENT: normal hearing, no trouble swallowing Respiratory: No cough, sputum, dyspnea at rest or on exertion Cardiovascular: No chest pain, tightness or palpitations, no pain at catheter insertion site. Abdomen: No pain, nausea, vomiting, diarrhea or constipation Musculoskeletal: No joint pain, calf pain, swelling Neurologic: No weakness, numbness/tingling, or balance problems Psychiatric: No anxiety or depression Skin: No rash or itch Physical Exam Physical Exam: General: awake, alert, no apparent distress, + fatigue, + drowsiness Head: Normocephalic, atraumatic ENT: PERRL, EOMI, no pharyngeal exudate, mucous membranes moist Chest: Clear to auscultation, on Bipap, diminished breath sounds Cardiac: Regular rate and rhythm, no murmur, no JVD, normal peripheral pulses, good capillary refill Abdominal: NABS x 4 quadrants, mildly distended, soft, nontender to palpation, no rebound, guarding or tenderness Extremities: No peripheral edema or erythema, + left 4th toe with ulceration with black eschar overlying, no surrounding erythema, calfs nontender to p alpation Psych: Normal mood and affect Neuro: AAO x 3, no motor deficits, speech is clear. Results & Data Vital Signs (Past 12 Hours) Vital Signs Temp Pulse Pulse Resp BP BP Pulse Ox 08/02/18 09:15 92 08/02/18 09:10 86 23 109/95 94 08/02/18 09:07 60 35 H 121/72 96 08/02/18 09:01 52 L 27 H 102/53 L 80 L 08/02/18 08:59 52 L 41 H 119/69 86 L 08/02/18 08:54 72 42 H 132/77 86 L 08/02/18 08:32 81 27 H 139/66 92 08/02/18 08:11 71 16 91 08/02/18 08:07 72 22 149/74 H 94 08/02/18 07:56 72 20 165/81 H 96 08/02/18 07:49 92 08/02/18 07:48 80 L 08/02/18 07:35 36.6 C 73 20 157/73 H 84 L Code Status & VTE Plan Code Status Full Code - discussed with at bedside. Supervising Physician Co-Signing Physician Notes The patient was seen and examined by me and I agree with the assessment and plan done by Fiona Solis PA-C. The patient suffered a STEMI with acute pulmonary edema this morning. She underwent drug-eluting stent placement in the circumflex and LAD arteries. Cardiac echo is pending. I have discussed the case with the cardiologists involved, Dr. Rick López and Dr. Buchanan. Patient was seen in the ICU and is resting comfortably although she remains on a BiPAP mask. Lungs revealed diffuse bilateral rales. Heart sounds are distant but regular. No significant peripheral edema. Orders were reviewed and signed. She is on scheduled doses of Lasix with Overton catheter in place and is currently diuresing. Blood pressure is stable. Will follow.
[2018-08-02] MEDS ORDERED: FUROSEMIDE 40 MG in SYRINGE 0 ML IV ONE (11:22)
--- NOTE | 2018-08-02 11:24 | Post Anesthesia Assessment ---
Date of Service August 02, 2018 Post Sedation Assessment Vital Signs Temp Pulse Pulse Resp BP BP Pulse Ox 08/02/18 09:15 92 08/02/18 09:10 86 23 109/95 94 08/02/18 09:07 60 35 H 121/72 96 08/02/18 09:01 52 L 27 H 102/53 L 80 L 08/02/18 08:59 52 L 41 H 119/69 86 L 08/02/18 08:54 72 42 H 132/77 86 L 08/02/18 08:32 81 27 H 139/66 92 08/02/18 08:11 71 16 91 08/02/18 08:07 72 22 149/74 H 94 08/02/18 07:56 72 20 165/81 H 96 08/02/18 07:49 92 08/02/18 07:48 80 L 08/02/18 07:35 36.6 C 73 20 157/73 H 84 L Recovery Score Activity: Moves 4 extremities Respiration: Deep Breath/Cough Circulation: +/-20% PreAnes Value Consciousness: Fully Awake Oxygen Saturation: O2 needed for >90% Discharge Sedation Level of Care: Fast Track Phase II Post Sedation Plan On clinical assessment, the patient appears to have tolerated the sedation without complications. Patient is recovering as anticipated. Patient will continue to be monitored by nursing and may be discharged when sedation discharge criteria are met per below protocol. Upon Completions of procedure and additional 15 minutes continue every 5 minute vital signs and the P.A.R. score; then discharge to a Phase I or Fast Track to Phase II per the following guidelines: * Discharge Patient to appropriate Phase II area if PAR is 8 or greater or re turn to pre- procedure baseline. The post - procedure orders will be as directed. * If PAR score is less than 8 or not return to pre-procedure baseline then patient will follow Phase I monitoring till PAR is reached for Phase II. The Phase I may be done in procedure room or may call to secure a Phase I area. * �If naloxone or flumazenil are used for reversal, hold in Phase I for continued monitoring from when last reversal dose was given for a minimum of 60 minutes or longer pending the nurse and/or physician discretion of patient condition before discharge to Phase II.� Please call the Sedation Physician to re-evaluate and complete post-note for discharge to Phase II area. Do NOT discharge from procedure sedation or Phase 1 until post- sedation evaluation note is complete by procedure /sedation MD Sedation Discharge Instructions to be given to the patient at discharge to home.
[2018-08-02] MEDS ORDERED: FUROSEMIDE 40 MG/4 ML VIAL IV SCH (11:30)
--- NOTE | 2018-08-02 11:32 | Cardiac Catheterization ---
Cardiac Cath Procedure Full Procedure Date August 02, 2018 Pre-Procedure Diagnosis Pre-Procedure Diagnosis: STEMI AUC Score AUC Score: 9 Post-Procedure Diagnosis Post-Procedure Diagnosis: Severe CAD, Successful PCI and Elevated Intracardiac Pressures Procedure(s) Performed Procedure(s) Performed: Coronary Angiography, Left Heart Cath and Drug Eluting Stent Credit Review Officer Marquise López MD Estimated Blood Loss Estimated Blood Loss: None Medication(s) Medication(s): Clopidogrel, Fentanyl, Heparin, Lidocaine 1%, Nicardipine, Nitroglycerin and Versed Summary of Findings Indication: Heart alert 77-year-old woman here with nausea vomiting, shortness of breath and eventual chest pain. EKG with dynamic ST changes and right-sided leads with questionable ST elevations. Heart alert activated. Patient with respiratory distress in the ED requiring BiPAP and diuretics. Access: 6 Fr slender right radial artery Catheters: [place], JL 3.5 guide, guide liner Findings: LM -separate ostium LAD -proximal to mid luminal irregularities, mid segment with subtotal occlusion after takeoff of moderate caliber first diagonal. LOIDA I flow in distal LAD Circumflex -dominant, moderate caliber vessel, 90% proximal stenosis with hazy mobile obstruction, 70% stenosis after takeoff of moderate caliber/bifurcating OM1. RCA -small nondominant right with chronic 100% mid segment occlusion. distal vessel fills via right to right collaterals LVEDP -34 -- PCI -- Antithrombotic therapy: Heparin, ticagrelor Procedure: Left main cannulated with JL 3.5 guide Rural Service Engineer 50 wire passed across mid LAD lesion into distal vessel Whisper wire placed across proximal circumflex stenosis and placed into left PDA Mid LAD occlusion dilated with 2.0 balloon Unable to pass stent into mid vessel Guide liner thought necessary, decision to proceed with intervention to circumflex and then return to LAD Proximal/mid circumflex dilated with 2.0 balloon OM wired with bar pilot 50 wire 2.5 x 26 mm [place] drug-eluting stent placed from proximal circumflex across takeoff of OM into mid segment OM wire pulled back out of stent and rewired back into OM through stent struts Circumflex stent postdilated with 2.5 NC balloon Post procedure LOIDA 3 flow, stent well expanded with minimal residual stenosis. Moderate ostial narrowing of OM but LOIDA-3 flow. Wires removed from circumflex system Guide liner placed to proximal LAD and mid LAD re-dilated with 2.0 balloon Mid LAD stented with 2.25 x 18 mm [place] drug-eluting stent Stent postdilated with 2.5 NC balloon Post procedure LOIDA 3 flow, stent well expanded with minimal residual stenosis. During procedure patient maintained on BiPAP and received an additional 40 of IV Lasix due to elevated LV filling pressures. Arterial Closure: TR band Summary: 1. Severe multi-vessel coronary artery disease -Subtotal mid LAD occlusion �90% thrombotic proximal dominant circumflex stenosis 2. Elevated intracardiac filling pressure 3. Successful PCI of mid LAD with single drug-eluting stent (2.25 x 18 mm [place], postdilated with 2.5 NC). 4. Successful PCI of proximal to mid circumflex with single drug-eluting stent (2.5 x 26 mm [place], postdilated with 2.75 NC). 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 Continue dual-antiplatelet therapy for at least 1 year Continue statin, and ASCVD risk factor modification Continue diuresis Consult cardiac Rehab Hemodynamics Rest Ao:: 102/41/71 Final Ao: 100/43/68 LV: 113/34 Recommendations Recommendations: PCI without planned CABG Specimens Specimens: None Radiation Exposure (mGy) 7462 Contrast (mls) 200 Fluids (cc crystalloids) Fluids (cc crystalloids): 170 Drains Drains: none Anesthesia moderate Procedural Complication(s) None Disposition ICU 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 Cardiac Status Clinical evaluation leading to the procedure CAD Presenation: STEMI Anginal Classification: CCS IV Heart Failure: No Cardiogenic Shock within 24 Hours: No Cardiac Arrest within 24 Hours: No Imaging Studies Past 6 Months: No Stress Studies Past 6 Months: No Diagnostic Physicians Name: Marquise López MD Status: Emergency Closure Device Percutaneous Entry Location: Radial Closure Device: Radial Band Recommendations: PCI without planned CABG PCI Indication: Immediate PCI for STEMI Lesion Segment Name: mid LAD Culprit Artery: Yes Stenosis Prior to Rx (%): 100 Chronic Total Occlusion: No IVUS: No FFR: No Pre-Procedure LOIDA Flow: 1 Previously Treated Lesion: No Lesion Complexity: Non-High/Non-C Lesion Length (mm): 15 Thrombus Present: Yes Bifurcation Lesion: No Guidewire Across Lesion: Stenosis Post-Procedure (%): 0 Post-Procedure LOIDA Flow: 3 Devices(s) Deployed: Yes Yes Lesion #2 Segment Name: proximal circumflex Culprit Artery: No Stenosis Prior to Rx (%): 90 Chronic Total Occlusion: No IVUS: No FFR: No Pre-Procedure LOIDA Flow: 3 Previously Treated Lesion: No Lesion Complexity: Non-High/Non-C Lesion Length (mm): 20 Thrombus Present: Yes Bifurcation Lesion: Yes Guidewire Across Lesion: Yes Stenosis Post-Procedure (%): 0 Post-Procedure LOIDA Flow: 3 Devices(s) Deployed: Yes Intraprocedure Events Significant Disection: No Perforation: No
[2018-08-02] MEDS ORDERED: NITROGLYCERIN SL 0.4 MG/TAB TAB SL PRN (11:48)
[2018-08-02] MEDS ORDERED: BUDESONIDE/FORMOTEROL FUMARATE 80/4.5 60 PUFFS/INHALER INH PRN (11:48)
[2018-08-02] MEDS ORDERED: CARBOHYDRATES FOR HYPOGLYCEMIA PO PRN (11:48)
[2018-08-02] MEDS ORDERED: ONDANSETRON INJ 2 MG/ML 2 ML VIAL IV PRN (11:48)
[2018-08-02] MEDS ORDERED: GLUCOSE 10 TABS/TUBE PO PRN (11:48)
[2018-08-02] MEDS ORDERED: GLUCAGON FOR INJ 1 MG VIAL SQ PRN (11:48)
[2018-08-02] MEDS ORDERED: ALBUTEROL HFA 8 GM INHALER INH PRN (11:48)
[2018-08-02] MEDS ORDERED: ACETAMINOPHEN 325 MG TAB PO PRN (11:48)
[2018-08-02] MEDS ORDERED: DEXTROSE 50% 50 ML SYRINGE IV PRN (11:48)
[2018-08-02] MEDS ORDERED: GLUCOSE 40% GEL 15 GM TUBE PO PRN (11:48)
--- NOTE | 2018-08-02 12:49 | Cardiology Consultation ---
Date of Consultation August 02, 2018 Assessment & Plan (1) Acute ST elevation myocardial infarction (STEMI): Patient had multivessel coronary intervention receiving stents of the left circumflex and LAD. (2) CKD (chronic kidney disease), stage III: (3) Diabetes 1.5, managed as type 1: (4) Acute and chronic respiratory failure with hypoxia: The patient most likely has an ischemic cardiomyopathy. Echocardiogram is pending. She will need management of heart failure long-term. History of Present Illness Attending Physician: El Hanna MD History of Present Illness This is a 77-year-old diabetic female with multiple complications from her diabetes including chronic kidney disease and diabetic foot ulcer. The patient was last seen in our practice in 2011. She had previously followed with Anderson Dubose and Dr. Dobbins. Dr. Dobbins had performed a cardiac catheterization in 2008 at which time she was found to have diffuse coronary artery disease which was nonobstructive. The patient presented to the emergency department this morning with a STEMI. She was taken urgently to the cardiac catheterization lab where she received stents in both the LAD and left circumflex arteries. Reviewing the cardiac catheterization films the patient has diffuse diabetic coronary artery disease with a left dominant system. She is now admitted to the ICU. She is on BiPAP and hemodynamically stable. Allergies Allergy/AdvReac Type Severity Reaction Status Date / Time lactase Allergy Intermediate Verified 08/01/18 14:35 [From Lactose Fast Acting Relief] sulfite Allergy Intermediate Hives Verified 07/28/18 14:55 lisinopril Allergy Mild "DID NOT Verified 07/28/18 14:55 AGREE WITH ME" clopidogrel Allergy Unknown DOES NOT Verified 07/28/18 14:55 REMEMBER REACTION Home Medications Home Medications Medication Instructions Recorded Confirmed Type aspirin [Aspirin Low Dose] 81 mg PO PM 12/03/17 08/02/18 History atorvastatin 1 tab PO QPM 12/03/17 08/02/18 History coenzyme Q10 [CoQ-10] 100 mg PO QAM 12/03/17 08/02/18 History fluoxetine 1 tab PO QAM 12/03/17 08/02/18 History insulin glargine 42 unit SUBCUT HS 12/03/17 08/02/18 History isosorbide mononitrate 1 tab PO QAM 12/03/17 08/02/18 History isosorbide mononitrate 30 mg PO QAM 12/03/17 08/02/18 History levothyroxine 1 tab PO QAM 12/03/17 08/02/18 History metoprolol tartrate 1 tab PO BID 12/03/17 08/02/18 History nitroglycerin [Nitrostat] 1 tab SUBLINGUAL Q5M PRN 12/03/17 08/02/18 History acetaminophen [Tylenol Extra 500 mg PO TID 06/30/18 08/02/18 History Strength] albuterol sulfate [ProAir HFA] 2 puff INHALATION Q6H PRN 06/30/18 08/02/18 History amlodipine 5 mg PO QAM 06/30/18 08/02/18 History budesonide-formoterol [Symbicort] 2 puff INHALATION BID PRN 06/30/18 08/02/18 History calcium carbonate-vitamin D3 1 cap PO QPM 06/30/18 08/02/18 History [Calcium 600 + D(3)] cholecalciferol (vitamin D3) 2,000 unit PO QAM 06/30/18 08/02/18 History [Vitamin D3] cyanocobalamin (vitamin B-12) 1,000 mcg PO QAM 06/30/18 08/02/18 History [Vitamin B-12] gabapentin 900 mg PO TID 06/30/18 08/02/18 History insulin aspart U-100 [Novolog 0 unit SUBCUT .SLIDING SCALE 06/30/18 08/02/18 History Flexpen U-100 Insulin] telmisartan 80 mg PO QAM 06/30/18 08/02/18 History insulin aspart (U-100) 100 unit/mL 1 unit SUBCUT QDB 07/12/18 08/02/18 History (3 mL) subcutaneous pen omega [id number]-[id number]-tzf-fish oil 1,000 mg 2 cap PO DAILY cap 07/12/18 08/02/18 History (120 mg-180 mg) capsule ciprofloxacin 500 mg tablet 500 mg PO q12h #28 tab 07/15/18 08/02/18 Rx Patient History Medical History Diabetic toe ulcer Morbid obesity with BMI of 40.0-44.9, adult CKD (chronic kidney disease), stage III Acute pulmonary edema Acute and chronic respiratory failure with hypoxia HLD (hyperlipidemia) Acute ST elevation myocardial infarction (STEMI) Diabetes Hypothyroidism Depression Anemia HX OF COPD (chronic obstructive pulmonary disease) Hypertension Confusion HX OF Lumbar stenosis with neurogenic claudication Ischemic ulcer of toe of left foot (Acute) Type 2 diabetes mellitus with diabetic peripheral angiopathy without gangrene (Acute) Atrial fibrillation 1 EVENT MANY YEARS AGO/"FIXED ITSELF/NO INTERVENTION" Chronic kidney disease STAGE 3 PVD (peripheral vascular disease) with claudication Elevated troponin I level (Resolved) Right humeral fracture (Resolved) Spinal stenosis, other region (Resolved) Acute kidney injury (Ruled-out) Coronary artery disease Hypercholesterolemia Hypothyroidism Surgical History S/P knee surgery (Resolved) LEFT S/P tonsillectomy (Resolved) Family history of reaction to anesthesia MOTHER SLOW TO WAKE UP Fusion of spine LUMBAR FUSION History of anesthesia reaction S/P LUMBAR SURGERY-3 DAYS OF CONFUSION History of cataract surgery RT/LEFT History of colonoscopy History of esophagogastroduodenoscopy (EGD) History of tooth extraction Family History Mother Family history of diabetes mellitus Social History Preferred Language: Turkish Communication Ability: 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 Beliefs That Will Affect Care: None marital status: Current Living Situation: Spouse Current Living Situation Comment: Lives with current occupational status: retired Other Information That Helps Us Care for You: No Feels Safe at Home: Yes Safety Concerns: Feels Safe At This Time Smoking Status: Never smoker Second Hand Exposure: No Hx Alcohol Use: No Hx Substance Use: No Review of Systems Review of Systems: All systems reviewed & are unremarkable except as noted in HPI & below Nothing additional Physical Exam Physical Exam: General: The patient is on BiPAP Head: normocephalic, no masses, lesions, tenderness or abnormalities Eyes: conjunctiva are pink and non-injected, sclera clear Neck: supple, no adenopathy, no bruits, normal jugular venous pulse, no hepatojugular reflux Chest: normal shape and normal respiratory effort Lungs: clear to auscultation and percussion Cardiac Exam: - regular rate & rhythm, no murmurs gallops or rubs - normal S1, normal S2 Pulses: 2(+) throughout Abdomen: abdomen soft, non-tender, no abnormal masses and no hepatosplenomegaly Musculoskeletal: no gait disturbance, no joint inflammation, no deforming arthr itis Extremities: no edema and no cyanosis Neuro: grossly normal exam Results & Data Vital Signs (Past 12 Hours) Vital Signs Temp Pulse Pulse Resp BP BP Pulse Ox 08/02/18 12:31 74 15 136/88 94 08/02/18 12:30 73 23 08/02/18 12:20 75 18 95 08/02/18 12:16 74 20 140/65 93 08/02/18 12:10 77 19 93 08/02/18 12:01 77 22 144/75 H 94 08/02/18 12:00 78 21 89 L 08/02/18 11:50 76 19 93 08/02/18 11:46 76 20 155/46 H 94 08/02/18 11:40 75 19 94 08/02/18 11:31 78 19 130/64 93 08/02/18 11:30 36.3 C L 78 75 26 H 140/65 94 08/02/18 11:25 80 20 136/81 86 L 08/02/18 11:21 79 24 92 08/02/18 11:19 36.3 C L 79 23 126/108 H 90 08/02/18 09:15 92 08/02/18 09:10 86 23 109/95 94 08/02/18 09:07 60 35 H 121/72 96 08/02/18 09:01 52 L 27 H 102/53 L 80 L 08/02/18 08:59 52 L 41 H 119/69 86 L 08/02/18 08:54 72 42 H 132/77 86 L 08/02/18 08:32 81 27 H 139/66 92 08/02/18 08:11 71 16 91 08/02/18 08:07 72 22 149/74 H 94 08/02/18 07:56 72 20 165/81 H 96 08/02/18 07:49 92 08/02/18 07:48 80 L 08/02/18 07:35 36.6 C 73 20 157/73 H 84 L Laboratory Results Laboratory Results - last 24 hr 08/02/18 08/02/18 08/02/18 07:53 07:53 07:53 WBC 14.32 H RBC 4.17 L Hgb 13.0 Hct 37.4 MCV 89.7 MCH 31.2 MCHC 34.8 RDW Std Deviation 48.5 H RDW Coeff of Liz 15.0 H Plt Count 326 MPV 11.0 H Immature Gran % (Auto) 0.3 Neut % (Auto) 85.2 Lymph % (Auto) 8.0 [place] % (Auto) 5.6 Eos % (Auto) 0.6 Baso % (Auto) 0.3 Immature Gran # (Auto) 0.04 H Neut # (Auto) 12.21 H Lymph # (Auto) 1.14 L [place] # (Auto) 0.80 H Eos # (Auto) 0.08 Baso # (Auto) 0.05 PT 10.6 INR 1.0 APTT 24.2 PTT Ratio 0.9 Sodium 139 Potassium 4.3 Chloride 106 Carbon Dioxide 22 Anion Gap 11.0 BUN 33 H Creatinine 1.52 H Est Cr Clr Drug Dosing Not Reportable Est GFR ( Amer) 37.9 Est GFR (Non-Af Amer) 32.7 BUN/Creatinine Ratio 21.5 H Glucose 212 H POC Glucose Calcium 10.2 H Total Bilirubin 0.7 AST 39 H ALT 19 Alkaline Phosphatase 77 Total Creatine Kinase 257 H CK-MB (CK-2) 12.4 H CK/CKMB % Calc 4.8 H Troponin I 1.720 H* NT-Pro-B Natriuret Pep 4202 H Total Protein 8.3 H Albumin 3.6 Globulin 4.7 H Albumin/Globulin Ratio 0.8 L Lipase 132 Urine Color Urine Appearance Urine pH Ur Specific [place] Urine Protein Urine Glucose (UA) Urine Ketones Urine Blood Urine Nitrite Urine Bilirubin Urine Urobilinogen Ur Leukocyte Esterase Urine WBC (Auto) Urine RBC (Auto) U Hyaline Cast (Auto) U Epithel Cells (Auto) Urine Bacteria (Auto) Nasal Screen MRSA (PCR) 08/02/18 08/02/18 08/02/18 09:05 11:46 Unknown WBC RBC Hgb Hct MCV MCH MCHC RDW Std Deviation RDW Coeff of Liz Plt Count MPV Immature Gran % (Auto) Neut % (Auto) Lymph % (Auto) [place] % (Auto) Eos % (Auto) Baso % (Auto) Immature Gran # (Auto) Neut # (Auto) Lymph # (Auto) [place] # (Auto) Eos # (Auto) Baso # (Auto) PT INR APTT PTT Ratio Sodium Potassium Chloride Carbon Dioxide Anion Gap BUN Creatinine Est Cr Clr Drug Dosing Est GFR ( Amer) Est GFR (Non-Af Amer) BUN/Creatinine Ratio Glucose POC Glucose 246 H Calcium Total Bilirubin AST ALT Alkaline Phosphatase Total Creatine Kinase CK-MB (CK-2) CK/CKMB % Calc Troponin I NT-Pro-B Natriuret Pep Total Protein Albumin Globulin Albumin/Globulin Ratio Lipase Urine Color Yellow Urine Appearance Clear Urine pH 5.0 Ur Specific [place] 1.031 H Urine Protein 2+ H Urine Glucose (UA) 2+ H Urine Ketones Negative Urine Blood Negative Urine Nitrite Negative Urine Bilirubin Negative Urine Urobilinogen Negative Ur Leukocyte Esterase Negative Urine WBC (Auto) 0 Urine RBC (Auto) 0-4 U Hyaline Cast (Auto) 0 U Epithel Cells (Auto) 20-30 H Urine Bacteria (Auto) Negative Nasal Screen MRSA (PCR) Pending Medications Administered Current Inpatient Medications Acetaminophen (Tylenol) 650 mg PO Q4H PRN PRN Reason: Mild Pain (scale 1-3) Stop: 09/01/18 11:43 Acetaminophen (Tylenol) 500 mg PO TID [facility] Stop: 09/01/18 13:59 Amlodipine Besylate (Norvasc) 5 mg PO QAM [facility] Stop: 09/02/18 08:59 Aspirin (Ecotrin Ectab) 81 mg PO QAM [facility] Stop: 09/02/18 08:59 Aspirin (Ecotrin Ectab) 81 mg PO PM [facility] Stop: 09/01/18 20:59 Atorvastatin Calcium (Lipitor) 20 mg PO QPM [facility] Stop: 09/01/18 20:59 Budesonide/Formoterol Fumarate (Symbicort 80mcg/4.5mcg) 2 puffs INH BID PRN PRN Reason: Shortness Of Breath Or Wheezing Stop: 09/01/18 11:47 Ciprofloxacin (Cipro) 500 mg PO q12h [facility] Stop: 08/12/18 12:14 Cyanocobalamin (Vitamin B-12) 1,000 mcg PO QAM [facility] Stop: 09/02/18 08:59 Dextrose (Dextrose 50%) 25 - 50 ml IV UD PRN; Protocol PRN Reason: Hypoglycemia Protocol Stop: 09/01/18 11:47 Fluoxetine HCl (Prozac) 20 mg PO QAM [facility] Stop: 09/02/18 08:59 Gabapentin (Neurontin) 900 mg PO TID [facility] Stop: 09/01/18 13:59 Glucagon (Glucagen) 1 mg SQ UD PRN; Protocol PRN Reason: Hypoglycemia Protocol Stop: 09/01/18 11:47 Glucose (Glucose 40%) 15 - 30 gm PO UD PRN; Protocol PRN Reason: Hypoglycemia Protocol Stop: 09/01/18 11:47 Glucose (Dex4 Glucose) 4 - 8 tabs PO UD PRN; Protocol PRN Reason: Hypoglycemia Protocol Stop: 09/01/18 11:47 Furosemide 40 mg/ Syringe 4 mls @ 4 mls/min IV BID [facility] Stop: 09/01/18 20:59 Insulin Aspart (Novolog Flexpen) 0 units SC ACHS [facility] Stop: 09/01/18 11:47 Insulin Glargine (Lantus Per Unit) 25 units SQ HS [facility] Stop: 09/01/18 20:59 Isosorbide Mononitrate (Imdur Extended Rel) 30 mg PO QAM [facility] Stop: 09/02/18 08:59 Isosorbide Mononitrate (Imdur Extended Rel) 60 mg PO QAM [facility] Stop: 09/02/18 08:59 Levothyroxine Sodium (Synthroid) 112 mcg PO DAILYBB [facility] Stop: 09/02/18 06:29 Metoprolol Tartrate (Lopressor) 25 mg PO BID [facility] Stop: 09/01/18 20:59 Miscellaneous (Carbohydrates For Hypoglycemia) 15 - 30 gm PO UD PRN PRN Reason: Hypoglycemia Treatment Stop: 09/01/18 11:47 Multivitamins/Minerals (Caltrate Plus) 1 tab PO QPM [facility] Stop: 09/01/18 20:59 Nitroglycerin (Nitrostat) 0.4 mg SL Q5M PRN PRN Reason: Chest Pain Stop: 09/01/18 11:47 Non-Formulary Medication (Coenzyme Q10 [Coq-10]) 100 mg PO QAM [facility] Stop: 09/02/18 08:59 Non-Formulary Medication (Albuterol Sulfate) 2 puffs INH Q6H PRN PRN Reason: Shortness Of Breath Or Wheezing Non-Formulary Medication (Cholecalciferol (Vitamin D3) [Vitamin D3]) 2,000 units PO QAM [facility] Stop: 09/02/18 08:59 Non-Formulary Medication ([place] 3-Ixl-Iwl-Fish Oil [Fish Oil]) 2 cap PO DAILY [facility] Stop: 09/02/18 08:59 Ondansetron HCl (Zofran) 4 mg IV Q4H PRN PRN Reason: Nausea And Vomiting Stop: 09/01/18 11:47 Telmisartan (Micardis) 80 mg PO QAM [facility] Stop: 09/02/18 08:59 Ticagrelor (Brilinta) 90 mg PO BID [facility] Stop: 09/01/18 20:59
--- NOTE | 2018-08-02 13:30 | Critical Care Consultation ---
Date of Consultation August 02, 2018 Assessment & Plan (1) Diabetic toe ulcer: Reason Critically Ill:77 year old female with acute right sided ST segment elevation myocardial infarction status post catheterization with stent placement in LAD and circumflex. NEURO - CAM ICU: NEGATIVE No altered mental status No confusion, neurologically intact Patient at high risk for delirium, will continue to monitor CARDIAC/VASCULAR - Right sided STEMI s/p cardiac catheterization: Multivessel disease, 2 stents placed; One in LAD and one in left circumflex Medical management at this time. Continue ticagrelor and aspirin, beta blanche, norvasc, atorvastatin, metoprolol, and telmisartan Nitroglycerin as needed. EKG: NSR at [address] segment elevations in lead I. QTc 456 Will continue to monitor on telemetry RESPIRATORY - Hypoxemic Respiratory failure Likely pulmonary edema secondary to acute NE Currently on lasix will re evaluate clinically and with repeat Chest XR Currently on BiPAP oxygenating well, will try to transition down to nasal cannula Patient not feeling short of breath. GI/NUTRITION - Diabetic Diet RENAL/LYTES - No significant electrolyte derangements. Chronic renal disease, creatinine 1.52 today near her baseline, will continue to assess renal function after cath. - No issues at this time. ENDO - Diabetic, on insulin 25 units qhs Sliding scale with checks HEME - Stable H&H ID - Osteomyelitis from toe ulcer Currently on cipro in anticipation for debridement with Dr. Jerome Will continue ciprofloxacin LINES/IV ACCESS - PIVs x2 DVT PROPHYLAXIS - SCDs (2) Morbid obesity with BMI of 40.0-44.9, adult: (3) CKD (chronic kidney disease), stage III: (4) Acute pulmonary edema: (5) Acute and chronic respiratory failure with hypoxia: (6) HLD (hyperlipidemia): (7) Acute ST elevation myocardial infarction (STEMI): (8) Diabetes 1.5, managed as type 1: (9) DVT prophylaxis: (10) Hypertension: Supervising Physician Co-Signing Physician Notes Dr. Lopez was resident physician during care of patient. I separately evaluated patient for hsu portions of the history and the exam. I was present during the critical portion of medical decision making, and I discussed the case with the resident. I generally agree with the findings and plan. History of Present Illness Attending Physician: El Hanna MD History of Present Illness Kylah Pink is a 77 year old woman with a past medical history significant for DM II (Some note of DM 1.5 managed as 1 but patient tells me type II diabetes), Chronic Renal Failure, bilateral lower limb PAD, and toe ulceration with osteomyelitis, HTN who presented today with acute ST elevated myocardial infarction. She presented to the ED after two days of "gas discomfort" and then eventually chest discomfort and nausea and vomiting this morning. In the ED her EKG showed evidence of acute myocardial infarction with ST elevations on right side. She was taken to the catheterization lab where she was found to have severe coronary artery disease and a stent was placed in the left anterior descending and left Circumflex arteries. She was then sent to the ICU on Bipap and is currently asymptomatic. She tells me she is having no further chest discomfort, abdominal pain/discomfort, nausea/vomiting, fevers, chills, cough, feeling of shortness of breath (despite being on bipap), confusion, headache, ulcer pain, new rashes, or any other concerns besides really wanting to start eating/drinking. Allergies Allergy/AdvReac Type Severity Reaction Status Date / Time lactase Allergy Intermediate Verified 08/01/18 14:35 [From Lactose Fast Acting Relief] sulfite Allergy Intermediate Hives Verified 07/28/18 14:55 lisinopril Allergy Mild "DID NOT Verified 07/28/18 14:55 AGREE WITH ME" clopidogrel Allergy Unknown DOES NOT Verified 07/28/18 14:55 REMEMBER REACTION Home Medications Home Medications Medication Instructions Recorded Confirmed Type aspirin [Aspirin Low Dose] 81 mg PO PM 12/03/17 08/02/18 History atorvastatin 1 tab PO QPM 12/03/17 08/02/18 History coenzyme Q10 [CoQ-10] 100 mg PO QAM 12/03/17 08/02/18 History fluoxetine 1 tab PO QAM 12/03/17 08/02/18 History insulin glargine 42 unit SUBCUT HS 12/03/17 08/02/18 History isosorbide mononitrate 1 tab PO QAM 12/03/17 08/02/18 History isosorbide mononitrate 30 mg PO QAM 12/03/17 08/02/18 History levothyroxine 1 tab PO QAM 12/03/17 08/02/18 History metoprolol tartrate 1 tab PO BID 12/03/17 08/02/18 History nitroglycerin [Nitrostat] 1 tab SUBLINGUAL Q5M PRN 12/03/17 08/02/18 History acetaminophen [Tylenol Extra 500 mg PO TID 06/30/18 08/02/18 History Strength] albuterol sulfate [ProAir HFA] 2 puff INHALATION Q6H PRN 06/30/18 08/02/18 History amlodipine 5 mg PO QAM 06/30/18 08/02/18 History budesonide-formoterol [Symbicort] 2 puff INHALATION BID PRN 06/30/18 08/02/18 History calcium carbonate-vitamin D3 1 cap PO QPM 06/30/18 08/02/18 History [Calcium 600 + D(3)] cholecalciferol (vitamin D3) 2,000 unit PO QAM 06/30/18 08/02/18 History [Vitamin D3] cyanocobalamin (vitamin B-12) 1,000 mcg PO QAM 06/30/18 08/02/18 History [Vitamin B-12] gabapentin 900 mg PO TID 06/30/18 08/02/18 History insulin aspart U-100 [Novolog 0 unit SUBCUT .SLIDING SCALE 06/30/18 08/02/18 History Flexpen U-100 Insulin] telmisartan 80 mg PO QAM 06/30/18 08/02/18 History insulin aspart (U-100) 100 unit/mL 1 unit SUBCUT QDB 07/12/18 08/02/18 History (3 mL) subcutaneous pen omega 0-aey-fez-fish oil 1,000 mg 2 cap PO DAILY cap 07/12/18 08/02/18 History (120 mg-180 mg) capsule ciprofloxacin 500 mg tablet 500 mg PO q12h #28 tab 07/15/18 08/02/18 Rx Patient History Medical History Diabetic toe ulcer Morbid obesity with BMI of 40.0-44.9, adult CKD (chronic kidney disease), stage III Acute pulmonary edema Acute and chronic respiratory failure with hypoxia HLD (hyperlipidemia) Acute ST elevation myocardial infarction (STEMI) (Acute) Diabetes Hypothyroidism Depression Anemia HX OF COPD (chronic obstructive pulmonary disease) Hypertension Confusion HX OF Lumbar stenosis with neurogenic claudication Ischemic ulcer of toe of left foot (Acute) Type 2 diabetes mellitus with diabetic peripheral angiopathy without gangrene (Acute) Atrial fibrillation 1 EVENT MANY YEARS AGO/"FIXED ITSELF/NO INTERVENTION" Chronic kidney disease STAGE 3 PVD (peripheral vascular disease) with claudication Elevated troponin I level (Resolved) Right humeral fracture (Resolved) Spinal stenosis, other region (Resolved) Acute kidney injury (Ruled-out) Coronary artery disease Hypercholesterolemia Hypothyroidism Surgical History S/P knee surgery (Resolved) LEFT S/P tonsillectomy (Resolved) Family history of reaction to anesthesia MOTHER SLOW TO WAKE UP Fusion of spine LUMBAR FUSION History of anesthesia reaction S/P LUMBAR SURGERY-3 DAYS OF CONFUSION History of cataract surgery RT/LEFT History of colonoscopy History of esophagogastroduodenoscopy (EGD) History of tooth extraction Family History Mother Family history of diabetes mellitus Social History Preferred Language: Nepali Communication Ability: Effective Thread Inspector Required: No Beliefs That Will Affect Care: None marital status: Current Living Situation: Spouse Current Living Situation Comment: Lives with current occupational status: retired Other Information That Helps Us Care for You: No Feels Safe at Home: Yes Safety Concerns: Feels Safe At This Time Smoking Status: Never smoker Do You Dip or Chew Tobacco: No Second Hand Exposure: No Tobacco Cessation Education Requested by Patient: No Hx Alcohol Use: No Hx Substance Use: No Review of Systems Review of Systems: All systems reviewed & are unremarkable except as noted in HPI & below Physical Exam Constitutional: + obese, cooperative and comfortable (As comfortable as she can be with bipap on); no acute distress and no altered mental status Eyes: bilateral brown eyes with prominent arcus senilis that almost makes them appear like very dilated blue eyes from a distance. Pupils are equal and appropriately reactive to light. Extra ocular movements intact. ENMT: General appearance of Ears nose mouth and throat normal, no abnormalities detected, BIPAP mask in place. Respiratory: Chest expansion normal bilaterally, patient not showing increased work of breathing. On auscultation inspiratory crackles are heard at bilateral lung bases, perhaps slightly more decreased lung sounds at right base. Expiratory wheeze globally. Cardiovascular: Rate/Rhythm: regular rate and regular rhythm Heart Sounds: no click, no gallop, no murmur and no cardiac rub Distal pulses intact, bilateral pedal pulses present in setting of peripheral arterial disease. 2 cm size wound on left 4th toe dorsolateral aspect. Not actively bleeding, somewhat tender. Sensation to light touch is intact bilaterally. Gastrointestinal (Abdomen): Percussion/Palpation: abdomen soft; abdomen nontender Abdomen soft nontender, no organomegaly or masses palpated on shallow or deep palpation. Abdomen is markedly obese. Skin: Peripheral IV line in place, Air bandage on right wrist over radial artery which was accessed for catheterization. No evidence of hematoma or bleed currently. Results & Data Vital Signs (Past 12 Hours) Vital Signs Temp Pulse Pulse Resp BP BP Pulse Ox 08/02/18 12:50 75 20 76 L 08/02/18 12:46 76 19 131/61 90 08/02/18 12:40 73 15 95 08/02/18 12:32 74 20 94 08/02/18 12:31 74 15 136/88 94 08/02/18 12:30 73 23 08/02/18 12:20 75 18 95 08/02/18 12:16 74 20 140/65 93 08/02/18 12:10 77 19 93 08/02/18 12:01 77 22 144/75 H 94 08/02/18 12:00 78 21 89 L 08/02/18 11:50 76 19 93 08/02/18 11:46 76 20 155/46 H 94 08/02/18 11:40 75 19 94 08/02/18 11:31 78 19 130/64 93 08/02/18 11:30 36.3 C L 78 75 26 H 140/65 94 08/02/18 11:25 80 20 136/81 86 L 08/02/18 11:21 79 24 92 08/02/18 11:19 36.3 C L 79 23 126/108 H 90 08/02/18 09:15 92 08/02/18 09:10 86 23 109/95 94 08/02/18 09:07 60 35 H 121/72 96 08/02/18 09:01 52 L 27 H 102/53 L 80 L 08/02/18 08:59 52 L 41 H 119/69 86 L 08/02/18 08:54 72 42 H 132/77 86 L 08/02/18 08:32 81 27 H 139/66 92 08/02/18 08:11 71 16 91 08/02/18 08:07 72 22 149/74 H 94 08/02/18 07:56 72 20 165/81 H 96 08/02/18 07:49 92 08/02/18 07:48 80 L 08/02/18 07:35 36.6 C 73 20 157/73 H 84 L Resident Activity Tracking Resident Involvement: Resident Care Provided Care Provided: Adult Hospital Medicine (1) Acute ST elevation myocardial infarction (STEMI) Involved coronary artery: unspecified coronary artery Qualified Code(s): I21.3 - ST elevation (STEMI) myocardial infarction of unspecified site
--- NOTE | 2018-08-02 13:41 | Emergency Department Note ---
Entered by Tess Lucero acting as a scribe for History of Present Illness General Chief complaint: Dehydration Stated complaint: DEHYDRATION - THROWING Time Seen by Provider: 08/02/18 07:45 Source: patient and family Mode of arrival: ambulatory Limitations: no limitations History of Present Illness Provider complaint: vomiting Onset (ago): hour(s) (last night) Location: abdomen Pain Consistency: + other (persistent) Quality: + other (vomiting) Associated symptoms: + denies other symptoms (abd pain) and + other (diarrhea) The patient is a 77 year old female with a past medical history of diabetes who presents to the ER with complaints of persistent vomiting that began last night. The patient�s at bedside reports that the patient recently began a course of Cipro for an upcoming surgery. He states that she did have episodes of diarrhea last night as well. The patient denies any abdominal pain. She denies using nasal cannula oxygen at home. She also denies being on any blood thinners. Per , the patient is on a daily low-dose aspirin but did discontinue it for the time being secondary to her upcoming surgery. Home Medications Home Medications Medication Instructions Recorded Confirmed Type aspirin [Aspirin Low Dose] 81 mg PO PM 12/03/17 08/02/18 History atorvastatin 1 tab PO QPM 12/03/17 08/02/18 History coenzyme Q10 [CoQ-10] 100 mg PO QAM 12/03/17 08/02/18 History fluoxetine 1 tab PO QAM 12/03/17 08/02/18 History insulin glargine 42 unit SUBCUT HS 12/03/17 08/02/18 History isosorbide mononitrate 1 tab PO QAM 12/03/17 08/02/18 History isosorbide mononitrate 30 mg PO QAM 12/03/17 08/02/18 History levothyroxine 1 tab PO QAM 12/03/17 08/02/18 History metoprolol tartrate 1 tab PO BID 12/03/17 08/02/18 History nitroglycerin [Nitrostat] 1 tab SUBLINGUAL Q5M PRN 12/03/17 08/02/18 History acetaminophen [Tylenol Extra 500 mg PO TID 06/30/18 08/02/18 History Strength] albuterol sulfate [ProAir HFA] 2 puff INHALATION Q6H PRN 06/30/18 08/02/18 Histo ry amlodipine 5 mg PO QAM 06/30/18 08/02/18 History budesonide-formoterol [Symbicort] 2 puff INHALATION BID PRN 06/30/18 08/02/18 History calcium carbonate-vitamin D3 1 cap PO QPM 06/30/18 08/02/18 History [Calcium 600 + D(3)] cholecalciferol (vitamin D3) 2,000 unit PO QAM 06/30/18 08/02/18 History [Vitamin D3] cyanocobalamin (vitamin B-12) 1,000 mcg PO QAM 06/30/18 08/02/18 History [Vitamin B-12] gabapentin 900 mg PO TID 06/30/18 08/02/18 History insulin aspart U-100 [Novolog 0 unit SUBCUT .SLIDING SCALE 06/30/18 08/02/18 History Flexpen U-100 Insulin] telmisartan 80 mg PO QAM 06/30/18 08/02/18 History insulin aspart (U-100) 100 unit/mL 1 unit SUBCUT QDB 07/12/18 08/02/18 History (3 mL) subcutaneous pen omega 7-grm-hnm-fish oil 1,000 mg 2 cap PO DAILY cap 07/12/18 08/02/18 History (120 mg-180 mg) capsule ciprofloxacin 500 mg tablet 500 mg PO q12h #28 tab 07/15/18 08/02/18 Rx Allergies Allergy/AdvReac Type Severity Reaction Status Date / Time lactase Allergy Intermediate Verified 08/01/18 14:35 [From Lactose Fast Acting Relief] sulfite Allergy Intermediate Hives Verified 07/28/18 14:55 lisinopril Allergy Mild "DID NOT Verified 07/28/18 14:55 AGREE WITH ME" clopidogrel Allergy Unknown DOES NOT Verified 07/28/18 14:55 REMEMBER REACTION Past Med/Surg History Medical History Diabetic toe ulcer Morbid obesity with BMI of 40.0-44.9, adult CKD (chronic kidney disease), stage III Acute pulmonary edema Acute and chronic respiratory failure with hypoxia HLD (hyperlipidemia) Acute ST elevation myocardial infarction (STEMI) Diabetes Hypothyroidism Depression Anemia HX OF COPD (chronic obstructive pulmonary disease) Hypertension Confusion HX OF Lumbar stenosis with neurogenic claudication Ischemic ulcer of toe of left foot (Acute) Type 2 diabetes mellitus with diabetic peripheral angiopathy without gangrene (Acute) Atrial fibrillation 1 EVENT MANY YEARS AGO/"FIXED ITSELF/NO INTERVENTION" Chronic kidney disease STAGE 3 PVD (peripheral vascular disease) with claudication Elevated troponin I level (Resolved) Right humeral fracture (Resolved) Spinal stenosis, other region (Resolved) Acute kidney injury (Ruled-out) Coronary artery disease Hypercholesterolemia Hypothyroidism Surgical History S/P knee surgery (Resolved) LEFT S/P tonsillectomy (Resolved) Family history of reaction to anesthesia MOTHER SLOW TO WAKE UP Fusion of spine LUMBAR FUSION History of anesthesia reaction S/P LUMBAR SURGERY-3 DAYS OF CONFUSION History of cataract surgery RT/LEFT History of colonoscopy History of esophagogastroduodenoscopy (EGD) History of tooth extraction Family History Mother Family history of diabetes mellitus Social History Preferred Language: Tristanian Communication Ability: Effective Appraiser [place] Required: No Beliefs That Will Affect Care: None marital status: Current Living Situation: Spouse Current Living Situation Comment: Lives with current occupational status: retired Other Information That Helps Us Care for You: No Feels Safe at Home: Yes Safety Concerns: Feels Safe At This Time Smoking Status: Never smoker Second Hand Exposure: No Hx Alcohol Use: No Hx Substance Use: No Review of Systems See HPI for pertinent positives & negatives. and A total of 10 systems reviewed and were otherwise negative Physical Exam Vital Signs Vital Signs - 24 hr 08/02/18 07:35 08/02/18 07:48 08/02/18 07:49 Temperature 36.6 C Temperature Source Oral Sepsis Recent Fever Within 48 Hours No Sepsis New/Unexplained Change in Mental Status No Sepsis Action Taken by Nursing No Action Required Pulse Rate 73 Pulse Rate [Apical] Pulse Rate from SpO2 Sensor Respiratory Rate 20 Respiratory Effort / Characteristics Respiratory Depth Respiratory Pattern Blood Pressure 157/73 H Blood Pressure [Left Arm] Blood Pressure Mean 101 Blood Pressure Mean [Left Arm] Blood Pressure Position Sitting Pulse Oximetry 84 L 80 L 92 Oxygen Delivery Method Room Air Room Air Nasal Cannula Oxygen Flow Rate 4 Fraction of Inspired Oxygen 08/02/18 07:56 08/02/18 08:07 08/02/18 08:11 Temperature Temperature Source Sepsis Recent Fever Within 48 Hours Sepsis New/Unexplained Change in Mental Status Sepsis Action Taken by Nursing Pulse Rate 72 Pulse Rate [Apical] 72 71 Pulse Rate from SpO2 Sensor 72 Respiratory Rate 20 22 16 Respiratory Effort / Characteristics Spontaneous Non-Labored Spontaneous Respiratory Depth Respiratory Pattern Blood Pressure 149/74 H Blood Pressure [Left Arm] 165/81 H Blood Pressure Mean 99 Blood Pressure Mean [Left Arm] 109 Blood Pressure Position Pulse Oximetry 96 94 91 Oxygen Delivery Method Nasal Cannula Nasal Cannula Nasal Cannula Oxygen Flow Rate 4 4 4 Fraction of Inspired Oxygen 08/02/18 08:32 08/02/18 08:54 08/02/18 08:59 Temperature Temperature Source Sepsis Recent Fever Within 48 Hours Sepsis New/Unexplained Change in Mental Status Sepsis Action Taken by Nursing Pulse Rate 81 72 52 L Pulse Rate [Apical] Pulse Rate from SpO2 Sensor 82 71 46 L Respiratory Rate 27 H 42 H 41 H Respiratory Effort / Characteristics Respiratory Depth Respiratory Pattern Blood Pressure 139/66 132/77 119/69 Blood Pressure [Left Arm] Blood Pressure Mean 90 95 85 Blood Pressure Mean [Left Arm] Blood Pressure Position Pulse Oximetry 92 86 L 86 L Oxygen Delivery Method Nasal Cannula Oxymask Oxymask Oxygen Flow Rate 4 15 15 Fraction of Inspired Oxygen 08/02/18 09:01 08/02/18 09:07 08/02/18 09:10 Temperature Temperature Source Sepsis Recent Fever Within 48 Hours Sepsis New/Unexplained Change in Mental Status Sepsis Action Taken by Nursing Pulse Rate 52 L 60 86 Pulse Rate [Apical] Pulse Rate from SpO2 Sensor 55 L 86 Respiratory Rate 27 H 35 H 23 Respiratory Effort / Characteristics Spontaneous Short of Breath Respiratory Depth Normal Respiratory Pattern Tachypnea Blood Pressure 102/53 L 121/72 109/95 Blood Pressure [Left Arm] Blood Pressure Mean 69 88 99 Blood Pressure Mean [Left Arm] Blood Pressure Position Pulse Oximetry 80 L 96 94 Oxygen Delivery Method Oxymask BiPAP BiPAP Oxygen Flow Rate 15 Fraction of Inspired Oxygen 100 08/02/18 09:15 Temperature Temperature Source Sepsis Recent Fever Within 48 Hours Sepsis New/Unexplained Change in Mental Status Sepsis Action Taken by Nursing Pulse Rate Pulse Rate [Apical] Pulse Rate from SpO2 Sensor Respiratory Rate Respiratory Effort / Characteristics Respiratory Depth Respiratory Pattern Blood Pressure Blood Pressure [Left Arm] Blood Pressure Mean Blood Pressure Mean [Left Arm] Blood Pressure Position Pulse Oximetry 92 Oxygen Delivery Method BiPAP Oxygen Flow Rate Fraction of Inspired Oxygen GENERAL: Awake, alert, well-appearing, uncontrollably moaning. HENT: Normocephalic, atraumatic. Oropharynx unremarkable. Appears dry EYES: Normal conjunctiva. Sclera non-icteric. NECK: Supple. No nuchal rigidity. FROM. No JVD. RESPIRATORY: Clear to auscultation. CARDIAC: Regular rate, normal rhythm. Extremities warm and well perfused. Pulses equal. ABDOMEN: Soft, non-distended. No tenderness to palpation. No rebound or guarding. No masses. RECTAL: Deferred. MUSCULOSKELETAL: Chest examination reveals no tenderness. The back is symmetrical on inspection without obvious abnormality. There is no CVA tend erness to palpation. No joint edema. LOWER EXTREMITIES: Calves are equal size bilaterally and non-tender. No edema. No discoloration. NEURO: Normal sensorium. No sensory or motor deficits noted. SKIN: No rash or jaundice noted. Course 0747: Past medical records reviewed. The patient was evaluated in room A2. A complete history and physical examination was performed. 0854: I spoke with Dr. Dewayne Philip Cardiology. We will be calling a heart alert. 0855: Repeat EKG obtained. A heart alert was called. 0858: Dr. Hanna - Cardiology is at bedside evaluating the patient. 0910: The patient will be taken to the technology lab teacher. 1044: I discussed the patient�s case with Dr. Gonzalez � [facility] Hospitalist. He will evaluate the patient for further management. 1052: I reviewed the patient's case with Dr. Bear - [facility] Instrument Sterilizer. Administered Medications Discontinued Medications Albuterol (Ventolin 0.083% 2.5mg/3ml) 2.5 mg NEB NOW STA Stop: 08/02/18 07:52 Last Admin: 08/02/18 08:10 Dose: 2.5 mg Documented by: [id number] Dopamine HCl/Dextrose (Dopamine / D5w) Confirm Administered Dose 400 mg IV .STK- MED ONE Stop: 08/02/18 09:07 Last Admin: 08/02/18 09:25 Dose: Not Given Documented by: [id number] Eptifibatide (Integrilin (Corporate Safety Director Use Only)) Confirm Administered Dose 40 mg .ROUTE .STK-MED ONE Stop: 08/02/18 09:40 Last Admin: 08/02/18 11:50 Dose: Not Given Documented by: [id number] Eptifibatide (Integrilin (Corporate Safety Director Use Only)) Confirm Administered Dose 75 mg .ROUTE .STK-MED ONE Stop: 08/02/18 09:40 Last Admin: 08/02/18 11:50 Dose: Not Given Documented by: [id number] Fentanyl Citrate (Fentanyl Citrate) Confirm Administered Dose 100 mcg .ROUTE .STK-MED ONE Stop: 08/02/18 10:49 Last Admin: 08/02/18 11:50 Dose: Not Given Documented by: [id number] Furosemide (Lasix) 40 mg IV NOW STA Stop: 08/02/18 08:50 Last Admin: 08/02/18 08:59 Dose: 40 mg Documented by: [id number] Furosemide (Lasix) 40 mg IV 1130 KURTIS Stop: 08/02/18 12:00 Last Admin: 08/02/18 11:52 Dose: Not Given Documented by: [id number] Heparin Sodium (Porcine) (Heparin Iv Bolus (Corporate Safety Director Use Only)) Confirm Administered Dose 10,000 units .ROUTE .STK-MED ONE Stop: 08/02/18 10:48 Last Admin: 08/02/18 11:50 Dose: Not Given Documented by: [id number] Heparin Sodium/Sodium Chloride (Heparin/Nss 1000 Unit/500ml Flush Bag) Confirm Administered Dose 3,000 units IV .STK-MED ONE Stop: 08/02/18 10:49 Last Admin: 08/02/18 11:50 Dose: Not Given Documented by: [id number] Hydromorphone HCl (Dilaudid) 0.5 mg IV Q15M PRN PRN Reason: Pain Stop: 08/16/18 08:50 Last Admin: 08/02/18 08:59 Dose: 0.5 mg Documented by: [id number] Sodium Chloride (Nss) 500 mls @ 999 mls/hr IV .Q31M KURTIS Stop: 08/02/18 08:30 Last Infusion: 08/02/18 08:42 Dose: 0 mls/hr Documented by: [id number] Admin: 08/02/18 08:09 Dose: 999 mls/hr Documented by: [id number] Ioversol (Optiray 320 125ml) 119 ml IV ONCE PRN PRN Reason: Interaction Checking Stop: 08/06/18 08:43 Last Admin: 08/02/18 08:44 Dose: 119 ml Documented by: [id number] Metoclopramide HCl (Reglan) 10 mg IV NOW STA Stop: 08/02/18 08:52 Last Admin: 08/02/18 08:59 Dose: 10 mg Documented by: [id number] Midazolam HCl (Versed) Confirm Administered Dose 2 mg .ROUTE .STK-MED ONE Stop: 08/02/18 10:49 Last Admin: 08/02/18 11:51 Dose: Not Given Documented by: [id number] Miscellaneous () Confirm Administered Dose 1 ea .ROUTE .STK-MED ONE Stop: 08/02/18 09:09 Last Admin: 08/02/18 09:25 Dose: Not Given Documented by: [id number] Miscellaneous () Confirm Administered Dose 1 ea .ROUTE .[employer]-MED ONE Stop: 08/02/18 09:31 Last Admin: 08/02/18 11:50 Dose: Not Given Documented by: [id number] Nicardipine HCl (Cardene) Confirm Administered Dose 25 mg .ROUTE .[employer]-MED ONE Stop: 08/02/18 10:48 Last Admin: 08/02/18 11:50 Dose: Not Given Documented by: [id number] Nitroglycerin (Nitro-Bid 2%) 1 inch EXT NOW STA Stop: 08/02/18 08:50 Last Admin: 08/02/18 08:59 Dose: 1 inch Documented by: [id number] Nitroglycerin/Dextrose (Nitroglycerin/D5w 100 Mcg/Ml 20ml Syringe) Confirm Administered Dose 2,000 mcg .ROUTE .[employer]-MED ONE Stop: 08/02/18 10:49 Last Admin: 08/02/18 11:51 Dose: Not Given Documented by: [id number] Norepinephrine Bitartrate (Levophed (Corporate Safety Director Use Only)) Confirm Administered Dose 8 mg .ROUTE .[employer]-MED ONE Stop: 08/02/18 09:33 Last Admin: 08/02/18 11:50 Dose: Not Given Documented by: [id number] Ondansetron HCl (Zofran) 4 mg IV NOW STA Stop: 08/02/18 07:52 Last Admin: 08/02/18 08:09 Dose: 4 mg Documented by: [id number] Ticagrelor (Brilinta) Confirm Administered Dose 180 mg PO .STK-MED ONE Stop: 08/02/18 10:59 Last Admin: 08/02/18 11:52 Dose: Not Given Documented by: [id number] Medical Decision Making Differential Diagnosis Differential diagnosis includes: gastroenteritis, food borne illness, infections, appendicitis, diverticulitis, inflammatory bowel disease, obstr uction, GI bleed, biliary pathology, as well as others were entertained. Medical Records Attestation: I reviewed the patient's medical records. Home Medications Current Medication List: was personally reviewed by me Laboratory Data Attestation: I reviewed the patient's lab results. Result diagrams: 08/02/18 07:53 08/02/18 07:53 Lab Results 08/02/18 08/02/18 08/02/18 Range/Units 07:53 07:53 07:53 WBC 14.32 H (4.8-10.8) K/uL RBC 4.17 L (4.2-5.4) M/uL Hgb 13.0 (12.0-16.0) g/dL Hct 37.4 (37-47) % MCV 89.7 (80-100) fL MCH 31.2 (25-34) pg MCHC 34.8 (32-36) g/dL RDW Std Deviation 48.5 H (36.4-46.3) fL RDW Coeff of Liz 15.0 H (11.5-14.5) % Plt Count 326 (130-400) K/uL MPV 11.0 H (7.4-10.4) fL Immature Gran % (Auto) 0.3 % Neut % (Auto) 85.2 % Lymph % (Auto) 8.0 % Norman % (Auto) 5.6 % Eos % (Auto) 0.6 % Baso % (Auto) 0.3 % Immature Gran # (Auto) 0.04 H (0.00-0.02) K/uL Neut # (Auto) 12.21 H (1.4-6.5) K/uL Lymph # (Auto) 1.14 L (1.2-3.4) K/uL Norman # (Auto) 0.80 H (0.11-0.59) K/uL Eos # (Auto) 0.08 (0-0.5) K/uL Baso # (Auto) 0.05 (0-0.2) K/uL PT 10.6 (9.0-12.0) Seconds INR 1.0 (0.9-1.1) APTT 24.2 (21.0-31.0) Seconds PTT Ratio 0.9 Sodium 139 (136-145) mmol/L Potassium 4.3 (3.5-5.1) mmol/L Chloride 106 (98-107) mmol/L Carbon Dioxide 22 (21-32) mmol/L Anion Gap 11.0 (3-11) BUN 33 H (7-18) mg/dl Creatinine 1.52 H (0.6-1.2) mg/dl Est Cr Clr Drug Dosing Not Reportable Est GFR ( Amer) 37.9 Est GFR (Non-Af Amer) 32.7 BUN/Creatinine Ratio 21.5 H (10-20) Glucose 212 H (70-99) mg/dl Calcium 10.2 H (8.5-10.1) mg/dl Total Bilirubin 0.7 (0.2-1) mg/dl AST 39 H (15-37) U/L ALT 19 (12-78) U/L Alkaline Phosphatase 77 (45-117) U/L Total Creatine Kinase 257 H (26-192) U/L CK-MB (CK-2) 12.4 H (0.5-3.6) ng/ml CK/CKMB % Calc 4.8 H (0-3.0) Troponin I 1.720 H* (0-0.045) ng/ml NT-Pro-B Natriuret Pep 4202 H (0-1800) pg/ml Total Protein 8.3 H (6.4-8.2) gm/dl Albumin 3.6 (3.4-5.0) gm/dl Globulin 4.7 H (2.5-4.0) gm/dl Albumin/Globulin Ratio 0.8 L (0.9-2) Lipase 132 (73-393) U/L Urine Color Urine Appearance (Clear) Urine pH (4.5-7.5) Ur Specific Letcher (1.000-1.030) Urine Protein (Negative) Urine Glucose (UA) (Negative) Urine Ketones (Negative) Urine Blood (Negative) Urine Nitrite (Negative) Urine Bilirubin (Negative) Urine Urobilinogen (Negative) Ur Leukocyte Esterase (Negative) Urine WBC (Auto) (0-5) /hpf Urine RBC (Auto) (0-4) /hpf U Hyaline Cast (Auto) (0-5) /lpf U Epithel Cells (Auto) (0-5) /lpf Urine Bacteria (Auto) (Negative) 08/02/18 Range/Units 09:05 WBC (4.8-10.8) K/uL RBC (4.2-5.4) M/uL Hgb (12.0-16.0) g/dL Hct (37-47) % MCV (80-100) fL MCH (25-34) pg MCHC (32-36) g/dL RDW Std Deviation (36.4-46.3) fL RDW Coeff of Liz (11.5-14.5) % Plt Count (130-400) K/uL MPV (7.4-10.4) fL Immature Gran % (Auto) % Neut % (Auto) % Lymph % (Auto) % Norman % (Auto) % Eos % (Auto) % Baso % (Auto) % Immature Gran # (Auto) (0.00-0.02) K/uL Neut # (Auto) (1.4-6.5) K/uL Lymph # (Auto) (1.2-3.4) K/uL Norman # (Auto) (0.11-0.59) K/uL Eos # (Auto) (0-0.5) K/uL Baso # (Auto) (0-0.2) K/uL PT (9.0-12.0) Seconds INR (0.9-1.1) APTT (21.0-31.0) Seconds PTT Ratio Sodium (136-145) mmol/L Potassium (3.5-5.1) mmol/L Chloride (98-107) mmol/L Carbon Dioxide (21-32) mmol/L Anion Gap (3-11) BUN (7-18) mg/dl Creatinine (0.6-1.2) mg/dl Est Cr Clr Drug Dosing Est GFR ( Amer) Est GFR (Non-Af Amer) BUN/Creatinine Ratio (10-20) Glucose (70-99) mg/dl Calcium (8.5-10.1) mg/dl Total Bilirubin (0.2-1) mg/dl AST (15-37) U/L ALT (12-78) U/L Alkaline Phosphatase (45-117) U/L Total Creatine Kinase (26-192) U/L CK-MB (CK-2) (0.5-3.6) ng/ml CK/CKMB % Calc (0-3.0) Troponin I (0-0.045) ng/ml NT-Pro-B Natriuret Pep (0-1800) pg/ml Total Protein (6.4-8.2) gm/dl Albumin (3.4-5.0) gm/dl Globulin (2.5-4.0) gm/dl Albumin/Globulin Ratio (0.9-2) Lipase (73-393) U/L Urine Color Yellow Urine Appearance Clear (Clear) Urine pH 5.0 (4.5-7.5) Ur Specific Letcher 1.031 H (1.000-1.030) Urine Protein 2+ H (Negative) Urine Glucose (UA) 2+ H (Negative) Urine Ketones Negative (Negative) Urine Blood Negative (Negative) Urine Nitrite Negative (Negative) Urine Bilirubin Negative (Negative) Urine Urobilinogen Negative (Negative) Ur Leukocyte Esterase Negative (Negative) Urine WBC (Auto) 0 (0-5) /hpf Urine RBC (Auto) 0-4 (0-4) /hpf U Hyaline Cast (Auto) 0 (0-5) /lpf U Epithel Cells (Auto) 20-30 H (0-5) /lpf Urine Bacteria (Auto) Negative (Negative) Imaging Data Radiologist's Impression: Radiology results as stated below per my review and the radiologist's interpretation: SINGLE VIEW CHEST CLINICAL HISTORY: Atypical chest pain. Dyspnea. FINDINGS: An AP, portable, upright chest radiograph is compared to study dated 08/01/2018. The examination is degraded by portable technique and apical lordotic positioning. The heart is enlarged and there is atherosclerotic calcification of the thoracic aorta. There is pulmonary vascular congestion and interstitial edema. This is new from yesterday. There are small pleural effusions with bib asilar consolidation. No pneumothorax is seen. The skeletal structures are osteopenic. The bony thorax is grossly intact. Degenerative change is noted throughout the thoracic spine. IMPRESSION: 1. Cardiomegaly with evidence of congestive failure and interstitial edema. This is new from yesterday. 2. Small pleural effusions. Electronically signed by: Neil Gonzales M.D. 08/02/2018 8:27 AM ABDOMEN AND PELVIS CT WITH IV CONTRAST HISTORY: Acute oxygen with nausea, vomiting and shortness of breath Pt c/o hypoxia TECHNIQUE: Multiaxial CT images of the abdomen and pelvis were performed following the use of intravenous contrast. A dose lowering technique was utilized adhering to the principles of ALARA. COMPARISON STUDY: CTA chest of same day, CTA 02/03/2016 FINDINGS: Motion degraded exam. Small bilateral pleural effusions. Intralobular septal thickening of the lung bases with patchy bilateral groundglass densities. Additionally, there are scattered solid pulmonary nodules noted measuring up to 6 mm. No pneumatosis or pneumoperitoneum. The imaged inferior cardiac chambers are unremarkable with coronary arterial calcifications noted. The liver, gallbladder, spleen, pancreas and adrenal glands are unremarkable. Multifocal cortical scarring noted about the bilateral kidneys. Mild nonspecific bilateral perinephric stranding. No renal or ureteral calculi identified. Ureters and urinary bladder appear within normal limits. Multiple calcified uterine fibroids. Adnexa are unremarkable. Extensive mixed plaque formation about the aorta and branch vessels without aneurysm. 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 Additional high-grade stenosis is noted at the distal portion of the left common femoral artery. High-grade stenosis at the origin of the celiac trunk appears to progress from comparison. No adenopathy. IVC appears unremarkable. Small hiatal hernia. No bowel obstruction. No definite bowel wall thickening, ascites or mesenteric inflammation. The appendix appears surgically absent. Soft tissues are unremarkable. Demineralized appearance of the bones. Prior laminectomy with posterior interbody tommy and screw fusion at L4-S1. Discectomy changes at L4-L5. No evidence of hardware fracture. Mild lucency surrounds the bilateral S1 screws suggestive of loosening. IMPRESSION: 1. Small bilateral pleural effusions with bilateral intralobular septal thickening and groundglass densities is suggestive of pulmonary edema and/or infectious or inflammatory pneumonitis. Please refer to chest CT of same day for further details. 2. No bowel obstruction or focal bowel wall thickening. 3. Small hiatal hernia. 4. Fibroid uterus. 5. 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 6. Postoperative changes of the lumbar spine as above with suggested loosening about the bilateral S1 pedicle screws. 7. Additional findings as above. Electronically signed by: Zack Garcia M.D. 08/02/2018 9:[address] angio chest PE protocol CLINICAL HISTORY: 77 years-old Female presenting with nausea and vomiting, shortness of breath, clinical concern for pulmonary embolus. TECHNIQUE: Multidetector CT angiography of the chest was performed after adminis tration of intravenous contrast. 3-D volumetric and/or maximum intensity projection (MIP) images were subsequently reconstructed for review. IV contrast: 119 mL of Optiray 320. One or more dose lowering techniques were used consistent with the principles of ALARA (as low as reasonably achievable), including automatic exposure control, mA or kV adjustment to individual patient size, and/or use of iterative reconstruction. COMPARISON: Chest x-ray performed earlier the same day. CT DOSE (mGy.cm): The estimated cumulative dose is 3600.35. FINDINGS: User Interface Developer topogram: Orthopedic hardware. Calcified fibroids. Pulmonary vasculature: The study is suboptimal for the assessment of the pulmonary vascular tree secondary to respiratory motion artifact. Apparent limited subsegmental filling defects in the right lower lobe and to a lesser extent the left lower lobe are felt to most likely relate to artifact including possible mixing artifact. No convincing evidence of pulmonary embolus. Main pulmonary artery is not enlarged. No flattening of the interventricular septum. No intracardiac filling defect. No reflux of contrast into the hepatic veins. Remaining chest: Soft tissues: Thyroid either atrophic, incompletely included within the [id number], or absent. Several prominent mediastinal lymph nodes. And index node in the prevascular region measures 7 mm in short axis. Enlarged pretracheal node measuring 18 mm in short axis has a normal fatty hilum and may represent a conglomerate of several benign nodes. Enlarged subcarinal lymph nodes. Prominent bilateral hilar lymph nodes also noted. Atherosclerosis of the aorta. Top normal heart size. Coronary artery and aortic valve calcification. Small bilateral pleural effusions. No pericardial effusion. Trace hiatal hernia. Lungs and airways: No pneumothorax. Central airways patent. Pulmonary arteries enlarged relative to adjacent bronchi. Pronounced diffuse smooth interlobular septal thickening. Patchy central predominant groundglass opacity throughout all 5 lobes. Musculoskeletal: Degenerative changes of the spine. Significant abnormality of the right humerus likely posttraumatic in etiology. A chronic fracture plane may be visible. IMPRESSION: 1. Allowing for suboptimal image quality, no evidence of pulmonary embolus. 2. Cardiomegaly with volume overload, congestive change, and moderate pulmonary edema. 3. Small bilateral pleural effusions. 4. Mediastinal and hilar lymphadenopathy may be reactive related to lymphatic congestive change. 5. Chronic fracture deformity of the right humerus suggested. Electronically signed by: Inder Celestin M.D. 08/02/2018 9:[address] SCAN OF THE BRAIN WITHOUT IV CONTRAST CLINICAL HISTORY: Emesis. Nausea. COMPARISON STUDY: CT of the brain dated 06/30/2018. TECHNIQUE: Unenhanced axial CT scan of the brain is performed from the vertex to the skull base. A dose lowering technique was utilized adhering to the principles of ALARA. The patient was scanned twice due to motion artifact. CT DOSE: 3600.35 mGy.cm FINDINGS: Brain parenchyma: There are age-related involutional changes noting mild subcortical and periventricular microangiopathic change. There is no hemorrhage, mass effect, or evidence of acute territorial ischemia by CT criteria. Small chronic lacunar infarcts are identified within both thalami. Castro-white matter differentiation is preserved. No extra-axial fluid collection is seen. Ventricles, sulci, cisterns: Prominent secondary to involutional change. Intracranial vasculature: There is atherosclerotic calcification of the cavernous carotid and vertebral arteries. Calvarium: Unremarkable. Sinuses and mastoids: The visualized paranasal sinuses are clear. The mastoid air cells are well pneumatized. Orbits: The bony orbits are grossly intact. There are bilateral ocular lens implants. IMPRESSION: There is no hemorrhage, mass effect, or evidence of acute territorial ischemia by CT criteria. Electronically signed by: Neil Gonzales M.D. 08/02/2018 9:13 AM ECG Data Attestation: I personally reviewed and interpreted this ECG as follows: Indication: SOB/dyspnea Rate (beats per minute): 77 Rhythm: normal sinus Findings: + T-wave inversion (Inferior) and + ST elevation (in aVR) Additional Comments: REPEAT EKG: normal sinus rhythm, 78 bpm, ST elevations in aVR, T-wave inversions in lateral leads. POSTERIOR EKG: normal sinus rhythm, rate of 78 bpm, ST elevations in the lateral leads with reciprocal depression. Blood Pressure Blood Pressure Findings: Normal blood pressure Blood Pressure Disposition: did not require urgent referral MDM Narrative This is a 77-year-old female who presents to the emergency department complai idalia of nausea. The patient moans however states that she is in no pain. She believes she is nauseated and vomiting from Cipro she was placed on. Patient was sent for CAT scan of the abdomen pelvis chest as well as head. Her EKG does not out right show a STEMI however the patient's troponin is elevated. Upon arrival back from CAT scan the patient then began complaining of chest pain. At this point an EKG was repeated due to the elevation in aVR a reverse EKG was obtained which was concerning for a STEMI. At this point the patient was hypoxic hypotensive and tachycardic. Based on these findings she was immediately placed on BiPAP. She appears to have congestive heart failure and therefore was given Lasix and a [place] catheter was placed. She was discussed with cardiology who took the patient to the Corporate Safety Director. Patient was also given Nitropaste and dopamine was briefly started however the patient improved while on BiPAP and the dopamine was stopped. Impression & Plan Acute ST elevation myocardial infarction (STEMI) Critical Care Time I have personally spent 90 minutes of critical care time in the direct management of this patient. This includes bedside care, interpretation of diagnostic studies, and testing, discussion with consultants, patient, and family members, and other required patient management activities. These 90 minutes are in excess of all separately billable procedures. Critical Care Time: Yes Total Critical Care Time: 90 Discharge Plan Visit Data *Final* Discharge Date/Time: 08/02/18 09:15 Chief Complaint: Dehydration Stated Complaint: DEHYDRATION - THROWING ED Provider: Dereck Santos Discharge Problem: Acute ST elevation myocardial infarction (STEMI) Patient Disposition: Being Evaluated by Hospitalist Discharge Instructions Interventions: ED Discharge Assessment Last Done: 08/02/18 09:15 Discharge Problem: Acute ST elevation myocardial infarction (STEMI) Qualifiers: Involved coronary artery: unspecified coronary artery Qualified Code(s): I21.3 - ST elevation (STEMI) myocardial infarction of unspecified site The scribe's documentation has been prepared under my direction and personally reviewed by me in its entirety. I confirm that the note above accurately reflects all work, treatment, procedures, and medical decision making performed by me.
[2018-08-02] MEDS: INSULIN ASPART 100 UNITS/ML 3 ML PEN SC SCH ×3 (14:23→20:32)
[2018-08-02] MEDS: GABAPENTIN 300 MG CAP PO SCH ×2 (14:24→20:31)
[2018-08-02] MEDS: CIPROFLOXACIN 500 MG TAB PO SCH (14:24)
[2018-08-02] MEDS ORDERED: CALCIUM CHLORIDE 10% 10 ML SYR IV ONE (14:25)
[2018-08-02] MEDS ORDERED: DEXTROSE 50% 50 ML SYRINGE IV ONE (14:25)
[2018-08-02] MEDS ORDERED: SODIUM CHLORIDE 0.9% 10ML FLUSH IV ONE (14:25)
[2018-08-02] MEDS ORDERED: SODIUM BICARB 8.4% INJ 50 MEQ/50 ML SYR IV ONE (14:25)
[2018-08-02] MEDS: ACETAMINOPHEN 500 MG TAB PO SCH ×2 (14:26→20:31)
[2018-08-02 15:30] LABS: Creatine Kinase MB 230.4 ng/ml (0.5-3.6)
[2018-08-02] MEDS: FUROSEMIDE 40 MG in SYRINGE 0 ML IV SCH (17:11)
[2018-08-02] MEDS: TICAGRELOR 90 MG TAB PO SCH (20:31)
[2018-08-02] MEDS: CALCIUM 600MG + VIT D 400 IU TAB PO SCH (20:31)
[2018-08-02] MEDS: POTASSIUM CHLORIDE 10 MEQ TABCR PO SCH (20:31)
[2018-08-02] MEDS: METOPROLOL TARTRATE 25 MG TAB PO SCH (20:31)
[2018-08-02] MEDS: INSULIN GLARGINE SOLOSTAR 100 UNITS/ML 3 ML PEN SQ SCH (20:32)
[2018-08-02] MEDS ORDERED: ASPIRIN 81 MG ECTAB PO SCH (21:00)
[2018-08-02] MEDS ORDERED: ATORVASTATIN 20 MG TAB PO SCH (21:00)
[2018-08-02] MEDS ORDERED: LANTUS PER UNIT CHARGE SQ SCH (21:00)
[2018-08-03] MEDS: CIPROFLOXACIN 500 MG TAB PO SCH (01:20)
[2018-08-03 05:15] LABS: Basophils # (auto) 0.02 K/uL (0-0.2); Basophils % (auto) 0.1 %; Eosinophils # (auto) 0.06 K/uL (0-0.5); Eosinophils % (auto) 0.4 %; Hematocrit (blood only) 32.3 % (37-47); Immature Granulocytes # (auto) 0.02 K/uL (0.00-0.02); Immature Granulocytes % (auto) 0.1 %; Lymphocytes # (auto) 1.21 K/uL (1.2-3.4); Lymphocytes % (auto) 8.8 %; Mean Corpuscular Hgb Conc 34.1 g/dL (32-36); Mean Platelet Volume 11.1 fL (7.4-10.4); Monocytes # (auto) 1.22 K/uL (0.11-0.59); Monocytes % (auto) 8.9 %; Neutrophils # (auto) 11.15 K/uL (1.4-6.5); Neutrophils % (auto) 81.7 %; Platelet Count 263 K/uL (130-400); RDW Coefficient of Variation 15.3 % (11.5-14.5); RDW Standard Deviation 49.7 fL (36.4-46.3); Red Blood Count 3.59 M/uL (4.2-5.4); White Blood Count 13.68 K/uL (4.8-10.8)
[2018-08-03 05:17] LABS: INR 1.1 (0.9-1.1); Prothrombin Time 11.1 Seconds (9.0-12.0)
[2018-08-03 05:39] LABS: BUN Creatinine Ratio 18.1 (10-20); Calcium 9.1 mg/dl (8.5-10.1); Creatinine Clr Calc Pharmacy 21.7 ml/min; Est GFR (African American) 20.1; Est GFR (Non-African American) 17.3; Potassium 4.4 mmol/L (3.5-5.1)
--- NOTE | 2018-08-03 05:40 | Critical Care Progress Note ---
Date of Service August 03, 2018 Assessment & Plan (1) Diabetic toe ulcer: Reason Critically Ill:77 year old female with acute right sided ST segment elevation myocardial infarction status post catheterization with stent placement in LAD and circumflex. NEURO - [facility] ICU: NEGATIVE No altered mental status No confusion, neurologically intact Patient at high risk for delirium, will continue to monitor Gabapentin: Normal dosing 900 3 times daily will decrease to 100mg 3 times daily in the setting of acute kidney injury CARDIAC/VASCULAR - Right sided STEMI s/p cardiac catheterization: Multivessel disease, 2 stents placed; One in LAD and one in left circumflex Medical management at this time. Continue ticagrelor and aspirin, beta blanche, norvasc, atorvastatin, metoprolol, and telmisartan Nitroglycerin as needed. EKG: NSR at [address] segment elevations in lead I. QTc 456 Will continue to monitor on telemetry RESPIRATORY - Hypoxemic Respiratory failure: Acute -New mitral regurgitation Discussed with cardiology, holding Lasix in the setting of BEL and reasonable oxygenation and poor cardiac function Currently on BiPAP oxygenating well, will try to transition down to nasal cannula GI/NUTRITION - Diabetic Diet RENAL/LYTES - BEL: Suspect multifactorial, hypotension, contrast induced nephropathy - Accurate I's and O's ENDO - Diabetic, on insulin 25 units qhs Sliding scale with checks HEME - Baseline anemia ID - Osteomyelitis from toe ulcer Currently on cipro in anticipation for debridement with Dr. Jerome Consult ID given significant cardiac dysfunction, renal function and ciprofloxacin use -Would strongly consider alternative agent, in discussion with Dr. Michael patient will likely benefit from LifeVest to avoid QT prolonging medications LINES/IV ACCESS - PIVs x2 DVT PROPHYLAXIS - SCDs (2) NSVT (nonsustained ventricular tachycardia): (3) Osteomyelitis of left foot: (4) CKD (chronic kidney disease), stage III: (5) Morbid obesity with BMI of 40.0-44.9, adult: (6) Acute pulmonary edema: (7) HLD (hyperlipidemia): (8) Acute ST elevation myocardial infarction (STEMI): (9) Diabetes 1.5, managed as type 1: (10) Hypoxia: (11) Diabetes: (12) Confusion: Supervising Physician Co-Signing Physician Notes (1) Diabetic toe ulcer: Reason Critically Ill:77 year old female with acute right sided ST segment elevation myocardial infarction status post catheterization with stent placement in LAD and circumflex. NEURO - [facility] ICU: NEGATIVE No altered mental status No confusion, neurologically intact Patient at high risk for delirium, will continue to monitor Gabapentin: Normal dosing 900 3 times daily will decrease to 100mg 3 times daily in the setting of acute kidney injury CARDIAC/VASCULAR - Right sided STEMI s/p cardiac catheterization: Multivessel disease, 2 stents placed; One in LAD and one in left circumflex Medical management at this time. Continue ticagrelor and aspirin, beta blanche, norvasc, atorvastatin, metoprolol, and telmisartan Nitroglycerin as needed. EKG: NSR at [address] segment elevations in lead I. QTc 456 Will continue to monitor on telemetry RESPIRATORY - Hypoxemic Respiratory failure: Acute -New mitral regurgitation Discussed with cardiology, holding Lasix in the setting of BEL and reasonable oxygenation and poor cardiac function Currently on BiPAP oxygenating well, will try to transition down to nasal cannula GI/NUTRITION - Diabetic Diet RENAL/LYTES - BEL: Suspect multifactorial, hypotension, contrast induced nephropathy - Accurate I's and O's ENDO - Diabetic, on insulin 25 units qhs Sliding scale with checks HEME - Baseline anemia ID - Osteomyelitis from toe ulcer Currently on cipro in anticipation for debridement with Dr. Jerome Consult ID given significant cardiac dysfunction, renal function and ciprofloxacin use -Would strongly consider alternative agent, in discussion with Dr. Michael patient will likely benefit from LifeVest to avoid QT prolonging medications LINES/IV ACCESS - PIVs x2 DVT PROPHYLAXIS - SCDs (2) Morbid obesity with BMI of 40.0-44.9, adult: (3) CKD (chronic kidney disease), stage III: (4) Acute pulmonary edema: (5) Acute and chronic respiratory failure with hypoxia: (6) HLD (hyperlipidemia): (7) Acute ST elevation myocardial infarction (STEMI): (8) Diabetes 1.5, managed as type 1: (9) DVT prophylaxis: (10) Hypertension: Dr. Lopez was resident physician during care of patient. I separately evaluated patient for hsu portions of the history and the exam. I was present during the critical portion of medical decision making, and I discussed the case with the resident. I generally agree with the findings and plan. Patient was discussed on multidisciplinary rounds I have personally spent 35 minutes of critical care time in the direct management of this patient. This is a life/limb threatening event. This includes time spent evaluating patient, direct bedside care, chart review, placing orders, interpretation of diagnostic studies, discussion with consultants, patient, and/or family members regarding treatment decisions, as well as other required patient management activities. This time is exclusive of all separately billable procedures, and teaching time and separate from and in addition to any other critical care service time. Subjective Ms Dawson tells me she feels well today, she denies any shortness of breath or chest pain today. Review of Systems Constitutional: no fever, no chills and no weakness Respiratory: no cough and no dyspnea Cardiovascular: no chest pain, no dyspnea, no palpitations, no lightheadedness and no syncope Gastrointestinal: no abdominal pain, no nausea and no vomiting Physical Exam Constitutional: + obese, cooperative and comfortable Eyes: PERRL, conjunctivae normal, anicteric sclerae Respiratory: Auscultation: + crackles (faint crackles bilateral lung bases) Cardiovascular: Rate/Rhythm: regular rate and regular rhythm Heart Sounds: + murmur (holosystolic murmur) Gastrointestinal (Abdomen): normal bowel sounds, soft, nontender, no hepatosplenomegaly Skin: no rashes, warm and dry Results & Data Vital Signs (Past 12 Hours) Vital Signs Temp Pulse Pulse Resp BP BP Pulse Ox 08/03/18 05:00 69 24 118/45 L 93 08/03/18 04:00 36.7 C 66 22 124/50 L 94 08/03/18 03:00 66 17 115/51 L 92 08/03/18 02:00 65 24 117/46 L 94 08/03/18 01:00 64 18 109/56 L 94 08/03/18 00:00 36.7 C 63 69 23 92/50 L 94 08/02/18 23:00 62 17 85/57 L 94 08/02/18 22:00 68 18 99/39 L 94 08/02/18 21:00 75 22 138/88 93 08/02/18 20:00 36.7 C 69 67 17 131/59 L 95 08/02/18 19:00 65 19 116/45 L 96 08/02/18 18:01 71 20 76 L 08/02/18 18:00 72 24 171/155 H 74 L Critical Care Time Critical Care Time: Yes Total Critical Care Time: 35 Resident Activity Tracking Resident Involvement: Resident Care Provided Care Provided: Adult Hospital Medicine (1) Acute ST elevation myocardial infarction (STEMI) Involved coronary artery: unspecified coronary artery Qualified Code(s): I21.3 - ST elevation (STEMI) myocardial infarction of unspecified site
[2018-08-03 05:44] LABS: Albumin Globulin Ratio 0.8 (0.9-2); Bilirubin,Total 0.9 mg/dl (0.2-1); Phosphorus 5.1 mg/dl (2.5-4.9)
[2018-08-03] MEDS: LEVOTHYROXINE SODIUM 112 MCG TABLET PO SCH (06:13)
[2018-08-03] MEDS: ISOSORBIDE MONO EXTENDED REL 30 MG TABCR PO SCH (07:18)
[2018-08-03] MEDS: TICAGRELOR 90 MG TAB PO SCH ×2 (07:18→21:03)
[2018-08-03] MEDS: ISOSORBIDE MONO EXTENDED REL 60 MG TABCR PO SCH (07:18)
[2018-08-03] MEDS: ASPIRIN 81 MG ECTAB PO SCH (07:18)
[2018-08-03] MEDS: POTASSIUM CHLORIDE 10 MEQ TABCR PO SCH (07:19)
[2018-08-03] MEDS: FUROSEMIDE 40 MG in SYRINGE 0 ML IV SCH (07:19)
[2018-08-03] MEDS: METOPROLOL TARTRATE 25 MG TAB PO SCH (07:19)
[2018-08-03] MEDS: FLUOXETINE HCL 20 MG CAP PO SCH (07:20)
[2018-08-03] MEDS: GABAPENTIN 300 MG CAP PO SCH (07:20)
[2018-08-03] MEDS: ACETAMINOPHEN 500 MG TAB PO SCH (07:22)
[2018-08-03] MEDS: INSULIN ASPART 100 UNITS/ML 3 ML PEN SC SCH ×4 (08:07→21:17)
[2018-08-03] MEDS ORDERED: ALBUMIN 5% 250 ML IV ONE (08:45)
[2018-08-03] MEDS ORDERED: NON-FORMULARY MEDICATION (Coenzyme Q10 [Coq-10] 100 MG) PO SCH (09:00)
[2018-08-03] MEDS ORDERED: CYANOCOBALAMIN 500 MCG TABLET (VITAMIN B-12) PO SCH (09:00)
[2018-08-03] MEDS ORDERED: OMEGA-3 (PURIFIED FISH OIL) 1 GM CAP PO SCH (09:00)
[2018-08-03] MEDS ORDERED: TELMISARTAN 40 MG TAB PO SCH (09:00)
[2018-08-03] MEDS ORDERED: AMLODIPINE BESYLATE 5 MG TAB PO SCH (09:00)
[2018-08-03] MEDS ORDERED: CHOLECALCIFEROL 1,000 UNITS TAB PO SCH (09:00)
--- NOTE | 2018-08-03 09:05 | XRay Report ---
XR chest 1V portable HISTORY: hypoxemic respiratory failure COMPARISON: Chest 08/02/2018. FINDINGS: No pneumothorax. The heart remains enlarged. There is mild interstitial pulmonary edema whi ch has improved. Trace bilateral pleural effusions. No new focal lung consolidations. Old, healed rig ht humeral neck fracture. IMPRESSION: Mild interstitial pulmonary edema and trace bilateral pleural effusions. This has improved compared t o the prior study. Electronically signed by: Tirso Adams M.D. 08/03/2018 9:03 AM
--- NOTE | 2018-08-03 10:14 | Cardiology Progress Note ---
Date of Service August 03, 2018 Assessment & Plan (1) Acute ST elevation myocardial infarction (STEMI): (2) NSVT (nonsustained ventricular tachycardia): (3) Acute on chronic kidney failure: (4) Mitral regurgitation: Mrs. Dawson is a 77-year-old diabetic female who presented with an inferior, inferolateral ST segment elevation myocardial infarction complicated by congestive heart failure, new severe left ventricular systolic dysfunction compared to prior echocardiogram in 2017. Echocardiogram images performed post PCI yesterday 08/02/2018: Per my personal impression, the posterior wall is thin and akinetic consistent with the patient's chronic right coronary artery occlusion with [id number] collaterals. There is severe hypokinesis to akinesis of the mid and apical anteroseptal segments, hypokinesis of the inferoseptum, hypokinesis of the anterior wall, and apical akinesis. The left ventricular ejection fraction is severely reduced in the range of 25 to 30% per my impression. Severe mitral regurgitation is present, with an eccentric mitral regurgitation jet that impinges on the interatrial septum, and is likely consistent with posterior mitral valve leaflet dysfunction related to papillary muscle dysfunction from lateral PA. Emergent cardiac catheterization revealed chronic right coronary artery occlusion with [id number] collaterals, as well as high-grade LAD and circumflex stenosis for which she underwent complex PCI with drug-eluting stents to the mid LAD and proximal to mid circumflex coronary arteries. The patient is been found to have a significant increase in her troponin I, which peaked overnight last night to 120 and is down to 118 NG per mL this mo rning. Plan for repeat tomorrow. She is chest pain-free. Her post PCI EKG performed yesterday revealed resolution of the inferior and lateral ST segment elevation. We will repeat EKG today and again tomorrow. Patient has baseline stage III chronic kidney disease, with acute kidney injury, likely due to low cardiac output, perhaps a component of contrast-induced nephropathy. Creatinine of 1.52 at baseline and on presentation yesterday increased to 2.57 at present. Medications: Continue dual anti-platelet therapy with aspirin and ticagrelor. Given left ventricular systolic dysfunction, clinical presentation with congestive heart failure, and nonsustained ventricular tachycardia, will transition from metoprolol tartrate to metoprolol succinate 25 mg twice daily. Hold the telmisartan given acute kidney injury. Hold furosemide given acute kidney injury. Volume status appears stable at present. Can reassess need for ongoing furosemide therapy clinically based on her progress. Hold amlodipine given LV systolic dysfunction. Relative low blood pressure. Favor beta-blanche and oral nitrates for now. Continue statin therapy, cholesterol is at goal. Consult discharge planning regarding planning for LifeVest wearable defibrillator for discharge. Will need close echocardiographic follow-up of ejection fraction and mitral regurgitation as an outpatient. I am optimistic that post revascularization perhaps the mitral regurgitation will improve as it perhaps was in part due to ischemia in the region of her anterolateral papillary muscle. DVT prophylaxis: Start subcutaneous heparin 5000 units subcu every 12. Avoid Lovenox given acute kidney injury . Globin stable. Follow with CBC for platelet count and hemoglobin tomorrow. Subjective Chief complaint: Follow-up, myocardial infarction Subjective: Patient seen in general cardiology follow-up today. Initial consultation had been performed by Dr. Buchanan yesterday. The patient rested well overnight in the intensive care unit. Sinus rhythm noted on telemetry. She did have a 9 beat samira of nonsustained ventricular tachycardia with rate of 114 bpm observe this morning, 08/03/2018 at 9:17 AM. No other significant arrhythmias. Her blood pressures been stable post procedure yesterday with systolic blood pressure in the range of 120s to the 130s. This morning after receiving her morning medications systolic blood pressure is been in the 87 to low 90 mmHg range. Review of Systems Review of Systems: All systems reviewed & are unremarkable except as noted in HPI & below Physical Exam Physical Exam: General: no acute distress and stated age Eyes: conjunctiva are pink and non-injected, sclera clear Neck: normal jugular venous pulse, no hepatojugular reflux Chest: normal shape and normal respiratory effort Lungs: clear to auscultation and percussion, mildly decreased breath sounds the bases Cardiac Exam: - regular heart sounds, I/ systolic murmur heard best at the apex and left axilla, no jugular venous distention Abdomen: abdomen soft, non-tender, no abnormal masses and no hepatosplenomegaly Extremities: no edema and no cyanosis -Right radial artery access site is clean dry and intact, with no ecchymosis no stigmata of peripheral embolic phenomenon Neuro:awake, coversant, follows commands, no focal motor deficits Psych: appropriate affect and insight. Results & Data Vital Signs (Past 12 Hours) Vital Signs Temp Pulse Pulse Resp BP BP Pulse Ox 08/03/18 08:01 64 25 H 91 08/03/18 08:00 37.3 C 64 20 85/40 L 93 08/03/18 07:26 71 26 H 119/79 90 08/03/18 07:01 68 24 101/56 L 94 08/03/18 07:00 69 67 27 H 101/56 L 92 08/03/18 06:00 71 19 113/40 L 93 08/03/18 05:00 69 24 118/45 L 93 08/03/18 04:00 36.7 C 66 22 124/50 L 94 08/03/18 03:00 66 17 115/51 L 92 08/03/18 02:00 65 24 117/46 L 94 08/03/18 01:00 64 18 109/56 L 94 08/03/18 00:00 36.7 C 63 69 23 92/50 L 94 08/02/18 23:00 62 17 85/57 L 94 Laboratory Results Cardiac Enzymes 08/02/18 08/02/18 08/02/18 Range/Units 13:50 17:38 23:57 AST (15-37) U/L CK-MB (CK-2) 230.4 H 267.0 H (0.5-3.6) ng/ml Troponin I 61.200 H* 88.200 H* 120.000 H* (0-0.045) ng/ml 08/03/18 08/03/18 Range/Units 04:44 04:44 AST 328 H (15-37) U/L CK-MB (CK-2) (0.5-3.6) ng/ml Troponin I 118.000 H* (0-0.045) ng/ml Coagulation 08/03/18 Range/Units 04:44 PT 11.1 (9.0-12.0) Seconds Lipids 08/03/18 Range/Units 04:44 Triglycerides 102 (0-150) mg/dl Cholesterol 109 (0-200) mg/dl HDL Cholesterol 52 mg/dl Cholesterol/HDL Ratio 2 CBC 08/03/18 Range/Units 04:44 WBC 13.68 H (4.8-10.8) K/uL RBC 3.59 L (4.2-5.4) M/uL Hgb 11.0 L (12.0-16.0) g/dL Hct 32.3 L (37-47) % Plt Count 263 (130-400) K/uL Neut # (Auto) 11.15 H (1.4-6.5) K/uL Lymph # (Auto) 1.21 (1.2-3.4) K/uL [place] # (Auto) 1.22 H (0.11-0.59) K/uL Eos # (Auto) 0.06 (0-0.5) K/uL Baso # (Auto) 0.02 (0-0.2) K/uL Comprehensive Metabolic Panel 08/03/18 Range/Units 04:44 Sodium 137 (136-145) mmol/L Potassium 4.4 (3.5-5.1) mmol/L Chloride 105 (98-107) mmol/L Carbon Dioxide 25 (21-32) mmol/L BUN 47 H (7-18) mg/dl Creatinine 2.57 H D (0.6-1.2) mg/dl Glucose 161 H (70-99) mg/dl Calcium 9.1 (8.5-10.1) mg/dl AST 328 H (15-37) U/L ALT 52 (12-78) U/L Alkaline Phosphatase 65 (45-117) U/L Total Protein 7.0 (6.4-8.2) gm/dl Albumin 3.0 L (3.4-5.0) gm/dl Intake and Output 08/02/18 08/03/18 08/03/18 22:59 06:59 14:59 Intake Total 240 / 1100 360 / 1100 250 / 250 Output Total 750 / 1700 250 / 1700 Balance -510 / -600 110 / -600 250 / 250 Intake: IV 250 / 250 Albumin 5% 250 ml @ 500 mls/hr 250 / 250 IV ONE ONE Rx#:[id number] Oral 240 / 600 360 / 600 Output: Urine Amount (Catheter) 750 / 1700 250 / 1700 [place]/Indwelling 750 / 1700 250 / 1700 Other: Weight 103.8 kg Medications Administered Current Inpatient Medications Acetaminophen (Tylenol) 650 mg PO Q4H PRN PRN Reason: Mild Pain (scale 1-3) Stop: 09/01/18 11:43 Acetaminophen (Tylenol) 500 mg PO TID [facility] Stop: 09/01/18 13:59 Last Admin: 08/03/18 07:22 Dose: 500 mg Documented by: Albuterol (Ventolin Hfa) 2 puffs INH Q6H PRN PRN Reason: Shortness Of Breath Or Wheezin Aspirin (Ecotrin Ectab) 81 mg PO QAM [facility] Stop: 09/02/18 08:59 Last Admin: 08/03/18 07:18 Dose: 81 mg Documented by: Aspirin (Ecotrin Ectab) 81 mg PO PM [facility] Stop: 09/01/18 20:59 Atorvastatin Calcium (Lipitor) 20 mg PO HS [facility] Stop: 09/02/18 20:59 Budesonide/Formoterol Fumarate (Symbicort 80mcg/4.5mcg) 2 puffs INH BID PRN PRN Reason: Shortness Of Breath Or Wheezin Stop: 09/01/18 11:47 Ciprofloxacin (Cipro) 500 mg PO Q12H [facility]; Protocol Stop: 08/12/18 13:29 Last Admin: 08/03/18 01:20 Dose: 500 mg Documented by: Cyanocobalamin (Vitamin B-12) 1,000 mcg PO QAM [facility] Stop: 09/02/18 08:59 Last Admin: 08/03/18 07:21 Dose: 1,000 mcg Documented by: Dextrose (Dextrose 50%) 25 - 50 ml IV UD PRN; Protocol PRN Reason: Hypoglycemia Protocol Stop: 09/01/18 11:47 Fish Oil ([place]-3 (Purified Fish Oil)) 2 gm PO DAILY [facility] Stop: 09/02/18 08:59 Fluoxetine HCl (Prozac) 20 mg PO QAM [facility] Stop: 09/02/18 08:59 Last Admin: 08/03/18 07:20 Dose: 20 mg Documented by: Gabapentin (Neurontin) 900 mg PO TID [facility] Stop: 09/01/18 13:59 Last Admin: 08/03/18 07:20 Dose: 900 mg Documented by: Glucagon (Glucagen) 1 mg SQ UD PRN; Protocol PRN Reason: Hypoglycemia Protocol Stop: 09/01/18 11:47 Glucose (Glucose 40%) 15 - 30 gm PO UD PRN; Protocol PRN Reason: Hypoglycemia Protocol Stop: 09/01/18 11:47 Glucose (Dex4 Glucose) 4 - 8 tabs PO UD PRN; Protocol PRN Reason: Hypoglycemia Protocol Stop: 09/01/18 11:47 Insulin Aspart (Novolog Flexpen) 0 units SC ACHS [facility] Stop: 09/01/18 11:47 Last Admin: 08/03/18 08:07 Dose: 3 units Documented by: Insulin Glargine (Lantus Solostar Pen) 25 units SQ HS [facility] Stop: 09/01/18 20:59 Last Admin: 08/02/18 20:32 Dose: 25 units Documented by: Isosorbide Mononitrate (Imdur Extended Rel) 30 mg PO QAM [facility] Stop: 09/02/18 08:59 Last Admin: 08/03/18 07:18 Dose: 30 mg Documented by: Isosorbide Mononitrate (Imdur Extended Rel) 60 mg PO QAM [facility] Stop: 09/02/18 08:59 Last Admin: 08/03/18 07:18 Dose: 60 mg Documented by: Levothyroxine Sodium (Synthroid) 112 mcg PO DAILYBB [facility] Stop: 09/02/18 06:29 Last Admin: 08/03/18 06:13 Dose: 112 mcg Documented by: Metoprolol Succinate (Toprol Xl) 25 mg PO BID [facility] Stop: 09/02/18 20:59 Miscellaneous (Carbohydrates For Hypoglycemia) 15 - 30 gm PO UD PRN PRN Reason: Hypoglycemia Treatment Stop: 09/01/18 11:47 Multivitamins/Minerals (Caltrate Plus) 1 tab PO QPM [facility] Stop: 09/01/18 20:59 Last Admin: 08/02/18 20:31 Dose: 1 tab Documented by: Nitroglycerin (Nitrostat) 0.4 mg SL Q5M PRN PRN Reason: Chest Pain Stop: 09/01/18 11:47 Ondansetron HCl (Zofran) 4 mg IV Q4H PRN PRN Reason: Nausea And Vomiting Stop: 09/01/18 11:47 Last Admin: 08/02/18 21:04 Dose: 4 mg Documented by: Potassium Chloride (Klor-Con M10) 10 meq PO BID [facility] Stop: 09/01/18 20:59 Last Admin: 08/03/18 07:19 Dose: 10 meq Documented by: Ticagrelor (Brilinta) 90 mg PO BID [facility] Stop: 09/01/18 20:59 Last Admin: 08/03/18 07:18 Dose: 90 mg Documented by: Vitamin D (Vitamin D3) 2,000 units PO QAM [facility] Stop: 09/02/18 08:59 Last Admin: 08/03/18 07:21 Dose: 2,000 units Documented by: (1) Acute ST elevation myocardial infarction (STEMI) Involved coronary artery: unspecified coronary artery Qualified Code(s): I21.3 - ST elevation (STEMI) myocardial infarction of unspecified site
[2018-08-03] MEDS ORDERED: HEPARIN SOD 5,000 UNIT/0.5 ML VIAL SQ STA (10:34)
[2018-08-03] MEDS ORDERED: CEFEPIME 1,000 MG in SYRINGE 0 ML IV SCH (14:00)
--- NOTE | 2018-08-03 14:02 | Infectious Disease Consult ---
Date of Consultation August 03, 2018 Assessment & Plan (1) Osteomyelitis of left foot: will change to cefepime 1g every 12 hours to complete course, will follow in wound center post d/c will need picc line prior to d/c. will need min 14 days of IV abx,will re assess in wound center and extend duration if needed. will need weekly cbc, cmp, esr while on abx. History of Present Illness Attending Physician: Sloan Llanesortiz pt admitted with chest pain, found to have STEMI, being treated by cardio, remains in ICU. has several cardiac risk factors. has been followed in wound center for some time for left 4th wound, had culture done on 07/12 - grew pseudomonas, was started on cipro by wound center, was tolerating well. Had MRI done on 07/22 suggestive of osteo, was seen in initial visit on 08/01 by ID at wound center, cipro continued with plan to follow in 2 weeks. Now in need of vest post STEMI. ID consulted for alternative agents other than cipro to treat pseudomonas infection as quinolones can causee QT prolongation. She is resting comfortably on my exam, no f/c remains on po cipro. wbc 13, creat 0.8, no micro to review. Ct chest/abd/pelvis/head negative. lethargic but appropriate on my exam, denies cp currently, breathing comfortably, no abd pain, no n/v/d. Allergies Allergy/AdvReac Type Severity Reaction Status Date / Time lactase Allergy Intermediate Verified 08/01/18 14:35 [From Lactose Fast Acting Relief] sulfite Allergy Intermediate Hives Verified 07/28/18 14:55 lisinopril Allergy Mild "DID NOT Verified 07/28/18 14:55 AGREE WITH ME" clopidogrel Allergy Unknown DOES NOT Verified 07/28/18 14:55 REMEMBER REACTION Home Medications Home Medications Medication Instructions Recorded Confirmed Type aspirin [Aspirin Low Dose] 81 mg PO PM 12/03/17 08/02/18 History atorvastatin 1 tab PO QPM 12/03/17 08/02/18 History coenzyme Q10 [CoQ-10] 100 mg PO QAM 12/03/17 08/02/18 History fluoxetine 1 tab PO QAM 12/03/17 08/02/18 History insulin glargine 42 unit SUBCUT HS 12/03/17 08/02/18 History isosorbide mononitrate 1 tab PO QAM 12/03/17 08/02/18 History isosorbide mononitrate 30 mg PO QAM 12/03/17 08/02/18 History levothyroxine 1 tab PO QAM 12/03/17 08/02/18 History metoprolol tartrate 1 tab PO BID 12/03/17 08/02/18 History nitroglycerin [Nitrostat] 1 tab SUBLINGUAL Q5M PRN 12/03/17 08/02/18 History acetaminophen [Tylenol Extra 500 mg PO TID 06/30/18 08/02/18 History Strength] albuterol sulfate [ProAir HFA] 2 puff INHALATION Q6H PRN 06/30/18 08/02/18 History amlodipine 5 mg PO QAM 06/30/18 08/02/18 History budesonide-formoterol [Symbicort] 2 puff INHALATION BID PRN 06/30/18 08/02/18 Hi story calcium carbonate-vitamin D3 1 cap PO QPM 06/30/18 08/02/18 History [Calcium 600 + D(3)] cholecalciferol (vitamin D3) 2,000 unit PO QAM 06/30/18 08/02/18 History [Vitamin D3] cyanocobalamin (vitamin B-12) 1,000 mcg PO QAM 06/30/18 08/02/18 History [Vitamin B-12] gabapentin 900 mg PO TID 06/30/18 08/02/18 History insulin aspart U-100 [Novolog 0 unit SUBCUT .SLIDING SCALE 06/30/18 08/02/18 History Flexpen U-100 Insulin] telmisartan 80 mg PO QAM 06/30/18 08/02/18 History insulin aspart (U-100) 100 unit/mL 1 unit SUBCUT QDB 07/12/18 08/02/18 History (3 mL) subcutaneous pen omega [id number]-fet-[id number]-fish oil 1,000 mg 2 cap PO DAILY cap 07/12/18 08/02/18 History (120 mg-180 mg) capsule ciprofloxacin 500 mg tablet 500 mg PO q12h #28 tab 07/15/18 08/02/18 Rx Patient History Medical History Diabetic toe ulcer Morbid obesity with BMI of 40.0-44.9, adult CKD (chronic kidney disease), stage III Acute pulmonary edema Acute and chronic respiratory failure with hypoxia HLD (hyperlipidemia) Acute ST elevation myocardial infarction (STEMI) (Acute) Diabetes Hypothyroidism Depression Anemia HX OF COPD (chronic obstructive pulmonary disease) Hypertension Confusion HX OF Lumbar stenosis with neurogenic claudication Ischemic ulcer of toe of left foot (Acute) Type 2 diabetes mellitus with diabetic peripheral angiopathy without gangrene (Acute) Atrial fibrillation 1 EVENT MANY YEARS AGO/"FIXED ITSELF/NO INTERVENTION" Chronic kidney disease STAGE 3 PVD (peripheral vascular disease) with claudication Elevated troponin I level (Resolved) Right humeral fracture (Resolved) Spinal stenosis, other region (Resolved) Acute kidney injury (Ruled-out) Coronary artery disease Hypercholesterolemia Hypothyroidism Surgical History S/P knee surgery (Resolved) LEFT S/P tonsillectomy (Resolved) Family history of reaction to anesthesia MOTHER SLOW TO WAKE UP Fusion of spine LUMBAR FUSION History of anesthesia reaction S/P LUMBAR SURGERY-3 DAYS OF CONFUSION History of cataract surgery RT/LEFT History of colonoscopy History of esophagogastroduodenoscopy (EGD) History of tooth extraction Family History Mother Family history of diabetes mellitus Social History Preferred Language: Honduran Communication Ability: Effective Diversional Therapist'S Assistant Required: No Beliefs That Will Affect Care: None marital status: Current Living Situation: Spouse Current Living Situation Comment: Lives with current occupational status: retired Other Information That Helps Us Care for You: No Feels Safe at Home: Yes Safety Concerns: Feels Safe At This Time Smoking Status: Never smoker Do You Dip or Chew Tobacco: No Second Hand Exposure: No Tobacco Cessation Education Requested by Patient: No Hx Alcohol Use: No Hx Substance Use: No Review of Systems Review of Systems: All systems reviewed & are unremarkable except as noted in HPI & below Physical Exam Constitutional: WD/WN, vitals as above Eyes: PERRL, conjunctivae normal, anicteric sclerae ENMT: external ear and nose normal, oropharynx normal dry mm Neck: normal visual inspection Respiratory: normal respiratory effort, lungs clear to auscultation Auscultation: lungs clear to auscultation bilaterally and + diminished lung sounds Cardiovascular: Rate/Rhythm: regular rate Heart Sounds: no murmur Gastrointestinal (Abdomen): normal bowel sounds, soft, nontender, no hepatosplenomegaly Musculoskeletal: no cyanosis or clubbing, extremities motor strength 5/5 Skin: no rashes, warm and dry Psychiatric: A+Ox3, euthymic affect lethargic Results & Data Vital Signs (Past 12 Hours) Vital Signs Temp Pulse Pulse Resp BP BP Pulse Ox 08/03/18 12:32 71 25 H 92/41 L 97 08/03/18 12:01 65 26 H 92 08/03/18 12:00 36.8 C 64 25 H 102/53 L 92 08/03/18 11:01 60 23 94 08/03/18 11:00 61 25 H 98/47 L 93 08/03/18 10:01 60 23 93/43 L 91 08/03/18 10:00 60 25 H 08/03/18 09:01 60 25 H 90 08/03/18 09:00 60 21 98/52 L 90 08/03/18 08:01 64 25 H 91 08/03/18 08:00 37.3 C 64 20 85/40 L 93 08/03/18 07:26 71 26 H 119/79 90 08/03/18 07:01 68 24 101/56 L 94 08/03/18 07:00 69 67 27 H 101/56 L 92 08/03/18 06:00 71 19 113/40 L 93 08/03/18 05:00 69 24 118/45 L 93 08/03/18 04:00 36.7 C 66 22 124/50 L 94 08/03/18 03:00 66 17 115/51 L 92
[2018-08-03] MEDS ORDERED: CEFEPIME 2,000 MG in SYRINGE 7.5 ML IV SCH (15:00)
[2018-08-03] MEDS: ACETAMINOPHEN 325 MG TAB PO PRN (21:01)
[2018-08-03] MEDS: CALCIUM 600MG + VIT D 400 IU TAB PO SCH (21:03)
[2018-08-03] MEDS: METOPROLOL SUCC 25MG EXT REL TAB PO SCH (21:04)
[2018-08-03] MEDS: ATORVASTATIN 20 MG TAB PO SCH (21:04)
[2018-08-03] MEDS: INSULIN GLARGINE SOLOSTAR 100 UNITS/ML 3 ML PEN SQ SCH (21:12)
[2018-08-03] MEDS: HEPARIN SOD 5,000 UNIT/0.5 ML VIAL SQ SCH (21:14)
--- NOTE | 2018-08-03 22:20 | Hospitalist Progress Note ---
Date of Service August 03, 2018 Assessment & Plan (1) Acute ST elevation myocardial infarction (STEMI): - Admit to ICU s/p cardiac cath - Cardiology consult: Dr. Buchanan. Dr. López completed cardiac cath with JUSTICE to LAD and circumflex - Last echo completed on 09/29/2016, showing normal systolic function, grade 1 diastolic dysfunction. We will repeat a 2D echo today - CXR reviewed showing pulmonary edema, will order Lasix 40 mg IV BID, strict I/os, daily weights - Continue dual antiplatelet per cardiology - brillinta and heparin gtt - CKMB =12.4, initial troponin = 1.720, trend - Continue metoprolol 25 mg BID, isosorbide mononitrate 90 mg QAM, amlodipine 5 mg QAM, telmisartan 80 mg daily- BP appears to be stable now, maximal elevation was 165/83 when in the ER. - Pain free, VSS. Appreciate input from cardio: She was in respiratory distress around the time of the cardiac catheterization and post procedure required diuretics and transient BiPAP support. Her volume status is improved. Echocardiogram performed: Patient clinically improving today. Echo revealed severe left ventricular systolic dysfunction, ejection fraction in the range of 20 to 25%. Continue dual antiplatelet therapy with aspirin and ticagrelor, continue metoprolol succinate 25 mg twice daily, although patient's transaminases are mildly elevated, continue current dose of atorvastatin. (2) Hypertension: - Continue antihypertensives as above (3) HLD (hyperlipidemia): -Continue statin therapy (4) Acute and chronic respiratory failure with hypoxia: - Secondary to pulmonary edema - continue bipap - Lasix ordered - O2 supplemental (5) Acute pulmonary edema: -Likely that this is secondary to acute PR occurring. Lasix as above. Pt did not c/o shortness of breath per family. (6) COPD (chronic obstructive pulmonary disease): -Continue Pro Air, Symbicort, -Does not appear to be an acute COPD exacerbation, rather pulmonary edema is contributing. -CXR reviewed showing small bilateral pleural effusion, congestive failure, continue diuretics as above. (7) Diabetes: -Accu-Cheks ACHS -Reduce Lantus today to 25 U compared to her home 42 units at bedtime, continue ISS. -Diabetic diet (8) Lumbar stenosis with neurogenic claudication: -Stable, continue Tylenol as needed pain (9) Hypothyroidism: -Continue levothyroxine (10) CKD (chronic kidney disease), stage III: -Creatinine slightly elevated at 1.52, baseline appears to be between 1.3- 1.4 -Follow a.m. PRP (11) Anemia: -Secondary to CKD (12) Depression: -Continue Prozac (13) Morbid obesity with BMI of 40.0-44.9, adult: -heart healthy/diabetic diet, diet and exercise to be encouraged upon discharge (14) Diabetic toe ulcer: - Left 4th toe involvement, following with wound care as outpt. Pt was scheduled for debridement this Wednesday with Dr. Jerome, with possible IV antibiotics. - Consult wound care, no surrounding erythema - Continue Cipro 500 mg PO BID for now - Consider consultation of ortho, Dr. Jerome. For now will need to postpone the procedure. (15) DVT prophylaxis: -Teds, SCDs Subjective 77 yo female reports feeling well. She currently denies any chest pain, nausea, or vomiting. Review of Systems Review of Systems: All systems reviewed & are unremarkable except as noted in HPI & below Constitutional: No fever, sweats or chills, + tired Eyes: No diplopia, no worsening or blurred vision ENT: normal hearing, no trouble swallowing Respiratory: No cough, sputum, dyspnea at rest or on exertion Cardiovascular: No chest pain, tightness or palpitations, no pain at catheter insertion site. Abdomen: No pain, nausea, vomiting, diarrhea or constipation Musculoskeletal: No joint pain, calf pain, swelling Neurologic: No weakness, numbness/tingling, or balance problems Psychiatric: No anxiety or depression Skin: No rash or itch Physical Exam Physical Exam: General: awake, alert, no apparent distress. Head: Normocephalic, atraumatic ENT: PERRL, EOMI, no pharyngeal exudate, mucous membranes moist Chest: Clear to auscultation, off BIPAP diminished breath sounds Cardiac: Regular rate and rhythm, no murmur, no JVD, normal peripheral pulses, good capillary refill Abdominal: NABS x 4 quadrants, mildly distended, soft, nontender to palpation, no rebound, guarding or tenderness Extremities: No peripheral edema or erythema, + left 4th toe with ulceration with black eschar overlying, no surrounding erythema, calfs nontender to palpation Psych: Normal mood and affect Neuro: AAO x 3, no motor deficits, speech is clear. Results & Data Vital Signs (Past 12 Hours) Vital Signs Temp Pulse Resp BP Pulse Ox 08/03/18 16:01 37.3 C 67 24 98 08/03/18 16:00 66 25 H 102/53 L 96 08/03/18 15:01 66 22 95 08/03/18 15:00 66 26 H 91/52 L 99 08/03/18 14:01 65 26 H 88/38 L 97 08/03/18 14:00 64 24 94 08/03/18 13:33 67 27 H 102/55 L 93 08/03/18 13:30 70 27 H 93/46 L 95 08/03/18 13:26 82/41 L 08/03/18 13:22 65 24 104/43 L 94 08/03/18 13:01 68 29 H 88/33 L 96 08/03/18 13:00 68 23 92 08/03/18 12:33 72 25 H 94 08/03/18 12:32 71 25 H 92/41 L 97 08/03/18 12:01 65 26 H 92 08/03/18 12:00 36.8 C 64 25 H 102/53 L 92 08/03/18 11:01 60 23 94 08/03/18 11:00 61 25 H 98/47 L 93 (1) Acute ST elevation myocardial infarction (STEMI) Involved coronary artery: unspecified coronary artery Qualified Code(s): I21.3 - ST elevation (STEMI) myocardial infarction of unspecified site
[2018-08-04] MEDS: ACETAMINOPHEN 325 MG TAB PO PRN (03:03)
[2018-08-04 05:17] LABS: Hematocrit (blood only) 28.4 % (37-47); Hemoglobin 9.7 g/dL (12.0-16.0); Mean Corpuscular Hgb Conc 34.2 g/dL (32-36); Mean Corpuscular Volume 89.6 fL (80-100); Platelet Count 223 K/uL (130-400); RDW Coefficient of Variation 15.4 % (11.5-14.5); RDW Standard Deviation 50.1 fL (36.4-46.3); Red Blood Count 3.17 M/uL (4.2-5.4); White Blood Count 11.43 K/uL (4.8-10.8)
--- NOTE | 2018-08-04 05:48 | Critical Care Progress Note ---
Date of Service August 04, 2018 Assessment & Plan (1) S/P admission to ICU (intensive care unit): Reason Critically Ill:77 year old female with acute right sided ST segment elevation myocardial infarction status post catheterization with stent placement in LAD and circumflex. NEURO - CAM ICU: NEGATIVE No altered mental status No confusion, neurologically intact Patient at high risk for delirium, will continue to monitor Gabapentin: Normal dosing 900 3 times daily will decrease to 100mg 3 times daily in the setting of acute kidney injury CARDIAC/VASCULAR - Right sided STEMI s/p cardiac catheterization: Multivessel disease, 2 stents placed; One in LAD and one in left circumflex Medical management at this time. Continue ticagrelor and aspirin, beta blanche, norvasc, atorvastatin, metoprolol, and telmisartan Nitroglycerin as needed. Will continue to monitor on telemetry RESPIRATORY - Hypoxemic Respiratory failure: Acute: Improving -New mitral regurgitation Discussed with cardiology, holding Lasix in the setting of BEL and reasonable oxygenation and poor cardiac function Improved with 2 L nasal cannula GI/NUTRITION - Diabetic Diet RENAL/LYTES - BEL: Suspect multifactorial, hypotension, contrast induced nephropathy: Worsening -Given 500 mL bolus, no significant urine output at this time - Accurate I's and O's ENDO - Diabetic, on insulin 25 units qhs Sliding scale with checks HEME - Baseline anemia ID - Osteomyelitis from toe ulcer Converted from Cipro to cefepime Consult ID given significant cardiac dysfunction, renal function and ciprofloxacin use -Would strongly consider alternative agent, in discussion with Dr. Michael patient will likely benefit from LifeVest to avoid QT prolonging medications LINES/IV ACCESS - PIVs x2 -Will require PICC line for long-term antibiotics -We will continue with peripheral IVs at this time until her need for dialysis becomes more clear DVT PROPHYLAXIS - SCDs -Heparin 5000 3 times daily (2) Acute kidney injury: (3) Mitral regurgitation: (4) Osteomyelitis of left foot: (5) Diabetic toe ulcer: (6) Morbid obesity with BMI of 40.0-44.9, adult: (7) CKD (chronic kidney disease), stage III: (8) Acute pulmonary edema: (9) HLD (hyperlipidemia): (10) Acute ST elevation myocardial infarction (STEMI): (11) Depression: (12) Hypothyroidism: Supervising Physician Co-Signing Physician Notes (1) Diabetic toe ulcer: Reason Critically Ill:77 year old female with acute right sided ST segment elevation myocardial infarction status post catheterization with stent placement in LAD and circumflex. NEURO - CAM ICU: NEGATIVE No altered mental status No confusion, neurologically intact Patient at high risk for delirium, will continue to monitor Gabapentin: Normal dosing 900 3 times daily will decrease to 100mg 3 times daily in the setting of acute kidney injury CARDIAC/VASCULAR - Right sided STEMI s/p cardiac catheterization: Multivessel disease, 2 stents placed; One in LAD and one in left circumflex Medical management at this time. Continue ticagrelor and aspirin, beta blanche, norvasc, atorvastatin, metoprolol, and telmisartan Nitroglycerin as needed. Will continue to monitor on telemetry RESPIRATORY - Hypoxemic Respiratory failure: Acute: Improving -New mitral regurgitation Discussed with cardiology, holding Lasix in the setting of BEL and reasonable oxygenation and poor cardiac function Improved with 2 L nasal cannula GI/NUTRITION - Diabetic Diet RENAL/LYTES - BEL: Suspect multifactorial, hypotension, contrast induced nephropathy: Worsening -Given 500 mL bolus, no significant urine output at this time - Accurate I's and O's ENDO - Diabetic, on insulin 25 units qhs Sliding scale with checks HEME - Baseline anemia ID - Osteomyelitis from toe ulcer Converted from Cipro to cefepime Consult ID given significant cardiac dysfunction, renal function and ciprofloxacin use -Would strongly consider alternative agent, in discussion with Dr. Michael patient will likely benefit from LifeVest to avoid QT prolonging medications LINES/IV ACCESS - PIVs x2 -Will require PICC line for long-term antibiotics -We will continue with peripheral IVs at this time until her need for dialysis becomes more clear DVT PROPHYLAXIS - SCDs -Heparin 5000 3 times daily (2) Morbid obesity with BMI of 40.0-44.9, adult: (3) CKD (chronic kidney disease), stage III: (4) Acute pulmonary edema: (5) Acute and chronic respiratory failure with hypoxia: (6) HLD (hyperlipidemia): (7) Acute ST elevation myocardial infarction (STEMI): (8) Diabetes 1.5, managed as type 1: (9) DVT prophylaxis: (10) Hypertension: Dr. Lopez was resident physician during care of patient. I separately evaluated patient for hsu portions of the history and the exam. I was present during the critical portion of medical decision making, and I discussed the case with the resident. I generally agree with the findings and plan. Patient was discussed on multidisciplinary rounds I discussed the case with Dr. Mathis of nephrology and Dr. Michael of cardiology I have personally spent 40 minutes of critical care time in the direct management of this patient. This is a life/limb threatening event. This includes time spent evaluating patient, direct bedside care, chart review, placing orders, interpretation of diagnostic studies, discussion with consultants, patient, and/or family members regarding treatment decisions, as well as other required patient management activities. This time is exclusive of all separately billable procedures, and teaching time and separate from and in addition to any other critical care service time. Subjective Coral tells me she is doing well today despite getting short of breath very easily. No complaints at this time. Review of Systems Constitutional: no fever and no chills Respiratory: + dyspnea and + dyspnea on exertion; no cough Cardiovascular: + dyspnea; no chest pain, no palpitations and no syncope Gastrointestinal: no abdominal pain, no nausea and no vomiting Physical Exam Constitutional: + obese, cooperative and comfortable; no acute distress and no altered mental status Eyes: PERRL, conjunctivae normal, anicteric sclerae Respiratory: Auscultation: + crackles (faint crackles bilateral lung bases) Cardiovascular: Rate/Rhythm: regular rate and regular rhythm Heart Sounds: + murmur (holosystolic murmur); no click, no gallop and no cardiac rub Gastrointestinal (Abdomen): normal bowel sounds, soft, nontender, no hepatosplenomegaly Percussion/Palpation: abdomen soft; abdomen nontender Skin: no rashes, warm and dry Results & Data Vital Signs (Past 12 Hours) Vital Signs Temp Pulse Pulse Resp BP BP Pulse Ox 08/04/18 04:00 76 20 116/45 L 96 08/04/18 03:00 37.4 C 70 26 H 106/51 L 95 08/04/18 02:00 67 22 124/54 L 91 08/04/18 01:00 73 22 103/52 L 93 08/04/18 00:00 37.1 C 71 24 109/69 91 08/03/18 23:30 74 08/03/18 23:00 37.1 C 75 24 111/38 L 90 08/03/18 22:01 71 24 109/38 L 91 08/03/18 22:00 69 25 H 92 08/03/18 21:01 76 29 H 93 08/03/18 21:00 78 24 131/48 L 94 08/03/18 20:01 70 29 H 92 08/03/18 20:00 36.9 C 71 27 H 120/53 L 93 08/03/18 19:01 69 26 H 107/44 L 94 08/03/18 19:00 67 27 H 92 08/03/18 18:01 77 28 H 105/47 L 90 08/03/18 18:00 75 27 H 92 Critical Care Time Critical Care Time: Yes Total Critical Care Time: 40 Resident Activity Tracking Resident Involvement: Resident Care Provided Care Provided: Adult Hospital Medicine (1) Acute ST elevation myocardial infarction (STEMI) Involved coronary artery: unspecified coronary artery Qualified Code(s): I21.3 - ST elevation (STEMI) myocardial infarction of unspecified site
[2018-08-04 06:02] LABS: Albumin Globulin Ratio 0.8 (0.9-2); Albumin Level 2.9 gm/dl (3.4-5.0); BUN Creatinine Ratio 13.9 (10-20); Bilirubin,Total 0.8 mg/dl (0.2-1); Calcium 8.6 mg/dl (8.5-10.1); Creatinine Clr Calc Pharmacy 10.8 ml/min; Est GFR (African American) 8.8; Est GFR (Non-African American) 7.6; Globulin 3.8 gm/dl (2.5-4.0); Magnesium 2.1 mg/dl (1.8-2.4); Potassium 4.7 mmol/L (3.5-5.1); Total Protein 6.7 gm/dl (6.4-8.2)
[2018-08-04 06:08] LABS: Troponin I 60.8 ng/ml (0-0.045)
[2018-08-04] MEDS: LEVOTHYROXINE SODIUM 112 MCG TABLET PO SCH (06:15)
[2018-08-04] MEDS: ASPIRIN 81 MG ECTAB PO SCH (07:59)
[2018-08-04] MEDS: TICAGRELOR 90 MG TAB PO SCH ×2 (08:00→20:04)
[2018-08-04] MEDS: HEPARIN SOD 5,000 UNIT/0.5 ML VIAL SQ SCH ×2 (08:00→20:09)
[2018-08-04] MEDS: ISOSORBIDE MONO EXTENDED REL 30 MG TABCR PO SCH (08:00)
[2018-08-04] MEDS: GABAPENTIN 100 MG CAP PO SCH ×3 (08:01→20:04)
[2018-08-04] MEDS: ISOSORBIDE MONO EXTENDED REL 60 MG TABCR PO SCH (08:01)
[2018-08-04] MEDS: FLUOXETINE HCL 20 MG CAP PO SCH (08:02)
[2018-08-04] MEDS: METOPROLOL SUCC 25MG EXT REL TAB PO SCH ×2 (08:02→20:05)
[2018-08-04] MEDS ORDERED: NORMOSOL-R 1,000 ML IV SCH ×2 (08:30→12:00)
--- NOTE | 2018-08-04 08:34 | Cardiology Progress Note ---
Date of Service August 04, 2018 Assessment & Plan (1) Acute ST elevation myocardial infarction (STEMI): (2) Mitral regurgitation: (3) NSVT (nonsustained ventricular tachycardia): 77-year-old diabetic female with a history of baseline stage III chronic kidney disease and diffuse nonobstructive CAD on remote cardiac catheterization in [address] segment elevation myocardial infarction. Chronic total right coronary artery occlusion noted on emergent cardiac catheterization with left to right collaterals. She received drug-eluting stents to the LAD and circumflex coronary arteries. She was in respiratory distress around the time of the cardiac catheterization and post procedure required diuretics and transient BiPAP support. Her volume status is improved. Echocardiogram performed post cardiac catheterization per my interpretation revealed severe left ventricular systolic dysfunction, ejection fraction in the range of 20 to 25%. Continue dual antiplatelet therapy with aspirin and ticagrelor, continue metoprolol succinate 25 mg twice daily, although patient's transaminases are mildly elevated, continue current dose of atorvastatin. No additional sustained ventricular tachycardia on telemetry. Continue metoprolol. Plan to discharge with [employer] wearable defibrillator. (4) Acute on chronic kidney failure: Likely post procedure ATN due to ME with low cardiac output, contrast exposure, diuretics. Low potassium diet. I have placed a hold on her dietary supplements. Furosemide and her angiotensin receptor blanche were discontinued yesterday 08/03. Consult nephrology, patient has seen Dr. Salas in the past. I think it is reasonable to place her on a conservative rate of IV fluids, I will defer this to nephrology so that we do not have to change orders within a few minutes. (5) Osteomyelitis of left foot: Infectious disease input noted and appreciated. The patient's corrected QT had been stable yesterday 477 ms. If a quinolone is felt to be necessary, I think this is reasonable from a cardiology perspective. Subjective Chief Complaint: Follow-up, ST segment myocardial infarction, LV systolic dysf unction, nonsustained ventricular tachycardia, acute kidney injury, osteomyelitis Subjective: Mrs Pink was seen in follow-up this morning. She was accompanied by her daughter who is a physical therapist. She feels well. She is voiding spontaneously, and per her recorded intake and outtake summary, 1.7 L of urine output was noted as of 08/03/2018 at 6:59 AM, urine output urine output in the la st 24 hours has been less, but I am not certain if her summaries have been updated yet. She denies any chest discomfort or shortness of breath and is comfortable sitting in the chair. She had a 9 beat samira of nonsustained ventricular tachycardia yesterday 08/03/2018 at 9:17 AM with no additional arrhythmia in the meantime on telemetry. Blood pressure stable. She received furosemide and telmisartan the a.m. of 08/03/2018, and this is been held in the interim. Review of Systems Review of Systems: All systems reviewed & are unremarkable except as noted in HPI & below Physical Exam Physical Exam: General: no acute distress and stated age Eyes: conjunctiva are pink and non-injected, sclera clear Neck: normal jugular venous pulse, no hepatojugular reflux Chest: normal shape and normal respiratory effort Lungs: Mildly decreased breath sounds at the bases Cardiac Exam: - regular heart sounds, I/Whitaker 6 systolic murmur heard best at the left apex Abdomen: abdomen soft, non-tender, no abnormal masses and no hepatosplenomegaly Extremities: no edema, known left fourth toe diabetic foot wound, dressed at present and not examined Neuro:awake, coversant, follows commands, no focal motor deficits Psych: appropriate affect and insight. Results & Data Vital Signs (Past 12 Hours) Vital Signs Temp Pulse Pulse Resp BP BP Pulse Ox 08/04/18 06:00 64 28 H 112/44 L 95 08/04/18 04:00 76 20 116/45 L 96 08/04/18 03:00 37.4 C 70 26 H 106/51 L 95 08/04/18 02:00 67 22 124/54 L 91 08/04/18 01:00 73 22 103/52 L 93 08/04/18 00:00 37.1 C 71 24 109/69 91 08/03/18 23:30 74 08/03/18 23:00 37.1 C 75 24 111/38 L 90 08/03/18 22:01 71 24 109/38 L 91 08/03/18 22:00 69 25 H 92 08/03/18 21:01 76 29 H 93 08/03/18 21:00 78 24 131/48 L 94 Laboratory Results Cardiac Enzymes 08/04/18 08/04/18 Range/Units 04:58 04:58 AST 169 H (15-37) U/L Troponin I 60.800 H* Cancelled (0-0.045) ng/ml CBC 08/04/18 Range/Units 04:58 WBC 11.43 H (4.8-10.8) K/uL RBC 3.17 L (4.2-5.4) M/uL Hgb 9.7 L (12.0-16.0) g/dL Hct 28.4 L (37-47) % Plt Count 223 (130-400) K/uL Comprehensive Metabolic Panel 08/04/18 Range/Units 04:58 Sodium 134 L (136-145) mmol/L Potassium 4.7 (3.5-5.1) mmol/L Chloride 101 (98-107) mmol/L Carbon Dioxide 22 (21-32) mmol/L BUN 71 H D (7-18) mg/dl Creatinine 5.11 H* D (0.6-1.2) mg/dl Glucose 133 H (70-99) mg/dl Calcium 8.6 (8.5-10.1) mg/dl AST 169 H (15-37) U/L ALT 42 (12-78) U/L Alkaline Phosphatase 54 (45-117) U/L Total Protein 6.7 (6.4-8.2) gm/dl Albumin 2.9 L (3.4-5.0) gm/dl Intake and Output 08/03/18 08/04/18 08/04/18 22:59 06:59 14:59 Intake Total 200 / 1170 120 / 1170 Output Total Balance 180 / 1085 105 / 1085 Intake: Oral 200 / 920 120 / 920 Output: Urine Amount (Catheter) Overton/Indwelling # Bowel Movements 0 / 0 Other: Weight 104.2 kg Diagnostic Findings EKG performed 08/03/2018 at 10:15 AM revealed normal sinus rhythm at 62 bpm, evolution of inferior ME noted with Q waves in the inferior leads III and aVF, with also associated T waves in leads II, III, aVF. Evolution of anterior, lateral infarct noted with lateral Q waves and lateral T wave inversions in the precordial leads. Compared to her presenting EKG, the previously noted inferior lateral ST segment elevation is resolved. (1) Acute ST elevation myocardial infarction (STEMI) Involved coronary artery: unspecified coronary artery Qualified Code(s): I21.3 - ST elevation (STEMI) myocardial infarction of unspecified site
[2018-08-04] MEDS: INSULIN ASPART 100 UNITS/ML 3 ML PEN SC SCH ×4 (08:59→20:11)
[2018-08-04] MEDS ORDERED: GABAPENTIN 300 MG CAP PO SCH (09:00)
--- NOTE | 2018-08-04 11:33 | Nephrology Consultation ---
Date of Consultation August 04, 2018 Assessment & Plan (1) Acute kidney injury: -- Clinically suspect contrast induced nephropathy. No evidence of AED on physical exam today -- Agree w/ holding JENNIFER inhibitor and diuretic at this time -- Provide low K / dialysis diet -- Will order urinalysis w/ microscopy -- Monitor PRP -- ICU team is administering saline bolus this am -- Volume status & electrolyte balance are acceptable. No acute indication for HD at this time (2) CKD (chronic kidney disease), stage III: -- Baseline creatinine 1.4 - 1.6 w/ EGFR 30 cc/min (3) Acute ST elevation myocardial infarction (STEMI): -- s/p emergency cardiac catheterization w/ PCI and stent placement in the LAD and circumflex coronary arteries 08/03/18 (4) Anemia: -- Mild, asymptomatic anemia. Will monitor (5) Diabetic toe ulcer: -- Antibiotic therapy as per ID (6) S/P admission to ICU (intensive care unit): -- 30 min critical care management provided today. This was necessary to review medical records, perform physical exam, discuss plan of care w/ ICU team and discuss the potential need for DIGITAL SALES PLANNER w/ the patient & her History of Present Illness Reason for Consultation: BEL/CKD Requesting Physician: Dr. Duran Attending Physician: Sloan Woodson History of Present Illness Mrs. Pink is a 77 year old white female who is seen at the request of Dr. Duran for evalaution of BEL/CKD. Medical records in the hospital EMR were reviewed today and are summarized as follows: Mrs. Pink has AODM, HTN, hypothyroidism, PVD w/ ischemic ulcer involving the L 4th toe and a h/o paroxysmal atrial fibrillation. She also has stage III CKD w/ baseline creatinine 1.4 - 1.6 (EGFR 30 cc/min). Mrs. Pink presented to the [facility] ED 08/02/18 for evaluation of dyspnea and nausea. CT of the chest and abdomen were performed with contrast. There was no evidence of pulmonary embolus or bowel obstruction. Vascular disease involving the femoral arteries was noted. Mrs. Pink did have ST segment changes on ECG and Troponin was markedly elevated. She underwent emergent cardiac catheterization w/ PCI and stent placement in the LAD and circumflex coronary arteries. Following heart catheterization she developed respiratory distress requiring BiPAP support and diuresis. Her volume status did improve. Echocardiogram post catheterization was read as LVEF 20 - 25%. Creatinine has risen to 5.1. Allergies Allergy/AdvReac Type Severity Reaction Status Date / Time lactase Allergy Intermediate Verified 08/01/18 14:35 [From Lactose Fast Acting Relief] sulfite Allergy Intermediate Hives Verified 07/28/18 14:55 lisinopril Allergy Mild "DID NOT Verified 07/28/18 14:55 AGREE WITH ME" clopidogrel Allergy Unknown DOES NOT Verified 07/28/18 14:55 REMEMBER REACTION Home Medications Home Medications Medication Instructions Recorded Confirmed Type aspirin [Aspirin Low Dose] 81 mg PO PM 12/03/17 08/02/18 History atorvastatin 1 tab PO QPM 12/03/17 08/02/18 History coenzyme Q10 [CoQ-10] 100 mg PO QAM 12/03/17 08/02/18 History fluoxetine 1 tab PO QAM 12/03/17 08/02/18 History insulin glargine 42 unit SUBCUT HS 12/03/17 08/02/18 History isosorbide mononitrate 1 tab PO QAM 12/03/17 08/02/18 History isosorbide mononitrate 30 mg PO QAM 12/03/17 08/02/18 History levothyroxine 1 tab PO QAM 12/03/17 08/02/18 History metoprolol tartrate 1 tab PO BID 12/03/17 08/02/18 History nitroglycerin [Nitrostat] 1 tab SUBLINGUAL Q5M PRN 12/03/17 08/02/18 History acetaminophen [Tylenol Extra 500 mg PO TID 06/30/18 08/02/18 History Strength] albuterol sulfate [ProAir HFA] 2 puff INHALATION Q6H PRN 06/30/18 08/02/18 History amlodipine 5 mg PO QAM 06/30/18 08/02/18 History budesonide-formoterol [Symbicort] 2 puff INHALATION BID PRN 06/30/18 08/02/18 History calcium carbonate-vitamin D3 1 cap PO QPM 06/30/18 08/02/18 History [Calcium 600 + D(3)] cholecalciferol (vitamin D3) 2,000 unit PO QAM 06/30/18 08/02/18 History [Vitamin D3] cyanocobalamin (vitamin B-12) 1,000 mcg PO QAM 06/30/18 08/02/18 History [Vitamin B-12] gabapentin 900 mg PO TID 06/30/18 08/02/18 History insulin aspart U-100 [Novolog 0 unit SUBCUT .SLIDING SCALE 06/30/18 08/02/18 History Flexpen U-100 Insulin] telmisartan 80 mg PO QAM 06/30/18 08/02/18 History insulin aspart (U-100) 100 unit/mL 1 unit SUBCUT QDB 07/12/18 08/02/18 History (3 mL) subcutaneous pen omega 6-[id number]-fish oil 1,000 mg 2 cap PO DAILY cap 07/12/18 08/02/18 History (120 mg-180 mg) capsule ciprofloxacin 500 mg tablet 500 mg PO q12h #28 tab 07/15/18 08/02/18 Rx Patient History Medical History Diabetic toe ulcer Morbid obesity with BMI of 40.0-44.9, adult CKD (chronic kidney disease), stage III Acute pulmonary edema Acute and chronic respiratory failure with hypoxia HLD (hyperlipidemia) Acute ST elevation myocardial infarction (STEMI) (Acute) Diabetes Hypothyroidism Depression Anemia HX OF COPD (chronic obstructive pulmonary disease) Hypertension Confusion HX OF Lumbar stenosis with neurogenic claudication Ischemic ulcer of toe of left foot (Acute) Type 2 diabetes mellitus with diabetic peripheral angiopathy without gangrene (Acute) Atrial fibrillation 1 EVENT MANY YEARS AGO/"FIXED ITSELF/NO INTERVENTION" Chronic kidney disease STAGE 3 PVD (peripheral vascular disease) with claudication Elevated troponin I level (Resolved) Right humeral fracture (Resolved) Spinal stenosis, other region (Resolved) Acute kidney injury (Ruled-out) Coronary artery disease Hypercholesterolemia Hypothyroidism Surgical History S/P knee surgery (Resolved) LEFT S/P tonsillectomy (Resolved) Family history of reaction to anesthesia MOTHER SLOW TO WAKE UP Fusion of spine LUMBAR FUSION History of anesthesia reaction S/P LUMBAR SURGERY-3 DAYS OF CONFUSION History of cataract surgery RT/LEFT History of colonoscopy History of esophagogastroduodenoscopy (EGD) History of tooth extraction Family History Mother Family history of diabetes mellitus Social History Preferred Language: Uzbek Communication Ability: Effective Electrical Prospecting 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 Required: No Beliefs That Will Affect Care: None marital status: Current Living Situation: Spouse Current Living Situation Comment: Lives with current occupational status: retired Other Information That Helps Us Care for You: No Feels Safe at Home: Yes Safety Concerns: Feels Safe At This Time Smoking Status: Never smoker Do You Dip or Chew Tobacco: No Second Hand Exposure: No Tobacco Cessation Education Requested by Patient: No Hx Alcohol Use: No Hx Substance Use: No Review of Systems Constitutional: no fever Respiratory: no cough and no dyspnea Cardiovascular: no chest pain Gastrointestinal: no abdominal pain, no vomiting and no diarrhea/loose stools Physical Exam Constitutional: + overweight; not in distress Eyes: PERRL, conjunctivae normal, anicteric sclerae Neck: trachea midline, no thyromegaly Respiratory: normal respiratory effort, lungs clear to auscultation no respiratory distress Cardiovascular: RRR, no murmur, no edema Gastrointestinal (Abdomen): normal bowel sounds, soft, nontender, no hepatosplenomegaly Skin: no rashes, warm and dry Results & Data Vital Signs (Past 12 Hours) Vital Signs Temp Pulse Pulse Resp BP BP Pulse Ox 08/04/18 10:11 64 29 H 122/55 L 97 08/04/18 10:00 63 16 92 08/04/18 09:00 65 19 98 08/04/18 08:03 61 26 H 96 08/04/18 08:02 36.8 C 63 23 120/44 L 95 08/04/18 08:00 62 18 94 08/04/18 07:01 65 25 H 105/64 92 08/04/18 07:00 65 26 H 90 08/04/18 06:45 64 16 94 08/04/18 06:00 64 28 H 112/44 L 95 08/04/18 04:00 76 20 116/45 L 96 08/04/18 03:00 37.4 C 70 26 H 106/51 L 95 08/04/18 02:00 67 22 124/54 L 91 08/04/18 01:00 73 22 103/52 L 93 08/04/18 00:00 37.1 C 71 24 109/69 91 08/03/18 23:30 74 Laboratory Results Laboratory Tests 08/04/18 08/04/18 04:58 04:58 WBC 11.43 H Hgb 9.7 L Hct 28.4 L Plt Count 223 Sodium 134 L Potassium 4.7 Chloride 101 Carbon Dioxide 22 BUN 71 H D Creatinine 5.11 H* D Glucose 133 H (1) Acute ST elevation myocardial infarction (STEMI) Involved coronary artery: unspecified coronary artery Qualified Code(s): I21.3 - ST elevation (STEMI) myocardial infarction of unspecified site
[2018-08-04] MEDS: CEFEPIME 1,000 MG in SYRINGE 0 ML IV SCH (14:03)
[2018-08-04 15:47] LABS: Appearance Urine Turbid (Clear); Bacteria Urine Automated Negative (Negative); Blood Urine 3+ (Negative); Color Urine Dark Yellow; Epithelial Cell Urine Auto >30 /lpf (0-5); Glucose Urine UA 1+ (Negative); Ketones Urine Trace (Negative); Leukocyte Esterase Urine 2+ (Negative); Nitrite Urine Positive (Negative); Protein Urine 2+ (Negative); Specific Gravity Urine > 1.045 (1.000-1.030); Urobilinogen Urine Negative (Negative)
[2018-08-04 15:58] LABS: Bilirubin Urine Negative (Negative); Ictotest Urine Negative (Negative)
[2018-08-04 16:01] LABS: RBC Urine Automated >30 /hpf (0-4)
[2018-08-04 16:02] LABS: Cast Urine Automated 0 /lpf (0-5)
[2018-08-04] MEDS ORDERED: PROMETHAZINE HCL 25 MG TAB PO PRN (18:01)
[2018-08-04] MEDS: ATORVASTATIN 20 MG TAB PO SCH (20:04)
[2018-08-04] MEDS: INSULIN GLARGINE SOLOSTAR 100 UNITS/ML 3 ML PEN SQ SCH (20:10)
--- NOTE | 2018-08-04 23:01 | Hospitalist Progress Note ---
Date of Service August 04, 2018 Assessment & Plan (1) Acute ST elevation myocardial infarction (STEMI): - Admit to ICU s/p cardiac cath - Cardiology consult: Dr. Buchanan. Dr. López completed cardiac cath with JUSTICE to LAD and circumflex - Last echo completed on 09/29/2016, showing normal systolic function, grade 1 diastolic dysfunction. We will repeat a 2D echo today - CXR reviewed showing pulmonary edema, will order Lasix 40 mg IV BID, strict I/os, daily weights - Continue dual antiplatelet per cardiology - brillinta and heparin gtt - CKMB =12.4, initial troponin = 1.720, trend - Continue metoprolol 25 mg BID, isosorbide mononitrate 90 mg QAM, amlodipine 5 mg QAM, telmisartan 80 mg daily- BP appears to be stable now, maximal elevation was 165/83 when in the ER. - Pain free, VSS. Appreciate input from cardio: She was in respiratory distress around the time of the cardiac catheterization and post procedure required diuretics and transient BiPAP support. Her volume status is improved. Echocardiogram performed: Patient clinically improving today. Echo revealed severe left ventricular systolic dysfunction, ejection fraction in the range of 20 to 25%. Continue dual antiplatelet therapy with aspirin and ticagrelor, continue metoprolol succinate 25 mg twice daily, although patient's transaminases are mildly elevated, continue current dose of atorvastatin. In regards, to SOB, will continue to monitor for now. Critical care managamenet per intensivisit. (2) Hypertension: - Continue antihypertensives as above (3) HLD (hyperlipidemia): -Continue statin therapy (4) Acute and chronic respiratory failure with hypoxia: - Secondary to pulmonary edema -managemnt per intensivisit. -If patient worsenes, may require bipap or intubation - O2 supplemental (5) Acute pulmonary edema: -Likely that this is secondary to acute AL occurring. (6) COPD (chronic obstructive pulmonary disease): -Continue Pro Air, Symbicort, -Does not appear to be an acute COPD exacerbation, rather pulmonary edema is contributing. -CXR reviewed showing small bilateral pleural effusion, congestive failure, continue diuretics as above. (7) Diabetes: -Accu-Cheks ACHS -Reduce Lantus today to 25 U compared to her home 42 units at bedtime, continue ISS. -Diabetic diet (8) Lumbar stenosis with neurogenic claudication: -Stable, continue Tylenol as needed pain (9) Hypothyroidism: -Continue levothyroxine (10) CKD (chronic kidney disease), stage III: -Patient has acute on chronic kidney injury. No indication for HD at this time per Nephro. (11) Anemia: -Secondary to CKD (12) Depression: -Continue Prozac (13) Morbid obesity with BMI of 40.0-44.9, adult: -heart healthy/diabetic diet, diet and exercise to be encouraged upon discharge (14) Diabetic toe ulcer: - Left 4th toe involvement, following with wound care as outpt. Pt was scheduled for debridement this Wednesday with Dr. Jerome, with possible IV antibiotics. - Consult wound care, no surrounding erythema - Continue Cipro 500 mg PO BID for now - Consider consultation of ortho, Dr. Jerome. For now will need to postpone the procedure. (15) DVT prophylaxis: -Teds, SCDs Subjective Pateitn reports feeling more short of breath today. Patient denies any other symptoms. No chestpain, nausea, vomiting. Review of Systems Review of Systems: All systems reviewed & are unremarkable except as noted in HPI & below Physical Exam Physical Exam: General: awake, alert, does not appear to be in any distress. Head: Normocephalic, atraumatic ENT: PERRL, EOMI, no pharyngeal exudate, mucous membranes moist Chest: Clear to auscultation, off BIPAP diminished breath sounds Cardiac: Regular rate and rhythm, no murmur, no JVD, normal peripheral pulses, good capillary refill Abdominal: NABS x 4 quadrants, mildly distended, soft, nontender to palpation, no rebound, guarding or tenderness Extremities: No peripheral edema or erythema, + left 4th toe with ulceration with black eschar overlying, no surrounding erythema, calfs nontender to palpation Psych: Normal mood and affect Neuro: AAO x 3, no motor deficits, speech is clear. Results & Data Vital Signs (Past 12 Hours) Vital Signs Temp Pulse Resp BP Pulse Ox 08/04/18 22:02 70 29 H 154/65 H 98 08/04/18 22:00 71 25 H 82 L 08/04/18 21:01 69 28 H 153/71 H 100 08/04/18 21:00 69 25 H 94 08/04/18 20:19 74 99 08/04/18 20:17 74 23 96 08/04/18 20:16 73 23 153/70 H 98 08/04/18 20:00 76 27 H 87 L 08/04/18 19:05 73 24 122/53 L 87 L 08/04/18 19:00 72 28 H 69 L 08/04/18 18:02 71 20 85 L 08/04/18 18:01 71 28 H 125/75 89 L 08/04/18 18:00 71 23 73 L 08/04/18 17:01 66 23 89 L 08/04/18 17:00 66 27 H 80 L 08/04/18 16:02 67 19 08/04/18 16:01 67 29 H 146/59 H 81 L 08/04/18 16:00 36.9 C 67 20 79 L 08/04/18 15:12 66 30 H 139/58 L 93 08/04/18 15:01 64 22 141/66 H 08/04/18 15:00 65 25 H 94 08/04/18 14:02 63 21 95 08/04/18 14:01 64 30 H 135/59 L 94 08/04/18 14:00 64 22 96 08/04/18 13:35 65 23 113/46 L 08/04/18 13:02 64 26 H 113/46 L 93 08/04/18 13:00 63 16 78 L 08/04/18 12:01 66 20 134/58 L 92 08/04/18 12:00 68 21 95 (1) Acute ST elevation myocardial infarction (STEMI) Involved coronary artery: unspecified coronary artery Qualified Code(s): I21.3 - ST elevation (STEMI) myocardial infarction of unspecified site
[2018-08-05] MEDS ORDERED: DiphenhydrAMINE HCL 50 MG/ML VIAL IV STA (02:01)
[2018-08-05] MEDS ORDERED: LORazepam 1 MG/2 ML VIAL IV STA (03:25)
[2018-08-05] MEDS ORDERED: LORazepam 2 MG/4 ML VIAL ONE (03:27)
[2018-08-05] MEDS ORDERED: FUROSEMIDE 40 MG/4 ML VIAL IV STA (03:29)
[2018-08-05] MEDS ORDERED: BUMETANIDE 1 MG in SYRINGE 0 ML IV ONE (03:45)
[2018-08-05 04:27] LABS: iSTAT Allen Test Pass; iSTAT Arterial Blood Gas HCO3 15 meg/L (19-24); iSTAT Arterial Blood Gas pCO2 41 mmHg (35-46); iSTAT Arterial Blood Gas pH 7.19 (7.35-7.45); iSTAT Carbon Dioxide 17 mEq/l (24-31); iSTAT FiO2 75 %; iSTAT Site L Radial
[2018-08-05] MEDS ORDERED: RAPID SEQUENCE INDUCTION BAG ONE (04:38)
[2018-08-05 04:40] LABS: Hematocrit (blood only) 32.6 % (37-47); Hemoglobin 10.8 g/dL (12.0-16.0); Mean Corpuscular Hgb Conc 33.1 g/dL (32-36); Mean Corpuscular Volume 91.1 fL (80-100); Mean Platelet Volume 11.5 fL (7.4-10.4); Platelet Count 316 K/uL (130-400); RDW Coefficient of Variation 15.3 % (11.5-14.5); RDW Standard Deviation 51.1 fL (36.4-46.3); Red Blood Count 3.58 M/uL (4.2-5.4); White Blood Count 18.18 K/uL (4.8-10.8)
[2018-08-05] MEDS ORDERED: PROPOFOL IV EMULSION 10 MG/ML 100 ML VIAL IV ONE (04:44)
[2018-08-05] MEDS ORDERED: PROPOFOL 1,000 MG/100 ML VIAL IV SCH (04:45)
[2018-08-05 05:18] LABS: Albumin Globulin Ratio 0.6 (0.9-2); Albumin Level 2.9 gm/dl (3.4-5.0); Bilirubin,Total 0.8 mg/dl (0.2-1); Calcium 8.2 mg/dl (8.5-10.1); Creatinine Clr Calc Pharmacy 7.6 ml/min; Magnesium 2.4 mg/dl (1.8-2.4); Potassium 6.1 mmol/L (3.5-5.1); Total Protein 7.9 gm/dl (6.4-8.2)
[2018-08-05 05:29] LABS: BUN Creatinine Ratio 15.7 (10-20); Beta-Hydroxybutyrate 2.76 mg/dl (0.2-2.81); Est GFR (African American) 5.8
[2018-08-05] MEDS ORDERED: CALCIUM GLUCONATE 10% 1,000 MG in SODIUM CHLORIDE 0.9% 50 ML IV ONE (05:30)
--- NOTE | 2018-08-05 05:31 | Emergency Department Note ---
ED Visit Note Intubation Note 08/05/2018 I was called to the ICU by Dr. Najera to secure this patient's airway. Upon arrival, the patient had an O2 saturation of 84% on BiPAP. On physical exam, she had extremely diminished breath sounds in the right lung with diffuse rales in the left lung. Her airway was inspected. She had extremely dry lips and bleeding to the inside of the lower lip. Equipment was prepared. The patient was sedated with 30 mg of IV etomidate. A glide scope was used to visualize the airway. A 7.5 endotracheal tube was passed without difficulty. The patient had detectable breath sounds in the left and right although they were extremely diminished on the right. There was condensation in the endotracheal tube and there was end-tidal CO2 colorimetric change noted. The patient tolerated the procedure well. A post intubation x-ray will be obtained. I discussed the case with Dr. Najera. . : Acute ST elevation myocardial infarction (STEMI) Qualifiers: Involved coronary artery: unspecified coronary artery Qualified Code(s): I21.3 - ST elevation (STEMI) myocardial infarction of unspecified site
[2018-08-05] MEDS ORDERED: ICU PROTOCOL FOR HYPERGLYCEMIA PRN (06:00)
[2018-08-05] MEDS ORDERED: INSULIN PROTOCOL GOAL RANGE ONE (06:13)
[2018-08-05] MEDS ORDERED: SEVERE STRESS LEVEL ONE (06:17)
[2018-08-05] MEDS ORDERED: NovoLIN-R BOLUS FROM BAG IV ONE (06:30)
[2018-08-05] MEDS ORDERED: INSULIN REGULAR 250 UNITS in SODIUM CHLORIDE 0.9% 247.5 ML IV SCH (06:30)
--- NOTE | 2018-08-05 07:19 | XRay Report ---
SINGLE VIEW CHEST CLINICAL HISTORY: Endotracheal tube repositioning. FINDINGS: An AP, portable, upright chest radiograph is compared to studies performed earlier the same day 08/05/2018. The examination is degraded by portable technique and apical lordotic positioning. An enteric tube is unchanged in position and terminates below the diaphragm. The endotracheal tube has been repositioned. The tip now projects approximately 3 cm above the morro. Electronic devices parti ally obscure the upper chest. The heart is enlarged and there is atherosclerotic calcification of the thoracic aorta. There is pulmonary vascular congestion and interstitial edema. There are small pleur al effusions with bibasilar consolidation. No pneumothorax is seen. The skeletal structures are osteo penic. The bony thorax is grossly intact. Degenerative change is noted throughout the thoracic spine. IMPRESSION: 1. Lines and tubes as above. 2. Cardiomegaly with evidence of congestive failure and interstitial edema. This is unchanged from lobo diaz today. 3. Layering pleural effusions with bibasilar consolidation. Electronically signed by: Neil Gonzales M.D. 08/05/2018 7:18 AM
--- NOTE | 2018-08-05 07:21 | XRay Report ---
SINGLE VIEW CHEST CLINICAL HISTORY: Hypoxia. Respiratory failure. FINDINGS: An AP, portable, upright chest radiograph is compared to study dated 08/03/2018. The examinat ion is significantly degraded by portable technique and apical lordotic positioning. Electronic vero laura partially obscure the upper chest. The heart is enlarged and there is atherosclerotic calcificati on of the thoracic aorta. There is pulmonary vascular congestion and interstitial edema. There are la yering pleural effusions with bibasilar consolidation. No pneumothorax is seen. The skeletal structur es are osteopenic. The bony thorax is grossly intact. Degenerative change is noted throughout the tho racic spine. IMPRESSION: 1. Cardiomegaly with evidence of congestive failure and interstitial edema. This has significantly wo rsened from 08/03/2018. 2. Layering pleural effusions with bibasilar consolidation. Electronically signed by: Neil Gonzales M.D. 08/05/2018 7:20 AM
--- NOTE | 2018-08-05 07:23 | XRay Report ---
SINGLE VIEW CHEST CLINICAL HISTORY: Respiratory failure. FINDINGS: An AP, portable, upright chest radiograph is compared to study performed earlier the same d ay 08/05/2018. The examination is degraded by portable technique and apical lordotic positioning. An e nteric tube has been placed. The tip terminates below the diaphragm. An endotracheal tube has been pl aced. The tip projects approximately 2 cm above the morro. Electronic devices partially obscure the upper chest. The heart is enlarged and there is atherosclerotic calcification of the thoracic aorta. There is pulmonary vascular congestion and interstitial edema. There are small pleural effusions with bibasilar consolidation. No pneumothorax is seen. The skeletal structures are osteopenic. Degenerati ve change is noted throughout the thoracic spine. Chronic posttraumatic change is partially visualize d in the right humeral shaft. IMPRESSION: 1. Lines and tubes as above. 2. Cardiomegaly with evidence of congestive failure and interstitial edema. This is unchanged from lobo diaz today. 3. Layering pleural effusions with bibasilar consolidation. Electronically signed by: Neil Gonzales M.D. 08/05/2018 7:22 AM
[2018-08-05] MEDS ORDERED: PANTOprazole 40 MG TAB PO SCH (09:00)
[2018-08-05] MEDS: TICAGRELOR 90 MG TAB PO SCH ×2 (09:09→21:11)
[2018-08-05] MEDS: LEVOTHYROXINE SODIUM 112 MCG TABLET PO SCH (09:09)
[2018-08-05] MEDS: HEPARIN SOD 5,000 UNIT/0.5 ML VIAL SQ SCH (09:09)
[2018-08-05] MEDS: ASPIRIN 81 MG ECTAB PO SCH (09:09)
[2018-08-05] MEDS: ISOSORBIDE MONO EXTENDED REL 30 MG TABCR PO SCH ×2 (09:10→09:53)
[2018-08-05] MEDS: GABAPENTIN 100 MG CAP PO SCH ×3 (09:10→21:12)
[2018-08-05] MEDS: ISOSORBIDE MONO EXTENDED REL 60 MG TABCR PO SCH ×2 (09:10→09:53)
[2018-08-05] MEDS: METOPROLOL SUCC 25MG EXT REL TAB PO SCH (09:11)
[2018-08-05] MEDS: INSULIN ASPART 100 UNITS/ML 3 ML PEN SC SCH ×4 (09:11→21:08)
[2018-08-05] MEDS ORDERED: SODIUM CHLORIDE 0.9% 1000ML 1,000 ML IV PRN (09:18)
[2018-08-05] MEDS: ASPIRIN 81 MG CHEW PO SCH (09:27)
--- NOTE | 2018-08-05 09:28 | Cardiology Progress Note ---
Date of Service August 05, 2018 Assessment & Plan (1) Volume overload: (2) Acute HFrEF (heart failure with reduced ejection fraction): (3) Acute kidney injury: Progressive oliguric renal insufficiency in the setting of low cardiac output, contrast administration for CT and complex coronary intervention. Patient now volume overloaded requiring endotracheal tube intubation for airway stabilization. Plan for hemodialysis access emergent dialysis for management of volume and electrolytes. (4) Hyperkalemia: Due to renal insufficiency. Patient had new left bundle branch block, likely due to elevated potassium causing QRS widening, QTC widening this morning, improved on repeat EKG after the administration of calcium gluconate. We will repeat EKG tomorrow. Proceed with dialysis for electrolyte management as noted above. (5) Acute ST elevation myocardial infarction (STEMI): Continue aspirin and ticagrelor. This can be administered via her orogastric tube. Transition metoprolol succinate to metoprolol tartrate so it may be administered via her orogastric tube. Hold isosorbide mononitrate to allow higher blood pressure, and also it cannot be administered via the orogastric tube is it cannot be crushed. Continue atorvastatin. I called and confirmed with the patient's nurse that aspirin and ticagrelor are about to be administered that she does not miss any doses. (6) Mitral regurgitation: Likely in part due to ischemic mitral regurgitation due to her myocardial infarction affecting the lateral papillary muscle. Hopefully this will improve post intervention with time. (7) NSVT (nonsustained ventricular tachycardia): No additional episodes of nonsustained ventricular tachycardia in the last 48 hours. Continue metoprolol. Optimize electrolytes. (8) Diabetic toe ulcer: Continue cefepime, ciprofloxacin on hold due to conduction system/QT prolong ation today. DVT prophylaxis: Subcutaneous heparin I had updated the patient's and daughter at the bedside this morning at 7:05 AM. Case discussed with Dr Leon of nephrology. ICU team efforts noted and appreciated. Subjective Chief complaint: Follow-up recent myocardial infarction, complicated by congestive heart failure, acute kidney injury Subjective: Events overnight reviewed and updated with patient's nurses as morning report was being performed at 705 this morning. With a ministration of IV fluids, the patient had very minimal urine output over the last 24 hours. She became progressively more restless, tachypneic overnight, did not tolerate BiPAP, and ultimately required endotracheal tube intubation for airway support this morning at 5 AM. Post intubation chest x-ray revealed severe bilateral pulmonary edema. Creatinine worse this morning up to 7.22 from 5.11 yesterday. Significant hyperkalemia also noted with potassium of 6.1 mmol/L increased compared to 4.7 yesterday. Review of Systems Review of Systems: Unobtainable due to endotracheal tube Physical Exam Constitutional: Acutely ill Respiratory: Auscultation: + rales; no rhonchi and no wheezes Cardiovascular: RRR, no murmur, no edema Vessels: no JVD (Difficult to assess as the patient is supine at 0 degrees) Extremities: no edema Gastrointestinal (Abdomen): normal bowel sounds, soft, nontender, no hepatosplenomegaly Results & Data Vital Signs (Past 12 Hours) Vital Signs Temp Pulse Resp BP Pulse Ox 08/05/18 07:44 71 36 H 89 L 08/05/18 05:29 71 39 H 88 L 08/05/18 05:13 66 34 H 159/139 H 93 08/05/18 05:02 71 32 H 119/46 L 85 L 08/05/18 04:56 72 29 H 110/59 L 91 08/05/18 04:51 75 19 118/72 85 L 08/05/18 04:21 89 28 H 90 08/05/18 04:01 37.8 C H 96 H 35 H 161/64 H 92 08/05/18 03:01 75 38 H 142/62 H 91 08/05/18 02:01 73 31 H 138/53 L 92 08/05/18 01:41 75 24 97 08/05/18 01:08 75 15 138/56 L 96 08/05/18 00:01 36.8 C 71 28 H 153/66 H 98 08/04/18 23:50 70 26 H 99 08/04/18 23:01 70 27 H 158/59 H 99 08/04/18 22:02 70 29 H 154/65 H 98 08/04/18 22:00 71 25 H 82 L Laboratory Results Cardiac Enzymes 08/05/18 Range/Units 04:33 AST 120 H (15-37) U/L CBC 08/05/18 Range/Units 04:33 WBC 18.18 H (4.8-10.8) K/uL RBC 3.58 L (4.2-5.4) M/uL Hgb 10.8 L (12.0-16.0) g/dL Hct 32.6 L (37-47) % Plt Count 316 (130-400) K/uL Comprehensive Metabolic Panel 08/05/18 Range/Units 04:33 Sodium 129 L (136-145) mmol/L Potassium 6.1 H* D (3.5-5.1) mmol/L Chloride 98 (98-107) mmol/L Carbon Dioxide 15 L (21-32) mmol/L BUN 113 H D (7-18) mg/dl Creatinine 7.22 H* D (0.6-1.2) mg/dl Glucose 344 H* (70-99) mg/dl Calcium 8.2 L (8.5-10.1) mg/dl AST 120 H (15-37) U/L ALT 45 (12-78) U/L Alkaline Phosphatase 77 (45-117) U/L Total Protein 7.9 (6.4-8.2) gm/dl Albumin 2.9 L (3.4-5.0) gm/dl Intake and Output 08/04/18 08/05/18 08/05/18 22:59 06:59 14:59 Intake Total 700 / 1830 60 / 1830 Output Total 70 / 102 Balance 695 / 1728 -1727 Intake: IV 500 / 1060 60 / 1060 Calcium Gluconate 10% 1,000 mg 60 / 60 In Nss 50 ml @ 240 mls/hr IV ONE ONE Rx#:[id number] Normosol-R 1,000 ml @ 999 mls/ 500 / 500 hr IV .Q1H1M [facility] Rx#:[id number] Oral 200 / 770 Output: Urine 70 / 70 Urine Amount (Catheter) Overton/Indwelling Other: Weight 104.8 kg Diagnostic Findings EKG performed 08/04/2018 at 818: Normal sinus rhythm at 63 bpm, age-indeterminate anterior and inferior infarct pattern is noted with T wave inversions consistent with evolution of previously noted myocardial infarction. The QRS duration is narrow at 78 ms. EKG performed 08/05/2018 at 5:21 AM: Normal sinus rhythm at 70 bpm, LBBB, QRS duration widened to 190 ms, repolarization abnormalities consistent with left bundle branch block prolonged QT interval, 522 ms EKG performed 08/05/2018 at 8:46 AM: Sinus rhythm with premature atrial contractions, QRS duration of 114 ms-improved from 190 ms and the previous tracing from this morning. Compared to the previous tracing the QT interval has also improved down to 469 ms. (1) Acute ST elevation myocardial infarction (STEMI) Involved coronary artery: unspecified coronary artery Qualified Code(s): I21.3 - ST elevation (STEMI) myocardial infarction of unspecified site
[2018-08-05] MEDS ORDERED: FAMOTIDINE 20 MG in SYRINGE 3 ML IV SCH (10:00)
[2018-08-05] MEDS ORDERED: ETOMIDATE 2 MG/ML 20 ML VIAL IV ONE (10:02)
--- NOTE | 2018-08-05 10:15 | Procedure Note ---
Procedure Note Date of Service August 05, 2018 Procedure date: Noted above Procedure: Temporary hemodialysis catheter insertion Pre-procedure indication: Need for temporary dialysis catheter placement, urgent dialysis Post-procedure Diagnosis: same as above Prior to Procedure: Informed Consent: The risks, benefits, indications, potential complications, and alternatives were explained to the patient's and informed consent obtained. Attending Staff: Adalgisa Bear DO Resident/APC: John Skin Prep: Chlorhexidine Anesthesia: 4 mL 1% lidocaine without epinephrine The identity of the patient was confirmed and a bedside time out was performed. Description of Procedure: After sterile prep and sterile drape utilizing stand lily sterile technique the superficial skin of the left internal jugular area was anesthetized. The target vessel was identified and entered with an 18-gauge needle. Dark venous blood return was noted. A guidewire was inserted through the needle and into the vessel. The needle was withdrawn and a skin roseann was made. A tissue dilator was advanced via Seldinger technique and removed. A double lumen catheter was inserted via Seldinger technique and the guidewire removed. All ports diane and flushed easily. A Biopatch was placed, and the catheter was secured via nylon suture. A sterile dressing was then applied. Complications: None Estimated blood loss: Trace Patient tolerated the procedure well. Procedure Date: Noted Above Procedure: Procedural Ultrasound Indication: Central venous access Attending: Adalgisa Bear DO Resident/Physician Glass Worker: John Artery visualized: Yes Vein visualized: Yes Compressible Vein: Yes Vein patent: Yes Guidewire or Short Catheter seen in vein prior to dilation: Yes Line confirmed in Vein with ultrasound: Yes Lung Sliding on side of attempt (if applicable): NA If no lung sliding or not obtained has CXR been ordered: Yes Impression: Successful central venous access placement Images obtained are saved for permanent record Coding CPT Codes Tubes, Drains, and Vasc Access - Tubes, Drains, and Vasc Access: Insertion of cannula for hemodialysis ([id number]) Tubes, Drains, and Vasc Access - Tubes, Drains, and Vasc Access: Ultrasound Guidance For Vascular ([id number])
[2018-08-05] MEDS: METOPROLOL TARTRATE 25 MG TAB PO SCH ×2 (11:14→21:12)
--- NOTE | 2018-08-05 11:42 | Nephrology Progress Note ---
Date of Service August 05, 2018 Assessment & Plan (1) Acute kidney injury: -- Progressive oliguric BEL following IV contrast administration and STEMI -- Patient now has CHF requiring mechanical ventilation and hyperkalemia -- Will ask ICU team to place HD catheter -- Will provide heparin free HD today for correction of electrolyte balance and attempt 3 L UF. Orders were placed in the EMR and HD RN notified (2) CKD (chronic kidney disease), stage III: -- Baseline creatinine 1.4 - 1.6 w/ EGFR 30 cc/min (3) Acute ST elevation myocardial infarction (STEMI): -- s/p emergency cardiac catheterization w/ PCI and stent placement in the LAD and circumflex coronary arteries 08/03/18 (4) Anemia: -- Mild, asymptomatic anemia. Will monitor (5) Diabetic toe ulcer: -- Antibiotic therapy as per ID (6) S/P admission to ICU (intensive care unit): -- 30 min critical care management provided today. This was necessary to review medical records, perform physical exam, discuss plan of care w/ ICU team Subjective Mrs. Pink was seen & examined in the ICU this morning. She had developed CHF this morning requiring mechanical ventilation. Patient is oliguric and creatinine has further risen to 7.2 Review of Systems Review of Systems: Unobtainable due to endotracheal tube Physical Exam Constitutional: + overweight Eyes: PERRL, conjunctivae normal, anicteric sclerae Neck: trachea midline, no thyromegaly Respiratory: coarse BS bilaterally Cardiovascular: RRR, no murmur, no edema Gastrointestinal (Abdomen): normal bowel sounds, soft, nontender, no hepatosplenomegaly Skin: no rashes, warm and dry Results & Data Vital Signs (Past 12 Hours) Vital Signs Temp Pulse Resp BP Pulse Ox 08/05/18 07:44 71 36 H 89 L 08/05/18 05:29 71 39 H 88 L 08/05/18 05:13 66 34 H 159/139 H 93 08/05/18 05:02 71 32 H 119/46 L 85 L 08/05/18 04:56 72 29 H 110/59 L 91 08/05/18 04:51 75 19 118/72 85 L 08/05/18 04:21 89 28 H 90 08/05/18 04:01 37.8 C H 96 H 35 H 161/64 H 92 08/05/18 03:01 75 38 H 142/62 H 91 08/05/18 02:01 73 31 H 138/53 L 92 08/05/18 01:41 75 24 97 08/05/18 01:08 75 15 138/56 L 96 08/05/18 00:01 36.8 C 71 28 H 153/66 H 98 08/04/18 23:50 70 26 H 99 Laboratory Results Laboratory Tests 08/05/18 08/05/18 04:33 04:33 WBC 18.18 H Hgb 10.8 L Hct 32.6 L Plt Count 316 Sodium 129 L Potassium 6.1 H* D Chloride 98 Carbon Dioxide 15 L BUN 113 H D Creatinine 7.22 H* D Glucose 344 H* Diagnostic Findings CXR 08/05/18: An AP, portable, upright chest radiograph is compared to studies performed earlier the same day 08/05/2018. The examination is degraded by portable technique and apical lordotic positioning. An enteric tube is unchanged in position and terminates below the diaphragm. The endotracheal tube has been repositioned. The tip now projects approximately 3 cm above the morro. Electronic devices partially obscure the upper chest. The heart is enlarged and there is atherosclerotic calcification of the thoracic aorta. There is pulmonary vascular congestion and interstitial edema. There are small pleural effusions with bibasilar consolidation. No pneumothorax is seen. The skeletal structures are osteopenic. The bony thorax is grossly intact. Degenerative change is noted throughout the thoracic spine. (1) Acute ST elevation myocardial infarction (STEMI) Involved coronary artery: unspecified coronary artery Qualified Code(s): I21.3 - ST elevation (STEMI) myocardial infarction of unspecified site
--- NOTE | 2018-08-05 11:57 | XRay Report ---
SINGLE VIEW CHEST CLINICAL HISTORY: Central venous catheter placement. FINDINGS: 2 AP, portable, upright chest radiographs are compared to studies performed earlier the manjinder 08/05/2018. The examination is degraded by portable technique and apical lordotic positioning. A left internal jugular central venous catheter has been placed. The tip projects over the SVC. Endotra cheal and enteric tubes are unchanged in position. The heart is enlarged and there is atherosclerotic calcification of the thoracic aorta. There is pulmonary vascular congestion. There this persistent a irspace consolidation throughout the right lung. Airspace consolidation in the left lung has signific antly cleared from earlier today. There are small pleural effusions with bibasilar consolidation. No pneumothorax is seen. The skeletal structures are osteopenic. The bony thorax is grossly intact. Dege nerative change is noted throughout the thoracic spine. IMPRESSION: 1. A left internal jugular central venous catheter has been placed as above. No pneumothorax is seen post procedure. 2. The remaining lines and tubes are stable. 3. Cardiomegaly with evidence of congestive failure. 4. There is asymmetric airspace consolidation, right significantly greater than left. This has signif icantly cleared as compared to earlier today and likely represents asymmetric pulmonary edema. Clinic al correlation will be required. 5. Small pleural effusions. Electronically signed by: Neil Gonzales M.D. 08/05/2018 11:56 AM
--- NOTE | 2018-08-05 13:48 | Procedure Note ---
Procedure Note Date of Service August 05, 2018 Note ARTERIAL LINE PROCEDURE NOTE: Procedure: Arterial Line Placement Attending: Dr. Bear APC: Neil Donato PA-C Indication: Monitoring on Pressors Anesthesia: 4 cc lidocaine 1% Consent was signed and placed on the chart prior to procedure. Indication, risks, and benefits were explained at length. A time-out was completed verifying correct patient, procedure, site, positioning, and implant(s) or special equipment if applicable. Conrado�s test was performed to ensure adequate perfusion. Patient�s left wrist was prepped and draped in the usual sterile fashion. Ultrasound guidance was used to aid needle placement. A 20g Arrow arterial line was introduced into the left radial artery. Catheter was not able to be threaded for 2 attempts. On the third attempt an 18-gauge arrow arterial line was introduced in the left radial artery with no difficulty in threading the wire. The needle was removed with appropriate blood return. Good waveform was observed. The patient tolerated the procedure well. Blood Loss: Minimal Complications: None Results were relayed to Dr. Bear as well as the patient's and daughter Nursing was advised that they could use the arterial line for blood draws as well as monitoring of invasive blood pressure. Coding CPT Codes Tubes, Drains, and Vasc Access - Tubes, Drains, and Vasc Access: Place Catheter In Artery ([id number])
[2018-08-05 14:28] LABS: Hepatitis B Surface Antibody Non-Immune
[2018-08-05 14:38] LABS: Hepatitis B Surface Antigen Neg (Neg)
[2018-08-05] MEDS: CEFEPIME 1,000 MG in SYRINGE 0 ML IV SCH (14:47)
[2018-08-05] MEDS: MIDAZOLAM HCL 1 MG/ML 2ML VIAL IV PRN (15:37)
[2018-08-05] MEDS ORDERED: LIDOCAINE HCL 1% 20 ML VIAL ONE (15:41)
[2018-08-05] MEDS ORDERED: ONDANSETRON INJ 2 MG/ML 2 ML VIAL ONE (16:27)
[2018-08-05] MEDS ORDERED: HEPARIN SODIUM IV ONE (17:12)
--- NOTE | 2018-08-05 17:18 | XRay Report ---
XR chest 1V portable CLINICAL HISTORY: 77 years-old Female presenting with Central line Right IJ. TECHNIQUE: Portable upright AP view of the chest was obtained. COMPARISON: 08/05/2018. FINDINGS: The patient is ADAMS rotated. Interval placement of a right internal jugular large bore catheter, possibly a Donnie catheter. This terminates at the lower SVC. Endotracheal tube remains in place terminating over 2 cm from the she a. Nasogastric tube descends below the diaphragm, terminus not visualized though the sidehole is like ly within the gastric lumen. Atherosclerosis of the aortic arch. Cardiac silhouette moderately enlarged. Extensive right mid to ba silar opacity, which in part likely represents fluid in the minor fissure and layering pleural effusi on. Underlying patchy opacity is also suspected. This is overall slightly decreased from prior. Howev er, increased opacity at the left lung base. No pneumothorax. Degenerative changes of the thoracic sp ine. External leads project over the abdomen. IMPRESSION: 1. Right IJ central venous catheter terminates in the lower SVC. No pneumothorax. 2. Appropriate positioned tubes. 3. Cardiomegaly. 4. Decreased right lung infiltrate and/or pleural effusion. A significant component of underlying co nsolidation and/or pleural effusion remains. 5. Worsened aeration of the left lung base. Left pleural effusion not excluded. Electronically signed by: Inder Celestin M.D. 08/05/2018 5:17 PM
--- NOTE | 2018-08-05 17:23 | Procedure Note ---
Procedure Note Date of Service August 05, 2018 Note Procedure Name: Venous catheter placement -temporary dialysis catheter Date of Service: 08/05/2018 Site: Right IJ Consent: Obtained in writing by Dr. Bear prior to the procedure Indication: Need for dialysis access Narritive: A time out was performed. Using bedside ultra sound, the right IJ vein was identified as well as the right carotid artery. Images were obtained and saved to the PACS system. Using strict sterile technique, the ultra sound was used to identify the right internal juglar vein and 5 Mls of 1% lidocaine was used to anesthiatize the area. With the IJ identified, a finder needle was advanced using negative pr essure until a flash was observed in the syringe. I was able to easily draw blood into the syringe. On the first 2 attempts the carotid artery was accessed. The finder needle was withdrawn and direct pressure applied. Ultrasound was used to confirm that there was no hematoma. The finder needle was then advanced using negative pressure until a flash was observed in the syringe. There was no arterial pulsation with the syringe removed. A guidewire was then easily advanced into the vein and the finder needle was withdrawn. Due to the arterial access initially, Dr. Bear was asked to confirm placement of the guidewire. Dilators successively used to expand access site after small incision was made at the guidewire insertion site. The second dilator was then removed and a dual-lumen temporary dialysis catheter was easily placed to 16cm. There was no significant ectopy on the monitor and no hemodynamic change. The guidewire was easily removed and caps were placed on each hub after adequate draw and flush with each of the two ports. A chlrhexadine disc was placed at the insertion site of the catheter. The proximal hub was then secured with two sutures. A sterile dressing was placed over the catheter. Complications: Arterial access to the right carotid artery x2 without evidence of hematoma Blood loss: 10 mls The patient tolerated the procedure well. A post procedure CXR was obtained and showed adequate placement of the catheter and no evidence of pneumothorax. At the completion of the procedure, Dr. Bear was updated. Coding CPT Codes Tubes, Drains, and Vasc Access - Tubes, Drains, and Vasc Access: Insertion Of Non-tunneled Catheter Age 5 Yrs> ([id number]) Tubes, Drains, and Vasc Access - Tubes, Drains, and Vasc Access: Ultrasound Guidance For Vascular ([id number])
[2018-08-05] MEDS ORDERED: DIGOXIN 250 MCG in SYRINGE 9 ML IV ONE (19:15)
[2018-08-05] MEDS ORDERED: GLUCOSE 10 TABS/TUBE PO PRN (19:46)
[2018-08-05] MEDS ORDERED: GLUCOSE 40% GEL 15 GM TUBE PO PRN (19:46)
[2018-08-05] MEDS ORDERED: DEXTROSE 50% 50 ML SYRINGE IV PRN (19:46)
[2018-08-05] MEDS ORDERED: CARBOHYDRATES FOR HYPOGLYCEMIA PO PRN (19:46)
[2018-08-05] MEDS ORDERED: GLUCAGON FOR INJ 1 MG VIAL SQ PRN (19:46)
[2018-08-05] MEDS ORDERED: AMIODARONE / D5W 150 MG/100 ML BAG IV STA (19:48)
[2018-08-05] MEDS ORDERED: AMIODARONE IV BOLUS / DRIP IV STA (19:48)
--- NOTE | 2018-08-05 19:49 | Critical Care Progress Note ---
Date of Service August 05, 2018 Assessment & Plan (1) Hyperkalemia: Reason Critically Ill: Overnight patient's renal function worsened and became volume overloaded requiring intubation NEURO - Converted from propofol infusion to bolus Versed and fentanyl Gabapentin: Decreased dosing to 100 mg twice daily CARDIAC/VASCULAR - Right sided STEMI s/p cardiac catheterization: Multivessel disease, 2 stents placed; One in LAD and one in left circumflex Medical management at this time. Continue ticagrelor and aspirin, beta blanche, norvasc, atorvastatin, metoprolol, and telmisartan Nitroglycerin as needed. Will continue to monitor on telemetry Paroxysmal atrial fibrillation with rapid ventricular response -QTc 438 -Digoxin given 250 mcg load: No more digoxin -Start amiodarone with bolus and infusion -Discussed with Dr. Duran RESPIRATORY - Hypoxemic Respiratory failure: Acute: Worsened requiring intubation -New mitral regurgitation GI/NUTRITION - N.p.o. RENAL/LYTES - BEL: On hemodialysis today -Placed initially left hemodialysis cath this did not support patient flows so Neil Donato placed the right IJ temporary hemodialysis catheter - Accurate I's and O's ENDO - On insulin infusion -Converting to subcutaneous insulin HEME - Baseline anemia -Starting systemic anticoagulation secondary to paroxysmal atrial fibrillation ID - Osteomyelitis from toe ulcer Converted from Cipro to cefepime Consult ID given significant cardiac dysfunction, renal function and ciprofloxacin use -Would strongly consider alternative agent, in discussion with Dr. Michael patient will likely benefit from LifeVest to avoid QT prolonging m edications LINES/IV ACCESS - PIVs x2 -Will require PICC line for long-term antibiotics -We will continue with peripheral IVs at this time until her need for dialysis becomes more clear Temporary hemodialysis catheter placed 08/05/2018 DVT PROPHYLAXIS - SCDs -Systemic heparin infusion Dr. Lopez was resident physician during care of patient. I separately evaluated patient for hsu portions of the history and the exam. I was present during the critical portion of medical decision making, and I discussed the case with the resident. I generally agree with the findings and plan. Patient was discussed in multidisciplinary rounds Patient was discussed with Dr. Michael I have personally spent 50 minutes of critical care time in the direct management of this patient. This is a life/limb threatening event. This includes time spent evaluating patient, direct bedside care, chart review, placing orders, interpretation of diagnostic studies, discussion with consultan ts, patient, and/or family members regarding treatment decisions, as well as other required patient management activities. This time is exclusive of all separately billable procedures, and teaching time and separate from and in addition to any other critical care service time. (2) Acute HFrEF (heart failure with reduced ejection fraction): (3) Volume overload: (4) S/P admission to ICU (intensive care unit): (5) Acute kidney injury: Supervising Physician Co-Signing Physician Notes Dr. Lopez was resident physician during care of patient. I separately evaluated patient for hsu portions of the history and the exam. I was present during the critical portion of medical decision making, and I discussed the case with the resident. I generally agree with the findings and plan. Kathy Dawson intubated overnight due to worsening hypoxia. Chest XR showing pulmonary edema. dialysis catheter placed in left IJ and dialysis was started but patient was unable to tolerate and had to be discontinued, placed dialysis catheter in right IJ and patient was attempted on dialysis again. Unfortunately pateint jumped into atrial fibrillation and became tachycardic and it had to be discontinued. A line placed. Review of Systems Review of Systems: Unobtainable due to endotracheal tube Physical Exam Constitutional: + ill appearing, + obese and + frail appearing Eyes: PERRL, conjunctivae normal, anicteric sclerae Respiratory: ventilator in place, breath sounds present in all lung ortega, but globally diminished Cardiovascular: Rate/Rhythm: regular rate and regular rhythm Heart Sounds: no click, no gallop, no murmur and no cardiac rub Gastrointestinal (Abdomen): normal bowel sounds, soft, nontender, no hepatos plenomegaly Results & Data Vital Signs (Past 12 Hours) Vital Signs Temp Pulse Resp BP Pulse Ox 08/05/18 05:29 71 39 H 88 L 08/05/18 05:13 66 34 H 159/139 H 93 08/05/18 05:02 71 32 H 119/46 L 85 L 08/05/18 04:56 72 29 H 110/59 L 91 08/05/18 04:51 75 19 118/72 85 L 08/05/18 04:21 89 28 H 90 08/05/18 04:01 37.8 C H 96 H 35 H 161/64 H 92 08/05/18 03:01 75 38 H 142/62 H 91 08/05/18 02:01 73 31 H 138/53 L 92 08/05/18 01:41 75 24 97 08/05/18 01:08 75 15 138/56 L 96 08/05/18 00:01 36.8 C 71 28 H 153/66 H 98 08/04/18 23:50 70 26 H 99 08/04/18 23:01 70 27 H 158/59 H 99 08/04/18 22:02 70 29 H 154/65 H 98 08/04/18 22:00 71 25 H 82 L 08/04/18 21:01 69 28 H 153/71 H 100 08/04/18 21:00 69 25 H 94 08/04/18 20:19 74 99 08/04/18 20:17 74 23 96 08/04/18 20:16 73 23 153/70 H 98 08/04/18 20:00 76 27 H 87 L 08/04/18 19:05 73 24 122/53 L 87 L 08/04/18 19:00 72 28 H 69 L Critical Care Time Critical Care Time: Yes Total Critical Care Time: 50 Resident Activity Tracking Resident Involvement: Resident Care Provided Care Provided: Adult Hospital Medicine
[2018-08-05] MEDS ORDERED: AMIODARONE 360MG / 200ML D5W IV ONE (19:55)
[2018-08-05] MEDS ORDERED: AMIODARONE / D5W 360 MG/200 ML BAG IV SCH (20:00)
[2018-08-05] MEDS ORDERED: HEPARIN 25000 UNIT/500 ML D5W IV ONE (20:38)
[2018-08-05] MEDS ORDERED: INSULIN GLARGINE SOLOSTAR 100 UNITS/ML 3 ML PEN SC STA (20:39)
[2018-08-05 20:53] LABS: INR 1.3 (0.9-1.1); Partial Thromboplastin Ratio 1.5; Partial Thromboplastin Time 40.7 Seconds (21.0-31.0); Prothrombin Time 12.8 Seconds (9.0-12.0)
[2018-08-05 21:00] LABS: BUN Creatinine Ratio 14.9 (10-20); Calcium 8.2 mg/dl (8.5-10.1); Creatinine Clr Calc Pharmacy 9.1 ml/min; Est GFR (Non-African American) 6.1; Hematocrit (blood only) 24.3 % (37-47); Hemoglobin 8.6 g/dL (12.0-16.0); Mean Corpuscular Hgb Conc 35.4 g/dL (32-36); Mean Corpuscular Volume 86.5 fL (80-100); Mean Platelet Volume 11.4 fL (7.4-10.4); Platelet Count 203 K/uL (130-400); Potassium 5.3 mmol/L (3.5-5.1); RDW Standard Deviation 47.2 fL (36.4-46.3); Red Blood Count 2.81 M/uL (4.2-5.4); White Blood Count 14.82 K/uL (4.8-10.8)
[2018-08-05 21:06] LABS: Basophils # (auto) 0.03 K/uL (0-0.2); Basophils % (auto) 0.2 %; Echinocytes 1+; Immature Granulocytes # (auto) 0.06 K/uL (0.00-0.02); Immature Granulocytes % (auto) 0.4 %; Lymphocytes # (auto) 0.91 K/uL (1.2-3.4); Lymphocytes % (auto) 6.1 %; Monocytes % (auto) 7.4 %; Neutrophils # (auto) 12.72 K/uL (1.4-6.5); Neutrophils % (auto) 85.9 %
[2018-08-05] MEDS: ATORVASTATIN 20 MG TAB PO SCH (21:11)
[2018-08-05] MEDS ORDERED: Heparin Adult STANDARD Wt-Based Dextrose 5% 25,000 units/500 mL IV SCH (22:00)
[2018-08-05] MEDS ORDERED: HEPARIN IV BOLUS 6,000 UNITS in SYRINGE 0 ML IV ONE (22:00)
--- NOTE | 2018-08-05 22:51 | Hospitalist Progress Note ---
Date of Service August 05, 2018 Assessment & Plan (1) Acute ST elevation myocardial infarction (STEMI): - Admit to ICU s/p cardiac cath - Cardiology consult: Dr. Buchanan. Dr. López completed cardiac cath with JUSTICE to LAD and circumflex - Last echo completed on 09/29/2016, showing normal systolic function, grade 1 diastolic dysfunction. We will repeat a 2D echo today - CXR reviewed showing pulmonary edema, will order Lasix 40 mg IV BID, strict I/os, daily weights - Continue dual antiplatelet per cardiology - brillinta and heparin gtt - CKMB =12.4, initial troponin = 1.720, trend - Continue metoprolol 25 mg BID, isosorbide mononitrate 90 mg QAM, amlodipine 5 mg QAM, telmisartan 80 mg daily- BP appears to be stable now, maximal elevation was 165/83 when in the ER. - Pain free, VSS. Appreciate input from cardio: She was in respiratory distress around the time of the cardiac catheterization and post procedure required diuretics and transient BiPAP support. Her volume status is improved. Echocardiogram performed: Patient clinically improving today. Echo revealed severe left ventricular systolic dysfunction, ejection fraction in the range of 20 to 25%. Continue dual antiplatelet therapy with aspirin and ticagrelor, continue metoprolol succinate 25 mg twice daily, although patient's transaminases are mildly elevated, continue current dose of atorvastatin. Patient developed acute respiratory failre and required to be intubated overnight. Patient also developed hyperkalemia. Ordered calclium gluconate. EKG improved. Patient will require HD for hyperkalemia and respiratory failure. (2) Hypertension: - Continue antihypertensives as above (3) HLD (hyperlipidemia): -Continue statin therapy (4) Acute and chronic respiratory failure with hypoxia: - Secondary to pulmonary edema -managemnt per intensivisit. -Intubated now. (5) Acute pulmonary edema: -Likely that this is secondary to acute OK occurring and also secondary to acute kidney injury. Likely induced by contrast nephropathy. Patient appears she will need HD today. Defer to Nephro and Analyst Programmer. (6) COPD (chronic obstructive pulmonary disease): -Continue Pro Air, Symbicort, -Does not appear to be an acute COPD exacerbation, rather pulmonary edema is contributing. -Will require HD (7) Diabetes: -Accu-Cheks ACHS -Reduce Lantus today to 25 U compared to her home 42 units at bedtime, continue ISS. -Diabetic diet (8) Lumbar stenosis with neurogenic claudication: -Stable, continue Tylenol as needed pain (9) Hypothyroidism: -Continue levothyroxine (10) CKD (chronic kidney disease), stage III: -Patient has acute on chronic kidney injury. Will have HD today. (11) Anemia: -Secondary to CKD (12) Depression: -Continue Prozac (13) Morbid obesity with BMI of 40.0-44.9, adult: -heart healthy/diabetic diet, diet and exercise to be encouraged upon discharge (14) Diabetic toe ulcer: - Left 4th toe involvement, following with wound care as outpt. Pt was scheduled for debridement this Wednesday with Dr. Jerome, with possible IV antibiotics. - Consult wound care, no surrounding erythema - Continue Cipro 500 mg PO BID for now - Consider consultation of ortho, Dr. Jerome. For now will need to postpone the procedure. (15) DVT prophylaxis: -Teds, SCDs Subjective Patient is intubated and sedated. unable to obtain history. Review of Systems Review of Systems: Unobtainable due to endotracheal tube Physical Exam Physical Exam: General: Intubated and sedated. Head: Normocephalic, atraumatic ENT: PERRL, EOMI, no pharyngeal exudate, mucous membranes moist Chest: Clear to auscultation, off BIPAP diminished breath sounds Cardiac: Regular rate and rhythm, no murmur, no JVD, normal peripheral pulses, good capillary refill Abdominal: NABS x 4 quadrants, mildly distended, soft, nontender to palpation, no rebound, guarding or tenderness Extremities: No peripheral edema or erythema, + left 4th toe with ulceration wit h black eschar overlying, no surrounding erythema, calfs nontender to palpation Results & Data Vital Signs (Past 12 Hours) Vital Signs Temp Pulse Pulse Resp BP BP Pulse Ox 08/05/18 22:33 103 H 24 97 08/05/18 22:00 106 H 94 08/05/18 21:00 111 H 100 08/05/18 20:01 133 H 84/53 L 97 08/05/18 20:00 36.7 C 128 H 119 H 24 82/35 L 95 08/05/18 19:44 133 H 100/58 L 98 08/05/18 19:35 128 H 24 97 08/05/18 19:31 140 H 08/05/18 19:00 123 H 96 08/05/18 18:52 127 H 90/46 L 08/05/18 18:45 136 H 96/49 L 08/05/18 18:32 67 117/38 L 98 08/05/18 18:30 71 117/38 L 08/05/18 18:16 70 74/49 L 99 08/05/18 18:15 80 93/41 L 08/05/18 18:01 69 127/49 L 98 08/05/18 18:00 68 127/49 L 80 L 08/05/18 17:45 70 90/38 L 08/05/18 17:31 74 79/40 L 98 08/05/18 17:30 68 79/40 L 08/05/18 17:16 84 95/42 L 97 08/05/18 17:01 73 125/41 L 97 08/05/18 17:00 70 97 08/05/18 16:46 71 108/52 L 97 08/05/18 16:31 68 119/36 L 100 08/05/18 16:16 69 115/51 L 97 08/05/18 16:01 67 35 H 112/47 L 96 08/05/18 16:00 68 98 08/05/18 15:46 67 99/47 L 95 08/05/18 15:45 83 99/47 L 08/05/18 15:31 69 91/73 L 87 L 08/05/18 15:30 66 105/54 L 08/05/18 15:16 67 112/72 97 08/05/18 15:01 67 97 08/05/18 15:00 38.1 C H 67 67 108/48 L 97 08/05/18 14:46 67 97/54 L 97 08/05/18 14:31 67 98/44 L 97 08/05/18 14:17 71 113/52 L 85 L 08/05/18 14:01 68 101/68 98 08/05/18 14:00 69 98 08/05/18 13:48 69 98 08/05/18 13:47 72 92/52 L 98 08/05/18 13:32 70 29 H 106/44 L 99 08/05/18 12:32 70 105/36 L 98 06/07/19 12:16 72 119/66 99 08/05/18 12:09 73 93/58 L 100 08/05/18 12:01 74 99 08/05/18 11:52 73 26 H 100 08/05/18 11:32 67 28 H 85/41 L 99 08/05/18 11:02 71 27 H 78/45 L 100 08/05/18 11:00 69 31 H 81 L (1) Acute ST elevation myocardial infarction (STEMI) Involved coronary artery: unspecified coronary artery Qualified Code(s): I21.3 - ST elevation (STEMI) myocardial infarction of unspecified site
[2018-08-06] MEDS: fentaNYL citrate 100 MCG/2 ML VIAL IV PRN ×3 (00:39→12:26)
[2018-08-06] MEDS: INSULIN ASPART 100 UNITS/ML 3 ML PEN SC SCH ×3 (00:44→11:41)
[2018-08-06] MEDS ORDERED: PANTOprazole 40 MG in SYRINGE 0 ML IV ONE (02:00)
[2018-08-06] MEDS: AMIODARONE / D5W 360 MG/200 ML BAG IV SCH ×2 (02:11→02:49)
[2018-08-06 05:12] LABS: Hematocrit (blood only) 22.1 % (37-47); Hemoglobin 7.7 g/dL (12.0-16.0); Mean Corpuscular Hgb Conc 34.8 g/dL (32-36); Mean Corpuscular Volume 87.7 fL (80-100); Mean Platelet Volume 11.9 fL (7.4-10.4); Nucleated RBC # (auto) 0.03 K/uL (0-0); Nucleated RBC % (auto) 0.2 %; Platelet Count 211 K/uL (130-400); RDW Coefficient of Variation 15.1 % (11.5-14.5); RDW Standard Deviation 48.5 fL (36.4-46.3); Red Blood Count 2.52 M/uL (4.2-5.4); White Blood Count 12.44 K/uL (4.8-10.8)
[2018-08-06] MEDS: LEVOTHYROXINE SODIUM 112 MCG TABLET PO SCH (05:36)
[2018-08-06] MEDS ORDERED: SODIUM CHLORIDE 0.9% 250 ML IV PRN ×3 (05:38→13:36)
[2018-08-06 05:41] LABS: BUN Creatinine Ratio 15.4 (10-20); Calcium 7.4 mg/dl (8.5-10.1); Creatinine Clr Calc Pharmacy 7.6 ml/min; Est GFR (African American) 5.6; Est GFR (Non-African American) 4.9
--- NOTE | 2018-08-06 05:44 | Critical Care Progress Note ---
Date of Service August 06, 2018 Assessment & Plan (1) S/P admission to ICU (intensive care unit): (2) Volume overload: (3) Acute HFrEF (heart failure with reduced ejection fraction): (4) Hyperkalemia: (5) Paroxysmal atrial fibrillation: (6) Elevated transaminase level: Supervising Physician Co-Signing Physician Notes Dr. Lopez was resident physician during care of patient. I separately evaluated patient for hsu portions of the history and the exam. I was present during the critical portion of medical decision making, and I discussed the case with the resident. I generally agree with the findings and plan. GI bleeding following administration of heparin for atrial fibrillation with rapid ventricular response. Patient was started on amiodarone and had successful conversion to normal sinus rhythm. Atrial fibrillation was likely response to new onset hemodialysis is required secondary to significant acute kidney injury without recovery at this time. Currently we are holding the heparin secondary to GI bleeding and checking H&H every 6. She will receive 1 unit of packed red blood cells. We are holding the heparin secondary to transaminitis which is most likely secondary to relative hypoperfusion in the setting of the atrial fibrillation with rapid ventricular response but we cannot exclude medication effect.As patient is currently in normal sinus rhythm we will restart amiodarone should she develop A. fib with RVR subsequent to dialysis we are planning another round of dialysis today. Patient lost arterial line and also required additional vascular access, we will proceed with central venous access in the setting of GI bleeding and losing frequent peripheral IVs. I have personally spent 45 minutes of critical care time in the direct management of this patient. This is a life/limb threatening event. This includes time spent evaluating patient, direct bedside care, chart review, placing orders, interpretation of diagnostic studies, discussion with consultants, patient, and/or family members regarding treatment decisions, as well as other required patient management activities. This time is exclusive of all separately billable procedures, and teaching time and separate from and in addition to any other critical care service time. Update: 1440 patient had progressive widening QRS and bradycardia ultimately leading to PEA, patient was felt to be hyperkalemic and she was unable to successfully be started on dialysis, please refer to the code flowsheet for further details patient received CPR continuously for 30 minutes. Patient received 2 shocks 360 J for presumptive ventricular tachycardia versus torsades, she responded electrographically with hyperkalemia treatment including insulin calcium bicarb dextrose. We had a bedside ultrasound. After defibrillation patient did appear to have a organized contraction which converted ultimately to agonal escape beats. Cardiology was present at the bedside. After cardiology had extensive discussion with the family decision was made to stop all heroic efforts and patient at 1426. Primary cause of was hyperkalemia secondary to acute kidney injury/oliguric contrast-induced nephropathy which is secondary to contrast administration for acute coronary intervention secondary to acute ST elevation myocardial infarction secondary to coronary artery disease. Additional diagnoses that contributed to : Atrial fibrillation, diabetes, chronic kidney disease stage III, morbid obesity: BMI 40 Matter of : Natural I have personally spent 40 minutes of critical care time in the direct management of this patient. This is a life/limb threatening event. This includes time spent evaluating patient, direct bedside care, chart review, placing orders, interpretation of diagnostic studies, discussion with consultants, patient, and/or family members regarding treatment decisions, as well as other required patient management activities. This time is exclusive of all separately billable procedures, and teaching time and separate from and in addition to any other critical care service time. Subjective Ms. Kylah Vu developed a GI bleed this morning secondary to starting hep cordelia for her atrial fibrillation. We decided to hold heparin and this appeared to slow. H and H at this time showed only mild drop in hemoglobin. While still rounding on other patient's at around 1300 we were called to Ms. Vu's room for sinus bradycardia hypotension. We attempted to placed a central venous catheter at this time, but as we were doing so Ms. Vu devolved into Pulseless electrical activity. Compressions were started around 1345. Patient was given several rounds of bicarbonate and epinephrine through a drip and had no success in achieving ROSC. Kept open line of communication with and family who were present outside room throughout the code. They eventually decided at 1426 that it was time to stop treatment and Ms. Vu was pronounced . Review of Systems Review of Systems: Unobtainable due to endotracheal tube Physical Exam Physical Exam: Saw patient prior to code blue briefly, formal physical exam was not performed before she perished. In morning patient appeared ill on vent, had red blood passing through OG tube. This slowed down with holding heparin and she began to pass dark blood clots. Heart sounds dual and clear, diminished breath sounds globally. Results & Data Vital Signs (Past 12 Hours) Vital Signs Temp Pulse Pulse Resp BP BP Pulse Ox 08/06/18 03:02 37.1 C 49 L 135/32 L 98 08/06/18 03:00 50 L 97 08/06/18 02:01 51 L 114/41 L 90 08/06/18 02:00 51 L 89 L 08/06/18 01:47 50 L 114/38 L 90 08/06/18 01:09 96 H 31 H 96 08/06/18 01:04 87 89/42 L 97 08/06/18 01:03 91 H 74/49 L 97 08/06/18 01:02 87 67/45 L 97 08/06/18 01:01 92 H 76/51 L 08/06/18 01:00 92 H 08/06/18 00:02 96 H 97 08/06/18 00:01 36.9 C 103 H 107/52 L 97 08/06/18 00:00 100 H 97 08/05/18 23:18 99 H 98/63 L 97 08/05/18 23:00 102 H 95 08/05/18 22:33 103 H 24 97 08/05/18 22:00 106 H 94 08/05/18 21:00 111 H 100 08/05/18 20:01 133 H 84/53 L 97 08/05/18 20:00 36.7 C 128 H 119 H 24 82/35 L 95 08/05/18 19:44 133 H 100/58 L 98 08/05/18 19:35 128 H 24 97 08/05/18 19:31 140 H 08/05/18 19:00 123 H 96 08/05/18 18:52 127 H 90/46 L 08/05/18 18:45 136 H 96/49 L 08/05/18 18:32 67 117/38 L 98 08/05/18 18:30 71 117/38 L 08/05/18 18:16 70 74/49 L 99 08/05/18 18:15 80 93/41 L 08/05/18 18:01 69 127/49 L 98 08/05/18 18:00 68 127/49 L 80 L 08/05/18 17:45 70 90/38 L Critical Care Time Critical Care Time: Yes Total Critical Care Time: 85
[2018-08-06 07:06] LABS: INR 1.5 (0.9-1.1); Partial Thromboplastin Ratio 1.7; Prothrombin Time 15.2 Seconds (9.0-12.0)
[2018-08-06 07:18] LABS: Partial Thromboplastin Time 46.1 Seconds (21.0-31.0)
[2018-08-06] MEDS: ASPIRIN 81 MG CHEW PO SCH (08:09)
[2018-08-06] MEDS: GABAPENTIN 100 MG CAP PO SCH (08:10)
[2018-08-06] MEDS ORDERED: PANTOprazole 40 MG in SYRINGE 0 ML IV SCH (09:00)
[2018-08-06 09:28] LABS: Hematocrit (blood only) 21.1 % (37-47); Hemoglobin 7.3 g/dL (12.0-16.0); Mean Corpuscular Hgb Conc 34.6 g/dL (32-36); Mean Corpuscular Volume 87.6 fL (80-100); Mean Platelet Volume 11.4 fL (7.4-10.4); Nucleated RBC # (auto) 0.04 K/uL (0-0); Nucleated RBC % (auto) 0.3 %; Platelet Count 212 K/uL (130-400); RDW Coefficient of Variation 15.3 % (11.5-14.5); RDW Standard Deviation 48.5 fL (36.4-46.3); Red Blood Count 2.41 M/uL (4.2-5.4); White Blood Count 14.29 K/uL (4.8-10.8)
[2018-08-06] MEDS: TICAGRELOR 90 MG TAB PO SCH (09:52)
[2018-08-06] MEDS: MIDAZOLAM HCL 1 MG/ML 2ML VIAL IV PRN (09:54)
--- NOTE | 2018-08-06 10:10 | Nephrology Progress Note ---
Date of Service August 06, 2018 Assessment & Plan (1) Acute kidney injury: -- Progressive oliguric BEL following IV contrast administration and STEMI -- Continue to have evidence of acute on chronic CHF -- BEL consistent with ATN -- No signs of renal recovery -- Remains hyperkalemic -- HD yesterday complicated by rapid atrial fibrillation and dialysis catheter malfunctioning -- Orders for HD via RIJ catheter (placed 08/05) have been entered into the EMR and discussed with the HD nurse -- First dialysis treatment completed 08/05 -- Will attempt 3 L UF with HD today as tolerated (2) CKD (chronic kidney disease), stage III: -- Baseline creatinine 1.4 - 1.6 w/ EGFR 30 cc/min (3) Acute ST elevation myocardial infarction (STEMI): -- s/p emergency cardiac catheterization w/ PCI and stent placement in the LAD and circumflex coronary arteries 08/03/18 (4) Anemia: -- +melena -- Hgb down to 7.7 today -- GI consult pending -- PRBC transfusion support to be provided with HD today (5) Diabetic toe ulcer: -- Antibiotic therapy as per ID (6) S/P admission to ICU (intensive care unit): -- 30 min critical care management provided today Subjective Mrs. Pink was seen & examined in the ICU this morning. She remains intubated and sedated. Blood pressure improved. Bradycardic on amio gtt. Urine output remains low. Unfortunately, there were complications with the LIJ HD catheter. RIJ HD catheter-->adequate Qb with elevated access pressure during treatment yesterday V->A. HD yesterday complicated by rapid atrial fibrillation. Treatment stopped after 1.5 hrs. Net UF 1.1 L. Review of Systems Review of Systems: Unobtainable due to endotracheal tube and Unobtainable due to reduced consciousness Physical Exam Constitutional: + ill appearing and + overweight Eyes: PERRL, conjunctivae normal, anicteric sclerae ENMT: ETT Neck: trachea midline, no thyromegaly Respiratory: no respiratory distress Auscultation: + bronchovesicular breath sounds Cardiovascular: RRR, no murmur, no edema Gastrointestinal (Abdomen): normal bowel sounds, soft, nontender, no hepatosplenomegaly Musculoskeletal: Extremities: no cyanosis and no clubbing Skin: no rashes, warm and dry Genitourinary: Overton intact Results & Data Vital Signs (Past 12 Hours) Vital Signs Temp Pulse Resp BP Pulse Ox Pulse Ox 08/06/18 09:00 53 L 95 08/06/18 08:01 55 L 153/45 H 94 08/06/18 08:00 37.3 C 55 L 94 08/06/18 07:30 56 L 26 H 90 08/06/18 07:01 54 L 145/52 H 92 08/06/18 07:00 55 L 92 08/06/18 06:02 54 L 135/58 L 95 08/06/18 06:00 54 L 95 08/06/18 05:35 95 08/06/18 05:31 53 L 109/30 L 93 08/06/18 05:18 88 22 98 08/06/18 05:01 37.4 C 53 L 157/55 H 97 08/06/18 05:00 53 L 08/06/18 04:01 49 L 133/42 L 97 08/06/18 04:00 49 L 08/06/18 03:03 49 L 97 08/06/18 03:02 37.1 C 49 L 135/32 L 98 08/06/18 03:00 50 L 97 08/06/18 02:01 51 L 114/41 L 90 08/06/18 02:00 51 L 89 L 08/06/18 01:47 50 L 114/38 L 90 08/06/18 01:09 96 H 31 H 96 08/06/18 01:04 87 89/42 L 97 08/06/18 01:03 91 H 74/49 L 97 08/06/18 01:02 87 67/45 L 97 08/06/18 01:01 92 H 76/51 L 08/06/18 01:00 92 H 08/06/18 00:02 96 H 97 08/06/18 00:01 36.9 C 103 H 107/52 L 97 08/06/18 00:00 100 H 97 08/05/18 23:18 99 H 98/63 L 97 08/05/18 23:00 102 H 95 08/05/18 22:33 103 H 24 97 Laboratory Results Laboratory Results - last 24 hr 08/05/18 08/05/18 08/05/18 11:06 12:09 13:15 WBC RBC Hgb Hct MCV MCH MCHC RDW Std Deviation RDW Coeff of Liz Plt Count MPV Immature Gran % (Auto) Neut % (Auto) Lymph % (Auto) Atkinson % (Auto) Eos % (Auto) Baso % (Auto) Immature Gran # (Auto) Neut # (Auto) Lymph # (Auto) Atkinson # (Auto) Eos # (Auto) Baso # (Auto) Absolute Nucleated RBC Nucleated RBC % (auto) Echinocytes PT INR APTT PTT Ratio Sodium Potassium Chloride Carbon Dioxide Anion Gap BUN Creatinine Est Cr Clr Drug Dosing Est GFR ( Amer) Est GFR (Non-Af Amer) BUN/Creatinine Ratio Glucose POC Glucose 196 H 182 H 134 H Lactate Calcium Total Bilirubin AST ALT Alkaline Phosphatase Total Protein Albumin Globulin Albumin/Globulin Ratio Stool Occult Bld Scrn Hep Bs Antigen Hep Bs Antibody Hep Bs Antibody, Quant Hep B Core IgM Ab Blood Type Antibody Screen Crossmatch 08/05/18 08/05/18 08/05/18 13:39 13:39 14:06 WBC RBC Hgb Hct MCV MCH MCHC RDW Std Deviation RDW Coeff of Liz Plt Count MPV Immature Gran % (Auto) Neut % (Auto) Lymph % (Auto) Atkinson % (Auto) Eos % (Auto) Baso % (Auto) Immature Gran # (Auto) Neut # (Auto) Lymph # (Auto) Atkinson # (Auto) Eos # (Auto) Baso # (Auto) Absolute Nucleated RBC Nucleated RBC % (auto) Echinocytes PT INR APTT PTT Ratio Sodium Potassium Chloride Carbon Dioxide Anion Gap BUN Creatinine Est Cr Clr Drug Dosing Est GFR ( Amer) Est GFR (Non-Af Amer) BUN/Creatinine Ratio Glucose POC Glucose 106 H Lactate Calcium Total Bilirubin AST ALT Alkaline Phosphatase Total Protein Albumin Globulin Albumin/Globulin Ratio Stool Occult Bld Scrn Hep Bs Antigen Neg Hep Bs Antibody Non-Immune Hep Bs Antibody, Quant < 3.10 L Hep B Core IgM Ab Pending Blood Type Antibody Screen Crossmatch 08/05/18 08/05/18 08/05/18 16:11 17:53 20:16 WBC RBC Hgb Hct MCV MCH MCHC RDW Std Deviation RDW Coeff of Liz Plt Count MPV Immature Gran % (Auto) Neut % (Auto) Lymph % (Auto) Atkinson % (Auto) Eos % (Auto) Baso % (Auto) Immature Gran # (Auto) Neut # (Auto) Lymph # (Auto) Atkinson # (Auto) Eos # (Auto) Baso # (Auto) Absolute Nucleated RBC Nucleated RBC % (auto) Echinocytes PT INR APTT PTT Ratio Sodium Potassium Chloride Carbon Dioxide Anion Gap BUN Creatinine Est Cr Clr Drug Dosing Est GFR ( Amer) Est GFR (Non-Af Amer) BUN/Creatinine Ratio Glucose POC Glucose 145 H 143 H Lactate 1.9 Calcium Total Bilirubin AST ALT Alkaline Phosphatase Total Protein Albumin Globulin Albumin/Globulin Ratio Stool Occult Bld Scrn Hep Bs Antigen Hep Bs Antibody Hep Bs Antibody, Quant Hep B Core IgM Ab Blood Type Antibody Screen Crossmatch 08/05/18 08/05/18 08/05/18 20:16 20:16 20:16 WBC 14.82 H RBC 2.81 L Hgb 8.6 L Hct 24.3 L MCV 86.5 D MCH 30.6 MCHC 35.4 RDW Std Deviation 47.2 H RDW Coeff of Liz 15.0 H Plt Count 203 MPV 11.4 H Immature Gran % (Auto) 0.4 Neut % (Auto) 85.9 Lymph % (Auto) 6.1 Atkinson % (Auto) 7.4 Eos % (Auto) 0.0 Baso % (Auto) 0.2 Immature Gran # (Auto) 0.06 H Neut # (Auto) 12.72 H Lymph # (Auto) 0.91 L Atkinson # (Auto) 1.10 H Eos # (Auto) 0.00 Baso # (Auto) 0.03 Absolute Nucleated RBC Nucleated RBC % (auto) Echinocytes 1+ PT 12.8 H INR 1.3 H APTT 40.7 H PTT Ratio 1.5 Sodium 134 L Potassium 5.3 H Chloride 101 Carbon Dioxide 15 L Anion Gap 18.0 H BUN 92 H Creatinine 6.14 H* D Est Cr Clr Drug Dosing 9.1 Est GFR ( Amer) 7.0 Est GFR (Non-Af Amer) 6.1 BUN/Creatinine Ratio 14.9 Glucose 188 H POC Glucose Lactate Calcium 8.2 L Total Bilirubin AST ALT Alkaline Phosphatase Total Protein Albumin Globulin Albumin/Globulin Ratio Stool Occult Bld Scrn Hep Bs Antigen Hep Bs Antibody Hep Bs Antibody, Quant Hep B Core IgM Ab Blood Type Antibody Screen Crossmatch 08/05/18 08/06/18 08/06/18 20:28 00:35 04:21 WBC RBC Hgb Hct MCV MCH MCHC RDW Std Deviation RDW Coeff of Liz Plt Count MPV Immature Gran % (Auto) Neut % (Auto) Lymph % (Auto) Atkinson % (Auto) Eos % (Auto) Baso % (Auto) Immature Gran # (Auto) Neut # (Auto) Lymph # (Auto) Atkinson # (Auto) Eos # (Auto) Baso # (Auto) Absolute Nucleated RBC Nucleated RBC % (auto) Echinocytes PT INR APTT PTT Ratio Sodium Potassium Chloride Carbon Dioxide Anion Gap BUN Creatinine Est Cr Clr Drug Dosing Est GFR ( Amer) Est GFR (Non-Af Amer) BUN/Creatinine Ratio Glucose POC Glucose 212 H 269 H Lactate 4.2 H* Calcium Total Bilirubin AST ALT Alkaline Phosphatase Total Protein Albumin Globulin Albumin/Globulin Ratio Stool Occult Bld Scrn Hep Bs Antigen Hep Bs Antibody Hep Bs Antibody, Quant Hep B Core IgM Ab Blood Type Antibody Screen Crossmatch 08/06/18 08/06/18 08/06/18 04:40 04:40 05:42 WBC 12.44 H RBC 2.52 L Hgb 7.7 L Hct 22.1 L MCV 87.7 MCH 30.6 MCHC 34.8 RDW Std Deviation 48.5 H RDW Coeff of Ilz 15.1 H Plt Count 211 MPV 11.9 H Immature Gran % (Auto) Neut % (Auto) Lymph % (Auto) Atkinson % (Auto) Eos % (Auto) Baso % (Auto) Immature Gran # (Auto) Neut # (Auto) Lymph # (Auto) Atkinson # (Auto) Eos # (Auto) Baso # (Auto) Absolute Nucleated RBC 0.03 H Nucleated RBC % (auto) 0.2 Echinocytes PT INR APTT PTT Ratio Sodium 129 L Potassium 6.0 H Chloride 97 L Carbon Dioxide 19 L Anion Gap 13.0 H BUN 113 H Creatinine 7.36 H* D Est Cr Clr Drug Dosing 7.6 Est GFR ( Amer) 5.6 Est GFR (Non-Af Amer) 4.9 BUN/Creatinine Ratio 15.4 Glucose 258 H POC Glucose 239 H Lactate Calcium 7.4 L Total Bilirubin AST ALT Alkaline Phosphatase Total Protein Albumin Globulin Albumin/Globulin Ratio Stool Occult Bld Scrn Hep Bs Antigen Hep Bs Antibody Hep Bs Antibody, Quant Hep B Core IgM Ab Blood Type Antibody Screen Crossmatch 08/06/18 08/06/1808/06/19 06:00 06:00 09:11 WBC 14.29 H RBC 2.41 L Hgb 7.3 L Hct 21.1 L MCV 87.6 MCH 30.3 MCHC 34.6 RDW Std Deviation 48.5 H RDW Coeff of Liz 15.3 H Plt Count 212 MPV 11.4 H Immature Gran % (Auto) Neut % (Auto) Lymph % (Auto) Atkinson % (Auto) Eos % (Auto) Baso % (Auto) Immature Gran # (Auto) Neut # (Auto) Lymph # (Auto) Atkinson # (Auto) Eos # (Auto) Baso # (Auto) Absolute Nucleated RBC 0.04 H Nucleated RBC % (auto) 0.3 Echinocytes PT 15.2 H INR 1.5 H APTT 46.1 H* PTT Ratio 1.7 Sodium Potassium Chloride Carbon Dioxide Anion Gap BUN Creatinine Est Cr Clr Drug Dosing Est GFR ( Amer) Est GFR (Non-Af Amer) BUN/Creatinine Ratio Glucose POC Glucose Lactate Calcium Total Bilirubin AST ALT Alkaline Phosphatase Total Protein Albumin Globulin Albumin/Globulin Ratio Stool Occult Bld Scrn Hep Bs Antigen Hep Bs Antibody Hep Bs Antibody, Quant Hep B Core IgM Ab Blood Type A Positive Antibody Screen NEGATIVE Crossmatch See Detail 08/06/18 08/06/18 08/06/18 09:11 09:11 Unknown WBC RBC Hgb Hct MCV MCH MCHC RDW Std Deviation RDW Coeff of Liz Plt Count MPV Immature Gran % (Auto) Neut % (Auto) Lymph % (Auto) Atkinson % (Auto) Eos % (Auto) Baso % (Auto) Immature Gran # (Auto) Neut # (Auto) Lymph # (Auto) Atkinson # (Auto) Eos # (Auto) Baso # (Auto) Absolute Nucleated RBC Nucleated RBC % (auto) Echinocytes PT INR APTT PTT Ratio Sodium Pending Potassium Pending Chloride Pending Carbon Dioxide Pending Anion Gap Pending BUN Pending Creatinine Pending Est Cr Clr Drug Dosing Pending Est GFR ( Amer) Pending Est GFR (Non-Af Amer) Pending BUN/Creatinine Ratio Pending Glucose Pending POC Glucose Lactate Pending Calcium Pending Total Bilirubin Pending AST Pending ALT Pending Alkaline Phosphatase Pending Total Protein Pending Albumin Pending Globulin Pending Albumin/Globulin Ratio Pending Stool Occult Bld Scrn Positive A Hep Bs Antigen Hep Bs Antibody Hep Bs Antibody, Quant Hep B Core IgM Ab Blood Type Antibody Screen Crossmatch (1) Acute ST elevation myocardial infarction (STEMI) Involved coronary artery: unspecified coronary artery Qualified Code(s): I21.3 - ST elevation (STEMI) myocardial infarction of unspecified site
[2018-08-06 10:12] LABS: Albumin Globulin Ratio 0.6 (0.9-2); Albumin Level 2.1 gm/dl (3.4-5.0); BUN Creatinine Ratio 16.4 (10-20); Bilirubin,Total 1.1 mg/dl (0.2-1); Calcium 7.7 mg/dl (8.5-10.1); Creatinine Clr Calc Pharmacy 7.4 ml/min; Est GFR (African American) 5.4; Est GFR (Non-African American) 4.7; Globulin 3.5 gm/dl (2.5-4.0); Potassium 6.4 mmol/L (3.5-5.1); Total Protein 5.6 gm/dl (6.4-8.2)
--- NOTE | 2018-08-06 11:09 | Cardiology Progress Note ---
Date of Service August 06, 2018 Assessment & Plan (1) Acute ST elevation myocardial infarction (STEMI): Continue dual antiplatelet therapy with ticagrelor and aspirin, despite anemia. Supportive transfusion for goal hemoglobin greater than 10 given myocardial ischemia. EKG changes when patient had atrial fibrillation with rapid ventricular response last evening, along with recent AK, provide evidence that patient would benefit from supportive care with transfusion. Continue metoprolol via orogastric tube. -Hold statin due to elevated transaminases -JENNIFER/arm on hold due to acute kidney injury -Isosorbide mononitrate extended release on hold as it cannot be administered via orogastric tube. Further afterload reduction felt to be necessary, can add topical nitrates. However her blood pressure was low with her tachycardia as well as with dialysis, think we are better off waiting and see how she responds to dialysis today. (2) Acute HFrEF (heart failure with reduced ejection fraction): (3) Volume overload: (4) Acute kidney injury: Oliguric acute renal insufficiency still noted, along with hyperkalemia. Nephrology input noted and appreciated, proceed with dialysis for further volume management, management of electrolytes. Continue ventilator support as necessary until pulmonary edema pattern results. (5) Paroxysmal atrial fibrillation: Back in sinus rhythm having been in atrial fibrillation from 08/05/2018 and 1711, until just before 1 AM on 08/06/2018. Continue metoprolol and IV amiodarone. Although QT interval is prolonged, I believe the benefit of amiodarone outweighs the risks. Unfractioned heparin has been initiated for stroke prophylaxis, subsequently discontinued due to anemia. (6) Hyperkalemia: Dialysis as noted. (7) Anemia: Unfractioned heparin discontinued. Suspected GI blood loss. Need to continue dual antiplatelet therapy due to recent AK with complex PCI LAD and circumflex stents. Goal hemoglobin 10 or greater. DVT prophylaxis: Subcu heparin, knee-high compression stockings (8) Elevated transaminase level: AST level had been 39 on admission and has trended up to 4193 units/L this morning. ALT had been 19 on admission and is trended up to 2174 units/L this morning. This is likely due to hypoperfusion related to atrial fibrillation RVR, left ventricular systolic dysfunction, hemodynamic effects of low blood pressure. Atorvastatin has been placed on hold. Cautiously continue amiodarone given to keep patient out of atrial fibrillation. Subjective Chief complaint: Follow-up myocardial infarction Subjective: Patient remains intubated. Events since I had rounded on her yesterday morning were reviewed. Hemodialysis yesterday was complicated by dysfunction of the left internal jugular vein catheter, access was transitioned to a right internal jugular vein catheter, and subsequently patient developed atrial fibrillation with rapid ventricular response prompting early termination of dialysis session yesterday. Per telemetry review onset of atrial fibrillatio n with rapid ventricular response had been at 1711 yesterday 08/05/2018. She been placed on heparin infusion for stroke prophylaxis. I discussed her case by telephone with Dr. Bear last evening at 8 pm, and I recommended initiation of IV amiodarone for hopeful chemical conversion back to sinus rhythm. The patient subsequently converted to sinus rhythm just before 1 AM on 08/06/2018. She remains in sinus rhythm, sinus bradycardia noted this morning. She subsequently developed blood per rectum, Hemoccult positive stool, hemoglobin trended down from 10 point 8 in the morning of 08/05/2018 to 7.3 this morning. Unfractioned heparin is since been discontinued. Review of Systems Review of Systems: Unobtainable due to endotracheal tube Physical Exam Constitutional: + ill appearing Neck: Right internal jugular hemodialysis catheter in place Respiratory: no cough Decreased breath sounds noted bilaterally at the bases Cardiovascular: Rate/Rhythm: regular rhythm Heart Sounds: + murmur (I/mineral 6 systolic murmur heard best at the left axilla) Extremities: no edema Gastrointestinal (Abdomen): normal bowel sounds, soft, nontender, no hepatosplenomegaly Neurologic: Response to pain, and commands. Results & Data Vital Signs (Past 12 Hours) Vital Signs Temp Pulse Resp BP Pulse Ox Pulse Ox 08/06/18 09:00 53 L 95 08/06/18 08:01 55 L 153/45 H 94 08/06/18 08:00 37.3 C 55 L 94 08/06/18 07:30 56 L 26 H 90 08/06/18 07:01 54 L 145/52 H 92 08/06/18 07:00 55 L 92 08/06/18 06:02 54 L 135/58 L 95 08/06/18 06:00 54 L 95 08/06/18 05:35 95 08/06/18 05:31 53 L 109/30 L 93 08/06/18 05:18 88 22 98 08/06/18 05:01 37.4 C 53 L 157/55 H 97 08/06/18 05:00 53 L 08/06/18 04:01 49 L 133/42 L 97 08/06/18 04:00 49 L 08/06/18 03:03 49 L 97 08/06/18 03:02 37.1 C 49 L 135/32 L 98 08/06/18 03:00 50 L 97 08/06/18 02:01 51 L 114/41 L 90 08/06/18 02:00 51 L 89 L 08/06/18 01:47 50 L 114/38 L 90 08/06/18 01:09 96 H 31 H 96 08/06/18 01:04 87 89/42 L 97 08/06/18 01:03 91 H 74/49 L 97 08/06/18 01:02 87 67/45 L 97 08/06/18 01:01 92 H 76/51 L 08/06/18 01:00 92 H 08/06/18 00:02 96 H 97 08/06/18 00:01 36.9 C 103 H 107/52 L 97 08/06/18 00:00 100 H 97 08/05/18 23:18 99 H 98/63 L 97 Laboratory Results Cardiac Enzymes 08/06/18 Range/Units 09:11 AST 4193 H (15-37) U/L Coagulation 08/05/18 08/06/18 Range/Units 20:16 06:00 PT 12.8 H 15.2 H (9.0-12.0) Seconds APTT 40.7 H 46.1 H* (21.0-31.0) Seconds CBC 08/05/18 08/06/18 08/06/18 Range/Units 20:16 04:40 09:11 WBC 14.82 H 12.44 H 14.29 H (4.8-10.8) K/uL RBC 2.81 L 2.52 L 2.41 L (4.2-5.4) M/uL Hgb 8.6 L 7.7 L 7.3 L (12.0-16.0) g/dL Hct 24.3 L 22.1 L 21.1 L (37-47) % Plt Count 203 211 212 (130-400) K/uL Neut # (Auto) 12.72 H (1.4-6.5) K/uL Lymph # (Auto) 0.91 L (1.2-3.4) K/uL Rains # (Auto) 1.10 H (0.11-0.59) K/uL Eos # (Auto) 0.00 (0-0.5) K/uL Baso # (Auto) 0.03 (0-0.2) K/uL Comprehensive Metabolic Panel 08/05/18 08/06/18 08/06/18 Range/Units 20:16 04:40 09:11 Sodium 134 L 129 L 130 L (136-145) mmol/L Potassium 5.3 H 6.0 H 6.4 H* (3.5-5.1) mmol/L Chloride 101 97 L 96 L (98-107) mmol/L Carbon Dioxide 15 L 19 L 14 L (21-32) mmol/L BUN 92 H 113 H 124 H (7-18) mg/dl Creatinine 6.14 H* D 7.36 H* D 7.59 H* (0.6-1.2) mg/dl Glucose 188 H 258 H 242 H (70-99) mg/dl Calcium 8.2 L 7.4 L 7.7 L (8.5-10.1) mg/dl AST 4193 H (15-37) U/L ALT 2174 H (12-78) U/L Alkaline Phosphatase 62 (45-117) U/L Total Protein 5.6 L D (6.4-8.2) gm/dl Albumin 2.1 L (3.4-5.0) gm/dl Intake and Output 08/05/18 08/06/18 08/06/18 22:59 06:59 14:59 Intake Total 300 / 703.767 360.757 / 703.767 72.923 / 72.923 Output Total Balance 299 / 674.767 333.757 / 674.767 72.923 / 72.923 Intake: IV 100 / 503.767 360.757 / 503.767 72.923 / 72.923 NEXTERONE / D5W 150 mg In 100 100 / 100 ml @ 600 mls/hr IV ONE STA Rx#: [id number] NEXTERONE / D5W 360 mg In 200 210.577 / 210.577 72.923 / 72.923 ml @ 0.5 MG/MIN 16.667 mls/hr IV .Q12H [facility] Rx#:[id number] HEPARIN SODIUM/DEXTROSE 25,000 84.15 / 84.15 units In 500 ml @ 1,350 UNITS/ HR 27 mls/hr IV .[id number] [facility] Rx #:[id number] NovoLIN R 250 UNITS In Nss 247. 0 / 43.010 5 ml @ 0 UNITS/HR IV .Q0M [facility] Rx#:[id number] Oral 200 / 200 0 / 0 Output: Urine 0 / 0 0 / 0 Stool 1 / 2 Urine Amount (Catheter) 0 25 25 / 25 Overton/Indwelling 0 / 25 25 / 25 # Bowel Movements 2 / 2 Other: Hemodialysis Ultrafiltration 1,100 Amount Weight 106 kg Diagnostic Findings EKG performed 08/05/2018 at 1900 hrs.: Atrial fibrillation 130 bpm with inferior a nd lateral ST segment depression Repeat EKG this morning 08/06/2018 at 6:45 AM revealed sinus bradycardia 54 bpm, age-indeterminate anterior infarction pattern noted, evolution of known inferior AK also noted, the corrected QT interval is prolonged at 508 ms. (1) Acute ST elevation myocardial infarction (STEMI) Involved coronary artery: unspecified coronary artery Qualified Code(s): I21.3 - ST elevation (STEMI) myocardial infarction of unspecified site
[2018-08-06] MEDS ORDERED: ATROPINE SULFATE 0.1 MG/ML 10ML SYR IV ONE (13:36)
[2018-08-06] MEDS ORDERED: NOREPINEPHRINE (Adult) 8 MG in DEXTROSE 5% 500 ML IV SCH (13:45)
--- NOTE | 2018-08-06 14:00 | Gastrointestinal Consultation ---
Date of Consultation August 06, 2018 History of Present Illness Attending Physician: Sloan Woodson 77 yo female with coplicated med history notable for STEMI this admission s/p PCI on DAPT and heparin, also ESRD on dialysis, also a fib with recent RVR/hypotension begun on amio IV now with reported melena last night with fall in hgb from 12 a few days ago to 7's. Her heparin drip was stopped this am but she was continued on DAPT; she has not had further bleeding since am. She also had marked elevation of her transaminases overnight although bili is stable. On exam, she is intubated and sedated. Abd is soft and appears non tender. Extrem are pale but warm, with 1+ peripheral pulses. There is dark black/red blood in OG suction container, but gastric lavage by me clears almost instantly. Labs reviewed. A/P: GIB - DDX includes ischemic colitis, PUD, stress gastritis, AVM bleeding. Her prognosis is poor and she is obviously high risk for any intervention. I am hoping that her bleeding will stop with stoppage of heparin drip. I d/w cards service - benefits of DAPT outweigh risks. If she continues to bleed, will plan to scope her. IV PPI in the interim, transfuse for Hgb 8. Elevated LFT's - Likely related to hypotension, amio infusion. I have asked cards service to hold amio; unfortunately, she is at high risk for recurrent hypotensive episode . Will follow LFT's for now, check lipase. Allergies Allergy/AdvReac Type Severity Reaction Status Date / Time lactase Allergy Intermediate Verified 08/01/18 14:35 [From Lactose Fast Acting Relief] sulfite Allergy Intermediate Hives Verified 07/28/18 14:55 lisinopril Allergy Mild "DID NOT Verified 07/28/18 14:55 AGREE WITH ME" clopidogrel Allergy Unknown DOES NOT Verified 07/28/18 14:55 REMEMBER REACTION Home Medications Home Medications Medication Instructions Recorded Confirmed Type aspirin [Aspirin Low Dose] 81 mg PO PM 12/03/17 08/02/18 History atorvastatin 1 tab PO QPM 12/03/17 08/02/18 History coenzyme Q10 [CoQ-10] 100 mg PO QAM 12/03/17 08/02/18 History fluoxetine 1 tab PO QAM 12/03/17 08/02/18 History insulin glargine 42 unit SUBCUT HS 10/05/18 06/04/19 History isosorbide mononitrate 1 tab PO QAM 12/03/17 08/02/18 History isosorbide mononitrate 30 mg PO QAM 12/03/17 08/02/18 History levothyroxine 1 tab PO QAM 12/03/17 08/02/18 History metoprolol tartrate 1 tab PO BID 12/03/17 08/02/18 History nitroglycerin [Nitrostat] 1 tab SUBLINGUAL Q5M PRN 12/03/17 08/02/18 History acetaminophen [Tylenol Extra 500 mg PO TID 06/30/18 08/02/18 History Strength] albuterol sulfate [ProAir HFA] 2 puff INHALATION Q6H PRN 06/30/18 08/02/18 History amlodipine 5 mg PO QAM 06/30/18 08/02/18 History budesonide-formoterol [Symbicort] 2 puff INHALATION BID PRN 06/30/18 08/02/18 History calcium carbonate-vitamin D3 1 cap PO QPM 06/30/18 08/02/18 History [Calcium 600 + D(3)] cholecalciferol (vitamin D3) 2,000 unit PO QAM 06/30/18 08/02/18 History [Vitamin D3] cyanocobalamin (vitamin B-12) 1,000 mcg PO QAM 06/30/18 08/02/18 History [Vitamin B-12] gabapentin 900 mg PO TID 06/30/18 08/02/18 History insulin aspart U-100 [Novolog 0 unit SUBCUT .SLIDING SCALE 06/30/18 08/02/18 History Flexpen U-100 Insulin] telmisartan 80 mg PO QAM 06/30/18 08/02/18 History insulin aspart (U-100) 100 unit/mL 1 unit SUBCUT QDB 07/12/18 08/02/18 History (3 mL) subcutaneous pen omega 2-mzf-ruu-fish oil 1,000 mg 2 cap PO DAILY cap 07/12/18 08/02/18 History (120 mg-180 mg) capsule ciprofloxacin 500 mg tablet 500 mg PO q12h #28 tab 07/15/18 08/02/18 Rx Patient History Medical History Diabetic toe ulcer Morbid obesity with BMI of 40.0-44.9, adult CKD (chronic kidney disease), stage III Acute pulmonary edema Acute and chronic respiratory failure with hypoxia HLD (hyperlipidemia) Acute ST elevation myocardial infarction (STEMI) (Acute) Diabetes Hypothyroidism Depression Anemia HX OF COPD (chronic obstructive pulmonary disease) Hypertension Confusion HX OF Lumbar stenosis with neurogenic claudication Ischemic ulcer of toe of left foot (Acute) Type 2 diabetes mellitus with diabetic peripheral angiopathy without gangrene (Acute) Atrial fibrillation 1 EVENT MANY YEARS AGO/"FIXED ITSELF/NO INTERVENTION" Chronic kidney disease STAGE 3 PVD (peripheral vascular disease) with claudication Elevated troponin I level (Resolved) Right humeral fracture (Resolved) Spinal stenosis, other region (Resolved) Acute kidney injury (Ruled-out) Coronary artery disease Hypercholesterolemia Hypothyroidism Surgical History S/P knee surgery (Resolved) LEFT S/P tonsillectomy (Resolved) Family history of reaction to anesthesia MOTHER SLOW TO WAKE UP Fusion of spine LUMBAR FUSION History of anesthesia reaction S/P LUMBAR SURGERY-3 DAYS OF CONFUSION History of cataract surgery RT/LEFT History of colonoscopy History of esophagogastroduodenoscopy (EGD) History of tooth extraction Family History Mother Family history of diabetes mellitus Social History Preferred Language: [place] Communication Ability: Effective Multilith Operator Required: No Beliefs That Will Affect Care: None marital status: Current Living Situation: Spouse Current Living Situation Comment: Lives with current occupational status: retired Other Information That Helps Us Care for You: No Feels Safe at Home: Yes Safety Concerns: Feels Safe At This Time Smoking Status: Never smoker Do You Dip or Chew Tobacco: No Second Hand Exposure: No Tobacco Cessation Education Requested by Patient: No Hx Alcohol Use: No Hx Substance Use: No Results & Data Vital Signs (Past 12 Hours) Vital Signs Temp Pulse Resp BP Pulse Ox Pulse Ox 08/06/18 11:44 49 L 26 H 92 08/06/18 09:00 53 L 95 08/06/18 08:01 55 L 153/45 H 94 08/06/18 08:00 37.3 C 55 L 94 08/06/18 07:30 56 L 26 H 90 08/06/18 07:01 54 L 145/52 H 92 08/06/18 07:00 55 L 92 08/06/18 06:02 54 L 135/58 L 95 08/06/18 06:00 54 L 95 08/06/18 05:35 95 08/06/18 05:31 53 L 109/30 L 93 08/06/18 05:18 88 22 98 08/06/18 05:01 37.4 C 53 L 157/55 H 97 08/06/18 05:00 53 L 08/06/18 04:01 49 L 133/42 L 97 08/06/18 04:00 49 L 08/06/18 03:03 49 L 97 08/06/18 03:02 37.1 C 49 L 135/32 L 98 08/06/18 03:00 50 L 97 08/06/18 02:01 51 L 114/41 L 90 08/06/18 02:00 51 L 89 L
[2018-08-06] MEDS ORDERED: SODIUM BICARB 8.4% INJ 50 MEQ/50 ML SYR ONE (14:16)
[2018-08-06] MEDS ORDERED: CALCIUM CHLORIDE 10% 10 ML SYR IV ONE (14:20)
--- NOTE | 2018-08-06 14:50 | Death Summary ---
Date of Service August 06, 2018 Patient suffered hyperkalemic cardiac arrest secondary to acute acute kidney injury: Contrast-induced nephropathy secondary to acute percutaneous coronary intervention secondary to acute ST elevation myocardial infarction secondary to coronary artery disease. Date of : August 06, 2018, time of 1426. Other significant conditions contributing to : Atrial fibrillation, diabetes, chronic kidney disease stage III, morbid obesity BMI 40 Manner of : Natural Family at bedside aware and grieving. Pronouncement Note Contributing Factors (1) Acute ST elevation myocardial infarction (STEMI): (2) Acute HFrEF (heart failure with reduced ejection fraction): (3) Volume overload: (4) Acute kidney injury: (5) Paroxysmal atrial fibrillation: (6) Hyperkalemia: (7) Anemia: (8) Elevated transaminase level: Additional Data Attending physician: Sloan Woodson
--- NOTE | 2018-08-06 15:02 | Cardiology Progress Note ---
Date of Service August 06, 2018 Subjective I responded to Code Blue at 13:50. Patient developed bradycardia and PEA arrest. Dr Bear was already at the bedside on my arrival, and resuscitative efforts immediately began per advanced cardiac life support protocol. Chest compressions were initiated, and patient received medication therapy including epinephrine, and medication efforts for the treatment of hyperkalemia and acidosis given her recent history of renal failure and hyperkalemia. Defibrillation took place x2 for wide-complex tachyarrhythmia consistent with ventricular tachycardia. Patient received 2 units of packed red blood cells. I-STAT labs were performed with findings of lactate level of 15 despite multiple doses of sodium bicarbonate. I maintained communication with the patient's family including her , Favian, during the resuscitative effort. After over 30 minutes of CPR, I updated the family that I did not believe that her condition was survivable as she remained pulseless. Resuscitative efforts were therefore discontinued per family request and the patient was pronounced at 14:26. Results & Data Vital Signs (Past 12 Hours) Vital Signs Temp Pulse Resp BP Pulse Ox Pulse Ox 08/06/18 11:44 49 L 26 H 92 08/06/18 09:00 53 L 95 08/06/18 08:01 55 L 153/45 H 94 08/06/18 08:00 37.3 C 55 L 94 08/06/18 07:30 56 L 26 H 90 08/06/18 07:01 54 L 145/52 H 92 08/06/18 07:00 55 L 92 08/06/18 06:02 54 L 135/58 L 95 08/06/18 06:00 54 L 95 08/06/18 05:35 95 08/06/18 05:31 53 L 109/30 L 93 08/06/18 05:18 88 22 98 08/06/18 05:01 37.4 C 53 L 157/55 H 97 08/06/18 05:00 53 L 08/06/18 04:01 49 L 133/42 L 97 08/06/18 04:00 49 L 08/06/18 03:03 49 L 97 08/06/18 03:02 37.1 C 49 L 135/32 L 98
[2018-08-06] MEDS ORDERED: METOPROLOL TARTRATE 1 MG/ML VIAL IV SCH (18:00)
[2018-08-06] MEDS ORDERED: SODIUM CHLORIDE 0.9% 10ML FLUSH IV ONE (19:17)
== END 2018-08-06 14:26 | disposition expired ==
LOC: ED 07:33 → CC 09:15 → SUATTDRO 10:57 → 1E 10:57